=== PATIENT | male | born 1970 | race Caucasian/White ===

== ENCOUNTER 2018-11-04 08:41 | Outpatient (REF) | payer MEDICAID, SELFPAY ==
[2018-11-04 15:15] LABS: ALT 32 U/L (12-78); AST 24 U/L (15-37); Albumin 4.1 g/dL (3.4-5.0); Alkaline Phosphatase 94 U/L (46-116); Anion Gap 9.8 mmol/L (3-11); BUN 22 mg/dL (7-18); Bilirubin, Total 0.5 mg/dL (0.2-1.0); CO2 27.2 mmol/L (21.0-32.0); CREATININE 0.83 mg/dL (0.70-1.30); Calcium 9.1 mg/dL (8.5-10.1); Chloride 102 mmol/L (98-107); Cholesterol 249 mg/dL (50-200); Glucose 96 mg/dL (70-100); HDL Cholesterol 36 mg/dL (40-60); LDL CHOLESTEROL 175 mg/dL (<100); Potassium 4.3 mmol/L (3.5-5.1); Sodium 139 mmol/L (136-145); Total Protein 7.5 g/dL (6.4-8.2); Triglyceride 234 mg/dL (30-150)
== END 2018-11-04 09:01 ==
LOC: NCHCN 08:41
PROVIDERS: Visit Provider Nurse Practitioner Family
DX: Z00.00 Encounter for general adult medical examination without abnormal findings (principal); Z13.228 Encounter for screening for other metabolic disorders; Z13.220 Encounter for screening for lipoid disorders
CPT/HCPCS: 80053; 80061; 83721

== ENCOUNTER 2019-05-11 15:14 | Emergency (ER) | payer MEDICAID, SELFPAY ==
[2019-05-11] VITALS (34 sets, daily range): BP systolic 123–160; BP diastolic 79–105; PULSE 64–83; RESP 6–21; TEMP 36.7; O2SAT 95–98
--- NOTE | 2019-05-11 15:19 | W.ED.GENAD ---
Discharge Plan Disposition Patient Disposition: [facility] Condition: Stable Discharge Details Chief Complaint: Chest Pain Clinical Impression: Non-ST elevation [place] (NSTEMI), Chest pain Primary Care Provider: None,None ED Provider: Migel Ross Discharge Data Discharge Date/Time-TO BE ENTERED AT DEPARTURE: 05/11/19 19:12 Medical Decision Making <JAMIE Bird - Last Filed: 05/12/19 08:49> Patient is a 48-year-old male presents today with chief complaint of chest pain that has been intermittent over the past 5 days. Patient describes the pain as aching radiating to bilateral upper extremities, worse on the right than the left. Pain is not reproducible with exertion or palpation of the chest. Is unclear how long the pain lasts when it comes on, does not stop activities secondary to the discomfort. Denies any shortness of breath, no exertional dyspnea. No recent travel. No difficulty breathing. Patient has no personal history of cardiac disease but does report that his father had a triple bypass in his mid to late 60s. No known respiratory illness. No recent illness. No cough, cold, fevers or chills. Denies any GI upset. No ETOH use. Uses oral nicotine. On exam, the patient appears to be resting comfortably. Normal cardiac exam with pulses equal in bilateral upper and lower extremities. Heart sounds normal. Regular rate and rhythm. Concerned for cardiac etiology. Also concidered pulmonary source. Plan for EKG, labs, cxr. EKG reviewed by Dr. Veliz. Please see his note. At the end of my shift, care transitioned to Dr. Ross with imaging and labs pending. Patient has received aspirin. <Migel Ross DO - Last Filed: 05/12/19 10:24> Upon my evaluation, this patient had a high probability of imminent or life-threatening deterioration, which required my direct attention, intervention, and personal management. I have personally provided 45 minutes of critical care time exclusive of time spent on separately billable procedures. Time includes review of laboratory data, radiology results, discussion with consultants, and monitoring for potential decompensation. Interventions were performed as documented above. The case was signed out to me by my colleague Leela Ortiz, we are pending laboratory work-up at that time and imaging results. Laboratory work-up has returned, demonstrates normal white count, normal platelets, normal electrolytes, normal renal function, however the patient's troponin is notably elevated at 0.87. I did reassess the patient, and for a brief review of the history, he has had a father who had triple bypass roughly 10 years older than his current age, he is a regular oral tobacco user, no over the last 5 days he has been noting progressive dyspnea, shortness of breath, and chest pain there is both been exertional and nonexertional, in addition to this he is also noted over the last 1 to 2 months that he has been increasingly fatigued when doing activities. Currently the patient states that his chest pain is marginal, and he does not want anything additional for the pain. He did receive aspirin when he arrived. EKG was done and showed no significant component of STEMI, however there were nonspecific abnormalities. In conjunction with the patient's history, cardiac risk factors, and elevated troponin I do feel that he is clearly suffering from an STEMI most likely secondary to cardiac ischemia. Heparin has been started, Plavix is given, we did contact [place] and I discussed the case with Dr. Castelan, who reviewed the labs, personally reviewed the EKGs, and the entire clinical presentation was discussed who agrees with the assessment and plan the need for transfer. He has no additional recommendations at this time. Patient will be transferred via crime scene analyst and calyx to [place] for definitive cardiology evaluation and management. I have extensively reviewed the treatment plan with the patient. I have addressed all patient concerns at this time. I have also discussed the plan with the admitting physician and they agree with the current assessment and plan and have agreed to assume responsibility for the patient. All parties demonstrate verbal understanding and agreement with our assessment and plan at this time. At time of transfer the patient was reassessed and continued to demonstrate current medical stability. No signs of acute respiratory distress requiring intubation, hemodynamic instability requiring pressor support, or rapidly declining mental status. The patient is stable for transport. EKG 15: 24 Rate 77, AL 102, QTc 446, QRS 108, junctional rhythm, no significant ST elevations or depressions except for mild less than 1 mm elevation in V6. Mild peaking of T waves. Inverted T wave is present in lead III and aVF. No significant Q waves. No evidence of STEMI. Washable atypical morphology of proximal component of QRS complex however no definitive delta wave is seen however morphology slightly atypical in lead II and aVF. These findings were reviewed with Dr. Castelan EKG 15: 15: 29 Rate 70, AL 100, QTc 432, QRS 104, junctional rhythm, consistent findings of T wave peaking, inverted T wave in lead III and aVF, and atypical proximal QRS morphology. No evidence of STEMI or other acute changes. These findings were reviewed with Dr. Castelan FINDINGS: The lung yoon are clear bilaterally. No focal pulmonary consolidation is present. The cardiac silhouette is within normal limits. The costophrenic angles are sharp. The bony structures appear unremarkable. IMPRESSION: No evidence of acute cardiopulmonary disease. Dictated and Authenticated by: Kd Youssef MD. Ordering:EDENILSON Swenson MD HPI <JAMIE Bird - Last Filed: 05/12/19 08:49> General Mode of arrival: ambulatory. Date/Time Provider Initiated Documentation: 05/11/19 15:26. Limitations to Documentation: no limitations. Information obtained by: patient, family (accompanied by significant other) and RN notes reviewed. HPI Narrative: Patient is a 48-year-old male, coming by significant other, with chief complaint of chest pain. He reports that he has had intermittent, nonreproducible chest pain for the past 5 days. States the pain has come on during various activities but does not seem to be slowly exertional driven. Denies any shortness of breath or difficulty breathing. No cardiac or pulmonary history that he is aware of. 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 States the pain typically subsides without intervention. Denies any fevers or chills. States the pain can radiate into bilateral arms, worse on the right than the left. States that pain can radiate into his back, particularly the left scapula. Related Data Allergies Allergy/AdvReac Type Severity Reaction Status Date / Time No Known Allergies Allergy Unverified 05/11/19 16:22 Review of Systems <JAMIE Bird - Last Filed: 05/12/19 08:49> Constitutional Reports as per HPI, Denies chills, Denies fever(s), Denies headache(s), Denies lethargy and Denies poor appetite Eyes Denies change in vision ENT Denies dizziness and Denies headache(s) Cardiovascular Reports as per HPI, Reports chest pain, Reports chest pain at rest, Reports chest pain with activity (pain is not solely exertion), Denies diaphoresis, Denies syncope, Denies rapid heart rate, Denies pedal edema, Denies edema, Reports radiating jaw, neck or arm pain (bilateral arms), Denies palpitations, Denies dyspnea and Denies dyspnea on exertion Respiratory Reports as per HPI, Denies chest congestion, Denies cough, Denies pain on inspiration, Denies pain with cough, Denies dyspnea, Denies dyspnea on exertion and Denies wheezing Gastrointestinal Reports as per HPI, Denies abdominal pain, Denies diarrhea, Denies nausea and Denies vomiting Genitourinary Denies system reviewed and no additional complaints, except as docu (denies change in urinary habits) Musculoskeletal Reports as per HPI and Denies back pain Integumentary/Breasts Reports as per HPI and Denies rash Neurologic Reports as per HPI, Denies dizziness, Denies syncope and Denies headache(s) Endocrine Denies palpitations Allergic/Immunologic Denies wheezing PFSH <JAMIE Bird - Last Filed: 05/12/19 08:49> Social History Smoking/Tobacco Use Status: Current every day Tobacco Type: smokeless tobacco Alcohol Intake: current Alcohol Intake frequency: holidays/special occasions only Substance use type: does not use Do you feel safe at home: Yes Do you feel safe in your relationship?: Yes Exam <JAMIE Bird - Last Filed: 05/12/19 08:49> Const General: cooperative, healthy appearing, comfortable, no acute distress and well developed Nutritional Appearance: well nourished and overweight Orientation: alert, awake and oriented x3 HENMT Head: normal to inspection Ears: hearing grossly normal bilaterally Mouth: moist mucous membranes Chest Chest: normal inspection of the chest, normal palpation of entire chest wall and no crepitus Resp Effort & Inspection: normal respiratory effort, able to speak in complete sentences and no respiratory distress Auscultation: clear to auscultation bilaterally, no rales, no rhonchi and no wheezes Cardio Rate: regular rate Rhythm: regular rhythm Heart Sounds: S1 normal and S2 normal GI Inspection: normal to inspection, no edema, non-distended and obesity Palpation: soft, no hepatosplenomegaly, not firm, no guarding, not rigid and nontender Auscultation: normal bowel sounds Back/Spine/Pelvis Back: no CVA tenderness Thoracic/Lumbar Spine: thoracic and lumbar spine normal to inspection Skin General skin exam: no rashes or lesions noted Trauma: no lacerations or abrasions Neuro General: alert, awake and oriented x3 Cognition: normal cognition Speech: speech normal Gait: normal gait Extrem General: normal to inspection, normal capillary refill, no pedal edema, no calf tenderness and normal gait Psych Appearance: grossly normal and well kempt Mental Status: mental status grossly normal Speech and Movement: speech and movement normal Sign Out <JAMIE Bird - Last Filed: 05/12/19 08:49> Sign Out Data: Sign Out Comment: Care transitioned to Dr. Ross with labs and imaging pending. Patient presenting with intermittent CP x 5 days. Received ASA. Last updated by Leela Giordano PA at 05/11/19 15:46
[2019-05-11] MEDS: Aspirin 81 MG CHEW 324 MG CH (15:34)
--- NOTE | 2019-05-11 15:34 | ED.GENADUL_ITS ---
Discharge Plan Disposition Patient Disposition: [facility] Condition: Stable Discharge Details Chief Complaint: Chest Pain Clinical Impression: Non-ST elevation [place] (NSTEMI), Chest pain Primary Care Provider: None,None ED Provider: Migel Ross Discharge Data Discharge Date/Time-TO BE ENTERED AT DEPARTURE: 05/11/19 19:12 Medical Decision Making <AJMIE Bird - Last Filed: 05/12/19 08:49> Patient is a 48-year-old male presents today with chief complaint of chest pain that has been intermittent over the past 5 days. Patient describes the pain as aching radiating to bilateral upper extremities, worse on the right than the left. Pain is not reproducible with exertion or palpation of the chest. Is unclear how long the pain lasts when it comes on, does not stop activities secondary to the discomfort. Denies any shortness of breath, no exertional dyspnea. No recent travel. No difficulty breathing. Patient has no personal history of cardiac disease but does report that his father had a triple bypass in his mid to late 60s. No known respiratory illness. No recent illness. No cough, cold, fevers or chills. Denies any GI upset. No ETOH use. Uses oral nicotine. On exam, the patient appears to be resting comfortably. Normal cardiac exam with pulses equal in bilateral upper and lower extremities. Heart sounds normal. Regular rate and rhythm. Concerned for cardiac etiology. Also concidered pulmonary source. Plan for EKG, labs, cxr. EKG reviewed by Dr. Veliz. Please see his note. At the end of my shift, care transitioned to Dr. Ross with imaging and labs pending. Patient has received aspirin. <Migel Ross DO - Last Filed: 05/12/19 10:24> Upon my evaluation, this patient had a high probability of imminent or life- threatening deterioration, which required my direct attention, intervention, and personal management. I have personally provided 45 minutes of critical care time exclusive of time spent on separately billable procedures. Time includes review of laboratory data, radiology results, discussion with consultants, and monitoring for potential decompensation. Interventions were performed as documented above. The case was signed out to me by my colleague Leela Ortiz, we are pending laboratory work-up at that time and imaging results. Laboratory work-up has returned, demonstrates normal white count, normal platelets, normal electrolytes, normal renal function, however the patient's troponin is notably elevated at 0.87. I did reassess the patient, and for a brief review of the history, he has had a father who had triple bypass roughly 10 years older than his current age, he is a regular oral tobacco user, no over the last 5 days he has been noting progressive dyspnea, shortness of breath, and chest pain there is both been exertional and nonexertional, in addition to this he is also noted over the last 1 to 2 months that he has been increasingly fatigued when doing activities. Currently the patient states that his chest pain is marginal, and he does not want anything additional for the pain. He did receive aspirin when he arrived. EKG was done and showed no significant component of STEMI, however there were nonspecific abnormalities. In conjunction with the patient's history, cardiac risk factors, and elevated troponin I do feel that he is clearly suffering from an STEMI most likely secondary to cardiac ischemia. Heparin has been started, Plavix is given, we did contact [facility] and I discussed the case with Dr. Castelan, who reviewed the labs, personally reviewed the EKGs, and the entire clinical presentation was discussed who agrees with the assessment and plan the need for transfer. He has no additional recommendations at this time. Patient will be transferred via security field supervisor and calyx to [facility] for definitive cardiology evaluation and management. I have extensively reviewed the treatment plan with the patient. I have addressed all patient concerns at this time. I have also discussed the plan with the admitting physician and they agree with the current assessment and plan and have agreed to assume responsibility for the patient. All parties demonstrate verbal understanding and agreement with our assessment and plan at this time. At time of transfer the patient was reassessed and continued to demonstrate current medical stability. No signs of acute respiratory distress requiring intubation, hemodynamic instability requiring pressor support, or rapidly declining mental status. The patient is stable for transport. EKG 15: 24 Rate 77, VT 102, QTc 446, QRS 108, junctional rhythm, no significant ST elevations or depressions except for mild less than 1 mm elevation in V6. Mild peaking of T waves. Inverted T wave is present in lead III and aVF. No significant Q waves. No evidence of STEMI. Washable atypical morphology of proximal component of QRS complex however no definitive delta wave is seen however morphology slightly atypical in lead II and aVF. These findings were reviewed with Dr. Castelan EKG 15: 15: 29 Rate 70, VT 100, QTc 432, QRS 104, junctional rhythm, consistent findings of T wave peaking, inverted T wave in lead III and aVF, and atypical proximal QRS morphology. No evidence of STEMI or other acute changes. These findings were reviewed with Dr. Castelan FINDINGS: The lung yoon are clear bilaterally. No focal pulmonary consolidation is present. The cardiac silhouette is within normal limits. The costophrenic angles are sharp. The bony structures appear unremarkable. IMPRESSION: No evidence of acute cardiopulmonary disease. Dictated and Authenticated by: Kd Youssef MD. Ordering:EDENILSON Swenson MD HPI <JAMIE Bird - Last Filed: 05/12/19 08:49> General Mode of arrival: ambulatory . Date/Time Provider Initiated Documentation: 05/11/19 15:26 . Limitations to Documentation: no limitations . Information obtained by: patient, family (accompanied by significant other) and RN notes reviewed . HPI Narrative: Patient is a 48-year-old male, coming by significant other, with chief complaint of chest pain. He reports that he has had intermittent, nonreproducible chest pain for the past 5 days. States the pain has come on during various activities but does not seem to be slowly exertional driven. Denies any shortness of breath or difficulty breathing. No cardiac or pulmonary history that he is aware of. 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 States the pain typically subsides without intervention. Denies any fevers or chills. States the pain can radiate into bilateral arms, worse on the right than the left. States that pain can radiate into his back, particularly the left scapula. Related Data Allergies Allergy/AdvReac Type Severity Reaction Status Date / Time No Known Allergies Allergy Unverified 05/11/19 16:22 Review of Systems <JAMIE Bird - Last Filed: 05/12/19 08:49> Constitutional Reports as per HPI, Denies chills, Denies fever(s), Denies headache(s), Denies lethargy and Denies poor appetite Eyes Denies change in vision ENT Denies dizziness and Denies headache(s) Cardiovascular Reports as per HPI, Reports chest pain, Reports chest pain at rest, Reports chest pain with activity (pain is not solely exertion), Denies diaphoresis, Denies syncope, Denies rapid heart rate, Denies pedal edema, Denies edema, Reports radiating jaw, neck or arm pain (bilateral arms), Denies palpitations, Denies dyspnea and Denies dyspnea on exertion Respiratory Reports as per HPI, Denies chest congestion, Denies cough, Denies pain on inspiration, Denies pain with cough, Denies dyspnea, Denies dyspnea on exertion and Denies wheezing Gastrointestinal Reports as per HPI, Denies abdominal pain, Denies diarrhea, Denies nausea and Denies vomiting Genitourinary Denies system reviewed and no additional complaints, except as docu (denies change in urinary habits) Musculoskeletal Reports as per HPI and Denies back pain Integumentary/Breasts Reports as per HPI and Denies rash Neurologic Reports as per HPI, Denies dizziness, Denies syncope and Denies headache(s) Endocrine Denies palpitations Allergic/Immunologic Denies wheezing PFSH <JAMIE Bird - Last Filed: 05/12/19 08:49> Social History Smoking/Tobacco Use Status: Current every day Tobacco Type: smokeless tobacco Alcohol Intake: current Alcohol Intake frequency: holidays/special occasions only Substance use type: does not use Do you feel safe at home: Yes Do you feel safe in your relationship?: Yes Exam <JAMIE Bird - Last Filed: 05/12/19 08:49> Const General: cooperative, healthy appearing, comfortable, no acute distress and well developed Nutritional Appearance: well nourished and overweight Orientation: alert, awake and oriented x3 HENMT Head: normal to inspection Ears: hearing grossly normal bilaterally Mouth: moist mucous membranes Chest Chest: normal inspection of the chest, normal palpation of entire chest wall and no crepitus Resp Effort & Inspection: normal respiratory effort, able to speak in complete sentences and no respiratory distress Auscultation: clear to auscultation bilaterally, no rales, no rhonchi and no wheezes Cardio Rate: regular rate Rhythm: regular rhythm Heart Sounds: S1 normal and S2 normal GI Inspection: normal to inspection, no edema, non-distended and obesity Palpation: soft, no hepatosplenomegaly, not firm, no guarding, not rigid and nontender Auscultation: normal bowel sounds Back/Spine/Pelvis Back: no CVA tenderness Thoracic/Lumbar Spine: thoracic and lumbar spine normal to inspection Skin General skin exam: no rashes or lesions noted Trauma: no lacerations or abrasions Neuro General: alert, awake and oriented x3 Cognition: normal cognition Speech: speech normal Gait: normal gait Extrem General: normal to inspection, normal capillary refill, no pedal edema, no calf tenderness and normal gait Psych Appearance: grossly normal and well kempt Mental Status: mental status grossly normal Speech and Movement: speech and movement normal Sign Out <JAMIE Bird - Last Filed: 05/12/19 08:49> Sign Out Data: Sign Out Comment: Care transitioned to Dr. Ross with labs and imaging pending. Patient presenting with intermittent CP x 5 days. Received ASA. Last updated by Leela Giordano PA at 05/11/19 15:46
[2019-05-11 16:02] LABS: ALT 31 U/L (12-78); AST 24 U/L (15-37); Albumin 4.3 g/dL (3.4-5.0); Alkaline Phosphatase 86 U/L (46-116); Anion Gap 10.9 mmol/L (3-11); BUN 20 mg/dL (7-18); Bilirubin, Total 0.4 mg/dL (0.2-1.0); CO2 24.1 mmol/L (21.0-32.0); CREATININE 0.98 mg/dL (0.70-1.30); Calcium 9.3 mg/dL (8.5-10.1); Chloride 105 mmol/L (98-107); Glucose 114 mg/dL (70-100); Magnesium 1.8 mg/dL (1.8-2.4); Potassium 4.1 mmol/L (3.5-5.1); Sodium 140 mmol/L (136-145); Total Protein 7.9 g/dL (6.4-8.2)
[2019-05-11 16:03] LABS: Prothrombin Time 9.6 sec (9.3-11.0)
[2019-05-11 16:07] LABS: Abs Immature Grans 0.03 k/cumm (0.0-0.09); Absolute Basophil Count 0.04 k/cumm (0.0-0.2); Absolute Eosinophil Count 0.12 k/cumm (0.0-0.7); Absolute Monocyte Count 0.57 k/cumm (0.11-0.7); Absolute Neutrophil Count 5.96 k/cumm (1.2-6.7); Basophils % 0.5; Eosinophils % 1.4; HCT 41.4 % (40.0-50.0); HGB 15.1 g/dL (13.5-17.5); Immature Grans % 0.3; Mean Corp. HGB Concentration 36.5 g/dL (32.0-36.0); Mean Corpuscular Hemoglobin 32.5 pg (27.0-33.0); Mean Corpuscular Volume 89.2 fL (80-95); Mean Platelet Volume 10.9 fL (8.0-11.0); Monocytes % 6.6; Neutrophils % 69.2; Platelet Count 209 x1000/uL (130-400); RBC 4.64 m/cumm (4.50-6.00); RBC Distribution Width 14.2 % (11.8-14.1); White Blood Cell Count 8.62 k/cumm (4.4-10.8)
[2019-05-11 16:08] LABS: Troponin I 0.87 ng/mL (0.00-0.06)
--- NOTE | 2019-05-11 16:14 | DI.RAD_ITS ---
SYMPTOM/DIAGNOSIS: CHEST PAIN PA AND LATERAL CHEST: There are no prior comparison exams. The heart size is normal. There is no mediastinal widening. The lungs appear clear. No infiltrate, effusion or pneumothorax is seen. IMPRESSION: Negative chest x-ray.
--- NOTE | 2019-05-11 16:18 | DI.VRAD_ITS ---
EXAM: XR Chest, 2 Views EXAM DATE/TIME: 05/11/2019 3:29 PM CLINICAL HISTORY: 48 years old, male; Type not specified; Patient HX: Chest pain, tingling in fingers bilaterally. TECHNIQUE: Imaging protocol: XR of the chest, 2 views. COMPARISON: No relevant prior studies available. FINDINGS: The lung yoon are clear bilaterally. No focal pulmonary consolidation is present. The cardiac silhouette is within normal limits. The costophrenic angles are sharp. The bony structures appear unremarkable. IMPRESSION: No evidence of acute cardiopulmonary disease. Dictated and Authenticated by: Kd Youssef MD. Ordering:EDENILSON Swenson MD
[2019-05-11] MEDS: Normal Saline 1,000 ML 125 ML IV (16:24)
[2019-05-11] MEDS: Clopidogrel 300 MG TAB PO (17:08)
--- NOTE | 2019-05-11 17:26 | NUR.NOTE ---
Nursing Note: Report given to RN at [facility]
[2019-05-15 09:56] LABS: Anaplasma phagocytophilum Negative (Negative); B. miyamotoi PCR Negative (Negative); Babesia divergens/MO-1 Negative (Negative); Babesia duncani Negative (Negative); Babesia microti Negative (Negative); Ehrlichia chaffeensis Negative (Negative); Ehrlichia ewingii/canis Negative (Negative); Ehrlichia muris eauclairensis Negative (Negative)
[2019-05-15 12:06] LABS: Lyme Ab w Rflx to Lyme Confirm Negative
== END 2019-05-11 19:12 | disposition short-term general hospital (02) ==
PROVIDERS: Physician Assistant; Emergency Provider Student in an Organized Health Care Education/Training Program; PCP Nurse Practitioner Family
DX: I21.4 Non-ST elevation (NSTEMI) myocardial infarction (principal); Z82.49 Family history of ischemic heart disease and other diseases of the circulatory system
CPT/HCPCS: 36415; 80053; 87798; 93005; 96361; 96365; 96366; 99291; 71046; 83735; 84484; 85025; 85610; 85730; 86618; 93010

== ENCOUNTER 2019-05-19 02:13 | Outpatient (CLI) | payer MEDICAID, SELFPAY ==
[2019-05-19 09:55] LABS: Anion Gap 10.7 mmol/L (3-11); BUN 18 mg/dL (7-18); CO2 25.3 mmol/L (21.0-32.0); CREATININE 0.82 mg/dL (0.70-1.30); Calcium 8.9 mg/dL (8.5-10.1); Chloride 102 mmol/L (98-107); Glucose 90 mg/dL (70-100); Potassium 4.3 mmol/L (3.5-5.1); Sodium 138 mmol/L (136-145)
== END 2019-05-19 02:33 ==
PROVIDERS: PCP Nurse Practitioner Family; Referring Provider Nurse Practitioner; Visit Provider Physician Assistant
DX: E78.2 Mixed hyperlipidemia (principal); I21.4 Non-ST elevation (NSTEMI) myocardial infarction
CPT/HCPCS: 36415; 80048

== ENCOUNTER 2019-05-19 13:20 | Observation (INO) | payer MEDICAID, SELFPAY ==
[2019-05-19] VITALS (58 sets, daily range): BP systolic 89–138; BP diastolic 57–86; PULSE 50–77; RESP 16; TEMP 36.6; O2SAT 94–100
--- NOTE | 2019-05-19 13:33 | DI.RAD_ITS ---
SYMPTOMS/DIAGNOSIS: CHEST PAIN CHEST X-RAY, PA AND LATERAL: Comparison is 05/11/19. The heart is normal in size. The lungs are clear. The mediastinal structures and pleura appear intact. IMPRESSION: Normal chest.
[2019-05-19 13:55] LABS: Abs Immature Grans 0.03 k/cumm (0.0-0.09); Absolute Basophil Count 0.04 k/cumm (0.0-0.2); Absolute Eosinophil Count 0.16 k/cumm (0.0-0.7); Absolute Lymphocyte Count 2.15 k/cumm (1.2-3.4); Absolute Monocyte Count 0.68 k/cumm (0.11-0.7); Absolute Neutrophil Count 6.79 k/cumm (1.2-6.7); Basophils % 0.4; Eosinophils % 1.6; HCT 39.6 % (40.0-50.0); HGB 14.4 g/dL (13.5-17.5); Immature Grans % 0.3; Lymphocytes % 21.8; Mean Corp. HGB Concentration 36.4 g/dL (32.0-36.0); Mean Corpuscular Hemoglobin 32.7 pg (27.0-33.0); Mean Corpuscular Volume 89.8 fL (80-95); Mean Platelet Volume 10.4 fL (8.0-11.0); Monocytes % 6.9; Platelet Count 293 x1000/uL (130-400); RBC 4.41 m/cumm (4.50-6.00); RBC Distribution Width 13.3 % (11.8-14.1); White Blood Cell Count 9.85 k/cumm (4.4-10.8)
--- NOTE | 2019-05-19 14:01 | W.ED.GENAD ---
Discharge Plan Disposition Patient Disposition: [facility] INPATIENT Condition: Serious Discharge Details Chief Complaint: Chest Pain Clinical Impression: Chest pain Primary Care Provider: Leslie He ED Provider: Jose Veliz Home Meds and New Rx's Prescriptions: No Action clopidogrel 75 mg Tablet 75 mg DAILY RF: 0 pantoprazole 40 mg Tablet,Delayed Release (Dr/Ec) 40 mg PO DAILY RF: 0 lisinopril 5 mg Tablet 0.5 mg BID RF: 0 atorvastatin 80 mg Tablet 80 mg DAILY RF: 0 sertraline 100 mg Tablet 100 mg DAILY RF: 0 aspirin 81 mg Tablet,Chewable 81 mg DAILY RF: 0 nitroglycerin 0.6 mg Tablet, Sublingual 0.4 mg RF: 0 Medical Decision Making 14:00 --48-year-old male with history of coronary artery disease status post stent on 05/12/2019 to OM1 of left circumflex, taking Plavix as prescribed, here with chest pain 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 Patient currently pain-free. He is bradycardic in the 50s and hypotensive with systolic blood pressure in the 90s. ECG reviewed and interpreted by me: Sinus bradycardia 50 bpm, normal axis, T wave inversion noted in lead III, hyperacute T waves noted V2 to V5. There are some T wave changes compared to prior ECG 05/11/2019. Plan to check troponin. --Initial troponin negative. Chest x-ray interpreted by radiology as normal. --I called [facility] cardiology and spoke with Dr. Parker and requested transfer. Dr. Parker knows the patient well from his recent admission and notes that currently no beds available to accept patient in transfer and recommends that the patient be admitted here at [facility] for further observation and trending of troponin. Patient reassessed and has remained stable here in the emergency department. He continues to be bradycardic with low normal blood pressure. Patient is on new beta-kimi and new lisinopril. I called and spoke with Dr. Adorno who will speak to Dr. Patel about the admission. 17:19 --spoke with Dr. Patel who will admit the patient. He is coming to the emerge department to evaluate the patient. Delta troponin is pending. 18:10 -- Second troponin interpreted by radiology as negative. Second troponin reviewed and interpreted by me: Sinus bradycardia 57 bpm, voltage criteria noted for LVH, peaked T's persist. No STEMI. Dr. Patel is here seeing the patient for admission. Care transition to Dr. Patel [facility] General Mode of arrival: ambulatory. Date/Time Provider Initiated Documentation: 05/19/19 13:32. Limitations to Documentation: no limitations. Information obtained by: patient. HPI Narrative: 48-year-old male with history of hyperlipidemia, hypertension, chewing tobacco, recent and STEMI status post stent 1 week ago to first obtuse marginal branch of the left circumflex artery which was 100% occluded, presents today with chief complaint of chest pain. Patient notes he was feeling well yesterday and this morning. 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 Patient notes while finishing up milking around noon he developed pain in his left arm that then radiated to his left scapula and chest. Pain was moderate and he had associated dizziness and presyncope that were severe. He took nitroglycerin x3 that did help his pain and symptoms. He currently has no pain. He denies lower extremity swelling or pain. Related Data Home Medications Medication Instructions Recorded Confirmed aspirin 81 mg DAILY 05/19/19 05/19/19 atorvastatin 80 mg DAILY 05/19/19 05/19/19 clopidogrel 75 mg DAILY 05/19/19 05/19/19 lisinopril 0.5 mg BID 05/19/19 05/19/19 nitroglycerin 0.4 mg 05/19/19 pantoprazole 40 mg PO DAILY 05/19/19 05/19/19 sertraline 100 mg DAILY 05/19/19 05/19/19 Allergies Allergy/AdvReac Type Severity Reaction Status Date / Time No Known Allergies Allergy Unverified 05/11/19 16:22 General Stated Complaint: Chest Pain BECCA: 2 Review of Systems Review of Systems All systems reviewed & are unremarkable except as noted in HPI and below Constitutional Denies fever(s) Cardiovascular Reports as per HPI, Reports chest pain, Denies syncope and Denies dyspnea Respiratory Denies dyspnea Neurologic Denies syncope [facility] Medical History (Updated 05/19/19 @ 14:08 by Jose Veliz MD) NSTEMI (non-ST elevated myocardial infarction) (Acute) Social History Smoking/Tobacco Use Status: Current every day Tobacco Type: smokeless tobacco Alcohol Intake: current Alcohol Intake frequency: holidays/special occasions only Substance use type: does not use Do you feel safe at home: Yes Do you feel safe in your relationship?: Yes Exam Const General: cooperative and no acute distress [facility] Head: normocephalic and atraumatic Mouth: moist mucous membranes Eyes Conjunctivae: normal conjunctivae Sclera: normal sclerae Neck Neck: trachea midline and supple Resp Auscultation: clear to auscultation bilaterally, no rales, no rhonchi and no wheezes Cardio Jugular venous pressure: no JVD Rate: regular rate and not tachycardic Rhythm: regular rhythm GI Palpation: soft, not firm, no guarding, no masses, not rigid and nontender Skin General skin exam: no rashes or lesions noted Neuro General: alert, awake and tone normal Extrem General: no calf tenderness and no edema Psych Appearance: grossly normal Mental Status: mental status grossly normal Course Vital Signs Temperature 36.6 C 05/19/19 13:27 Pulse 50 L 05/19/19 13:27 Respiratory Rate 16 05/19/19 13:27 Blood Pressure 100/65 05/19/19 13:27 Pulse Oximetry 100 05/19/19 13:27 Temperature 36.6 C 05/19/19 13:27 Temperature Source Skin 05/19/19 13:27 Pulse 50 L 05/19/19 13:27 Respiratory Rate 16 05/19/19 13:27 Respiratory Effort Non-Labored 05/19/19 13:27 Blood Pressure 100/65 05/19/19 13:27 Blood Pressure Position Supine 05/19/19 13:27 Pulse Oximetry 100 05/19/19 13:27 Oxygen Delivery Method Room Air 05/19/19 13:27 Oxygen Flow Rate 0 05/19/19 13:27 Lab/Test Results Lab/Test Results: Laboratory Tests Range/Units 05/19/19 13:38 WBC (4.4-10.8) k/cumm 9.85 RBC (4.50-6.00) m/cumm 4.41 L Hgb (13.5-17.5) g/dL 14.4 Hct (40.0-50.0) % 39.6 L MCV (80-95) fL 89.8 MCH (27.0-33.0) pg 32.7 MCHC (32.0-36.0) g/dL 36.4 H RDW (11.8-14.1) % 13.3 Plt Count (130-400) x1000/uL 293 MPV (8.0-11.0) fL 10.4 Immature Gran % 0.3 Neutrophils % 69.0 Lymphocytes % 21.8 Monocytes % 6.9 Eosinophils % 1.6 Basophils % 0.4 Absolute Neutrophils (1.2-6.7) k/cumm 6.79 H Absolute Lymphocytes (1.2-3.4) k/cumm 2.15 Absolute Monocytes (0.11-0.7) k/cumm 0.68 Absolute Eosinophils (0.0-0.7) k/cumm 0.16 Absolute Basophils (0.0-0.2) k/cumm 0.04
[2019-05-19 14:15] LABS: ALT 33 U/L (12-78); AST 21 U/L (15-37); Albumin 4.2 g/dL (3.4-5.0); Alkaline Phosphatase 95 U/L (46-116); BUN 23 mg/dL (7-18); Bilirubin, Total 0.6 mg/dL (0.2-1.0); CREATININE 1.18 mg/dL (0.70-1.30); Calcium 9.1 mg/dL (8.5-10.1); Chloride 100 mmol/L (98-107); Glucose 108 mg/dL (70-100); Magnesium 2.3 mg/dL (1.8-2.4); NT-proBNP 286 pg/mL; Potassium 4.5 mmol/L (3.5-5.1); Sodium 138 mmol/L (136-145); Total Protein 8.1 g/dL (6.4-8.2); Troponin I 0.06 ng/mL (0.00-0.06)
[2019-05-19 17:42] LABS: Troponin I 0.05 ng/mL (0.00-0.06)
--- NOTE | 2019-05-19 18:14 | W.PM.HP.N ---
Date of service: 05/19/19 Time of Service: 18:14 Assessment and Plan (1) Arm pain: Current visit: Yes Status: Acute Symptoms may have represented coronary insufficiency, but no evidence of ongoing ischemia. Stent closure would be primary concern, or perhaps hypoperfusion secondary to hypotension (meds?). Regardless will complete r/o protocol and will follow with beta kimi and STONE on hold for the moment. History of Present Illness Chief Complaint: arm pain, pre-syncope Narrative: 48 male, i week sp/ NSTEMI with stent left CX, sent out on beta blockerr and STONE. 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 Resolved with NTG x3. Asymptomatic since. Here in ER troponin x 2 negative, EKG without acute changes and stable. Case reviewed with team [place] [facility] advised monitoring, did not feel transfer was indicated. Patient feels entirely well, wishes to go home, but agrees to stay. Note inntial BP here 103/sys with pulse 50. Review of Systems Review of Systems All systems reviewed & are unremarkable except as noted in HPI and below PFSH Medical History NSTEMI (non-ST elevated myocardial infarction) (Acute) Social History Smoking/Tobacco Use Status: Current every day Tobacco Type: smokeless tobacco Alcohol Intake: current Alcohol Intake frequency: holidays/special occasions only Substance use type: does not use Do you feel safe at home: Yes Do you feel safe in your relationship?: Yes Meds Home Medications Medication Instructions Recorded Confirmed Type aspirin 81 mg DAILY 05/19/19 05/19/19 History atorvastatin 80 mg DAILY 05/19/19 05/19/19 History clopidogrel 75 mg DAILY 05/19/19 05/19/19 History lisinopril 0.5 mg BID 05/19/19 05/19/19 History nitroglycerin 0.4 mg 05/19/19 History pantoprazole 40 mg PO DAILY 05/19/19 05/19/19 History sertraline 100 mg DAILY 05/19/19 05/19/19 History Allergies Allergy/AdvReac Type Severity Reaction Status Date / Time No Known Allergies Allergy Unverified 05/11/19 16:22 Exam Narrative Exam Narrative: 123/57, 67, 16, 36.6. HEENT unremarkable; neck supple w/o JVD; lungs clear; heart RRR w/o MRG; abdomen soft NT; /rectal deferred; extr w/o edema pulses 2+/= Results Labs : 05/19/19 13:38 05/19/19 13:38 Laboratory Results - last 24 hr 05/19/19 05/19/19 05/19/19 13:38 13:38 17:20 WBC 9.85 RBC 4.41 L Hgb 14.4 Hct 39.6 L MCV 89.8 MCH 32.7 MCHC 36.4 H RDW 13.3 Plt Count 293 MPV 10.4 Immature Gran % 0.3 Neutrophils % 69.0 Lymphocytes % 21.8 Monocytes % 6.9 Eosinophils % 1.6 Basophils % 0.4 Absolute Neutrophils 6.79 H Absolute Lymphocytes 2.15 Absolute Monocytes 0.68 Absolute Eosinophils 0.16 Absolute Basophils 0.04 Sodium 138 Potassium 4.5 Chloride 100 Carbon Dioxide 28.0 Anion Gap 10.0 BUN 23 H Creatinine 1.18 Estimated GFR/1.73 m2 >= 60.00 Glucose 108 H Calcium 9.1 Magnesium 2.3 Total Bilirubin 0.6 AST 21 ALT 33 Alkaline Phosphatase 95 Troponin I 0.06 0.05 NT-Pro-B Natriuret Pep 286 Total Protein 8.1 Albumin 4.2 Last Vital Signs Temp 36.6 C 05/19/19 13:27 Pulse 57 L 05/19/19 17:31 Resp 16 05/19/19 13:27 BP 123/57 L 05/19/19 17:31 Pulse Ox 98 05/19/19 17:40
[2019-05-19] MEDS: Pantoprazole 40 MG TABCR PO (21:42)
[2019-05-19] MEDS: Sertraline 50 MG TAB 100 MG PO (21:42)
[2019-05-19] MEDS: Atorvastatin 40 MG TAB 80 MG PO (21:43)
[2019-05-19 21:59] LABS: Troponin I < 0.05 ng/mL (0.00-0.06)
[2019-05-20] VITALS (22 sets, daily range): BP systolic 111–124; BP diastolic 68–81; PULSE 52–72; RESP 12–21; TEMP 36.3–36.8; O2SAT 96–97
--- NOTE | 2019-05-20 07:39 | INITIAL_ITS ---
- If Service Date Differs Date of service: 05/20/19 Time of Service: 07:39 Care Management Initial Assess REASON FOR HOSPITALIZATION:: arm pain PAST MEDICAL HISTORY/PAST SURGICAL HISTORY:: Medical History . NSTEMI (non-ST elevated myocardial infarction) (Acute) PREVIOUS FUNCTIONAL STATUS/SOCIAL/FAMILY SUPPORTS:: Nikos lives on a [address] [place] in [place] with his girlfriend. He is independent with all activities and self care. He was recently hospitalized with a NSTEMI with stent placement. CURRENT FUNCTIONAL STATUS:: Nikos was sitting up in bed talking with his girlfriend when CM came to see him. He was pleasant and cooperative with answering questions. Nikos states he feels fine and hopes to be discharged today. ADVANCE DIRECTIVES:: None on file at [facility] Has patient been provided with information about the portal?: No Did the patient sign up for the portal?: No CODE STATUS:: Full Code INSURANCE COVERAGE / FINANCIAL ISSUES:: Medicaid [place] CURRENT HOME/COMMUNITY SERVICES/EQUIPMENT:: none POTENTIAL DISCHARGE NEEDS:: Follow up with Cardiology at [facility] and PCP anddischarge plan of care PATIENT/FAMILY EDUCATION NEEDS:: Discharge plan, limitations, follow up plan and Ask Me Three. ANTICIPATED BARRIERS TO DISCHARGE:: none identified TRANSPORTATION:: via private vehicle with family when ready PLAN:: Nikos will be discharged home with no services. He will be transported by private vehicle with his girlfriend. He will follow up with his MD and the discharge plan of care.
--- NOTE | 2019-05-20 08:34 | W.PM.PROGNOT ---
Date of Service Date of service: 05/20/19 Time of Service: 08:34 Subjective Interval history since last seen: SR- SB 40-70's, no ectopy overnight. BP's stable. BB held last night for . Objective Objective Clinical Data: Abnormal lab results 05/19/19 05/19/19 Range/Units 13:38 13:38 RBC 4.41 L (4.50-6.00) m/cumm Hct 39.6 L (40.0-50.0) % MCHC 36.4 H (32.0-36.0) g/dL Absolute Neutrophils 6.79 H (1.2-6.7) k/cumm BUN 23 H (7-18) mg/dL Glucose 108 H (70-100) mg/dL Vital Signs Temperature 36.3 C L 05/20/19 02:00 Temperature Source Temporal Artery Scan 05/20/19 02:00 Pulse 57 L 05/20/19 02:00 Pulse 58 L 05/20/19 06:00 Respiratory Rate 18 05/20/19 02:00 Respiratory Effort 05/19/19 23:30 Respiratory Depth Normal 05/19/19 23:30 Respiratory Pattern Normal 05/19/19 23:30 Blood Pressure 111/68 05/20/19 02:00 Blood Pressure Mean 83 05/19/19 21:16 Blood Pressure Position Supine 05/19/19 19:30 Pulse Oximetry 96 05/20/19 02:00 Oxygen Delivery Method Room Air 05/20/19 02:00 Oxygen Flow Rate 0 05/20/19 02:00 Pain Level 0 05/20/19 02:00 Comment 05/20/19 02:00 Intake & Output 05/19/19 05/19/19 05/20/19 11:59 23:59 11:59 Intake Total 400 / 400 Output Total 550 / 550 Balance -150 / -150 Weight 102.7 kg 102.4 kg Intake: Oral 400 / 400 Output: Urine 550 / 550 Other: Urine Color Pale Yellow Urine Appearance Clear Urine Odor None Voiding Methods Urinal Laboratory Results WBC 9.85 k/cumm (4.4-10.8) 05/19/19 13:38 RBC 4.41 m/cumm (4.50-6.00) L 05/19/19 13:38 Hgb 14.4 g/dL (13.5-17.5) 05/19/19 13:38 Hct 39.6 % (40.0-50.0) L 05/19/19 13:38 MCV 89.8 fL (80-95) 05/19/19 13:38 MCH 32.7 pg (27.0-33.0) 05/19/19 13:38 MCHC 36.4 g/dL (32.0-36.0) H 05/19/19 13:38 RDW 13.3 % (11.8-14.1) 05/19/19 13:38 Plt Count 293 x1000/uL (130-400) 05/19/19 13:38 MPV 10.4 fL (8.0-11.0) 05/19/19 13:38 Immature Gran % 0.3 05/19/19 13:38 69.0 05/19/19 13:38 21.8 05/19/19 13:38 6.9 05/19/19 13:38 1.6 05/19/19 13:38 0.4 05/19/19 13:38 Absolute Neutrophils 6.79 k/cumm (1.2-6.7) H 05/19/19 13:38 Absolute Lymphocytes 2.15 k/cumm (1.2-3.4) 05/19/19 13:38 Absolute Monocytes 0.68 k/cumm (0.11-0.7) 05/19/19 13:38 Absolute Eosinophils 0.16 k/cumm (0.0-0.7) 05/19/19 13:38 Absolute Basophils 0.04 k/cumm (0.0-0.2) 05/19/19 13:38 Sodium 138 mmol/L (136-145) 05/19/19 13:38 Potassium 4.5 mmol/L (3.5-5.1) 05/19/19 13:38 Chloride 100 mmol/L (98-107) 05/19/19 13:38 Carbon Dioxide 28.0 mmol/L (21.0-32.0) 05/19/19 13:38 10.0 mmol/L (3-11) 05/19/19 13:38 BUN 23 mg/dL (7-18) H 05/19/19 13:38 1.18 mg/dL (0.70-1.30) 05/19/19 13:38 >= 60.00 (mL/min/1.73m2) 05/19/19 13:38 Glucose 108 mg/dL (70-100) H 05/19/19 13:38 Calcium 9.1 mg/dL (8.5-10.1) 05/19/19 13:38 Magnesium 2.3 mg/dL (1.8-2.4) 05/19/19 13:38 0.6 mg/dL (0.2-1.0) 05/19/19 13:38 AST 21 U/L (15-37) 05/19/19 13:38 ALT 33 U/L (12-78) 05/19/19 13:38 95 U/L (46-116) 05/19/19 13:38 < 0.05 ng/mL (0.00-0.06) 05/19/19 21:32 NT-Pro-B Natriuret Pep 286 pg/mL (-299) 05/19/19 13:38 8.1 g/dL (6.4-8.2) 05/19/19 13:38 4.2 g/dL (3.4-5.0) 05/19/19 13:38
[2019-05-20 08:48] LABS: Abs Immature Grans 0.02 k/cumm (0.0-0.09); Absolute Basophil Count 0.04 k/cumm (0.0-0.2); Absolute Eosinophil Count 0.14 k/cumm (0.0-0.7); Absolute Lymphocyte Count 2.88 k/cumm (1.2-3.4); Absolute Monocyte Count 0.58 k/cumm (0.11-0.7); Absolute Neutrophil Count 4.35 k/cumm (1.2-6.7); Basophils % 0.5; Eosinophils % 1.7; HCT 41.3 % (40.0-50.0); Immature Grans % 0.2; Mean Corp. HGB Concentration 36.3 g/dL (32.0-36.0); Mean Corpuscular Hemoglobin 32.8 pg (27.0-33.0); Mean Corpuscular Volume 90.4 fL (80-95); Mean Platelet Volume 10.4 fL (8.0-11.0); Monocytes % 7.2; Neutrophils % 54.4; Platelet Count 269 x1000/uL (130-400); RBC 4.57 m/cumm (4.50-6.00); RBC Distribution Width 13.7 % (11.8-14.1); White Blood Cell Count 8.01 k/cumm (4.4-10.8)
[2019-05-20 08:57] LABS: Anion Gap 9.1 mmol/L (3-11); BUN 20 mg/dL (7-18); CO2 27.9 mmol/L (21.0-32.0); CREATININE 0.94 mg/dL (0.70-1.30); Calcium 8.8 mg/dL (8.5-10.1); Chloride 101 mmol/L (98-107); Glucose 102 mg/dL (70-100); Magnesium 2.2 mg/dL (1.8-2.4); Potassium 4.4 mmol/L (3.5-5.1); Sodium 138 mmol/L (136-145)
[2019-05-20] MEDS: Aspirin 81 MG CHEW PO (08:57)
[2019-05-20] MEDS: Clopidogrel 75 MG TAB PO (08:57)
--- NOTE | 2019-05-20 13:47 | DSE_ITS ---
Date of service: 05/20/19 Time of Service: 13:47 DS: Diagnosis Discharge Diagnosis (1) Arm pain: Status: Resolved Asessment and Plan: No ACS Discharge Plan Disposition Patient Disposition: HOME Condition: Stable Discharge Details Chief Complaint: Chest Pain Clinical Impression: Chest pain Reason For Visit: ARM PAIN, PRE-SYNCOPE Admit Date/Time: 05/19/19 18:26 Admit Provider: Yassine Patel Attending Provider: Yassine Patel ED Provider: Jose Veliz [facility] Course Hospital Course: Mr Padron is a 48 year old male with PMHx of a recent NSTEMI s/p DELMER, as well as hypertension, hyperlipidemia, tobacco abuse, who was observed on [facility] ist service from 05/19/19 until 05/20/19 for an episode of left shoulder and arm pain accompanied by 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 He ruled out for acute coronary syndrome by troponins, and his EKGs showed no changes. While the patient did not have an acute coronary syndrome on this admission, he could have had an episode of symptomatic hypotension. I am decreasing his lisinopril on discharge. He would benefit from a sooner cardiology follow up than one that he has arranged (specifically, he has an appointment with Dr Rivera on 06/28/19). I discussed the case with [facility] [place] - as it is the weekend, we cannot get the patient a definitive cardiology appointment at this time, but we recommend that he call cardiology clinic at [facility] [place] morning ([phone]) to request a sooner follow up appointment. Home Meds and New Rx's Prescriptions: Continued clopidogrel 75 mg Tablet 75 mg DAILY RF: 0 pantoprazole 40 mg Tablet,Delayed Release (Dr/Ec) 40 mg PO DAILY RF: 0 atorvastatin 80 mg Tablet 80 mg DAILY RF: 0 sertraline 100 mg Tablet 100 mg DAILY RF: 0 aspirin 81 mg Tablet,Chewable 81 mg DAILY RF: 0 nitroglycerin 0.6 mg Tablet, Sublingual 0.4 mg RF: 0 metoprolol tartrate 25 mg Tablet 25 mg DAILY RF: 0 Changed lisinopril 5 mg Tablet 0.5 mg PO DAILY Qty: 0 RF: 0 Discharge Instructions Instructions: Chest Pain (DC) Additional Instructions: Return to the hospital with any fever, bleeding, chest pain, or shortness of breath. Use nitroglycerin if you do have chest pain again. [place] [facility] [place] clinic first thing on Wednesday at [phone] to arranged a sooner cardiology appointment. Referrals: C[place]IOLOGY,[facility] [place] - (Needs a sooner follow up appointment) Activity:: Activity as Tolerated Equipment/Supplies:: No Equipment Needed Diet:: heart healthy Discharge Orders Discharge Orders: Discharge Order (Routine); Ordered 05/20/19 Ordered By: Vidya Doss Exam Narrative Exam Narrative: General: very pleasant Obese male, A&Ox3, comfortable in bed, ?slightly anxious HEENT: EOMI, MMM Heart: RRR, no m/r/g Lungs: CTAB GI: abdomen is soft, nontender, nondistended Extremities: no e/c/c BLE's DS: Data Vitals/I&O Vitals and I&O: Vital Signs Temperature 36.6 C 05/20/19 08:50 Temperature Source Temporal Artery Scan 05/20/19 08:50 Pulse 62 05/20/19 12:19 Pulse Rhythm Regular 05/20/19 08:50 Pulse 67 05/20/19 12:19 Respiratory Rate 12 05/20/19 12:19 Respiratory Effort 05/20/19 08:50 Respiratory Depth Normal 05/20/19 08:50 Respiratory Pattern Normal 05/20/19 08:50 Blood Pressure 122/81 05/20/19 12:19 Blood Pressure Mean 91 05/20/19 12:19 Blood Pressure Position Supine 05/19/19 19:30 Pulse Oximetry 97 05/20/19 12:19 Oxygen Delivery Method Room Air 05/20/19 08:50 Oxygen Flow Rate 0 05/20/19 08:50 Pain Level 0 05/20/19 08:50 Comment 05/20/19 02:00 Intake & Output 05/19/19 05/20/19 05/20/19 23:59 11:59 23:59 Intake Total 400 / 400 200 / 600 400 / 600 Output Total 550 / 550 Balance -150 / -150 200 / 600 400 / 600 Weight 102.7 kg 102.4 kg Intake: Oral 400 / 400 200 / 600 400 / 600 Output: Urine 550 / 550 Other: Urine Color Pale Yellow Urine Appearance Clear Clear Urine Odor None Voiding Methods Urinal Completed studies during hospitalization [Text1]: EKG: NSR, HR 60, nonspecific ST changes, unchanged from prior. CXR 05/19/19: Normal chest Labs on day of discharge: Labs from last 24 hours 05/20/19 05/20/19 05/19/19 08:30 08:30 21:32 WBC 8.01 RBC 4.57 Hgb 15.0 Hct 41.3 MCV 90.4 MCH 32.8 MCHC 36.3 H RDW 13.7 Plt Count 269 MPV 10.4 Immature Gran % 0.2 Neutrophils % 54.4 Lymphocytes % 36.0 Monocytes % 7.2 Eosinophils % 1.7 Basophils % 0.5 Absolute Neutrophils 4.35 Absolute Lymphocytes 2.88 Absolute Monocytes 0.58 Absolute Eosinophils 0.14 Absolute Basophils 0.04 Sodium 138 Potassium 4.4 Chloride 101 Carbon Dioxide 27.9 Anion Gap 9.1 BUN 20 H Creatinine 0.94 Estimated GFR/1.73 m2 >= 60.00 Glucose 102 H Calcium 8.8 Magnesium 2.2 Total Bilirubin AST ALT Alkaline Phosphatase Troponin I < 0.05 NT-Pro-B Natriuret Pep Total Protein Albumin 05/19/19 05/19/19 05/19/19 17:20 13:38 13:38 WBC 9.85 RBC 4.41 L Hgb 14.4 Hct 39.6 L MCV 89.8 MCH 32.7 MCHC 36.4 H RDW 13.3 Plt Count 293 MPV 10.4 Immature Gran % 0.3 Neutrophils % 69.0 Lymphocytes % 21.8 Monocytes % 6.9 Eosinophils % 1.6 Basophils % 0.4 Absolute Neutrophils 6.79 H Absolute Lymphocytes 2.15 Absolute Monocytes 0.68 Absolute Eosinophils 0.16 Absolute Basophils 0.04 Sodium 138 Potassium 4.5 Chloride 100 Carbon Dioxide 28.0 Anion Gap 10.0 BUN 23 H Creatinine 1.18 Estimated GFR/1.73 m2 >= 60.00 Glucose 108 H Calcium 9.1 Magnesium 2.3 Total Bilirubin 0.6 AST 21 ALT 33 Alkaline Phosphatase 95 Troponin I 0.05 0.06 NT-Pro-B Natriuret Pep 286 Total Protein 8.1 Albumin 4.2 PFSH Medical History NSTEMI (non-ST elevated myocardial infarction) (Acute) Social History Smoking/Tobacco Use Status: Current every day Tobacco Type: smokeless tobacco Alcohol Intake: current Alcohol Intake frequency: holidays/special occasions only Substance use type: does not use Do you feel safe at home: Yes Do you feel safe in your relationship?: Yes
== END 2019-05-20 16:00 | disposition home or self-care (01) ==
LOC: ER 18:34 → ICU 20:08
PROVIDERS: Internal Medicine; Nurse Practitioner Family; Admitting Provider General Practice; Emergency Provider Student in an Organized Health Care Education/Training Program; Visit Provider General Practice
DX: M79.602 Pain in left arm (principal); M25.512 Pain in left shoulder; I25.2 Old myocardial infarction; I10 Essential (primary) hypertension; E78.5 Hyperlipidemia, unspecified; F17.290 Nicotine dependence, other tobacco product, uncomplicated; R55 Syncope and collapse
CPT/HCPCS: 36415; 80048; 80053; 93005; 99217; 99222; 99285; 71046; 83735; 83880; 84484; 85025; 93010; 99219; G0378

== ENCOUNTER 2019-06-07 13:42 | Outpatient (RCR) | payer MEDICAID, SELFPAY | END 2019-06-07 23:59 | disposition home or self-care (01) | LOC: CR 13:42 | PROVIDERS: PCP Nurse Practitioner Family; Visit Provider Family Medicine | DX: I25.2 Old myocardial infarction (principal); Z95.5 Presence of coronary angioplasty implant and graft; Z51.89 Encounter for other specified aftercare | CPT/HCPCS: S9472 ==

== ENCOUNTER 2019-06-08 04:15 | Outpatient (RCR) | payer MEDICAID, SELFPAY | END 2019-07-08 23:59 | disposition home or self-care (01) | LOC: CR 04:15 | PROVIDERS: PCP Nurse Practitioner Family; Visit Provider Family Medicine | DX: I25.2 Old myocardial infarction (principal); Z95.5 Presence of coronary angioplasty implant and graft; Z51.89 Encounter for other specified aftercare ==

== ENCOUNTER 2019-07-15 09:16 | Outpatient (CLI) | payer MEDICAID, SELFPAY ==
[2019-07-15 10:49] LABS: ALT 42 U/L (16-63); AST 25 U/L (15-37); Albumin 3.8 g/dL (3.4-5.0); Alkaline Phosphatase 94 U/L (46-116); Bilirubin, Total 0.7 mg/dL (0.2-1.0); Calculated LDL 81 mg/dL; Cholesterol 142 mg/dL (50-200); HDL Cholesterol 35 mg/dL (40-60); Total Protein 6.8 g/dL (6.4-8.2); Triglyceride 132 mg/dL (30-150)
[2019-07-15 11:14] LABS: Bilirubin, Direct 0.13 mg/dL (0.00-0.20)
== END 2019-07-15 09:36 ==
PROVIDERS: PCP Nurse Practitioner Family; Visit Provider Physician Assistant
DX: E78.2 Mixed hyperlipidemia (principal); I21.4 Non-ST elevation (NSTEMI) myocardial infarction
CPT/HCPCS: 36415; 80061; 80076

== ENCOUNTER 2019-09-05 01:47 | Outpatient (CLI) | payer MEDICAID, SELFPAY ==
--- NOTE | 2019-09-05 13:58 | DI.US_ITS ---
APPROVED REPORT Conclusion Normal LV size and thickness, EF is 55-60%. No segmental wall motion abnormaliities Both atria are top normal size No significant structural valvular abnormalities Mild mitral, tricuspid and pulmonic regurgitation EXAM: Comprehensive 2D, Doppler, and color-flow Echocardiogram Patient Location: Out-Patient Advertising Campaign Manager: KALIN Robbins (AE) Rhythm: Bradycardia NSR Indications: NSTEMI CAD i25.10 Left Ventricle The left ventricle is normal size. Left ventricular systolic function appears normal. There is normal left ventricular wall thickness. There is normal LV segmental wall motion. change in MV inflow with valsalva LVEF is estimated to be 55-60%. Right Ventricle RV normal size Prominent moderator band The right ventricular systolic function is normal. Atria The left atrium size is top normal. The right atrium size is top normal. Aortic Valve Aortic valve is trileaflet. There is no aortic valvular stenosis. No aortic regurgitation is present. Mitral Valve Mitral valve leaflets are mildly thickened. Mild mitral regurgitation. Tricuspid Valve The tricuspid valve leaflets are mildly thickened , but open well. Mild tricuspid regurgitation. Pulmonic Valve Mild pulmonic regurgitation. Great Vessels The aortic root is normal in size. The IVC is very mildly dilated The IVC collapses bluntly Pericardium There is no pericardial effusion. 2D Dimensions IVSd 1.07 cm M: 0.6-1.2 LV EDV A2C 120.00 mL PWd 1.03 cm M: 0.6 - 1.2 LV EDV A4C 111.20 mL LVDd 5.22 cm M: 4.2 - 5.9 LA Area A4C 20.05 cm2 LVDs 3.89 cm M: 2.5 - 4.0 LA Area A2C 19.96 cm2 Aortic Root 3.19 cm M: 3.1 - 3.7 EF AP4 51.62 % RA Area A4C 18.47 cm2 EF AP2 61.08 % LVOT 2.21 cm (M/F) 1.5-2.5 EF BP 57.03 % Ascending Aorta 3.45 cm M: 2.6 - 3.4 LVEF (Teich) 49.92 % LVEF (Melendez's) 57.03 % M: 52 - 72 LV Volume 116.19 mL M: 62 - 150 LV Volume Index 51.87 mL/m2 M: 34 - 74 FS 25.52 % LV Diastology E Decel Time 204.00 (160-240 msec) E/A Ratio 1.60 MED E' 0.09 (>0.07 m/s) LV E/e MED 7.50 (<14) LAT E' 0.13 (>0.1 m/s) LV E/e LAT 5.65 (<14) Pulm Vein s 0.47 m/s PV S/D Ratio 0.95 Pulm Vein d 0.50 m/s Pulm Vein a 0.31 m/s A-A Duration 107.74 msec Aortic Valve LVOT Area 3.85 cm2 LVOT Peak Nilson. 0.91 m/s LVOT Mean Nilson. 0.73 m/s LVOT Peak Gr. 3.32 mmHg LVOT Mean Gr. 2.26 mmHg LVOT VTI 0.21 m AoV Peak Nilson. 1.46 (0.5-1.3 m/s) AoV Mean Nilson. 1.08 m/s AO Peak GR. 8.59 mmHg AO Mean GR. 5.03 (<5 mmHg) AO VTI 0.32 (0.18-0.25 m) RYLEE (VTI) 2.50 (2.5-4.5 cm2) Mitral Valve MV E Max Nilson. 0.71 (0.4-1.3 m/s) MV A Velocity 0.45 (0.4-1.3 m/s) E/A Ratio 1.59 MV Decel. Time 204.26 (160-240 msec) MV Regurg Volume 15.90 mL MV PHT 59.24 msec MV RF 16.45 % MVA PHT 3.71 cm2 Pulmonary Valve PV Peak Velocity 0.90 (0.5-1.5 m/s) Tricuspid Valve TR P. Velocity 2.15 m/s TV Regurg Vmax 2.15 m/s TR P. Gradient 18.51 mmHg
== END 2019-09-05 02:07 ==
PROVIDERS: PCP Nurse Practitioner Family; Visit Provider Internal Medicine Cardiovascular Disease
DX: I25.10 Atherosclerotic heart disease of native coronary artery without angina pectoris (principal); I25.2 Old myocardial infarction; I34.0 Nonrheumatic mitral (valve) insufficiency; I37.1 Nonrheumatic pulmonary valve insufficiency
CPT/HCPCS: 93306

== ENCOUNTER 2020-11-14 09:27 | Outpatient (REF) | payer MEDICAID, SELFPAY ==
[2020-11-14 14:36] LABS: Anion Gap 10.1 mmol/L (3-11); BUN 23 mg/dL (7-18); CO2 26.9 mmol/L (21.0-32.0); CREATININE 0.95 mg/dL (0.70-1.30); Calcium 9.2 mg/dL (8.5-10.1); Calculated LDL 65 mg/dL (<100); Chloride 105 mmol/L (98-107); Cholesterol 130 mg/dL (<200); Glucose 94 mg/dL (74-106); HDL Cholesterol 40 mg/dL (40-60); Sodium 142 mmol/L (136-145); Triglyceride 127 mg/dL (<150)
== END 2020-11-14 09:47 ==
LOC: NCHCN 09:27
PROVIDERS: PCP Nurse Practitioner Family; Visit Provider Internal Medicine Infectious Disease
DX: I25.10 Atherosclerotic heart disease of native coronary artery without angina pectoris (principal); E78.5 Hyperlipidemia, unspecified
CPT/HCPCS: 80048; 80061

== ENCOUNTER 2021-05-12 21:16 | Emergency (ER) | payer MEDICAID, SELFPAY ==
--- NOTE | 2021-05-12 21:15 | RT.EKG_ITS ---
APPROVED REPORT Exam: Resting ECG Reason for Exam: SHORT OF BREATH Patient Location: E HR:71 bpm ECG Measurements Heart Rate 71 AXIS ME 154 P 41 QRSd 103 QRS -12 QT 398 T 8 QTc 431 Conclusion Sinus rhythm...normal P axis, V-rate 60- 99 Left ventricular hypertrophy...multiple voltage criteria subtle dep laterally - no change from prior
[2021-05-12 21:24] VITALS: BP 141/94; PULSE 75; RESP 18; TEMP 36.5; O2SAT 98
[2021-05-12 21:28] VITALS: RESP 18
--- NOTE | 2021-05-12 21:30 | DI.RAD_ITS ---
Exam(s) XR CHEST 2V PA LATERAL EXAM: XR CHEST 2V PA LATERAL CLINICAL HISTORY: CP, SOB TECHNIQUE: 2D digital imaging was performed. COMPARISON: CR XR CHEST 2V PA LATERAL from 05/19/2019 FINDINGS: MEDIASTINUM: Normal. HEART: Normal. PULMONARY VASCULATURE: Normal. LUNGS: Clear. PLEURAL SPACE: No pleural effusion or pneumothorax. BONE:Within normal limits for the patient's age. OTHER FINDINGS:Normal. IMPRESSION: No acute pulmonary findings. DATA REPOSITORY: RADIATION DOSE DELIVERED:
--- NOTE | 2021-05-12 21:31 | ED.GENADUL_ITS ---
Discharge Plan Disposition Patient Disposition: HOME Condition: Stable Discharge Details Clinical Impression: Chest discomfort, Pleuritic pain Primary Care Provider: Leslie He ED Provider: Leela Giordano Home Meds and New Rx's Prescriptions: Continued lisinopril 2.5 mg tablet 2.5 mg PO DAILY Qty: 90 RF: 6 metoprolol tartrate 25 mg tablet 12.5 mg PO BID Qty: 90 RF: 5 clopidogrel 75 mg Tablet 75 mg DAILY RF: 0 pantoprazole 40 mg Tablet,Delayed Release (Dr/Ec) 40 mg PO DAILY RF: 0 atorvastatin 80 mg Tablet 80 mg DAILY RF: 0 sertraline 100 mg Tablet 100 mg DAILY RF: 0 aspirin 81 mg Tablet,Chewable 81 mg DAILY RF: 0 nitroglycerin 0.6 mg Tablet, Sublingual 0.4 mg RF: 0 Discharge Instructions Instructions: Chest Pain (ED) Additional Instructions: Your labs are reassuring here today as is your EKG and chest x-ray. Your tick and Lyme panel are pending, we will call you with any positive results. Please encourage water intake. Please use your nitroglycerin if you have recurrence of the chest discomfort. I would like for you to have an outpatient stress test, this order has been sent. Care management will reach out to you regarding follow-up. Please follow-up with primary care this week for reevaluation. If you develop increased chest pain, shortness of breath, difficulty breathing or the new/worsening symptoms please seek care urgently once again. As we discussed, please try to avoid physical exertion as much as possible until stress testing results have been completed. Referrals: Leslie He [Primary Care Provider] - Discharge Data Discharge Date/Time-TO BE ENTERED AT DEPARTURE: 05/12/21 23:21 Medical Decision Making Patient is a pleasant 50-year-old male presented with chief complaint of left- sided chest pain that began 2 days ago. The pain is been intermittent. Patient has history of NSTEMI 2 years ago. States that while pain is similar, does not radiate as mentioned with. When he had his NSTEMI historically. No pain radiating to his back. He denies any nausea or vomiting. 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 Is not directly linking this to exertion. States is improved with drinking. 50 low-grade fever T-max 99.8 on Wednesday. Is concerned he also suffered a tick bite in the right lower extremity approximately 1 week ago and is wondering if this may be linked. He denies any GI upset. Brice has been vaccinated. No change in taste/smell. On exam, patient appears nontoxic. He is hypertensive with a blood pressure 141/94. Lungs are clear. No chest tenderness with palpation. Normal cardiac exam. 2+ distal pulses in all extremities. BLE without edema or calf tenderness. Tick bite on RLE, no evidence of cellulitis, no erythema migrans. Differential includes ACS, PE, pneumonia, GERD, viral illness, tick born illness. Exam and history not consistent with dissection. Will obtain labs, ECG, CXR. Will give ASA. As pain improves with drinking, will give Mylanta. EKG was obtained and reviewed by Dr. Veliz. Patient is in sinus rhythm with a rate of 71. Concern for left ventricular hypertrophy, no acute ischemic changes noted. [place] [facility] [place] for his [place]STEMI in May 2018, patient underwent coronary angiography and was noted complete occlusion of OM1 which was successfully stented. Labs reviewed. CBC significant for mild anemia with hgb of 13.1. D-dimer WNL. No signficant abnormality on CMP. Troponin <0.05. As pain has been intermittent x 3 days and he is feeling well currently, repeat troponin is not warranted at this time. CXR reviewed byr radiologist: FINDINGS: Lungs: Lungs are clear without consolidation. Pulmonary charlee: Unremarkable contours. Pleural spaces: No pleural effusion. No pneumothorax. Heart/Mediastinum: Unremarkable contours. No cardiomegaly. Bones/joints: Unremarkable. Intraperitoneal space: Visualized upper abdomen is unremarkable. IMPRESSION: Stable. No acute findings. Discussed findings with the patient. He and I reviewed his history and differential. His primary concern at this time, based on his history, is ACS. His ECG and troponin are WNL. His history has some exertional components but pain is also brought on at rest. Discomfort is also relieved with PO intake. Patient is also endorsing generalized unwell with body aches, low grade fever. Advised that his symptoms may be associated with viral illness or tick born illness. Will hold off on treating tick born illness until results have returned. He and i discussed inpatient vs. outpatient management. HEART score 3. He does not want ot be admitted, prefers outpatient management. Will arrange for outpatient stress testing. Strict return precautions were discussed. He lives locally and is able ot return with any worsening symptoms. 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 Already on ASA, has nitro if needed which he has not used. Encouraged hydration. All quesitons and concerns were addressed, he is in agreement with this plan. [facility] General Mode of arrival: ambulatory . Date/Time Provider Initiated Documentation: 05/12/21 21:31 . Limitations to Documentation: no limitations . Information obtained by: patient, RN notes reviewed and old records reviewed . History of Present Illness 50 year old M presents to the emergency department with the chief complaint of chest discomfort, fever, general unwell, tick bite, described as mild, with intensity rated at 3. Quality is described as aching, and is localized to the chest. Patient reports no radiation. Patient started experiencing this day(s) (3) and it has been intermittent. other things that improve symptom(s), (drinking fluids (water, green tea)) No exacerbating factors reported . Patient notes fever/chills (t max 99.8. ), headaches and shortness of breath; denies cough, diaphoresis, loss of appetite, malaise, nausea/vomiting, rash, syncope and weakness. Patient did receive the following treatments prior to arrival, none Related Data Home Medications Medication Instructions Recorded Confirmed aspirin 81 mg DAILY 05/19/19 05/12/21 atorvastatin 80 mg DAILY 05/19/19 05/12/21 clopidogrel 75 mg DAILY 05/19/19 08/15/20 nitroglycerin 0.4 mg 05/19/19 08/15/20 pantoprazole 40 mg PO DAILY 05/19/19 05/12/21 sertraline 100 mg DAILY 05/19/19 05/12/21 lisinopril 2.5 mg tablet 2.5 mg PO DAILY #90 tab 11/06/19 05/12/21 metoprolol tartrate 25 mg tablet 12.5 mg PO BID #90 tab 01/11/20 05/12/21 Previous Rx's Medication Instructions Recorded lisinopril 2.5 mg tablet 2.5 mg PO DAILY #90 tab 11/06/19 metoprolol tartrate 25 mg tablet 12.5 mg PO BID #90 tab 01/11/20 Allergies Allergy/AdvReac Type Severity Reaction Status Date / Time No Known Allergies Allergy Verified 05/12/21 21:30 General Stated Complaint: Chest Pain BECCA: 2 Review of Systems Constitutional Constitutional: Reports as per HPI, Denies chills, Reports fever(s), Reports headache(s), Denies lethargy and Denies poor appetite Eyes Eyes: Denies change in vision ENT Ears, Nose, Mouth, and Throat: Denies dizziness and Reports headache(s) Cardiovascular Cardiovascular: Reports as per HPI, Denies leg edema, Denies lightheadedness, Denies radiating jaw, neck or arm pain, Reports dyspnea and Denies dyspnea on exertion Respiratory Respiratory: Reports as per HPI, Denies chest congestion, Denies cough, Reports pain on inspiration, Reports dyspnea, Denies dyspnea on exertion and Denies wheezing Gastrointestinal Gastrointestinal: Reports as per HPI, Denies abdominal pain, Denies diarrhea, Denies nausea and Denies vomiting Genitourinary Genitourinary: Denies system reviewed and no additional complaints, except as documented (denies change in urinary habits) Musculoskeletal Musculoskeletal: Reports as per HPI and Denies back pain Integumentary/Breasts Skin/Breast: Reports as per HPI and Denies rash Neurologic Neurologic: Reports as per HPI, Denies dizziness and Reports headache(s) Allergic/Immunologic Allergic/Immunologic: Denies wheezing [facility] Medical History (Updated 05/12/21 @ 23:10 by JAMIE Bird) CAD (coronary artery disease) Chewing tobacco use Depression GERD (gastroesophageal reflux disease) HTN (hypertension) Hyperlipidemia NSTEMI (non-ST elevated myocardial infarction) Status post left heart catheterization (LHC) (~05/2019) Surgical History Stented coronary artery (~05/2019) LCX, total occlusion Social History Smoking/Tobacco Use Status: Current every day Tobacco Type: smokeless tobacco Smoking risk assessment performed?: Yes Substance use type: does not use Current gender identity: male Do you feel safe at home: Yes Do you feel safe in your relationship?: Yes Exam Const General: cooperative, healthy appearing, comfortable, no acute distress and well developed Nutritional Appearance: well nourished and overweight Orientation: alert, awake and oriented x3 [facility] Head: normal to inspection Ears: hearing grossly normal bilaterally Mouth: moist mucous membranes Chest Chest: normal inspection of the chest, normal palpation of entire chest wall, no crepitus and no tenderness Resp Effort & Inspection: normal respiratory effort, able to speak in complete sentences and no respiratory distress Auscultation: clear to auscultation bilaterally, no rales, no rhonchi and no wheezes Cardio Rate: regular rate Rhythm: regular rhythm Heart Sounds: S1 normal and S2 normal GI Inspection: normal to inspection, no edema and non-distended Palpation: soft, no hepatosplenomegaly, not firm, no guarding, not rigid and nontender Auscultation: normal bowel sounds Skin General skin exam: no rashes or lesions noted Trauma: no lacerations or abrasions Neuro General: patient alert, patient awake and patient oriented x3 Cognition: normal cognition Speech: speech normal Gait: normal gait Extrem General: normal to inspection, capillary refill normal, no pedal edema, no calf tenderness, normal gait and other (2+ distal pulses) Psych Appearance: grossly normal and well kempt Mental Status: mental status grossly normal Speech and Movement: speech and movement normal Course Vital Signs Vital signs: Vital Signs Temperature 36.5 C 05/12/21 21:24 Pulse 75 05/12/21 21:24 Respiratory Rate 18 05/12/21 21:24 Blood Pressure 141/94 H 05/12/21 21:24 Pulse Oximetry 98 05/12/21 21:24 Temperature 36.5 C 05/12/21 21:24 Temperature Source Temporal Artery Scan 05/12/21 21:24 Pulse 75 05/12/21 21:24 Respiratory Rate 18 05/12/21 21:28 Respiratory Effort Non-Labored 05/12/21 21:28 Respiratory Depth Normal 05/12/21 21:28 Respiratory Pattern Normal 05/12/21 21:28 Blood Pressure 141/94 H 05/12/21 21:24 Pulse Oximetry 98 05/12/21 21:24 Oxygen Delivery Method Room Air 05/12/21 21:24 Oxygen Flow Rate 0 05/12/21 21:24 Pain Level 3 05/12/21 21:24
[2021-05-12 21:56] LABS: Abs Immature Grans 0.03 10^3/uL (0.0-0.06); Absolute Basophil Count 0.08 10^3/uL (0.0-0.2); Absolute Eosinophil Count 0.21 10^3/uL (0.0-0.7); Absolute Lymphocyte Count 2.74 10^3/uL (1.2-3.4); Absolute Monocyte Count 0.72 10^3/uL (0.1-0.8); Absolute Neutrophil Count 4.85 10^3/uL (1.2-6.7); Basophils % 0.9; Eosinophils % 2.4; HCT 37.3 % (40.0-50.0); HGB 13.1 g/dL (13.5-17.5); Immature Grans % 0.3; Lymphocytes % 31.7; MCH 32.4 pg (27.0-33.0); MCHC 35.1 % (32.0-36.0); MCV 92.3 fL (80-95); MPV 10.5 fL (8.0-11.0); Monocytes % 8.3; Neutrophils % 56.4; Nucleated RBC 0 %; Platelet Count 189 10^3/uL (130-400); RBC 4.04 10^6/uL (4.36-5.78); RDW 13.4 % (11.8-14.1); RDW-SD 45.7 fL; WBC 8.63 10^3/uL (4.4-10.8)
[2021-05-12] MEDS: Mylanta Suspension 30 ML CUP PO (21:56)
[2021-05-12] MEDS: Aspirin 81 MG CHEW 243 MG CH (21:56)
[2021-05-12 22:12] LABS: ALT 26 U/L (16-63); AST 18 U/L (15-37); Albumin 3.8 g/dL (3.4-5.0); Alkaline Phosphatase 75 U/L (46-116); Anion Gap 9.7 mmol/L (3-11); BUN 14 mg/dL (7-18); Bilirubin, Total 0.7 mg/dL (0.2-1.0); CO2 26.3 mmol/L (21.0-32.0); CREATININE 1.1 mg/dL (0.70-1.30); Calcium 8.7 mg/dL (8.5-10.1); Chloride 106 mmol/L (98-107); Glucose 123 mg/dL (74-106); Magnesium 2.1 mg/dL (1.8-2.4); Potassium 3.4 mmol/L (3.5-5.1); Sodium 142 mmol/L (136-145); Total Protein 7.6 g/dL (6.4-8.2); Troponin I < 0.05 ng/mL (<0.06)
[2021-05-12 22:15] LABS: PTT Activated 24.2 sec (21.0-27.5); Prothrombin Time 10.1 sec (9.3-11.0)
[2021-05-12 22:35] LABS: D-Dimer 313 ng/mlFEU (<500)
--- NOTE | 2021-05-12 22:49 | DI.VRAD_ITS ---
PROCEDURE INFORMATION: Exam: XR Chest Exam date and time: 05/12/2021 9:45 PM Age: 50 years old Clinical indication: Shortness of breath; Prior surgery; Surgery date: 6+ months; Surgery type: [facility] 05/2019; Patient HX: Chest pain and SOB TECHNIQUE: Imaging protocol: XR of the chest. Views: 2 views. Total images: 2 COMPARISON: CR XR CHEST 2V PA LATERAL 05/19/2019 2:09 PM FINDINGS: Lungs: Lungs are clear without consolidation. Pulmonary charlee: Unremarkable contours. Pleural spaces: No pleural effusion. No pneumothorax. Heart/Mediastinum: Unremarkable contours. No cardiomegaly. Bones/joints: Unremarkable. Intraperitoneal space: Visualized upper abdomen is unremarkable. IMPRESSION: Stable. No acute findings. Dictated and Authenticated by: Johnny Holland MD. Ordering:EDENILSON Swenson MD
[2021-05-12 23:21] VITALS: BP 141/94; PULSE 75; RESP 18; TEMP 36.5; O2SAT 98
--- NOTE | 2021-05-12 23:32 | NUR.NOTE ---
Referral to Care Management to help patient get Exercise Stress Test if [facility] can't get him in soon. Dx of Chest Pain. Stress test requision faxed 05/12/21.Nursing Note:
[2021-05-14 10:35] LABS: Lyme Ab w Rflx to Lyme Confirm Negative (Negative)
[2021-05-14 22:56] LABS: Anaplasma phagocytophilum Negative (Negative); B. miyamotoi PCR Negative (Negative); Babesia divergens/MO-1 Negative (Negative); Babesia duncani Negative (Negative); Babesia microti Negative (Negative); Ehrlichia chaffeensis Negative (Negative); Ehrlichia ewingii/canis Negative (Negative); Ehrlichia muris eauclairensis Negative (Negative)
== END 2021-05-12 23:21 | disposition home or self-care (01) ==
PROVIDERS: Emergency Provider Physician Assistant; PCP Nurse Practitioner Family
DX: R07.89 Other chest pain (principal); R07.1 Chest pain on breathing
CPT/HCPCS: 80053; 87798; 93005; 99284; 71046; 83735; 84484; 85025; 85379; 85610; 85730; 86618; 93010; 99283

== ENCOUNTER 2021-05-22 01:23 | Outpatient (CLI) | payer MEDICAID, SELFPAY ==
--- NOTE | 2021-05-19 08:43 | NUR.NOTE ---
Nursing Note: Pt arrived to diagnositic imaging for regular stress. Noted to have flipped T waves in leads III and V6, making test difficult to interpret. Recommendation for pt to have MPI stress test instead. ED contacted for new order. Pt rescheduled for 05/22 MPI and given instructions for test. Pt voices understanding.
--- NOTE | 2021-05-22 08:45 | DI.NM_ITS ---
APPROVED REPORT Exam: Exercise Treadmill Patient Location: Out-Patient Room/Bed: Stress Nurse: Tahira Schmid RN Ordering Provider:SUMIT MO, Contact Number: [phone] BMI: 31.19 Baseline Rhythm: Sinus Bradycardia Comment: ST elevation 1mm leads I, aVL, V2. Flipped T waves lead III, V6. Indications: Chest pain Medical History Medical History: CAD, NSTEMI (2019), hypertension, hyperlipidemia, depression, gerd Cardiac Medications: Aspirin, atorvastatin, clopidogrel, nitroglycerin, pantoprazole, lisinopril, met oprolol tartrate Allergies: No known drug allergies Cardiac Risk Factors: Hypertension, hyperlipidemia, CVD, family hx, tobacco use (current) Previous Cardiac Procedures: NSTEMI, PCI w/ stent x1 (2019) Pretest Chest Pain Characteristics: None Exercise History: Sedentary Physical Disabilities: None Lung Sounds: Clear to auscultation Heart Sounds: Regular Stress Test Details Test: Exercise stress testing was performed using a modified Vinnie protocol. Nuclear Acquisition: Rest Tc-99m/Stress Tc-99m 1 day Rest Isotope: Tc-99m Sestamibi. Dose: 12.2 Date: 05/22/2021 Injection Time: 0900 Stress Isotope: Tc-99m Sestamibi. Dose: 38.1 Date: 05/22/2021 Injection Time: 1036 HR Resting HR Supine: 57 bpm Max Heart Rate (APMHR): 171 bpm Resting HR Standin bpm Target HR (85% APMHR): 145 bpm Max HR Achieved: 156 bpm % of APMHR: 91 Recovery HR: 78 bpm HR response to stress: Normal HR response to stress Comment: Metoprolol tartrate held for 24 hrs BP Resting BP Supine: 122/80 mmHg Resting BP Standin/76 mmHg Max BP: 176/80 mmHg Recovery BP: 130/82 mmHg BP response to stress: Normal blood pressure response to stress. ECG Resting ECG: Sinus Bradycardia Ectopy: None Comment: ST elevation 1mm leads I, aVL, V2. Flipped T waves lead III, V6. Stress ECG: Sinus Tachycardia Arrhythmia: Rare PAC, rare PVC Recovery ECG: Sinus Rhythm Recovery ST Change: No significant ST segment changes noted Recovery Arrhythmia: Rare PVC Clinical Reason for Termination: Fatigue Stress Symptoms: General Fatigue Exercise duration: 10 min59 sec Highest Stage Reached: Stage 4: 4.2 mph at 16% grade. Exercise capacity: 11.86 METs Rate Pressure Product: [id number] Stress ECG Conclusion 1. The patient exercised for 11 minutes (11.8 METS). Exercise was stopped due to fatigue. 2. The patient no symptoms suggestive of ischemia. 3. There is no evidence of ischemia on the ECG portion of the exam. MPI Conclusion The ejection fraction was 44% with stress. There were no wall motion abnormalities. There is no evidence of ischemia on the imaging portion of the exam. This represents a normal SPECT stress test.
== END 2021-05-22 01:43 ==
PROVIDERS: PCP Nurse Practitioner Family; Visit Provider Physician Assistant
DX: R07.9 Chest pain, unspecified (principal); I10 Essential (primary) hypertension; E78.5 Hyperlipidemia, unspecified; I25.10 Atherosclerotic heart disease of native coronary artery without angina pectoris; Z82.49 Family history of ischemic heart disease and other diseases of the circulatory system; F17.210 Nicotine dependence, cigarettes, uncomplicated; I25.2 Old myocardial infarction
CPT/HCPCS: 78452; 93017

== ENCOUNTER 2021-06-28 17:04 | Emergency (ER) | payer MEDICAID, SELFPAY ==
[2021-06-28 17:07] VITALS: BP 142/99; PULSE 70; RESP 15; TEMP 36.6; O2SAT 98
--- NOTE | 2021-06-28 17:15 | DI.RAD_ITS ---
Exam(s) XR FINGER LT RING EXAM: XR FINGER LT RING CLINICAL HISTORY: Non healing wound. TECHNIQUE: 2D digital imaging was performed. COMPARISON: No exams were available for comparison FINDINGS: There is no evidence fracture or dislocation. No radiopaque foreign body. No radiographic evidence of osteomyelitis. IMPRESSION: DATA REPOSITORY: RADIATION DOSE DELIVERED:
--- NOTE | 2021-06-28 17:18 | W.ED.GENAD ---
Discharge Plan Disposition Patient Disposition: HOME Condition: Stable Discharge Details Clinical Impression: Non-healing wound Primary Care Provider: Leslie He ED Provider: Taylor Fulton Home Meds and New Rx's Prescriptions: New cephalexin 500 mg tablet 500 mg PO BID 7 Days Qty: 14 RF: 0 No Action lisinopril 2.5 mg tablet 2.5 mg PO DAILY Qty: 90 RF: 6 metoprolol tartrate 25 mg tablet 12.5 mg PO BID Qty: 90 RF: 5 pantoprazole 40 mg Tablet,Delayed Release (Dr/Ec) 40 mg PO DAILY RF: 0 atorvastatin 80 mg Tablet 80 mg PO DAILY RF: 0 sertraline 100 mg Tablet 100 mg DAILY RF: 0 aspirin 81 mg Tablet,Chewable 81 mg PO DAILY RF: 0 nitroglycerin 0.6 mg Tablet, Sublingual 0.4 mg sublingual PRN PRNRF: 0 Discharge Instructions Instructions: Acute Wounds (ED) Additional Instructions: Change dressing once a day. Keep clean and dry. Allow to air dry at least 2 hours a day. Do not use hydrogen peroxide anymore. Clean with Soap and water daily and if it gets dirty. Take antibiotic as directed twice daily. Follow up with primary care provider in 3-5 days. Return to ED sooner if any worsening or concerns. Increase oral fluids. Please take Tylenol or Ibuprofen with food every 4-6 hours as needed for pain and swelling. Referrals: Leslie He [Primary Care Provider] - Medical Decision Making 51-year-old male presents to the ER with chief complaint of non-healing wound noted to the dorsum of his left ring finger. He reports that he began as a white pustule approximately 1 week ago which she popped and stuck a needle in it. He reports since then is getting bigger. He has been cleaning it 3-4 times a day with hydrogen peroxide. 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 He denies any hand pain, no red streaks, denies any fever. Patient has a past medical history of hypertension, coronary artery disease, hyperlipidemia. Imaging protocol: XR Left fingers. Views: Minimum 2 views. COMPARISON: No relevant prior studies available. FINDINGS: Bones/joints: No fracture. No malalignment. Soft tissues: No significant soft tissue abnormality related to marked site of the wound. Diffuse swelling is noted. IMPRESSION: No radiographic abnormality to explain the patient's wound. Ultrasound might be useful to look for any wonder line fluid collection or radio-occult foreign body. Thank you for allowing us to participate in the care of your patient. Dictated and Authenticated by: Ron Perez MD Patient was placed on cephalexin twice daily x7 days was given first dose here in the department and 4 tablets to go. Discussed home care and wound care, verbalized understanding. Instructed to stop the hydrogen peroxide. Keep clean and dry and follow-up with PCP return if any worsening. This text was generated using Cabaraation system, please disregard any oddities of phrase or misspellings. HPI General Mode of arrival: ambulatory. Date/Time Provider Initiated Documentation: 06/28/21 17:05. Limitations to Documentation: no limitations. Information obtained by: patient and RN notes reviewed. HPI Narrative: 51-year-old male presents to the ER with chief complaint of non-healing wound noted to the dorsum of his left ring finger. He reports that he began as a white pustule approximately 1 week ago which she popped and stuck a needle in it. He reports since then is getting bigger. He has been cleaning it 3-4 times a day with hydrogen peroxide. 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 He denies any hand pain no red streaks denies any fever. Patient has a past medical history of hypertension, coronary artery disease, hyperlipidemia. Related Data Home Medications Medication Instructions Recorded Confirmed aspirin 81 mg PO DAILY 05/19/19 06/28/21 atorvastatin 80 mg PO DAILY 05/19/19 06/28/21 nitroglycerin 0.4 mg SUBLINGUAL PRN PRN 05/19/19 06/28/21 pantoprazole 40 mg PO DAILY 05/19/19 06/28/21 sertraline 100 mg DAILY 05/19/19 06/28/21 lisinopril 2.5 mg tablet 2.5 mg PO DAILY #90 tab 11/06/19 06/28/21 metoprolol tartrate 25 mg tablet 12.5 mg PO BID #90 tab 01/11/20 06/28/21 cephalexin 500 mg PO BID 7 Days #14 tab 06/28/21 Previous Rx's Medication Instructions Recorded lisinopril 2.5 mg tablet 2.5 mg PO DAILY #90 tab 11/06/19 metoprolol tartrate 25 mg tablet 12.5 mg PO BID #90 tab 01/11/20 cephalexin 500 mg PO BID 7 Days #14 tab 06/28/21 Allergies Allergy/AdvReac Type Severity Reaction Status Date / Time No Known Allergies Allergy Verified 06/28/21 17:14 General Stated Complaint: Cellulitis BECCA: 4 Review of Systems All systems reviewed & are unremarkable except as noted in HPI and below Integumentary/Breasts Skin/Breast: Reports wounds (Left ring finger) [facility], [facility] Medical History (Updated 06/28/21 @ 17:40 by Taylor Fulton) CAD (coronary artery disease) Chewing tobacco use Depression GERD (gastroesophageal reflux disease) HTN (hypertension) Hyperlipidemia NSTEMI (non-ST elevated myocardial infarction) Status post left heart catheterization (LHC) (~05/2019) Surgical History Stented coronary artery (~05/2019) LCX, total occlusion Social History Smoking/Tobacco Use Status: Current every day Tobacco Type: smokeless tobacco Smoking risk assessment performed?: Yes Substance use type: does not use Current gender identity: male Do you feel safe at home: Yes Do you feel safe in your relationship?: Yes Exam Extrem Left upper extremity: hand Details: normal capillary refill, neuromotor exam normal, neurosensory exam normal, normal ROM of fingers and abrasion Location: of the 4th digit Location: at the proximal phalanx and on the dorsal aspect Hand/finger images: 1. Approximately 1 cm x 1 cm round open nonhealing wound. Beefy red wound base with mild yellow surrounding yellow drainage, no surrounding erythema or induration. Full range of motion noted to the digit. Course Vital Signs Vital signs: Vital Signs Temperature 36.6 C 06/28/21 17:07 Pulse 70 06/28/21 17:07 Respiratory Rate 15 06/28/21 17:07 Blood Pressure 142/99 H 06/28/21 17:07 Pulse Oximetry 98 06/28/21 17:07 Temperature 36.6 C 06/28/21 17:07 Temperature Source Temporal Artery Scan 06/28/21 17:07 Pulse 70 06/28/21 17:07 Respiratory Rate 15 06/28/21 17:07 Respiratory Effort Non-Labored 06/28/21 17:13 Blood Pressure 142/99 H 06/28/21 17:07 Blood Pressure Position Supine 06/28/21 17:07 Pulse Oximetry 98 06/28/21 17:07 Oxygen Delivery Method Room Air 06/28/21 17:07 Oxygen Flow Rate 0 06/28/21 17:07 Pain Level 0 06/28/21 17:07
[2021-06-28] MEDS: Cephalexin 500 MG CAP PO (17:22)
[2021-06-28] MEDS: Cephalexin 500 MG CAP, 4 CAPS/BTL PO (17:44)
--- NOTE | 2021-06-28 17:50 | DI.VRAD_ITS ---
PROCEDURE INFORMATION: Exam: XR Left Finger(s) Exam date and time: 06/28/2021 5:18 PM Age: 51 years old Clinical indication: Injury or trauma; Other: Non traumatic wound; Work related; Left; Ring finger; Injury date: 06/25/21; Injury details: Began as a small sliver sized wound, gradually growing in size and weeping TECHNIQUE: Imaging protocol: XR Left fingers. Views: Minimum 2 views. COMPARISON: No relevant prior studies available. FINDINGS: Bones/joints: No fracture. No malalignment. Soft tissues: No significant soft tissue abnormality related to marked site of the wound. Diffuse swelling is noted. IMPRESSION: No radiographic abnormality to explain the patient's wound. Ultrasound might be useful to look for any wonder line fluid collection or radio-occult foreign body. Dictated and Authenticated by: Ron Perez MD. Ordering:ANAHY Vazquez MD
== END 2021-06-28 17:47 | disposition home or self-care (01) ==
PROVIDERS: Emergency Provider Registered Nurse Emergency; PCP Nurse Practitioner Family
DX: S61.205A Unspecified open wound of left ring finger without damage to nail, initial encounter (principal); X58.XXXA Exposure to other specified factors, initial encounter
CPT/HCPCS: 99283; 73140

== ENCOUNTER 2021-12-08 15:11 | Outpatient (REF) | payer MEDICAID, SELFPAY ==
[2021-12-08 15:21] LABS: Anion Gap 8.7 mmol/L (3-11); BUN 20 mg/dL (7-18); CO2 27.3 mmol/L (21.0-32.0); CREATININE 0.9 mg/dL (0.70-1.30); Calcium 9.2 mg/dL (8.5-10.1); Calculated LDL 70 mg/dL (<100); Chloride 105 mmol/L (98-107); Cholesterol 130 mg/dL (<200); Glucose 89 mg/dL (74-106); HDL Cholesterol 41 mg/dL (40-60); Potassium 4.2 mmol/L (3.5-5.1); Sodium 141 mmol/L (136-145); Triglyceride 97 mg/dL (<150)
== END 2021-12-08 15:12 | disposition home or self-care (01) ==
LOC: NCHCN 15:11
PROVIDERS: PCP Nurse Practitioner Family; Visit Provider Nurse Practitioner Family
DX: E78.5 Hyperlipidemia, unspecified (principal)
CPT/HCPCS: 80048; 80061

== ENCOUNTER 2022-11-10 08:44 | Outpatient (CLI) | payer MEDICAID, SELFPAY ==
--- NOTE | 2022-11-10 08:30 | RT.EKG_ITS ---
APPROVED REPORT Exam: Resting ECG Reason for Exam: evaluation of cardiac status Patient Location: O HR:60 bpm ECG Measurements Heart Rate 60 AXIS OH 155 P 22 QRSd 94 QRS -14 QT 428 T -4 QTc 428 Conclusion Sinus rhythm...normal P axis, V-rate 50- 99 Left ventricular hypertrophy...multiple voltage criteria
== END 2022-11-10 08:45 | disposition home or self-care (01) ==
LOC: DI.CARD 08:45
PROVIDERS: PCP Nurse Practitioner Family; Visit Provider Internal Medicine Cardiovascular Disease
DX: I25.10 Atherosclerotic heart disease of native coronary artery without angina pectoris (principal); R07.89 Other chest pain; R94.31 Abnormal electrocardiogram [ECG] [EKG]
CPT/HCPCS: 93010

== ENCOUNTER 2022-12-01 13:52 | Outpatient (REF) | payer MEDICAID, SELFPAY ==
[2022-12-01 19:59] LABS: Anion Gap 7.4 mmol/L (3-11); BUN 13 mg/dL (7-18); CO2 29.6 mmol/L (21.0-32.0); CREATININE 0.9 mg/dL (0.70-1.30); Calcium 8.6 mg/dL (8.5-10.1); Calculated LDL 59 mg/dL (<100); Chloride 104 mmol/L (98-107); Cholesterol 119 mg/dL (<200); Glucose 96 mg/dL (74-106); HDL Cholesterol 45 mg/dL (40-60); Potassium 3.8 mmol/L (3.5-5.1); Sodium 141 mmol/L (136-145); Triglyceride 76 mg/dL (<150)
== END 2022-12-01 13:53 | disposition home or self-care (01) ==
LOC: NCHCN 13:52
PROVIDERS: PCP Nurse Practitioner Family; Visit Provider Nurse Practitioner Family
DX: E78.5 Hyperlipidemia, unspecified (principal)
CPT/HCPCS: 80048; 80061

== ENCOUNTER 2022-12-31 06:56 | Day surgery (SDC) | payer MEDICAID, SELFPAY ==
--- NOTE | 2022-12-30 21:07 | W.PM.DSUDISC ---
Date of service: 12/31/22 Time of Service: 08:32 Discharge Plan Disposition Patient Disposition: Home Condition: Good Discharge Details Reason For Visit: Sceening colonoscopy Attending Provider: Yo Tomas Primary Care Provider: Leslie He Home Meds and New Rx's Prescriptions: Continued lisinopril 2.5 mg tablet 2.5 mg PO DAILY Qty: 90 6RF metoprolol tartrate 25 mg tablet 12.5 mg PO BID Qty: 90 5RF pantoprazole 40 mg Tablet,Delayed Release (Dr/Ec) 40 mg PO DAILY atorvastatin 80 mg Tablet 80 mg PO DAILY sertraline 100 mg Tablet 100 mg DAILY aspirin 81 mg Tablet,Chewable 81 mg PO DAILY nitroglycerin 0.6 mg Tablet, Sublingual 0.4 mg sublingual PRN PRN Discontinued bisacodyl [Dulcolax (bisacodyl)] 5 mg tablet,delayed release (DR/EC) 5 mg PO ONCE Qty: 4 0RF Rx Instructions: Take according to provider's instructions for colonoscopy prep. polyethylene glycol 3350 17 gram/dose powder 17 g PO ONCE Qty: 238 0RF Rx Instructions: To be taken as directed by prescriber's office for colonoscopy prep. Discharge Instructions Instructions: Colorectal Polyps (GEN) Additional Instructions: Jarvis, we were able to complete your colonoscopy without any difficulty today. I did find 2 polyps within your rectum. These were small, and completely removed. I will notify you when I have the pathology report on these. 1. If tolerated, consume a soft, low fiber diet for 1-2 days. 2[address] Do not drive, drink alcohol, operate machinery, make critical decisions, or do activities that require coordination or balance for 24 hours. 3. Because air was put into your colon during the procedure, expelling air from your rectum (passing gas or farting) is normal. 4. You may not have a bowel movement for 1-3 days because of the colonoscopy prep. This is normal. 5. Go directly to the emergency room if you notice any of the following: Develop chills (warm to touch), or if you have a thermometer and your temperature is above 101 Difficulty breathing or difficultly swallowing Persistent vomiting Severe abdominal pain, other than gas cramps Severe chest pain Black, tarry stools Any bleeding ? exceeding one tablespoon 6. Call your physician if the site where your intravenous was started becomes red, swollen, painful, and warm to touch. 7. Your physician has reviewed your pre-procedure medications. Please continue to take those medications as previously ordered. You will be given specific information/education regarding any changes to your medications before leaving. Activity:: Activity as Tolerated Diet:: As Tolerated Discharge Orders Discharge Orders: Discharge Order (Routine); Ordered 12/30/22 Ordered By: Yo Tomas DS: Diagnosis Discharge Diagnosis (1) Screening for colon cancer: Status: Acute Asessment and Plan: Follow-up on pathology from polypectomy
--- NOTE | 2022-12-30 21:08 | COLE_ITS ---
Date of service: 12/31/22 Time of Service: 08:30 Colonoscopy Report Date of procedure: 12/31/22 Pre-op diagnosis general: Screening colonoscopy Procedure: Colonoscopy with polypectomy Surgeon: Yo Tomas Anesthesia Type: General:No Airway Estimated blood loss (mL): 5 Pathology: other (Rectal polyps x2) Complications: None Disposition: same day Indications: Jarvis is 52 years old and he is here for a screening colonoscopy as part of routine health maintenance. Prep: Miralax/Dulcolax Procedure Start Time: 08:11 Procedure End Time: 08:24 Retraction Time: 8 Findings: 2 rectal polyps Procedure Description: After the induction of monitored anesthetic care, and with the patient in left lateral decubitus position, I began by performing an external anorectal exam.? Perineum and skin were normal, as was the anal verge.? There was no evidence of external hemorrhoids.? Next, I performed a digital rectal exam.? I did not appreciate any abnormal findings.? Next, I advanced a colonoscope into the rectal vault.? I performed retroflexion.? This was normal.? There were 2 polyps within the rectum. Both were less than 0.25 cm. Both were sessile in appearance, and easily removed with cold forcep polypectomy. There was minimal bleeding. Using insufflation, I then advanced the colonoscope beyond the rectal folds and into the sigmoid colon before advancing towards the cecum.? The quality of the prep was excellent.? The scope was noted to be in the cecum by identification of the ileocecal valve and appendiceal orifice.? I then began withdrawing the colonoscope using repeated irrigation as necessary for full evaluation of the colonic mucosa. ?Once the scope was withdrawn to the level of the rectum, great care was taken to examine portions of the rectal folds.? Finally, the scope was withdrawn and the patient was brought to the same-day [facility] recovery unit as the anesthetic wore off. ?The findings and instructions were shared with the patient prior to discharge.
--- NOTE | 2022-12-31 06:25 | W.ANESPRE ---
General Info Date of Service Date Performed: 12/31/22 Height: 6 ft Weight: 113.398 kg Body Mass Index (BMI): 33.9 Surgical Procedure: Operation Date: 12/31/22 08:20 Proposed Procedure Side Surgeon enrique Tomas MD Meds Allergies and Home Medications Allergies Allergy/AdvReac Type Severity Reaction Status Date / Time No Known Allergies Allergy Verified 12/31/22 07:07 Home Medication Medication Instructions Recorded aspirin 81 mg chewable tablet 81 mg PO DAILY 05/19/19 atorvastatin 80 mg tablet 80 mg PO DAILY 05/19/19 nitroglycerin 0.6 mg sublingual 0.4 mg sublingual PRN PRN 05/19/19 tablet pantoprazole 40 mg tablet,delayed 40 mg PO DAILY 05/19/19 release sertraline 100 mg tablet 100 mg DAILY 05/19/19 lisinopril 2.5 mg tablet 2.5 mg PO DAILY #90 tabs 11/06/19 metoprolol tartrate 25 mg tablet 12.5 mg PO BID #90 tabs 01/11/20 Current Visit Medications: Current Medications Generic Name Dose Route Start Last Admin Trade Name Freq PRN Reason Stop Dose Admin Hyoscyamine Sulfate 0.125 mg 12/30/22 21:10 Hyoscyamine 0.125 Mg Sl/Oral/Chew SL DIRECTED PRN Ringer's Solution 1,000 mls @ 80 mls/hr 12/31/22 06:00 IV 01/29/23 23:59 INFUSION [facility] IV Miscellaneous Supplies 1 each 12/31/22 06:00 Iv Access IV 01/29/23 23:59 DIRECTED [facility] Ondansetron HCl 4 mg 12/30/22 21:10 Ondansetron 4 Mg/2 Ml Vial IVP Q4H PRN PRN Nausea / Vomiting Sodium Chloride 0 ml 12/31/22 06:00 Normal Saline Flush 10 Ml Syr IV 01/29/23 23:59 PRN PRN Sodium Chloride 0 ml 12/31/22 06:00 Normal Saline 10 Ml Vial IJ 01/29/23 23:59 DIRECTED PRN Sterile Water 0 ml 12/31/22 06:00 Water,Injection,Sterile 10 Ml Vial IJ 01/29/23 23:59 DIRECTED PRN PFSH Active Problems Active Problems: Problem Status Onset Code HTN (hypertension) I10 CAD (coronary artery disease) I25.10 Chewing tobacco use Z72.0 Hyperlipidemia E78.5 Arm pain M79.603 Chest discomfort R07.89 Pleuritic pain R07.81 Non-healing wound Screening for colon cancer Z12.11 Medical History Medical History Depression GERD (gastroesophageal reflux disease) NSTEMI (non-ST elevated myocardial infarction) 2018 Plantar fasciitis, left Status post left heart catheterization (LHC) (~05/2019) Surgical History Surgical History (Updated 12/31/22 @ 07:19 by Valencia Bravo, RN) Hx of esophagogastroduodenoscopy Stented coronary artery (~05/2019) LCX, total occlusion Tobacco Smoking/Tobacco Use Status: Current every day Tobacco Type: smokeless tobacco Alcohol Alcohol Intake: current Alcohol intake frequency: holidays/special occasions only Substance Use Substance use type: does not use Vital Signs and Lab Results Lab Results Blood Type / Crossmatch: No Data to Display Complete Blood Count: No Data to Display Complete Metabolic Panel: Sodium 141 mmol/L (136-145) 12/01/22 13:40 Potassium 3.8 mmol/L (3.5-5.1) 12/01/22 13:40 Chloride 104 mmol/L (98-107) 12/01/22 13:40 Carbon Dioxide 29.6 mmol/L (21.0-32.0) 12/01/22 13:40 BUN 13 mg/dL (7-18) 12/01/22 13:40 Creatinine 0.9 mg/dL (0.70-1.30) 12/01/22 13:40 Est GFR (CKD-EPI 2020) 103.40 (mL/min/1.73m2) 12/01/22 13:40 Calcium 8.6 mg/dL (8.5-10.1) 12/01/22 13:40 Glucose 96 mg/dL (74-106) 12/01/22 13:40 Liver Function Panel: No Data to Display Coagulation Panel: No Data to Display Cardiac Panel: No Data to Display Arterial Blood Gas: No Data to Display Venous Blood Gas: No Data to Display Pancreas Panel: No Data to Display Thyroid Panel: No Data to Display Infectious Disease: No Data to Display Blood Cultures: No Data to Display Toxicology Panel: No Data to Display Imaging and Studies Imaging and Studies Study information below may be from another EMR and interpreted by another provider. Please see original notes in EMR for more complete details. EKG Summary: EKG PATIENT NAME: Jarvis Guevara #: [id number] ORDERING PROVIDER: Aniya Santana M.D. PRIMARY CARE PROVIDER:JESSICA HE NP DATE/TIME OF SERVICE: 11/10/22 0908 : 1970PERFORMING LOCATION: .CARD APPROVED REPORT Exam: Resting ECG Reason for Exam: evaluation of cardiac status Patient Location: O HR:60 bpm ECG Measurements Heart Rate 60 AXIS PA 155 P 22 QRSd 94 QRS -14 QT 428 T-4 QTc 428 Conclusion Sinus rhythm...normal P axis, V-rate 50- 99 Left ventricular hypertrophy...multiple voltage criteria <Electronically signed by ANIYA SANTANA MD in OV> E-Sign Date: 11/10/22 E-Sign Time: 1021 Stress Test Summary: Patient Name: Jarvis Guevara #: [id number]: Ordering Provider: Sumit Giordano #: [id number]: REG CLI Primary Care Provider: Marcellus He of Exam: 05/22/21Sex: M Admission Date: 05/22/21 : 1970 Age: 50 APPROVED REPORT Exam: Exercise Treadmill Patient Location: Out-Patient Room/Bed: Stress Nurse: Tahira Schmid RN Ordering Provider:SUMIT GIORDANO, Contact Number: [phone] BMI: 31.19 Baseline Rhythm: Sinus Bradycardia Comment: ST elevation 1mm leads I, aVL, V2. Flipped T waves lead III, V6. Indications: Chest pain Medical History Medical History: CAD, NSTEMI (2019), hypertension, hyperlipidemia, depression, gerd Cardiac Medications: Aspirin, atorvastatin, clopidogrel, nitroglycerin, pantoprazole, lisinopril, metoprolol tartrate Allergies: No known drug allergies Cardiac Risk Factors: Hypertension, hyperlipidemia, CVD, family hx, tobacco use (current) Previous Cardiac Procedures: NSTEMI, PCI w/ stent x1 (2019) Pretest Chest Pain Characteristics: None Exercise History: Sedentary Physical Disabilities: None Lung Sounds: Clear to auscultation Heart Sounds: Regular Stress Test Details Test: Exercise stress testing was performed using a modified Vinnie protocol. Nuclear Acquisition: Rest Tc-99m/Stress Tc-99m 1 day Rest Isotope: Tc-99m Sestamibi. Dose: 12.2 Date: 05/22/2021 Injection Time: 0900 Stress Isotope: Tc-99m Sestamibi. Dose: 38.1 Date: 05/22/2021 Injection Time: 1036 HR Resting HR Supine: 57 bpmMax Heart Rate (APMHR): 171 bpm Resting HR Standin bpmTarget HR (85% APMHR): 145 bpm Max HR Achieved: 156 bpm % of APMHR: 91 Recovery HR: 78 bpm HR response to stress: Normal HR response to stress Comment: Metoprolol tartrate held for 24 hrs BP Resting BP Supine: 122/80 mmHg Resting BP Standin/76 mmHg Max BP: 176/80 mmHg Recovery BP: 130/82 mmHg BP response to stress: Normal blood pressure response to stress. ECG Resting ECG: Sinus Bradycardia Ectopy: None Comment: ST elevation 1mm leads I, aVL, V2. Flipped T waves lead III, V6. Stress ECG: Sinus Tachycardia Arrhythmia: Rare PAC, rare PVC Recovery ECG: Sinus Rhythm Recovery ST Change: No significant ST segment changes noted Recovery Arrhythmia: Rare PVC Clinical Reason for Termination: Fatigue Stress Symptoms: General Fatigue Exercise duration: 10 min59 sec Highest Stage Reached: Stage 4: 4.2 mph at 16% grade. Exercise capacity: 11.86 METs Rate Pressure Product: 18549 Stress ECG Conclusion 1. The patient exercised for 11 minutes (11.8 METS). Exercise was stopped due to fatigue. 2. The patient no symptoms suggestive of ischemia. 3. There is no evidence of ischemia on the ECG portion of the exam. MPI Conclusion The ejection fraction was 44% with stress. There were no wall motion abnormalities. There is no evidence of ischemia on the imaging portion of the exam. This represents a normal SPECT stress test. Echocardiogram Summary: Patient Name: JARVIS GUEVARA #: [id number]: DESTINEY Ordering Provider: Yassine Caro M.D. : REG I Primary Care Provider: Marcellus He of Exam: 09/05/19Sex: M Admission Date: 09/05/19 : 1970 Age: 49 Exam(s) a US:US echocardiogram APPROVED REPORT Conclusion Normal LV size and thickness, EF is 55-60%. No segmental wall motion abnormaliities Both atria are top normal size No significant structural valvular abnormalities Mild mitral, tricuspid and pulmonic regurgitation EXAM: Comprehensive 2D, Doppler, and color-flow Echocardiogram Patient Location: Out-Patient Telesales Representative: KALIN Robbins (AE) Rhythm: Bradycardia NSR Indications: NSTEMI CAD i25.10 Left Ventricle The left ventricle is normal size. Left ventricular systolic function appears normal. There is normal left ventricular wall thickness. There is normal LV segmental wall motion. change in MV inflow with valsalva LVEF is estimated to be 55-60%. Right Ventricle RV normal size Prominent moderator band The right ventricular systolic function is normal. Atria The left atrium size is top normal. The right atrium size is top normal. Aortic Valve Aortic valve is trileaflet. There is no aortic valvular stenosis. No aortic regurgitation is present. Mitral Valve Mitral valve leaflets are mildly thickened. Mild mitral regurgitation. Tricuspid Valve The tricuspid valve leaflets are mildly thickened , but open well. Mild tricuspid regurgitation. Pulmonic Valve Mild pulmonic regurgitation. Great Vessels The aortic root is normal in size. The IVC is very mildly dilated The IVC collapses bluntly Pericardium There is no pericardial effusion. 2D Dimensions IVSd 1.07 cm M: 0.6-1.2LV EDV X9G925.00 mL PWd 1.03 cm M: 0.6 - 1.2LV EDV P7R097.20 mL LVDd 5.22 cm M: 4.2 - 5.9LA Area A4C20.05 cm2 LVDs 3.89 cm M: 2.5 - 4.0LA Area A2C19.96 cm2 Aortic Root 3.19 cm M: 3.1 - 3.7EF AP451.62 % RA Area A4C18.47 cm2EF AP261.08 % LVOT2.21 cm (M/F) 1.5-2.5EF BP57.03 % Ascending Aorta 3.45 cm M: 2.6 - 3.4 LVEF (Teich) 49.92 % LVEF (Melendez's)57.03 % M: 52 - 72 LV Sqcjhz555.19 mL M: 62 - 150 LV Volume Index51.87 mL/m2 M: 34 - 74 FS25.52 % LV Diastology E Decel Yion978.00 (160-240 msec)E/A Ratio 1.60 MED E'0.09 (>0.07 m/s)LV E/e MED7.50 (<14) LAT E'0.13 (>0.1 m/s)LV E/e LAT5.65 (<14) Pulm Vein s0.47 m/sPV S/D Ratio0.95 Pulm Vein d0.50 m/sPulm Vein a0.31 m/s A-A Gdpohsju222.74 msec Aortic Valve LVOT Area3.85 wv3UVPY Peak Nilson.0.91 m/s LVOT Mean Nilson.0.73 m/sLVOT Peak Gr.3.32 mmHg LVOT Mean Gr.2.26 mmHgLVOT VTI0.21 m AoV Peak Nilson.1.46 (0.5-1.3 m/s)AoV Mean Nilson.1.08 m/s AO Peak GR.8.59 mmHgAO Mean GR.5.03 (<5 mmHg) AO VTI0.32 (0.18-0.25 m)RYLEE (VTI)2.50 (2.5-4.5 cm2) Mitral Valve MV E Max Nilson.0.71 (0.4-1.3 m/s)MV A Velocity0.45 (0.4-1.3 m/s) E/A Ratio1.59MV Decel. Ezjd069.26 (160-240 msec) MV Regurg Losmrj30.90 mLMV PHT59.24 msec MV RF16.45 %MVA PHT3.71 cm2 Pulmonary Valve PV Peak Velocity0.90 (0.5-1.5 m/s) Tricuspid Valve TR P. Velocity2.15 m/sTV Regurg Vmax2.15 m/s TR P. Fijvuudg52.51 mmHg Ordered By: Yassine Caro M.D. CC: Dictated By: Aniya Santana M.D. 09/05/19 3408 Anesthesia Assessment and Plan Anesthesia History Personal History: No History of Anesthesia Complications Family History: No Family History of Anesthesia Complications Exercise Tolerance Exercise Tolerance: Metabolic Equivalents>4 Pertinent Negatives Pertinent Negatives: No Symptoms of GERD, No Major Pulmonary Symptoms or Complaints and No History of CVA/TIA Cardiac & Pulmonary Exam Cardiac Exam: Normal S1/S2 Heart Sounds Pulmonary Exam: Clear Bilateral Breath Sounds Implantable Cardiac Device Does patient have a Pacemaker or an ICD?: No Airway Exam Known Difficult Airway: No Mallampati Class: 2 Mouth Opening: Normal (> 3cm) Thyromental Distance: Greater than 3 cm Neck Range of Motion: Full ROM Neck Circumference: Normal Teeth Condition: Normal Dentition ASA Classification ASA Score: ASA 2 Emergency Case?: No NPO Status NPO Status: NPO Clears >2 hours, Solids >8 hours Anesthesia Plan Resuscitation Status: Full Code Anesthesia Technique: General Anesthesia Airway Planned: Natural Airway Monitors Used: Standard Monitors
[2022-12-31 07:00] VITALS: BP 118/83; PULSE 69; RESP 18; TEMP 36.3; O2SAT 99
[2022-12-31] MEDS: Lactated Ringers 1,000 ML 80 ML IV (07:23)
[2022-12-31 08:05] VITALS: BMI 33.9
--- NOTE | 2022-12-31 08:15 | BOWEL_PTH ---
PATIENT: Jarvis Padron LOC: [facility] U#:[id number] AGE/SX: 52/M ROOM: RE12/31/[address]: Yo Tomas MD : 1970 BED: DIS: 12/31/2022 SPEC #: [id number] RECD: 12/31/22 12:46 STATUS: RACHEL REQ #: [id number] PAIGE: 12/31/22 08:[address]: Yo Tomas DEPT: Surgical Specimen RECD BY: Olimpia Goodman ENTERED: 12/31/22 12:47 SP TYPE: Bowel OTHR DR: Leslie He Tissues: 1 - BIOPSY BOWEL Procedures: GROSS AND MICRO LEVEL 4 Comments: [id number]
[2022-12-31 08:31] VITALS: BP 98/72; PULSE 69; RESP 18; TEMP 36.4; O2SAT 94
[2022-12-31 08:42] VITALS: BP 111/77; PULSE 62; RESP 18; TEMP 36.4; O2SAT 95
[2022-12-31 09:02] VITALS: BP 123/74; PULSE 76; RESP 18; TEMP 36.6; O2SAT 98
--- NOTE | 2022-12-31 10:16 | W.ANESPOSTOP ---
Postoperative Evaluation Date, Time and Location Date Performed: 12/31/22 Time Performed: 10:16 Patient Location: Day Surgery Unit Vital Signs Most Recent Imported Vital Signs: Most Recent Vital Signs Temp Pulse Resp BP Pulse Ox 36.6 C 76 18 123/74 98 12/31/22 09:02 12/31/22 09:02 12/31/22 09:02 12/31/22 09:02 12/31/22 09:02 Pain Score Most Recent Pain Score: Most Recent Pain Score Pain Level 0 12/31/22 08:42 Assessment Mental Status: Awake (Alert & Oriented to Patient Baseline) Airway and Respiratory Function: Patent airway with normal (patient baseline) respiratory exam Cardiovascular Function: Hemodynamically Stable Hydration Status: Adequately Hydrated Nausea & Vomiting: No Nausea or Vomiting Pain: Pt. Denies Any Pain Peripheral Nerve Block: Patient did not receive a nerve block
== END 2022-12-31 09:15 | disposition home or self-care (01) ==
PROVIDERS: PCP Nurse Practitioner Family; Visit Provider Surgery
PROC: 0DJD8ZZ Inspection of Lower Intestinal Tract, Via Natural or Artificial Opening Endoscopic (ICD-10-PCS; CPT 45378; principal; 2022-12-31 08:15)
DX: Z12.11 Encounter for screening for malignant neoplasm of colon (principal); K62.1 Rectal polyp
CPT/HCPCS: 45380; 88305

== ENCOUNTER 2023-12-02 16:23 | Outpatient (REF) | payer MEDICAID, SELFPAY ==
[2023-12-02 19:42] LABS: HCT 38.3 % (40.0-50.0); HGB 13.8 g/dL (13.5-17.5); MCH 32.3 pg (27.0-33.0); MCV 90 fL (80-95); MPV 11.2 fL (8.0-11.0); Platelet Count 217 10^3/uL (130-400); RBC 4.27 10^6/uL (4.36-5.78); RDW 13.9 % (11.8-14.1); RDW-SD 45.3 fL; WBC 6.81 10^3/uL (4.4-10.8)
[2023-12-02 20:17] LABS: Hemoglobin A1C 5.3 % (<5.7)
[2023-12-02 20:21] LABS: ALT 32 U/L (16-63); AST 27 U/L (15-37); Albumin 3.9 g/dL (3.4-5.0); Alkaline Phosphatase 84 U/L (46-116); Anion Gap 9.1 mmol/L (3-11); BUN 15 mg/dL (7-18); Bilirubin, Total 0.6 mg/dL (0.2-1.0); CO2 26.9 mmol/L (21.0-32.0); CREATININE 0.8 mg/dL (0.70-1.30); Calcium 8.5 mg/dL (8.5-10.1); Calculated LDL 78 mg/dL (<100); Chloride 105 mmol/L (98-107); Cholesterol 146 mg/dL (<200); Estimated GFR 106.48 (mL/min/1.73m2); Glucose 94 mg/dL (74-106); HDL Cholesterol 47 mg/dL (40-60); Potassium 3.8 mmol/L (3.5-5.1); Sodium 141 mmol/L (136-145); TSH (W/Ref FT4) 1.79 uIU/mL (0.36-3.74); Total Protein 6.9 g/dL (6.4-8.2); Triglyceride 105 mg/dL (<150)
== END 2023-12-02 16:24 | disposition home or self-care (01) ==
LOC: NCHCN 16:23
PROVIDERS: PCP Nurse Practitioner Family; Visit Provider Nurse Practitioner Family
DX: E78.5 Hyperlipidemia, unspecified (principal); E66.8 Other obesity; Z68.36 Body mass index [BMI] 36.0-36.9, adult; Z13.1 Encounter for screening for diabetes mellitus; Z00.00 Encounter for general adult medical examination without abnormal findings
CPT/HCPCS: 80053; 80061; 85027; 83036; 84443

== ENCOUNTER → 2024-01-20 01:02 | Outpatient (CLI) | payer MEDICAID, SELFPAY ==
--- NOTE | 2024-01-20 15:03 | DI.NM_ITS ---
APPROVED REPORT Exam: Exercise Treadmill Patient Location: Out-Patient Room/Bed: Stress Nurse: Barbara Glass RN Ordering Provider:SEBASTIAN DU, Contact Number: BMI: 33.90 Baseline Rhythm: Sinus Bradycardia Comment: Occasional PVC's Indications: CAD, chest pain, Medical History Medical History: Depression, GERD, NSTEMI, HTN, HLD, chewing tobacco use Cardiac Medications: Aspirin, atorvastatin, lisinopril, metoprolol tartrate, nitro, pantoprazole, ser traline Allergies: NKA Cardiac Risk Factors: Family hx, CVD, HTN, HLD, tobacco use Previous Cardiac Procedures: Cardiac catheterization 2018 Pretest Chest Pain Characteristics: None Exercise History: Physically active Physical Disabilities: None Lung Sounds: Clear to auscultation Heart Sounds: Bradycardia Stress Test Details Test: Exercise stress testing was performed using a Vinnie protocol. Nuclear Acquisition: Rest Tc-99m/Stress Tc-99m 1 day Rest Isotope: Tc-99m Sestamibi. Dose: 12.0 Date: 01/20/2024 Injection Time: 1030 Stress Isotope: Tc-99m Sestamibi. Dose: 36.0 Date: 01/20/2024 Injection Time: 1300 HR Resting HR Supine: 53 bpm Max Heart Rate (APMHR): 168.304446 bpm Resting HR Standin bpm Target HR (85% APMHR): 142.831670 bpm Max HR Achieved: 145 bpm % of APMHR: 86.31 Recovery HR: 72 bpm HR response to stress: Blunted HR response to stress BP Resting BP Supine: 132/90 mmHg Resting BP Standin/98 mmHg Max BP: 198/72 mmHg Recovery BP: 148/88 mmHg BP response to stress: Normal blood pressure response to stress. ECG Resting ECG: Sinus Bradycardia Ectopy: Occasional PVC's Stress ECG: Sinus Tachycardia ST Change: No significant ST segment changes noted Arrhythmia: None Recovery ECG: Sinus Rhythm Recovery ST Change: No significant ST segment changes noted Recovery Arrhythmia: Occasional PVC's Clinical Reason for Termination: Target HR Achieved, SOB, , Fatigue Stress Symptoms: Moderate SOB, , General Fatigue Exercise duration: 09 min07 sec Highest Stage Reached: Stage 4: 4.2 mph at 16% grade. Exercise capacity: 10.33 METs Angina Score: None Rate Pressure Product: 89295 Stress ECG Conclusion 1. Resting electrocardiogram is within normal limits 2. Patient exercised on the Vinnie protocol and completed a workload of 10.3 METS 3. Normal heart rate and blood pressure response to exercise. Patient achieved 86% of predicted for age 4. There was no electrocardiographic evidence of myocardial ischemia 5. No dysrhythmias 6. See MPI report Stress Test Summary STAGE Time (mins) Speed (mph) Grade (%) HR BP SpO2 SYMPTOMS METS Supine 53 132/90 Standing 62 140/98 1 3 1.7 10 103 4.5 2 6 2.5 12 119 142/80 7 3 9 3.4 14 119 10 4 12 4.2 16 145 Moderate SOB 13 1 min recovery 89 198/72 3 min recovery 79 170/90 6 min recovery 72 148/88 SOB resolved MPI Conclusion Myocardial perfusion is normal. There is no ischemia or evidence of prior infarction EF is 47% with normal wall motion Radiologist Interpretation Radiologist agrees with Instructor Pilot's Interpretation. Radiologist Interpretation by: Wilfred Gutierrez MD Interpretation Date/Time: 01/20/2024 17:53:10
== END ==
PROVIDERS: PCP Nurse Practitioner Family; Visit Provider Internal Medicine Interventional Cardiology
DX: R07.89 Other chest pain (principal); I25.10 Atherosclerotic heart disease of native coronary artery without angina pectoris
CPT/HCPCS: 78452; 93017

== ENCOUNTER 2024-07-29 18:16 | Emergency (ER) | payer MEDICAID, SELFPAY ==
[2024-07-29 18:38] VITALS: BP 167/80; PULSE 69; RESP 16; TEMP 36.8
[2024-07-29] MEDS: Fluorescein STRIPS 100/BOX 1 MG OP (19:03)
--- NOTE | 2024-07-29 19:16 | ED.GENADUL_ITS ---
Discharge Plan Disposition Patient Disposition: Home Discharge Details Clinical Impression: Corneal abrasion Primary Care Provider: EZEKIEL TURNER ED Provider: Nory Cole Home Meds and New Rx's Prescriptions: New erythromycin 5 mg/gram (0.5 %) ointment 0.5 inch ophthalmic (eye) QID 5 Days Qty: 3.5 0RF Continued metoprolol tartrate 25 mg tablet 12.5 mg PO BID Qty: 90 5RF pantoprazole 40 mg Tablet,Delayed Release (Dr/Ec) 40 mg PO DAILY sertraline 100 mg Tablet 100 mg PO DAILY aspirin 81 mg Tablet,Chewable 81 mg PO DAILY nitroglycerin 0.6 mg Tablet, Sublingual 0.4 mg sublingual PRN PRN atorvastatin 80 mg tablet 80 mg PO DAILY Discharge Instructions Instructions: Corneal Abrasion ED Additional Instructions: Please follow-up with Kristopher miranda on Wednesday if your eye continues to feel uncomfortable. I encourage you to use the erythromycin ointment 4 times a day as prescribed. Also you may use [id number] loratadine twice a day for itching/swelling. Use cool compresses to help with irritation around the eye. Please do not rub at your eye. Wash hands before handling anything around your eyes. Return to emergency care if you develop new headaches, fevers, vision changes, worsening eye pain despite treatment, or if you are very worried and need to be rechecked again immediately Referrals: [facility] CARE,KRISTOPHER [OTHER] - [facility] General Date/Time Provider Initiated Documentation: 07/29/24 18:21 . HPI Narrative: Jarvis is a 54-year-old male presents to the emergency department today for evaluation of left eye discomfort. He reports that he was stung on his L ear and next to his left eye by ground hornets when he was putting in fencing 2 days ago. Last night he itched it his eye, felt like something got in it. He has been irritated and uncomfortable since then, with feeling of irritation with moving of the eye. No vision change, headache, dizziness, nausea/vomiting, ear pain, rashes. No history of eye surgery. He does wear glasses, no contact lenses. He does have an eye doctor he can follow-up with, says he was seen by Kristopher miranda. Physical exam remarkable for fluorescein uptake to the lateral aspect of the left eye. No foreign bodies visualized with eversion of the upper and lower eyelids. Mild diffuse conjunctival injection. There is mild swelling noted around the left periorbital area. PERRL, EOMs intact. Full painless range of motion to eye after tetracaine applied. History and presentation consistent with corneal abrasion, likely due to foreign body that has since been removed. No red flags concerning for herpes zoster, periorbital or orbital cellulitis, or other serious etiologies of right eye at this time. Will treat with erythromycin ointment. Recommend cool compresses to help with swelling around the eye due to insect sting, as well as antihistamines as needed for itching. Recommend follow-up with eye doctor if eye irritation persist after 48 hours of treatment for reassessment. Educated on red flags indicate need for return to emergency care. Jarvis sheetss agreement with plan of care. Related Data Home Medications ?Medication ?Instructions ?Recorded ?Confirmed aspirin 81 mg chewable tablet 81 mg PO DAILY 05/19/19 07/29/24 nitroglycerin 0.6 mg sublingual 0.4 mg sublingual PRN PRN 05/19/19 07/29/24 tablet pantoprazole 40 mg tablet,delayed 40 mg PO DAILY 05/19/19 07/29/24 release sertraline 100 mg tablet 100 mg PO DAILY 05/19/19 07/29/24 metoprolol tartrate 25 mg tablet 12.5 mg (1/2 x 25 mg) PO BID #90 01/11/20 07/29/24 tabs atorvastatin 80 mg tablet 80 mg PO DAILY 11/12/23 07/29/24 erythromycin 5 mg/gram (0.5 %) eye 0.5 inch ophthalmic (eye) QID 5 07/29/24 ointment days #3.5 grams Previous Rx's ?Medication ?Instructions ?Recorded metoprolol tartrate 25 mg tablet 12.5 mg (1/2 x 25 mg) PO BID #90 01/11/20 tabs erythromycin 5 mg/gram (0.5 %) eye 0.5 inch ophthalmic (eye) QID 5 07/29/24 ointment days #3.5 grams Allergies Allergy/AdvReac Type Severity Reaction Status Date / Time No Known Allergies Allergy Verified 07/29/24 18:41 General Stated Complaint: EyeProblem BECCA: 4 Review of Systems Narrative: see HPI Exam Const General: cooperative, healthy appearing, comfortable, no acute distress, well developed and well groomed Nutritional Appearance: average body habitus HENMT Head: normal to inspection General nose exam: external nose normal Eyes Periorbital: periorbital findings abnormal left (to lateral aspect of periorbi kathi area c/w insect sting) periorbital swelling and periorbital erythema Conjunctivae: conjunctivae normal Cornea: corneas abnormal on the left fluorescein used and abrasion; no contact lens present, without dendrites present and with no foreign body noted and fluorescein used Pupils: PERRL EOM: EOM intact bilaterally Neck Neck: normal visual inspection and full ROM Resp Effort & Inspection: normal respiratory effort and able to speak in complete sentences Course Vital Signs Vital signs: Vital Signs Temperature 36.8 C 07/29/24 18:38 Pulse 69 07/29/24 18:38 Respiratory Rate 16 07/29/24 18:38 Blood Pressure 167/80 H 07/29/24 18:38 Temperature 36.8 C 07/29/24 18:38 Pulse 69 07/29/24 18:38 Respiratory Rate 16 07/29/24 18:38 Blood Pressure 167/80 H 07/29/24 18:38 Pain Level 3 07/29/24 18:38 Medical Decision Making Quality:SDOH Health Related Social Needs: No Data to Display PFSH All Active Problems (Updated 07/29/24 @ 19:21 by Nory Jacobson) Corneal abrasion (Acute) Hyperplastic colon polyp (Acute ~12/31/22) HTN (hypertension) (Chronic) CAD (coronary artery disease) (Chronic) Chewing tobacco use (Acute) Hyperlipidemia (Acute) Chest discomfort (Acute) Pleuritic pain (Acute) Non-healing wound (Acute) Screening for colon cancer (Acute) Medical History Plantar fasciitis, left Depression GERD (gastroesophageal reflux disease) Status post left heart catheterization (LHC) (~05/2019) NSTEMI (non-ST elevated myocardial infarction) 2019 Surgical History History of colonoscopy with polypectomy (~12/31/22) Hx of esophagogastroduodenoscopy Stented coronary artery (~05/2019) LCX, total occlusion Family History Paternal Uncle Colon cancer Social History Smoking/Tobacco Use Status: Current every day Tobacco Type: smokeless tobacco Smoking risk assessment performed?: Yes Alcohol Intake: current Alcohol Intake frequency: holidays/special occasions only Substance use type: does not use Current gender identity: male Do you feel safe at home: Yes Do you feel safe in your relationship?: Yes
--- OUTSIDE RECORDS SUMMARY | 2024-07-29 19:17 | XMS_ITS | Encounter Summary ---
Author Organization [facility] Address [facility] [place] [address] Care Team Providers Care Analytic Manager Name Role Phone None Primary Care Provider Unavailabl e Encounter Details Date Type Department Care Team (Late st Contact Info) Description 07/11/2019 Telephone Cardiology at [address] [phone] Silas Knutson RN Social History Tobacco Use Types Packs/Day Years Used Date Smoking Tobacco: Never Smokeless Tobacco: Current Chew Alcohol Use Standard Drinks/Week Comments Yes 0 (1 standard drink = 0.6 oz pur e alcohol) very rarely Sex and Gender Information Value Date Recorded Sex Assigned at Not on file Gender Identity Not on file Sexual Orientation Not on file documented as of this encounter Miscellaneous Notes * Telephone Encounter - Silas Knutson RN - 07/11/2019 4:49 PM EDT Requested Prescriptions Pending Prescriptions Disp Refills ??? atorvastatin (LIPITOR) 80 mg Tablet 90 tablet 3 Sig: Take 1 tablet by mouth every evening. Received a telephonic prescription renewal/ change request for above Lipitor from Mr. Padron's significant other, calling on his behalf. Requests prescription be changed to 90 day supply for purposesof prescription plan coverage, and routed to the [facility], [place], [place] Refill request for 90 days with 3 refills advanced; request consistent with [facility] record. Reviewed Epic record and last office note from Dr. Sarmiento dated 06/02/2019: We will plan on continuing dual antiplatelet therapy for 12 months in addition to optimizing blood pressure, heart rate and lipids with a beta-kimi, STONE inhibitor and a statin Refill prepped and forwarded to Provider for authorization Benny Knutson RNcontact center analyst Team Nurse [facility] documented in this encounter Plan of Treatment Not on file documented as of this encounter Visit Diagnoses Not on filedocumented in this encounter Care Teams Analytic Manager Relationship Specialty Start Date End Date None None PCP - General 05/11/19 documented as of this encounter
--- OUTSIDE RECORDS SUMMARY | 2024-07-29 19:17 | XMS_ITS | Encounter Summary ---
Author Organization [facility] Address [facility] [place] [address] Care Team Providers Care Flower Grader Name Role Phone None Primary Care Provider Unavailabl e Reason for Visit * Reason Comments Medication Refill Encounter Details Date Type Department Care Team (Late st Contact Info) Description 01/10/2020 Refill Cardiology at [address] [place] [phone] Joana Lyon PA [facility] [place] [address] Medication Refill Social History Tobacco Use Types Packs/Day Years Used Date Smoking Tobacco: Never Smokeless Tobacco: Current Chew Alcohol Use Standard Drinks/Week Comments Yes 0 (1 standard drink = 0.6 oz pur e alcohol) very rarely Sex and Gender Information Value Date Recorded Sex Assigned at Not on file Gender Identity Not on file Sexual Orientation Not on file documented as of this encounter Plan of Treatment Not on file documented as of this encounter Visit Diagnoses Not on filedocumented in this encounter Care Teams Flower Grader Relationship Specialty Start Date End Date None None PCP - General 05/11/19 documented as of this encounter
--- OUTSIDE RECORDS SUMMARY | 2024-07-29 19:17 | XMS_ITS | Clinical Summary ---
Author Organization [facility] Address [facility] [place] [address] Care Team Providers Care Help Desk Representative Name Role Phone None Primary Care Provider Unavailabl e Allergies No known active allergies Medications Medication Sig Dispensed Refills Start Date End Date Status pantoprazole (PROTONIX) 40 mg Tablet, Delayed Release (E.C.) Take 40 mg by mouth daily. 0 02/12/2019 Active sertraline (ZOLOFT) 100 mg Tablet Take 100 mg by mouth daily. 0 02/12/2019 Active aspirin 81 mg Tablet, Chewable Take 81 mg by mouth daily. 30 tablet 3 05/14/2019 Active clopidogrel (PLAVIX) 75 mg Tablet Take 1 tablet by mouth every morning. 90 tablet 3 05/13/2019 Active lisinopril (PRINIVIL;ZESTRIL) 5 mg Tablet Take 1 tablet by mouth daily. 30 tablet 3 05/14/2019 Active Additional Information Patient taking differently: 2.5 mgOral DAILY, Reported on 06/02/2019 nitroGLYcerin (NITROSTAT) 0.4 mg Tablet, Sublingual Place 1 tablet under the tongue every 5 minutes as needed for Chest pain. 25 tablet 3 05/13/2019 Active metoprolol tartrate (LOPRESSOR) 25 mg Tablet Take 0.5 tablets by mouth 2 times daily. 60 tablet 3 05/13/2019 Active atorvastatin (LIPITOR) 80 mg Tablet Take 1 tablet by mouth every evening. 90 tablet 3 07/11/2019 Active Active Problems Problem Noted Date Diagnosed Date Mixed hyperlipidemia 05/13/2019 Coronary artery disease involving diomede coronar y artery 05/13/2019 Overview (06/01/2019): S/p DELMER to OM1 for NSTEMI 05/12/2019: Conclusions: First Obtuse Marginal Branch of the LCX Proximal 100% * One vessel coronary artery disease (LCX) * Successful stent insertion of the proximal OM1 lesion Depression 05/13/2019 Chewing tobacco nicotine dependence without comp lication 05/13/2019 HTN (hypertension) 05/13/2019 NSTEMI (non-ST elevated myocardial infarction) 0 05/11/2019 Family History Medical History Relation Comments Cancer Father Coronary Artery Disease Father Diabetes Mother Relation Status Comments Father Mother Alive Social History Tobacco Use Types Packs/Day Years Used Date Smoking Tobacco: Never Smokeless Tobacco: Current Chew Alcohol Use Standard Drinks/Week Comments Yes 0 (1 standard drink = 0.6 oz pur e alcohol) very rarely Sex and Gender Information Value Date Recorded Sex Assigned at Not on file Gender Identity Not on file Sexual Orientation Not on file Last Filed Vital Signs Vital Sign Reading Time Taken Comments Blood Pressure 117/72 06/02/2019 10:37 AM EDT Pulse 59 06/02/2019 10:37 AM EDT Temperature 37.3 ??C (99.1 ??F) 05/13/2019 7:50 AM ED T Respiratory Rate 12 05/13/2019 7:50 AM EDT Oxygen Saturation 99% 06/02/2019 10: 37 AM EDT Inhaled Oxygen Concentration - - Weight 106.5 kg (234 lb 14.4 oz) 2018 10:37 AM EDT Height 182.9 cm (6') 06/02/2019 10:37 AM EDT Body Mass Index 31.86 06/02/2019 10:37 AM EDT Plan of Treatment Health Maintenance Due Date Last Done Comments CT Colonography 1971 Colonoscopy 1971 Colorectal Cancer Screening 1971 FIT DNA 1971 FIT 1971 Sigmoidoscopy (10 year) with FIT yearly 1971 Sigmoidoscopy 1971 HIV screen 1989 Hepatitis C Screening 1989 Hepatitis B vaccine (0-59 yrs) (1) 1990 Tdap adult 1990 Tetanus vaccine 1990 Zoster vaccine (1 of 2) 2021 Covid-19 Vaccine (1 - 2022-2 4 season) 2024 Influenza (Flu) vaccine (1 o f 1 - Influenza standard series) 07/09/2024 Diabetes Screening (HgbA1C o r Glucose) Discontinued 05/13/2019, 05/12/2019, 05/11/2019 Procedures Procedure Name Priority Date/Time Associated Diagnosis Comments BMP W/FASTING GLUCOSE Routine 05/13/2019 5:53 AM EDT from Last 3 Months or Most Recently Relevant to Health Maintenance Results * (ABNORMAL) BMP w/fasting Glucose (05/13/2019 5:53 AM EDT) Glucose Fasting 114(H) 65 - 99 mg/dL [facility] Comment: ?Fasting* Glucose Interpretive Criteria Normal ?65-99 mg/dL Impaired Fasting glucose ?100-125 mg/dL Consistent with Diabetes Mellitus ? >or= 126 mg/dL *Fasting is defined as no caloric intake for at least 8 hours In the absence of unequivocal hyperglycemia a plasma glucose value of >or= 126 mg/dL should be repeated on a subsequent day. Diagnosis and Classification of Diabetes Mellitus, Position Statement from the [place] [employer]. ??Diabetes Care, Volume 33, Supplement 1, Nov 2009 Blood Urea Nitrogen 15 10 - 20 mg/dL [facility] Creatinine 0.89 0.80 - 1.50 mg/dL [facility] Sodium 142 135 - 145 mmol/L [facility] Potassium 4.1 3.5 - 5.0 mmol/L [facility] Comment: Please note: ??Patients with WBC >100,000 may have falsely elevated Potassium levels. ??For accurate Potassium quantification in these patients send serum separator tube (gold top) for subsequent determinations. ??Contact the Clinical Chemistry Laboratory if there are any questions. Chloride 105 98 - 107 mmol/L [facility] Carbon Dioxide 25 22 - 31 mmol/L [facility] Anion Gap 12 5 - 15 mmol/L [facility] Calcium 8.7 8.5 - 10.5 mg/dL [facility] Est Glomerular Filtration Rate 102 >=60 mL/min/1. 73 m?? [facility] Comment: The eGFR was calculated using the CKD-EPI equation. As with all creatinine based estimates of kidney function, eGFR values calculated with the CKD-EPI equation are not accurate in patients with acute kidney failure, extremes of body mass or the acutely ill. [email or web address] CITYnkf eGFR 118 >=60 mL/min/1. 73 m?? [facility] Comment: The eGFR was calculated using the CKD-EPI equation. As with all creatinine based estimates of kidney function, eGFR values calculated with the CKD-EPI equation are not accurate in patients with acute kidney failure, extremes of body mass or the acutely ill. [email or web address] Blood specimen (specimen) 05/13/2019 5:53 AM EDT 05/13/2019 6:23 AM EDT Narrative Resulting Agency Comment Spec In Lab Yaritza Victoria APRN CHEMISTRY ORDERABLES [facility] [place] [address] from Last 3 Months or Most Recently Relevant to Health Maintenance Advance Directives * Full Code (Latest Code Status on File) Date Activated Date Inactivated Comments 05/11/2019 9:22 PM 05/13/2019 2:20 PM Question Answer Comments Does patient have capacity to make decision: Yes Care Teams Help Desk Representative Relationship Specialty Start Date End Date None None PCP - General 05/11/19
--- OUTSIDE RECORDS SUMMARY | 2024-07-29 19:17 | XMS_ITS | Encounter Summary ---
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 Social History Tobacco Use Types Packs/Day Years Used Date Smoking Tobacco: Never Smokeless Tobacco: Current Chew Alcohol Use Standard Drinks/Week Comments Yes 0 (1 standard drink = 0.6 oz pur e alcohol) very rarely Sex and Gender Information Value Date Recorded Sex Assigned at Not on file Gender Identity Not on file Sexual Orientation Not on file documented as of this encounter Last Filed Vital Signs Vital Sign Reading Time Taken Comments Blood Pressure 117/72 06/02/2019 10:37 AM EDT Pulse 59 06/02/2019 10:37 AM EDT Temperature - - Respiratory Rate - - Oxygen Saturation 99% 06/02/2019 10: 37 AM EDT Inhaled Oxygen Concentration - - Weight 106.5 kg (234 lb 14.4 oz) 2018 10:37 AM EDT Height 182.9 cm (6') 06/02/2019 10:37 AM EDT Body Mass Index 31.86 06/02/2019 10:37 AM EDT documented in this encounter Progress Notes * Kellen Sarmiento MD - 06/02/2019 10:40 AM EDT Images from the original note were not included. Reason for Visit: Follow-up after recent episode of NSTEMI ?? Problem List: 1: Ischemic heart disease status post PCI to OM1 in the setting of Non-STEMI (May 2019) - 2.75 X 26 Resolute to OM 1 HPI: Jarvis Padron is a 49 y.o. male who presents for follow-up after recent PCI in the setting of a non-STEMI. 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 He underwent urgent coronary angiography and was noted to have complete occlusion of OM1. This was treated successfully and he was discharged. Nikos has done well post PCI. He did have an episode of postural dizziness and near syncope which led to a visit to the ED. His medications were adjusted and he was discharged. Overall since then he has done well. Denies any predictable anginal symptoms. He does feel pressure across his chest which is difficult to predict. He has not had symptoms similar to his presentation. LV function was noted to be normal prior to discharge. He has been compliant with the remainder of his medical therapy. ALLERGIES: No Known Allergies ?? MEDICATIONS: ?? Current Outpatient Medications: ??? aspirin 81 mg Tablet, Chewable, Take 81 mg by mouth daily., Disp: 30 tablet, Rfl: 3 ??? atorvastatin (LIPITOR) 80 mg Tablet, Take 1 tablet by mouth every evening., Disp: 30 tablet, Rfl: 3 ??? clopidogrel (PLAVIX) 75 mg Tablet, Take 1 tablet by mouth every morning., Disp: 90 tablet, Rfl:3 ??? lisinopril (PRINIVIL;ZESTRIL) 5 mg Tablet, Take 1 tablet by mouth daily. (Patient taking differently: Take 2.5 mg by mouth daily.), Disp: 30 tablet, Rfl: 3 ??? nitroGLYcerin (NITROSTAT) 0.4 mg Tablet, Sublingual, Place 1 tablet under the tongue every 5 minutes as needed for Chest pain., Disp: 25 tablet, Rfl: 3 ??? metoprolol tartrate (LOPRESSOR) 25 mg Tablet, Take 0.5 tablets by mouth 2 times daily., Disp: 60 tablet, Rfl: 3 ??? pantoprazole (PROTONIX) 40 mg Tablet, Delayed Release (E.C.), Take 40 mg by mouth daily., Disp:, Rfl: 0 ??? sertraline (ZOLOFT) 100 mg Tablet, Take 100 mg by mouth daily., Disp: , Rfl: 0?? ROS: CONSTITUTIONAL: No weight loss, fever, chills, weakness or fatigue. ?? HEENT: Eyes: No visual loss, blurred vision, double vision or scleral iscterus. No sinus tendernessor palpable thyromegaly. SKIN: No rashes. ?? CARDIOVASCULAR: No chest pain, chest pressure or chest discomfort. No palpitations No edema. No orthopnea or PND. No syncope RESPIRATORY: No shortness of breath, cough or sputum. No hemoptysis GASTROINTESTINAL: No anorexia, nausea, vomiting or diarrhea. No abdominal pain. No BRBPR or melena ?? GENITOURINARY: No hematuria or dysuria NEUROLOGICAL: No headache, dizziness, syncope, paralysis, ataxia, numbness or tingling in the extremities. No change in bowel or bladder control. ?? MUSCULOSKELETAL: No muscle, back pain, joint pain or stiffness. ?? HEMATOLOGIC: No anemia, bleeding or bruising. ?? LYMPHATICS: No enlarged nodes. No history of splenectomy. ?? PSYCHIATRIC: No history of depression or anxiety. ?? ENDOCRINOLOGIC: No reports of sweating, cold or heat intolerance. No polyuria or polydipsia. ?? ALLERGIES: No history of asthma, hives, eczema or rhinitis. . PHYSICAL EXAM: Most Recent Vitals: 06/02/19 1037 BP: 117/72 Pulse: 59 SpO2: 99% Constitutional: In general, alert and oriented X 3 Eyes: No scleral icterus or pale conjunctiva; no corneal arcus Ears, Nose, mouth, throat: No sinus tenderness; moist oral mucosa; no epistaxis; no visible thyromegaly Respiratory: Clear to auscultation bilaterally with good air entry bilaterally Cardiovascular: The heart rate is regular. S1 and S2 are normal and unobscured. There are no audible murmurs. Carotid upstroke is normal with no audible carotid bruits MSK: No joint deformity; No evidence of tendon xanthomas Skin: No visible rashes or bruises Neuro: Non-focal. Moves all extremities without limitation. CN nerves not examined. Psych: Mood appropriate Extremity: RLE: No LE edema, LLE: No LE edema, RUE: 2+ radial pulse, LUE: 2+ radial pulse ?? DIAGNOSTIC TESTS: ?? 1: Cath (05/26): Conclusions: * One vessel coronary artery disease (LCX) * Successful stent insertion of the proximal OM1 lesion * Recommend continuing clopidogrel 75 mg PO daily for 12 months (see DAPT Recommendations above for more information.) 2: Echo (May 2019) BP: 127/92 ?? SUMMARY: ?? 1. The left ventricular chamber size is normal. Borderline concentric left ventricular hypertrophy is observed. There is normal global left ventricular systolic function. The quantitative left ventricular ejection fraction by biplane Melendez's method is 64%. The mid anterolateral, and mid inferolateral wall segments are akinetic (score 3). The apical lateral wall segment is hypokinetic (score 2). 2. The left atrium is normal in size. 3. Right ventricular chamber size, wall thickness, and systolic function are within normal limits. The estimated pulmonary artery systolic pressure is 26 mmHg. 4. There is no hemodynamically significant valve disease. 3; ECG (today): Sinus rhythm with NL axis and intervals. No ST changes A/P: Jarvis Padron is a 49 y.o. male who presents for follow-up after recent PCI in the setting of a non-STEMI. 1: Ischemic heart disease status post PCI. Nikos is doing well clinically. I think he has tolerated and responded to medication adjustment. He no longer has symptoms of dizziness related to low blood pressure. We will plan on continuing dual antiplatelet therapy for 12 months in addition to optimizing blood pressure, heart rate and lipids with a beta-kimi, STONE inhibitor and a statin. I encouraged him to attempt some weight loss by adhering to Mediterranean diet and engaging in moderately strenuous exercise daily. He is due to start cardiac rehab next week.?? 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 documented in this encounter Results * EKG 12 Lead (06/02/2019 10:42 AM EDT) Ventricular rate 60 BPM MUSE SYSTEM Atrial Rate 60 BPM MUSE SYSTEM P-R Interval 152 ms MUSE SYSTEM QRS Duration 84 ms MUSE SYSTEM Q-T Interval 412 ms MUSE SYSTEM QTC Calculated (Bezet) 412 ms MUSE SYSTEM Calculated P [place] 44 degrees MUSE SYSTEM Calculated R [place] 6 degrees MUSE SYSTEM Calculated T [place] 9 degrees MUSE SYSTEM INTERPRETATION Normal sinus rhythm Moderate voltage criteria for LVH, may be normal variant Abnormal ECG When compared with ECG of 13-MAY-2019 06:43, T wave inversion less evident in Inferior leads Nonspecific T wave abnormality no longer evident in Lateral leads Confirmed by MD Gio, Shad ([id number]) on 06/02/2019 12:46:29 PM MUSE SYSTEM 06/02/2019 10:4 2 AM EDT 06/02/2019 12:46 PM EDT Kellen Sarmiento MD ECG ORDERABLES MUSE SYSTEM documented in this encounter Visit Diagnoses Diagnosis NSTEMI (non-ST elevated myocardial infarction) Acute myocardial infarction, subendocardial infarction, episode of care unspecified Mixed hyperlipidemia Hypertension, unspecified type 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
--- OUTSIDE RECORDS SUMMARY | 2024-07-29 19:17 | XMS_ITS | Encounter Summary ---
Author Organization [facility] Address [facility] [place] [address] Care Team Providers Care Agricultural Research Engineer Name Role Phone None Primary Care Provider Unavailabl e Reason for Visit * Reason Comments Medication Refill Encounter Details Date Type Department Care Team (Late st Contact Info) Description 04/22/2020 Refill Cardiology at [address] [place] [address] Joana Lyon PA [facility] [place] [address] Medication Refill Social History Tobacco Use Types [...] on filedocumented in this encounter Care Teams Agricultural Research Engineer Relationship Specialty Start Date End Date None None PCP - General 05/11/19 documented as of this encounter
--- OUTSIDE RECORDS SUMMARY | 2024-07-29 19:17 | XMS_ITS | Encounter Summary ---
Author Organization [facility] [place] [address] Care Team Providers Care Percussion Instrument Tuner Name Role Phone None Primary Care Provider Unavailabl e Encounter Details Date Type Department Care Team (Late st Contact Info) Description 05/19/2019 External Results DH Patient Placement [facility] [place] [address] Social History Tobacco Use Types Packs/Day Years [...] Procedure Name Priority Date/Time Associated Diagnosis Comments ECG SCAN Routine 05/19/2019 ECG SCAN Routine 05/19/2019 documented in this encounter Results * Scan Doc: ECG (05/19/2019) Historical Provider MD MEDIA MGR SCAN EX T ORDR/RSLT * Scan Doc: ECG (05/19/2019) Historical Provider MD MEDIA MGR SCAN EX T ORDR/RSLT documented in this encounter Visit Diagnoses Not on filedocumented in this encounter Care Teams Percussion Instrument Tuner Relationship Specialty Start Date End Date None None PCP - General 05/11/19 documented as of this encounter
--- OUTSIDE RECORDS SUMMARY | 2024-07-29 19:17 | XMS_ITS | Data Portability ---
Author Organization [facility] [place] [address] Care Team Providers Care Director Translational Name Role Phone EZEKIEL TURNER Primary Care Provider [phone] Assessment No assessment recorded. Plan of Treatment Reminders Order Date Submit Date Provider Last Modified By Organization Details Last Modified Time Details Appointments Follow Up 2024 02:40P M Not available Not available Not available Lab lipid panel, serum - 1 tiger and 1 lav tube collected from right ac. pt tolerated well 2023 024 [facility] (Registration ), [address] [place] [address] [place], [address], 12/09/2023 09:16:38 CMP, serum or plasma - 1 tiger and 1 lav tube collected from right ac. pt tolerated well 2023 024 [facility] (Registration ), [address] [place] [address] [place], [address], 12/02/2023 20:26:43 CBC - 1 tiger and 1 lav tube collected from right ac. pt tolerated well 2023 024 [facility] (Registration ), [address] [place] [address] [place], [address], 12/02/2023 19:45:33 TSH, serum, reflex free T4 - 1 tiger and 1 lav tube collected from right ac. pt tolerated well 2023 024 [facility] (Registration ), [address] [place] [address] [place], [address], 12/09/2023 09:16:38 HbA1c (hemoglob in A1c), blood - 1 tiger and 1 lav tube collected from right ac. pt tolerated well 2023 024 [facility] (Registration ), [address] [facility] [place], [address], 12/09/2023 09:16:38 Referral None recorded. Procedures None recorded. Surgeries None recorded. Imaging None recorded. Medication Orders nitroglyc libby 0.4 mg sublingua l tablet 2023 024 [facility] #[id number], [address] [place] [address], [id number], 12/02/2023 15:51:14 Patient TargetsNo targets recorded. Patient Instructions Encounter Date Encounter Id Patient Instructions Last Modified By Organization Details Last Modified Time 12/02/2023 [id number] Follow up in a year for your next annual exam. Basic blood work today. We will call and/or mail lab results within the next 1 to 2 weeks. May continue on SERTRALINE. You may also trial a lower dose when ready. I recommend decreasing to 75 mg, the 50, then 25... over the course of 2 weeks. I recommend stopping nicotine VS sertraline. I recommend calling the hospital about your nuclear stress test - (main desk) Protect your hands from excessive temperature changes, vibration, and tight gripping. Recommend wearing gloves when possible. Do not hesitate to reach out with any questions or concerns. [email or web address] Not available 12/02/2023 15:58:21 Reason for Referral None Reported. Results Created Date Observation Date Name Description Value Unit Range Abnormal Flag Note LastModifiedBy Organization Detail LastModifiedTime 12/02/1912/02/2023 COMPL ETE BLOOD COUNT NO DIFF WBC 6.81 10_3/ uL 4.4-10 .8 normal Not Available [facility] [address] [facility] [place], [address] 12/02/2023 19:45:33 12/02/19 24 12/02/2023 COMPL ETE BLOOD COUNT NO DIFF RBC 4.27 10_6/ uL 4.36-5 .78 low Not Available [address] [place], [address] 12/02/2023 19:45:33 12/02/19 24 12/02/2023 COMPL ETE BLOOD COUNT NO DIFF HGB 13.8 g/dL 13.5-1 7.5 normal Not Available [address] [place], [address] 12/02/2023 19:45:33 12/02/19 24 12/02/2023 COMPL ETE BLOOD COUNT NO DIFF HCT 38.3 % 40.0-5 0.0 low Not Available [address] [place], [address] 12/02/2023 19:45:33 12/02/19 24 12/02/2023 COMPL ETE BLOOD COUNT NO DIFF MCV 90 fL 80-95 normal Not Available [address] [place], [address] 12/02/2023 19:45:33 12/02/19 24 12/02/2023 COMPL ETE BLOOD COUNT NO DIFF MCH 32.3 pg 27.0-3 3.0 normal Not Available [address] [place], [address] 12/02/2023 19:45:33 12/02/19 24 12/02/2023 COMPL ETE BLOOD COUNT NO DIFF MCHC 36.0 % 32.0-3 6.0 normal Not Available [address] [place], [address] 12/02/2023 19:45:33 12/02/19 24 12/02/2023 COMPL ETE BLOOD COUNT NO DIFF RDW 13.9 % 11.8-1 4.1 normal Not Available [address] [place], [address] 12/02/2023 19:45:33 12/02/19 24 12/02/2023 COMPL ETE BLOOD COUNT NO DIFF platelet count 217 10_3/ uL 130-40 0 normal Not Available [address] [place], [address] 12/02/2023 19:45:33 12/02/19 24 12/02/2023 COMPL ETE BLOOD COUNT NO DIFF MPV 11.2 fL 8.0-11 .0 high Not Available [address] [place], [address] 12/02/2023 19:45:33 12/02/19 24 12/02/2023 HEMOG LOBIN A1C hemoglobin A1C 5.3 % <5.7 Refer ence Range s <5.7 Roberta l 5.7-6 .4% Predi abete s 6.5% or great er Diagn ostic for diabe louis (if confi rmed) Refer ences : 1. Ameri can Diabe louis Assoc iatio n. Clas sific ation and Diagn osis of Diabe louis. Diabe louis Care 2019 Nov; 2(Sup pleme nt 1):S1 3-s28 . Not Available [address] [place], [address] 12/02/2023 20:21:39 12/02/19 24 12/02/2023 COMPR EHENS EMMANUEL METAB OLIC PANEL calcium 8.5 mg/dL 8.5-10 .1 normal Not Available [address] [place], [address] 12/02/2023 20:26:43 12/02/19 24 12/02/2023 COMPR EHENS EMMANUEL METAB OLIC PANEL glucose 94 mg/dL 74-106 normal Not Available [facility] [address] [place], [address] 12/02/2023 20:26:43 12/02/19 24 12/02/2023 COMPR EHENS EMMANUEL METAB OLIC PANEL BUN 15 mg/dL 7-18 normal Not Available [facility] [address] [place] [place], [address] 12/02/2023 20:26:43 12/02/19 24 12/02/2023 COMPR EHENS EMMANUEL METAB OLIC PANEL creatinine 0.8 mg/dL 0.70-1 .30 normal Not Available [address] [place], [address] 12/02/2023 20:26:43 12/02/19 24 12/02/2023 COMPR EHENS EMMANUEL METAB OLIC PANEL estimated GFR 106.48 mL/min /1.73m 2 The eGFR is calcu lated from a serum creat inine using the CKD-E PI 2020 equat ion. Other varia bles requi red for the equat ion are gende r and age; this equat ion does not inclu de a race coeff icien t. This equat ion has simil ar overa ll perfo rmanc e to previ ous equat ions excep t value s may diffe r, in parti cular , in patie nts with highe r value s of eGFR and young er-ag ed adult s. Not Available [address] [place], [address] 12/02/2023 20:26:43 12/02/19 24 12/02/2023 COMPR EHENS EMMANUEL METAB OLIC PANEL total protein 6.9 g/dL 6.4-8. 2 normal Not Available [address] [place], [address] 12/02/2023 20:26:43 12/02/19 24 12/02/2023 COMPR EHENS EMMANUEL METAB OLIC PANEL albumin 3.9 g/dL 3.4-5. 0 normal Not Available [address] [place], [address] 12/02/2023 20:26:43 12/02/19 24 12/02/2023 COMPR EHENS EMMANUEL METAB OLIC PANEL bilirubin, total 0.6 mg/dL 0.2-1. 0 normal Not Available [address] [place], [address] 12/02/2023 20:26:43 12/02/19 24 12/02/2023 COMPR EHENS EMMANUEL METAB OLIC PANEL alk phos 84 U/L 46-116 normal Not Available [address] [place], [address] 12/02/2023 20:26:43 12/02/19 24 12/02/2023 COMPR EHENS EMMANUEL METAB OLIC PANEL sodium 141 mmol/ L 136-14 5 normal Not Available [address] [place], [address] 12/02/2023 20:26:43 12/02/19 24 12/02/2023 COMPR EHENS EMMANUEL METAB OLIC PANEL potassium 3.8 mmol/ L 3.5-5. 1 normal Not Available [address] [place], [address] 12/02/2023 20:26:43 12/02/19 24 12/02/2023 COMPR EHENS EMMANUEL METAB OLIC PANEL chloride 105 mmol/ L 98-107 normal Not Available [address] [place], [address] 12/02/2023 20:26:43 12/02/19 24 12/02/2023 COMPR EHENS EMMANUEL METAB OLIC PANEL CO2 26.9 mmol/ L 21.0-3 2.0 normal Not Available [address] [place], [address] 12/02/2023 20:26:43 12/02/19 24 12/02/2023 COMPR EHENS EMMANUEL METAB OLIC PANEL anion gap 9.1 mmol/ L 3-11 normal Not Available [address] [place], [address] 12/02/2023 20:26:43 12/02/19 24 12/02/2023 COMPR EHENS EMMANUEL METAB OLIC PANEL AST 27 U/L 15-37 normal Not Available [address] [place], [address] 12/02/2023 20:26:43 12/02/19 24 12/02/2023 COMPR EHENS EMMANUEL METAB OLIC PANEL ALT 32 U/L 16-63 normal Not Available [address] [place], [address] 12/02/2023 20:26:43 12/02/19 24 12/02/2023 LIPID 2 cholesterol 146 mg/dL <200 Not Available [address] [place], [address] 12/02/2023 20:26:44 12/02/19 24 12/02/2023 LIPID 2 triglyceride 105 mg/dL <150 Not Available [address] [place], [address] 12/02/2023 20:26:44 12/02/19 24 12/02/2023 LIPID 2 HDL cholesterol 47 mg/dL 40-60 Not Available Florencia corderodimitrios [address] [place], [address] 12/02/2023 20:26:44 12/02/19 24 12/02/2023 LIPID 2 calculated LDL 78 mg/dL <100 Natio nal Kenzie stero l Educa tion Progr am (NCEP -ATPI II) class ifica tions : Kenzie stero l <200 mg/dL Jeannette able Kenzie stero l 200-2 39 mg/dL Borde rline High Kenzie stero l >or=2 40 mg/dL High HDL <40 mg/dL Low HDL >or=6 0 mg/dL High LDL <100 mg/dL Optim al LDL 100-1 29 mg/dL Near Optim al/Ab ove Optim al LDL 130-1 59 mg/dL Borde rline High LDL 160-1 89 mg/dL High LDL >or=1 90 mg/dL Very High *The above refer ence range is for adult s 18 years or older . Not Available [address] [place], [address] 12/02/2023 20:26:44 12/02/19 24 12/02/2023 TSH (W/RE F FT4) TSH (w/ref FT4) 1.79 uIU/m L 0.36-3 .74 normal NOTE: Supra -phys iolog ic doses of Bioti n(B7) may cause false negat emmanuel resul ts. Not Available [address] [place], [address] 12/02/2023 20:26:44 01/21/20 24 01/20/2024 nucle ar medic ine imagi ng rpt Patien t Name: Duglas Padron rhina Cross Unit #: [id number] Loc: DI Orderi ng Provid er: Nikos Jernigan M.D. Accoun t #: [phone] Status : REG CLI Primar y Care Provid er: EZEKIEL TURNER ACTIVITY MANAGER Date of Exam: 01/06 03/01 Sex: M Admiss ion Date: : 1969 Age: 53 ------ ------ --- APPROV ED REPORT ------ ------ -- Exam: Exerci se Treadm ill Patien t Locati on: Out-Pa tie Room/B ed: Stress Nurse: Barbara plunkett RN Orderi ng [facility] er:[facility], Contac t Number : BMI: 33.90 Baseli ne Rhythm : Sinus Bradyc ardia Commen t: Occasi onal PVC's Indica tions: CAD, chest pain, Medica l Histor y Medica l Histor y: Depres marvin, GERD, NSTEMI , HTN, HLD, chewin g tobacc o use Cardia c Medica tions: Aspiri n, atorva statin , lisino pril, metopr olol tartra te, nitro, pantop razole , sertra line Allerg ies: NKA Cardia c Risk Factor s: Family hx, CVD, HTN, HLD, tobacc o use Previo us Cardia c Proced ures: Cardia c cathet erizat ion 2018 Pretes t Chest Pain Charac terist ics: None Exerci se Histor y: Physic ally active Physic al Disabi lities : None Lung Sounds : Clear to auscul tation Heart Sounds : Bradyc ardia Stress Test Detail s Test: Exerci se stress testin g was perfor med using a Vinnie protoc ol. Nuclea r Acquis ition: Rest Tc-99m /Stres s Tc-99m 1 day Rest Isotop e: Tc-99m Sestam ibi. Dose: 12.0 Date: 2023 Inject ion Time: 1030 Stress Isotop e: Tc-99m Sestam ibi. Dose: 36.0 Date: 2023 Inject ion Time: 1300 HR Restin g HR Supine : 53 bpm Max Heart Rate (APMHR ): 168.00 0000 bpm Restin g HR Standi n bpm Target HR (85% APMHR) : 142.80 0000 bpm Max HR Achiev ed: 145 bpm % of APMHR: 86.31 Recove ry HR: 72 bpm HR respon se to stress : Blunte d HR respon se to stress BP Restin g BP Supine : 132/90 mmHg Restin g BP Standi n/98 mmHg Max BP: 198/72 mmHg Recove ry BP: 148/88 mmHg BP respon se to stress : Normal blood pressu re respon se to stress . ECG Restin g ECG: Sinus Bradyc ardia Ectopy : Occasi onal PVC's Stress ECG: Sinus Tachyc ardia ST Change : No signif icant ST segmen t change s noted Arrhyt hmia: None Recove ry ECG: Sinus Rhythm Recove ry ST Change : No signif icant ST segmen t change s noted Recove ry Arrhyt hmia: Occasi onal PVC's Clinic al Reason for Termin ation: Target HR Achiev ed, SOB, , Fatigu e Stress Sympto ms: Modera te SOB, , Genera l Fatigu e Exerci se durati on: 09 min07 sec Highes t Stage Reache d: Stage 4: 4.2 mph at 16% grade. Exerci se capaci ty: 10.33 METs Angina Score: None Rate Pressu re Produc t: 98558 Stress ECG Conclu marvin 1. Restin g electr ocardi ogram is within normal limits 2. Patien t exerci sed on the Vinnie protoc ol and comple alvin a worklo ad of 10.3 METS 3. Normal heart rate and blood pressu re respon se to exerci se. Patien t achiev ed 86% of predic alvin for age 4. There was no electr ocardi ograph ic eviden ce of myocar dial ischem ia 5. No dysrhy thmias 6. See MPI report Stress Test Summar y STAGE Time (mins) Speed (mph) Grade (%) HR BP SpO2 SYMPTO MS METS Supine 53 132/90 Standi ng 62 140/98 1 3 1.7 10 103 4.5 2 6 2.5 12 119 142/80 7 3 9 3.4 14 119 10 4 12 4.2 16 145 Modera te SOB 13 1 min recove ry 89 198/72 3 min recove ry 79 170/90 6 min recove ry 72 148/88 SOB resolv ed MPI Conclu marvin Myocar dial perfus ion is normal . There is no ischem ia or eviden ce of prior infarc tion EF is 47% with normal wall motion Radiol ogist Interp retati on Radiol ogist agrees with Cardio logist 's Interp retati on. Radiol ogist Interp retati on by: Wilfred Gutierrez MD Interp retati on Date/T ivette: 2023 17:53: 10 Ordere d By: Nikos Jernigan M.D. CC: LENARD PRINGLE,KERRY Louise KAIDEN INE ------ ------ ------ ------ ------ ------ ------ ------ ------ ------ ------ ------ - Dictat ed By: Darby Santana M.D. 132 0817 Transc ribed By: Darby Santana MD 132 This is privil eged, confid ential inform ation intend ed only for the provid er named. Any use or distri bution by any person other than this [facility] er is strict ly prohib ited. If you receiv e this re port in error, please notify us immedi ately at and return the origin al report to us at the addres s above. Thank- you. [email or web address] [facility] [address] [place], [address] 01/21/2024 11:03:28 07/23/20 24 11/21/2019 imagi ng/di agnos tic resul t No observ ation record ed. [email or web address] Not Available 07/23 22:14:30 07/23/20 24 05/12/2021 imagi ng/di agnos tic resul t No observ ation record ed. [email or web address] Not Available 07/23 22:14:54 07/23/20 24 11/10/2022 imagi ng/di agnos tic resul t No observ ation record ed. [email or web address] Not Available 07/23 22:15:09 07/23/20 24 05/12/2021 imagi ng/di agnos tic resul t No observ ation record ed. [email or web address] Not Available 07/23 22:15:28 07/23/20 24 06/28/2021 imagi ng/di agnos tic resul t No observ ation record ed. [email or web address] Not Available 07/23 22:15:29 07/23/20 24 09/05/2019 imagi ng/di agnos tic resul t No observ ation record ed. [email or web address] Not Available 07/23 22:15:48 07/23/20 24 05/22/2021 imagi ng/di agnos tic resul t No observ ation record ed. [email or web address] Not Available 07/23 22:15:51 07/23/20 24 05/19/2019 imagi ng/di agnos tic resul t No observ ation record ed. [email or web address] Not Available 07/23 22:15:55 07/23/20 24 05/13/2021 imagi ng/di agnos tic resul t No observ ation record ed. [email or web address] Not Available 07/23 22:15:56 07/23/20 24 06/28/2021 imagi ng/di agnos tic resul t No observ ation record ed. [email or web address] Not Available 07/23 22:15:57 Result Notes None recorded. Problems Name Problem SNOMED Code Status Onset Date Resolution Date Notes Provider Name and Address Organization Details Recorded Time Gastroes ophageal reflux disease without esophagi tis 909117250 Active [address], [place], [address] , [facility] 4 11:08:06 Anxiety 29184778 Active [address], [place], [address] , [facility]. 4 11:08:13 Counseli ng Completed 201607/02/2017 06/18/20 17 - Comments only - Leslie He APRN - Up to date with immuniza tions, no preventi ve screenin g due. He will follow up as needed for acute issues. 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 Complete d DAPT therapy 2019. [address], [place], [address] , [facility] 4 11:07:21 Implanta tion to cardiova scular system Completed 201812/03/2023 05/25/20 19 - Comments only - Leslie He APRN - No on plavix, atorvast atin and baby aspirin. See above. Problem Code: Z95.828; Problem Code Type: ICD-10; [address], [place], [address] , [facility] 4 11:07:45 Atherosc lerosis of coronary artery without angina pectoris 49324429934 4103 Active [address], [place], [address] , [facility] 4 11:07:29 Chest pain 14736785 Completed 201912/03/2023 06/10/20 21 - Comments only - Leslie He APRN - Reassuri ng work up at recent ED visit. No further evaluati on recommen ded. Problem Code: R07.89; Problem Code Type: ICD-10; [address], [place], [address] , [facility] 4 11:06:59 Screenin g for malignan t neoplasm of colon Completed 202112/03/2023 Problem Code: Z12.11; Problem Code Type: ICD-10; [address], [facility] [address] , [facility] 4 11:07:47 Body mass index 30+ - obesity 072516929 Active [address], [place], [address] , [facility] 4 11:08:10 Joint pain 19962660 Completed 201507/08/2016 Problem Code: M25.50; Problem Code Type: ICD-10; Not Available [facility] 3 05:46:07 Hyperlip idemia screenin g Completed 201708/04/2023 Problem Code: Z13.220; Problem Code Type: ICD-10; Not Available [facility] 3 05:46:07 Pain in left foot 31854019613 9107 Completed 201611/11/2018 Problem Code: M79.672; Problem Code Type: ICD-10; Not Available [facility] 3 05:46:07 Plantar fascial fibromat osis 01689892 Completed 202112/01/2022 Problem Code: M72.2; Problem Code Type: ICD-10; Not Available [facility] 3 05:46:07 Fatigue 66100607 Completed 201507/08/2016 Problem Code: R53.83; Problem Code Type: ICD-10; Not Available [facility] 3 05:46:07 Tobacco dependen ce caused by chewing tobacco 24832650360 827663 Active 2023 [address], [place], [address] , [facility] 11:08:29 Liv guerrero s of hands Active 2023 [address], [place], [address] , [facility] 11:10:50 Problem Notes None recorded. Procedures Surgical History None recorded. Imaging Results Imaging Date Name Status LastModified by [facility] Details LastModified Time 01/20/2024 nuclear medicine imaging rpt completed [email or web address] [facility] [address], [place], [address] 01/21/2024 11:03:28 11/21/2019 imaging/diagn ostic result completed Information not available 07/23/2024 22:14:30 05/12/2021 imaging/diagn ostic result completed Information not available 07/23/2024 22:14:54 11/10/2022 imaging/diagn ostic result completed Information not available 07/23/2024 22:15:09 05/12/2021 imaging/diagn ostic result completed Information not available 07/23/2024 22:15:28 06/28/2021 imaging/diagn ostic result completed Information not available 07/23/2024 22:15:29 09/05/2019 imaging/diagn ostic result completed Information not available 07/23/2024 22:15:48 05/22/2021 imaging/diagn ostic result completed Information not available 07/23/2024 22:15:51 05/19/2019 imaging/diagn ostic result completed Information not available 07/23/2024 22:15:55 05/13/2021 imaging/diagn ostic result completed Information not available 07/23/2024 22:15:56 06/28/2021 imaging/diagn ostic result completed Information not available 07/23/2024 22:15:57 Procedure Notes None recorded. Medical Equipment None Reported. Allergies No known drug allergies Medications Name Sig Start Date Stop Date Status Note LastModified by Organization Details LastModified Time Prescript ion - Renewal active sertrali ne 100 mg tablet Not Available Not Available Not Available atorvasta tin 80 mg tablet TAKE 1 TABLET BY MOUTH DAILY AT BEDTIME 2023 active Not Available Not Available Not Avai lable Prilosec 20 mg capsule,d elayed release 1 TAB QD 12/09 completed Not Available Not Available Not Available sertralin e 100 mg tablet Take 1 tab daily 2023 active Not Available Not Available Not Avai lable clopidogr el 75 mg tablet Take 1 tab by mouth daily 05/24 completed Not Available Not Available Not Available Celexa 20 mg tablet 1 Daily 07/08 completed Not Available Not Available Not Available pantopraz ole 40 mg tablet,de layed release TAKE 1 TABLET BY MOUTH EVERY DAY active Not Available Not Available No t Available nitroglyc libby 0.4 mg sublingua l tablet DISSOLVE 1 TABLET UNDER THE TONGUE EVERY 5 MINUTES FOR CHEST PAIN, FOR A MAX OF 3 DOSES. CALL 911 AFTER FIRST DOSE active Not Available Not Available No t Available cephalexi n 500 mg tablet Take 1 tablet by mouth twice a day 11/27 completed Not Available Not Available Not Available bisacodyl 5 mg tablet,de layed release TAKE BY MOUTH ARIANA Medina TO PROVIDER S INSTRUCT IONS FOR COLONOSC OPY PREP 12/02 completed Not Available Not Available Not Available aspirin 81 mg tablet Take 1 tablet by mouth once a day 2018 active Not Available Not Available Not Avai lable Aspir-81 mg tablet,de layed release Take 1 tab by mouth daily 2018 active Not Available Not Available Not Avai lable polyethyl daya glycol 3350 17 gram/dose oral powder MIX AND DRINK BY MOUTH DIRECTED FOR COLONSCO PY PREP 12/02 completed Not Available Not Available Not Available lisinopri l 2.5 mg tablet Take 1 tab by mouth daily 11/29 completed Not Available Not Available Not Available Ambien 10 mg tablet 1 PRN QHS 12/16 completed Not Available Not Available Not Available metoprolo l tartrate 25 mg tablet TAKE 1/2 TABLET BY MOUTH TWICE DAILY 2023 active Not Available Not Available Not Avai lable omeprazol e 20 mg tablet,de layed release Take 1 tab by mouth daily. 07/08 completed Not Available Not Available Not Available Vitals Date Recorded Body weight Heart rate Oxygen saturation Oxygen saturation in Arterial blood by Pulse oximetry Body temperature Body mass index (BMI) Body height Systolic blood pressure Diastolic blood pressure Provider Name and Address Organization Details Last Updated DateTime 4 115355. 02 g 86 /min 98 % 98 % 98.6 [degF] 36.3 kg/m2 180.34 cm 131 mm[Hg] 71 mm[Hg] Miri Garza MA [facility] 15:21:14 Social History Question Answer Notes LastModified by Organizat ion Details LastModified Time Tobacco Smoking Status Never Smoker Miri Garza MA [facility], [facility] 12/02/2023 15:19:12 What Was The Date Of Your Most Recent Tobacco Screening? 12/02/2023 [email or web address] Information not available 12/02/2023 Do You Or Have You Ever Used Smokeless Tobacco? Current Snuff User Information not available 12/02/2023 Has Tobacco Cessation Counseling Been Provided? Yes [email or web address] Information not available 12/02/2023 On What Date Was Tobacco Cessation Counseling Provided? 12/02/2023 [email or web address] Information not available 12/02/2023 Do You Or Have You Ever Used Any Other Forms Of Tobacco Or Nicotine? Yes [email or web address] Information not available 12/02/2023 How Many Years Have You Used Smokeless Tobacco? 35 [email or web address] Information not available 12/02/2023 Sex: Male Functional Status None recorded. Mental Status None recorded. Family History Relationship Description Onset Age of this Age Resolved Age Notes LastModified by Organization Details LastModified Time Father Family history of malignant neoplasm [email or web address] Not available 2022 03:54:51 Father Family history of heart failure [email or web address] Not available 2022 03:54:52 Medical History No medical history recorded. Immunizations Vaccine Type Date Status Provider Name and Address Organization Details Recorded Time Tdap 11/29/2020 completed Not Available [facility] 04:52:36 Tdap 12/09/2010 completed Not Available [facility] 04:52:36 SARS-COV-2 (COVID-19) vaccine, UNSPECIFIED 03/18/2021 completed Not Available [facility] 09/17/2023 04:52:36 SARS-COV-2 (COVID-19) vaccine, UNSPECIFIED 04/13/2021 completed Not Available [facility] 09/17/2023 04:52:37 Past Encounters Encounter ID Performer Location Encounter Start Date Encounter Closed Date Diagnosis/Indication Diagnosis SNOMED-CT Code Diagnosis ICD10 Code [id number] DESIRAE HERNANDEZ [address] [place] [address] 12/02/2023 15:03:43 12/02/2023 16:07:41 Adult health examination 772540928 Z00.00 Body mass index 30+ - obesity 313942551 Z68.36 Atheroscle rosis of coronary artery without angina pectoris 6793125372 89738 I25.10 Hyperlipidemia 44327674 E78.5 Gastroesop hageal reflux disease without esophagitis 700255864 K21.9 Tobacco de pendence caused by chewing tobacco 6150462426 3460622 F17.220 Anxiety 55567325 F41.9 Bilateral arthritis of hands 7627741599 21863 M13.841 M13.842 Health Concerns Section Related Observation LastModified by Organization Detai ls LastModified Time None Recorded Concern Status LastModified by Organization Details LastModified Time None Recorded Advance Directives Directive None Recorded Payers Encounter Date Sequence Insurance Name Policy Number Policy Conde Covered Member ID Conde Member ID Guarantor Name 12/02/2023 1 [facility] (MEDICAID) Jarvis Padron [id number] Jarvis Padron Notes Date Note Type Note Provider Name and Address Organization Details Recorded Time 12/02/2023 text/html HPI Notes: Jarvis presents to [facility] today for routine annual exam. Medical history includes non-STEMI 2019, hyperlipidemia, anxiety, current chewing tobacco use. Denies any specific questions or concerns for today. Overall feels well. Social history? 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 EZEKIEL TURNER, [employer] [address], [place], [address], [facility]. 12/03/2023 11:14:09
--- OUTSIDE RECORDS SUMMARY | 2024-07-29 19:17 | XMS_ITS | Encounter Summary ---
Author Organization [place] [address] Care Team Providers Care Director Community Organization Name Role Phone None Primary Care Provider Unavailabl e Encounter Details Date Type Department Care Team (Late st Contact Info) Description 05/20/2019 [place] [phone] Tahira Coleman MD [facility] [place] [address] Social History Tobacco Use Types Packs/Day Years [...] encounter Miscellaneous Notes * Telephone Encounter - Tahira Coleman - 05/20/2019 1:45 PM EDT Error. documented in this encounter Plan of Treatment Not on file documented as of this encounter Visit Diagnoses Not on filedocumented in this encounter Care Teams Director Community Organization Relationship Specialty Start Date End Date None None PCP - General 05/11/19 documented as of this encounter
--- OUTSIDE RECORDS SUMMARY | 2024-07-29 19:17 | XMS_ITS | Encounter Summary ---
Author Organization [facility] Address [facility] [place] [address] Care Team Providers Care Manager Social Responsibility Name Role Phone None Primary Care Provider Unavailabl e Encounter Details Date Type Department Care Team (Late st Contact Info) Description 05/19/2019 Telephone Cardiology at [address] [place] [phone] Nathalie Mathis MD [facility] [place] [address] Social History Tobacco Use Types Packs/Day Years [...] encounter Miscellaneous Notes * Telephone Encounter - Nathalie Mathis MD - 05/19/2019 3:48 PM EDT Telephone Triage Note Initial Contact Date: 05/19/2019 Initial contact time: ~1545 Referring Provider: Dr. Jose Veliz Patient Location: [facility] ED Presenting Symptoms per OSH: 48yoM recently admitted to [facility] for an NSTEMI found to have a 100% OM1 lesion which was stenting, discharged on 05/13/19. 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 He took NTG SL x3 which eventually resolved his symptoms over an unclear timeframe and sought medicalattention. Initial troponin negative. HR and BP on the low side but not severely so. He has been compliant with his aspirin and plavix. Pertinent Diagnostic Findings: Vitals: BP 100/65 HR 50s SaO2 100% on RA EKG : SR/SB with probable LVH, nonspecific STTW changes looks improved from last EKG prior to discharge here Troponin : Negative x1 Assessment/Plan: 48yoM w/ recent NSTEMI and OM stenting presenting with an atypical syndrome. Dr. Veliz was requesting transfer for further evaluation but we are not accepting or taking a list at this time. I advised that they observe him overnight, trend troponins and EKGs, and that they touch base with us in themorning if there is anything of concern. During his last NSTEMI he had a clearly positive troponin w ith EKG changes and a more typical story, so I am not sure if his current syndrome is reflecting a cardiac issue or not but advised if they were concerned his story represented ACS, they could initiate treatment pending further information. documented in this encounter Plan of Treatment Not on file documented as of this encounter Visit Diagnoses Not on filedocumented in this encounter Care Teams Manager Social Responsibility Relationship Specialty Start Date End Date None None PCP - General 05/11/19 documented as of this encounter
--- OUTSIDE RECORDS SUMMARY | 2024-07-29 19:17 | XMS_ITS | Encounter Summary ---
Author Organization [facility] Address [facility] [place] [address] Care Team Providers Care Inspector Of Weights And Measures Name Role Phone None Primary Care Provider Unavailabl e Reason for Visit * Reason Comments Medication Refill Encounter Details Date Type Department Care Team (Late st Contact Info) Description 01/11/2020 Refill Cardiology at [address] [place] [address] Joana Lyon PA [facility] [place] [place] [address] Medication Refill Social History Tobacco Use Types [...] on filedocumented in this encounter Care Teams Inspector Of Weights And Measures Relationship Specialty Start Date End Date None None PCP - General 05/11/19 documented as of this encounter
--- OUTSIDE RECORDS SUMMARY | 2024-07-29 19:18 | XMS_ITS | Encounter Summary ---
Author Organization [facility] Address [address] [place] [address] Care Team Providers Care Software Engineering Project Manager Name Role Phone Unknown, Provider Primary Care Provider [phone] Encounter Details Date Type Department Care Team (Late st Contact Info) Description 09/22/2016 Results Only [facility] [phone] Stepan Doss MD [address] [facility] [address] [place] [id number] Social History Tobacco Use Types Packs/Day Years Used Date Smoking Tobacco: Never Assessed Sex and Gender Information Value Date Recorded Sex Assigned at Not on file Gender Identity Not on file Sexual Orientation Not on file documented as of this encounter Plan of Treatment Not on file documented as of this encounter Procedures Procedure Name Priority Date/Time Associated Diagnosis Comments SURGICAL PATHOLOGY Routine 09/22/2016 14 :59 EST documented in this encounter Results * SURGICAL PATHOLOGY (09/22/2016 14:59 EST) Pathology Report: SURGICAL PATHOLOGY REPORT Reports generated via electronic interface contain original data; however they are lacking the format of the original report. Caution should be taken when reading/interpret ing unformatted reports. Name: ? JARVIS GUEVARA ? Accession #: ? [id number] ? : ? 1970 (Age: 46) ??M ? Collect Date: ? 09/22/2016 ? Location: ? [facility] ? Receive Date: ? 09/23/2016 ? Provider: JEREMY DOSS MD Copy to: ? Final Pathologic Diagnosis: A. Small bowel, second portion of duodenum, biopsy: - ??Duodenal mucosa with no diagnostic abnormality. B. STOMACH, antrum and body, biopsy: - ??Antral and transitional mucosa with erosive reactive gastropathy. - ??No evidence by the Helicobacter pylori on H&E. C. stomach, body, polyps, biopsy: - ??Fundic gland polyps with focal erosion and reactive reparative change. See comment. D. esophagus, distal, biopsy: - ??Cardia type mucosa with foveolar hyperplasia; Negative for intestinal metaplasia or dysplasia. ?? - ??Squamous mucosa with features of reflux esophagitis. Comment: Deeper sections examined (C). Document reviewed and electronically signed by: LALA LAMAS MD Report ??Date: 09/26/2016 15:19 By the signature above, the attending physician certifies that he/she has personally conducted a gross and/or microscopic examination of the described specimens and rendered or confirmed the above diagnosis. Specimen(s) Received: A. ??2nd portion duodenum bx B. ??Antrum and body bx C. ??Body polyps D. ??Distal esophagus bx Clinical History: Dyspepsia; R/O James's; R/O fundic gland polyp; clinical diagnosis code: K21.9 Gross Description: A. ?Received in formalin labelled with proper patient identification (initials G, G) and 2nd portion duodenum bx are three fragments of cullen-pink tissue ranging from 0.2 and 0.4 cm in greatest dimension. The specimens are submitted entirely in A1. B. ?Received in formalin labelled with proper patient identification (initials G, G) and antrum and body bx are two fragments of cullen-pink tissue (each 0.3 x 0.3 x 0.2 cm). The specimens are submitted entirely in B1. C. ?Received in formalin labelled with proper patient identification (initials G, G) and body polyps are three fragments of cullen-pink tissue ranging from 0.2-0.3 cm in greatest dimension. The specimens are submitted entirely in C1. D. ?Received in formalin labelled with proper patient identification (initials G, G) and distal esophagus bx is a single fragment of cullen-pink tissue (0.2 x 0.2 x 0.1 cm). The specimen is submitted entirely in D1. JAMIE Lake (ASCP) 09/23/2016 5:35 PM End of Report [facility] 09/22/2016 14:5 9 EST 09/23/2016 14:59 EST Stepan Doss MD PATHOLOGY ORDERABLES Performing Organization Address City/State/[facility] Co de Phone Number [facility] [address] [place] [address] documented in this encounter Visit Diagnoses Not on filedocumented in this encounter Care Teams Software Engineering Project Manager Relationship Specialty Start Date End Date Unknown, Provider, PCP - General 09/23/16 documented as of this encounter
--- OUTSIDE RECORDS SUMMARY | 2024-07-29 19:18 | XMS_ITS | Encounter Summary ---
Author Organization [facility] Address [address] [place] [address] Care Team Providers Care Ice Skating Coach Name Role Phone Unknown, Provider Primary Care Provider Encounter Details Date Type Department Care Team (Late st Contact Info) Description 12/31/2022 Lab Requisition [facility] Pathology & Laboratory Medicine - [address] [address] Yo Tomas MD [address] [place] [address], [address] [place], [place] [address] Encounter for screening for malignant neoplasm of colon Social History Tobacco Use Types Packs/Day Years Used Date Smoking Tobacco: Never Assessed Interpersonal Safety Answer Date Record ed Physically Hurt Never 06/10/2020 Verbally Threaten Not on file 06/10/2020 Sex and Gender Information Value Date Recorded Sex Assigned at Not on file Gender Identity Not on file Sexual Orientation Not on file documented as of this encounter Plan of Treatment Not on file documented as of this encounter Procedures Procedure Name Priority Date/Time Associated Diagnosis Comments SURGICAL PATHOLOGY Today 12/31/2022 8:15 EST Encounter for screening for malignant neoplasm of colon documented in this encounter Results * SURGICAL PATHOLOGY (12/31/2022 8:15 EST) Note to Patient The following pathology results have been interpreted by your pathologist and may be available to you before your health provider has had the opportunity to review them. Please allow time for your provider to receive these results and explore management options, if applicable. 01/04/2023 9:19 EST [facility] Final Diagnosis A. RECTUM, POLYPS X2, BIOPSY: - Hyperplastic polyps. 01/04/2023 9:19 [facility] Attestation There was significant resident/fellow involvement in the diagnostic evaluation of this case. By the signature below, the attending physician certifies that they have personally conducted a gross and/or microscopic examination of the described specimens and rendered or confirmed the above diagnosis. 01/04/2023 9:19 [facility] at 0919 Clinical History Screening colonoscopy; positive family history 01/04/2023 9:19 [facility] Gross Description A. Received in formalin labelled with proper patient identification (initials G, G) and rectal polyp x2 are 2 cullen-pink polypoid tissues measuring 0.2 x 0.2 x 0.2 cm and 0.4 x 0.2 x 0.1 cm. Submitted intact in A1. JAMIE DIAL(ASCP) 12/31/2022 19:19 01/04/2023 9:19 [facility] Resident/Luis w: Sandra Patterson MD 01/04/2023 9:19 [facility] Performing Lab [facility] 01/04/2023 9:19 [facility] Scanned Images 01/04/2023 9:19 [facility] Tissue SPECIMEN FROM RECTUM / Unknown 12/31/2022 8:15 EST 12/31/2022 17:00 EST Yo Tomas MD PATHOLOGY ORDERABLES [facility] [address] [place] [address] documented in this encounter Visit Diagnoses Diagnosis Encounter for screening for malignant neoplasm of colon Special screening for malignant neoplasms, colon documented in this encounter Care Teams Ice Skating Coach Relationship Specialty Start Date End Date Unknown, Provider, PCP - General 09/23/16 documented as of this encounter
--- OUTSIDE RECORDS SUMMARY | 2024-07-29 19:18 | XMS_ITS | Encounter Summary ---
Author Organization [facility] Address [address] [place] [address] Care Team Providers Care Mask Layout Designer Name Role Phone Unknown, Provider Primary Care Provider [phone] Encounter Details Date Type Department Care Team (Late st Contact Info) Description 10/06/2022 Anti-coag visit [facility] H[facility] & Oncology - [facility] [address] [place] [address] Serena Bhatti, RN [address] [place] [address] Social History Tobacco Use Types Packs/Day Years [...] on filedocumented in this encounter Care Teams Mask Layout Designer Relationship Specialty Start Date End Date Unknown, Provider, PCP - General 09/23/16 documented as of this encounter
--- OUTSIDE RECORDS SUMMARY | 2024-07-29 19:18 | XMS_ITS | Encounter Summary ---
Author Organization [facility] Address [address] [place] [address] Care Team Providers Care Repairer Helper Name Role Phone Unknown, Provider Primary Care Provider [phone] Encounter Details Date Type Department Care Team (Late st Contact Info) Description 05/13/2021 Lab Requisition [facility] Pathology & Laboratory Medicine - [address] [address] Outr Resulting Lab, Provider Social History Tobacco Use Types Packs/Day Years [...] Procedure Name Priority Date/Time Associated Diagnosis Comments LYME AB Routine 05/12/2021 21:50 EDT documented in this encounter Results * LYME AB (05/12/2021 21:50 EDT) Lyme Ab Negative Negative 05/14/2021 10:30 EDT [facility] Comment:New 3rd generation a ssay in use 04/17/2020 Blood VENOUS BLOOD / Unknown 05/12/2021 21:50 EDT 05/13/2021 16:24 EDT Provider Outr Resulting Lab IMMUNOLOGY A ND SEROLOGY ORDERABLES [facility] [address] [place] [address] documented in this encounter Visit Diagnoses Not on filedocumented in this encounter Care Teams Repairer Helper Relationship Specialty Start Date End Date Unknown, Provider, PCP - General 09/23/16 documented as of this encounter
--- OUTSIDE RECORDS SUMMARY | 2024-07-29 19:18 | XMS_ITS | Encounter Summary ---
Author Organization [facility] Address [facility] [place] [address] Care Team Providers Care Net Technical Architect Name Role Phone None Primary Care Provider Unavailabl e Reason for Referral * Consultation (Routine) - Closed Specialty Diagnoses / Procedures Referred By Contact Referred To Contact Cardiac Rehabilitation Diagnoses Non-ST elevation myocardial infarction (NSTEMI) Yassine Lacey MD [facility] [place] [address] Cardiac Rehab, [address] [place] [address] Referral ID Status Reason Start Date Expiration Date V isits Requested Visits Authorized [id number] Closed Consult, Test & Treat 05/13/2019 11/09/2019 36 36 Reason for Visit * Auth/Cert Specialty Diagnoses / Procedures Referred By Contac t Referred To Contact Diagnoses NSTEMI (non-ST elevated myocardial infarction) NSTEMI Procedures EMERGENCY IPI Referral ID Status Reason Start Date Expiration Date Visits Re quested Visits Authorized [id number] 1 1 Encounter Details Date Type Department Care Team (Latest Contact Info) Description 05/11/2019 8:26 PM EDT - 05/13/2019 12:15 PM EDT Hospital Encounter [place] [address] Gregg Eugene MD [facility] [place] [address] Yassine Lacey MD [facility] [place] [address] Non-ST elevation myocardial infarction (NSTEMI); ECG abnormal; Mixed hyperlipidemia; NSTEMI (non-ST elevated myocardial infarction) Discharge Disposition: Home Social History Tobacco Use Types Packs/Day Years [...] Sign Reading Time Taken Comments Blood Pressure 109/67 05/13/2019 7:50 AM EDT Pulse 74 05/13/2019 7:50 AM EDT Temperature 37.3 ??C (99.1 ??F) 05/13/2019 7:50 AM ED T Respiratory Rate 12 05/13/2019 7:50 AM EDT Oxygen Saturation 97% 05/13/2019 7:50 AM EDT Inhaled Oxygen Concentration - - Weight 105.2 kg (231 lb 14.8 oz) 05/13/2019 5:51 AM EDT Height 182.9 cm (6') 05/11/2019 11:43 PM EDT Body Mass Index 31.45 05/11/2019 11:43 PM EDT documented in this encounter Discharge Summaries * Joana Lyon PA - 05/12/2019 1:10 PM EDT Discharge Summary Patient Name: Jarvis Padron Patient Age: 48 y.o. Language: Maltese Race: White Ethnicity: Not nor Admit date: 05/11/2019 Discharge date and time: 05/13/2019 Attending Physician: Yassine Lacey MD Discharge Physician: Yassine Lacey MD Follow-up Recommendations for Providers: 1. Continue dual antiplatelet therapy for one year (aspirin 81 mg, Plavix 75 mg). After one year consider discontinuation of Plavix as clinically indicated. Continue aspirin 81 mg indefinitely as tolerated. 2. Newly initiated on lisinopril 5 mg and metoprolol 12.5mg BID. Please monitor HR and BP. BMP in 1week to PCP. 3. New high dose statin , follow up lipids in about 2 mo. Inpatient Provider Contact Information: MD Yaritza Valladares, [employer] Cardiovascular Medicine Discharge Diagnoses (Hospital Problems) and Secondary Diagnoses (Chronic Problems): Active Hospital Problems Diagnosis ??? Coronary artery disease involving kiana coronary artery ??? NSTEMI (non-ST elevated myocardial infarction) ??? Mixed hyperlipidemia ??? Depression ??? 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 ??? HTN (hypertension) Resolved Hospital Problems No resolved problems to display. There are no active non-hospital problems to display for this patient. Operations/Major Procedures: Procedure(s): CARDIAC CATHETERIZATION Cardiac Catheterization 05/12/2019 Hemodynamics: Left Heart Pressures Resting: Syst Diast EDP a v m Ao 109 73 90 LV 115 17 Coronary Angiography: Dominance: Right Left Main Left Anterior Descending There was mild diffuse (<=25% stenosis) disease of the entire vessel segment of the left anterior descending artery (LAD). The LAD was large. Left Circumflex There was a single discrete total occlusion of the proximal segment of the first obtuse marginal branch (OM1) of the left circumflex (LCX). The OM1 was large. Right Coronary Artery There was mild diffuse (<=25% stenosis) disease of the entire vessel segment of the right coronary artery (RCA). Indication for Intervention: Coronary intervention was indicated for primary therapy for an acute myocardial infarction. The priority for the procedure was Urgent. The BANNER indication for the procedure was NSTE-ACS. Intervention Summary: First Obtuse Marginal Branch of the LCX Proximal 100% Stent insertion was performed on the total occlusion in the proximal segment of the OM1. This was a de valeri lesion. According to the ACC/AHA classification system, this lesion was a type B2 high risk lesion. Primary prevention of restenosis was the indication for stent insertion. This was the culprit lesion. A guidewire was placed across this lesion. Vessel flow pre intervention was DENISE 0. Lesion length was 15mm. Stent insertion was accomplished through a 6 Fr. EBU 3.0 guide. The lesion was predilated with a 2.00mm EUPHORA 12 MM balloon with a maximum inflation pressure of 12 atmospheres. A premounted 2.75 x 26 mm Resolute SHIREEN (DELMER) was deployed with a maximum inflation pressure of 16 atmospheres. Following stent deployment, the lesion was dilated using a 3.00mm NC EUPHORA 15 MM balloon with a maximum inflation pressure of 18 atmospheres. The final outcome was defined as successful. A coronary arteriolar vasodilator was administered as part of the intervention on this lesion. There was no residual stenosis following this intervention. The final DENISE flow was 3. Vascular Access: Vascular Access Management: Mechanical Compression of the right radial artery access site was performed. Dual Antiplatelet (DAPT) Recommendations: Drug eluting stent (DELMER) inserted. 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 Recommend continuing clopidogrel 75 mg PO daily for 12 months. Recommend continuing aspirin 81 mg unless intolerant. The DAPT score is 2. The DAPT score calculates net clinical benefit of prolonged dual antiplatelet therapy following percutaneous coronary intervention. A DAPT Score of equal or greater than 2 suggests an increased risk of late stent thrombosis and MACCE. If the DAPT score is equal or greater than 2 and the patient tolerates the recommended duration of DAPT without bleeding or side effects, consider extending the DAPT to 30 months post procedure. Conclusions: * One vessel coronary artery disease (LCX) * Successful stent insertion of the proximal OM1 lesion * Recommend continuing clopidogrel 75 mg PO daily for 12 months (see DAPT Recommendations above for more information.) Other Studies Echocardiogram 05/12/2019 1. The left ventricular chamber size is [...] There is no hemodynamically significant valve disease. ?? History of Presentation: Mr. Underwood is a 48-year-old male with prior history of GERD, depression presented to [place], [place] with complaints of chest pain of 5 days duration. Patient states that he developed chest pain about 5 days ago. He does not remember when exactly his chest pain started. Initially it was intermittent and progressively had worsened. Chest pain is located on the left side of the chest. It is a pressure- like sensation. He rates it 7/10 in intensity.Chest pain radiates down both arms. No associated shortness of breath. No diaphoresis. No palpitations. No change in intensity with exertion. Due to persistent nature of his chest pain, he presented to [facility]. At [facility], EKG showed junctional rhythm with a nonspecific ST-T changes, troponin I was elevated at 0.87 (normal less than 0.06). She was given a loading dose of aspirin 324 mg, Plavix 300 mg. He was started on heparin GTT for non-ST elevation myocardial infection. He is transferred to [facility] for further care. ?? Patient states he still has chest pain. He rates it 6/10 in intensity. No associated palpitations or diaphoresis at this time. No shortness of breath. Denies any other complaints at this time. No recent history of fevers. No cough. No URI symptoms. No abdominal pain. No diarrhea. No dysuria. No swelling of the joints. No skin rash. ?? Hospital Course: NSTEMI Jarvis Padron is a 48 y.o. male with past medical history significant for non-smoker, non-diabetic, GERD, depression who presented to [facility] in the setting of crescendo angina. ECG with ectopic atrial with TWI in leads III AVF. Troponin positive at 0.87 (OSH) and 0.32, 0.92 here. Prior to arrival he was loaded with aspirin, Plavix and started on a heparin drip. On arrival to [facility] he continued toexperience chest pain, started on a nitro drip which was up titrated to 60 mcg/min. dock or pier laborer was made aware of patient and he was urgently sent to the wharf laborer and found to have a total occlusion of the OM1 which was successfully opened with placement of a DELMER. Echo revealed preserved EF with ant/ lat and inf/ lat wall motion abnormalities as above. Medications for discharge include aspirin 81 mg, Plavix 75 mg, lisinopril and metoprolol, SL nitro prn, which are all new. He will need a BMP in 1 week for new STONE. Prior to discharge he was seen by the cardiac rehab team and ambulated around the unit successfullywithout further episodes of chest pain or dyspnea. ?Hypertension BP: (160)/(112) on arrival, although he notably has no documented history of hypertension. On arrival his blood pressure improved with IV nitro and initial hydralazine 10 mg to a systolic of 110-130/60. He was transitioned to lisinopril 5 mg low dose beta-kimi with BP control thereafter. Hyperlipidemia He has elevated TC and LDL with low HDL. Now started on high dose Lipitor. He will need follow up labs as an outpatient as above. Functional and Cognitive Status: AAO , ambulatory at baseline Important Studies and Lab Data: Labs: Lab Results Component Value Date WBC 10.6 (H) 05/13/2019 HGB 13.8 05/13/2019 HCT 38.3 (L) 05/13/2019 PLATELET 194 05/13/2019 Lab Results Component Value Date NA 142 05/13/2019 K 4.1 05/13/2019 CL 105 05/13/2019 CO2 25 05/13/2019 BUN 15 05/13/2019 CREATININE 0.89 05/13/2019 Recent Labs 05/12/19 0404 HA1C 5.1 Recent Labs 05/13/19 0007 05/12/19 1701 05/12/19 0404 TROPONINT 0.84* 1.30* 0.92* Lab Results Component Value Date CHLPL 239 05/12/2019 HDL 37 05/12/2019 CHOLHDL 6.5 05/12/2019 TRIG 235 05/12/2019 LDLCHOL 155 05/12/2019 Pending Studies and Lab Data: none Discharge Conditions/Prognosis: stable Discharge to: home Updated Allergies/ADRs: No Known Allergies Immunizations Given this Hospitalization: There is no immunization history on file for this patient. Discharge Medications: Your Medications New Medications Dose Details aspirin 81 mg Chew Take 81 mg by mouth daily. Start taking on: 05/14/2019 81 mg Quantity: 30 tablet Refills: 3 atorvastatin 80 mg Tab Commonly known as: LIPITOR Take 1 tablet by mouth every evening. 80 mg Quantity: 30 tablet Refills: 3 clopidogrel 75 mg Tab Commonly known as: PLAVIX Take 1 tablet by mouth every morning. 75 mg Quantity: 90 tablet Refills: 3 lisinopril 5 mg Tab Commonly known as: PRINIVIL;ZESTRIL Take 1 tablet by mouth daily. Start taking on: 05/14/2019 5 mg Quantity: 30 tablet Refills: 3 metoprolol tartrate 25 mg Tab Commonly known as: LOPRESSOR Take 0.5 tablets by mouth 2 times daily. 12.5 mg Quantity: 60 tablet Refills: 3 nitroGLYcerin 0.4 mg Subl Commonly known as: NITROSTAT Place 1 tablet under the tongue every 5 minutes as needed for Chest pain. 0.4 mg Quantity: 25 tablet Refills: 3 Continued medications, unchanged Dose Details pantoprazole 40 mg Tbec Commonly known as: PROTONIX Take 40 mg by mouth daily. 40 mg Refills: 0 sertraline 100 mg Tab Commonly known as: ZOLOFT Take 100 mg by mouth daily. 100 mg Refills: 0 Smoking Status at Discharge: Social History Tobacco Use Smoking Status Never Smoker Smokeless Tobacco Current User ??? Types: Chew Instructions Given to Patient at Discharge: There are no outpatient Patient Instructions on file for this admission. General Instructions Call your doctor if: Chest pain, shortness of breath, pain or swelling in legs occurs. If you have non-emergent questions between now and the time of your follow up appointments: During 8am-5pm Wednesday through Wednesday call [phone] to speak with a nurse in the cardiology clinic All other times call [phone] and ask to speak to the drug regulatory affairs specialist second cutter. 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 Follow up Appointments: PCP - Dr. Leslie Rolon Your follow up appointment is scheduled for May 25, 2019 at 9:15 am Cardiology - [facility] [place] [facility] Cardiology -Dr Madison Your follow up appointment is scheduled for 2018 at 9 am Future Appointments and Orders Future Orders Complete By Expires Basic Metabolic Panel (non-fasting) [LAB15 Custom] 05/20/2019 07/14/2019 Process Instructions: Scheduling Instructions: Comments: New to stone Results to [facility] Questions: Hepatic Function Panel [LAB20 Custom] 07/14/2019 05/12/2020 Process Instructions: Scheduling Instructions: Comments: Results to [facility] Post new statin Questions: Lipid Panel [LAB18 Custom] 07/14/2019 05/12/2020 Process Instructions: Scheduling Instructions: Comments: Post new statin Results to [facility] Questions: Referral to Cardiac Rehab [XHC610 Custom] As directed Process Instructions: If no progress note charted, please enter Clinical details in comments. Scheduling Instructions: Questions: My question or request is: NSTEMI, PCI- CR at [facility] Discharge References/Attachments None Yaritza Victoria NP 05/12/19 And Joana Lyon, PAC Pager [phone] 05/13/2019 documented in this encounter Discharge Instructions * Discharge Instructions* Joana Lyon PA - 05/13/2019 11:42 AM EDT Call your doctor if: Chest pain, shortness of breath, pain or swelling in legs occurs. If you have non-emergent questions between now and the time of your follow up appointments: During 8am-5pm Wednesday through Wednesday call [phone] to speak with a nurse in the cardiology clinic All other times call [phone] and ask to speak to the drug regulatory affairs specialist second cutter. 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 Follow up Appointments: PCP - Dr. Leslie Rolon Your follow up appointment is scheduled for May 25, 2019 at 9:15 am Cardiology - [facility] [place] [facility] Cardiology -Dr Madison Your follow up appointment is scheduled for 2018 at 9 am documented in this encounter Medications at Time of Discharge Medication Sig Dispensed Refills Start Date End Date aspirin 81 mg Tablet, Chewable Take 81 mg by mouth daily. 30 tablet 3 05/14/2019 clopidogrel (PLAVIX) 75 mg Tablet Take 1 tablet by mouth every morning. 90 tablet 3 05/13/2019 lisinopril (PRINIVIL;ZESTRIL) 5 mg Tablet Take 1 tablet by mouth daily. 30 tablet 3 05/14/2019 nitroGLYcerin (NITROSTAT) 0.4 mg Tablet, Sublingual Place 1 tablet under the tongue every 5 minutes as needed for Chest pain. 25 tablet 3 05/13/2019 metoprolol tartrate (LOPRESSOR) 25 mg Tablet Take 0.5 tablets by mouth 2 times daily. 60 tablet 3 05/13/2019 pantoprazole (PROTONIX) 40 mg Tablet, Delayed Release (E.C.) Take 40 mg by mouth daily. 0 02/12/2019 sertraline (ZOLOFT) 100 mg Tablet Take 100 mg by mouth daily. 0 02/12/2019 atorvastatin (LIPITOR) 80 mg Tablet Take 1 tablet by mouth every evening. 30 tablet 3 05/13/2019 07/11/2019 documented as of this encounter Progress Notes * Chelsea Antonio RN - 05/13/2019 12:12 PM EDT Pt discharged home with significant other, ambulated off floor. IV and telemetry d/c'd, instructions reviewed. They deny questions at this time. * Yassine Lacey MD - 05/13/2019 8:30 AM EDT Images from the original note were not included. [facility] [place] [address] [place] [id number] DAY OF DISCHARGE NOTE Patient Name: Jarvis Padron [id number] Service: IMPREGNATOR [employer] / PA Responsible Attending: Yassine Lacey MD Patient Active Problem List Diagnosis ??? NSTEMI (non-ST elevated myocardial infarction) ROS: ROS General: Denies fever, chills, Cardiovascular: Denies CP, palpitations, LE edema, Respiratory: Denies SOB, PND/ orthopnea, GI: Denies abdominal pain, bowel changes/ melena : Denies dysuria/ hematuria Neuro: Denies new weakness or numbness Ambulated the halls today without angina, eager to go home, asking for dc today Medications: Reviewed - beta-kimi started today Objective: Vitals: Vitals: 05/13/19 0011 05/13/19 0512 05/13/19 0551 05/13/19 0750 BP: 127/79 120/83 109/67 BP Location (NBP): Left arm Left arm Left arm Patient Position: Lying Lying Sitting Pulse: 71 64 74 Resp: 14 13 12 Temp: 37.2 ??C (99 ??F) 37.2 ??C (99 ??F) 37.3 ??C (99.1 ??F) TempSrc: Oral Oral Oral SpO2: 98% 96% 97% Weight: 105.2 kg (231 lb 14.8 oz) Height: Physical Exam: General: NAD, AAOx3, appropriate, well-appearing HEENT: NC/AT, anicteric sclerae, PER, Neck: No JVD Lungs: clear without W/R/R CV: RRR, S1, S2, no M/R/G Abd: Nl BS, soft, NT, ND, Ext: no C/C; no Edema Vascular: 2+ radial, , and intact distal pulses b/l R rad access site stable post procedure Neuro: Ambulatory, normal/ steady gait Diagnostics: Recent Results (from the past 72 hour(s)) EKG 12 Lead Result Value Ventricular rate 67 Atrial Rate 67 P-R Interval 156 QRS Duration 90 Q-T Interval 422 QTC Calculated (Bezet) 445 Calculated P [place] -111 Calculated R [place] -16 Calculated T [place] -23 INTERPRETATION Unusual P axis, possible ectopic atrial rhythm Voltage criteria for left ventricular hypertrophy prominent U wave seen in V2 and V3, likely of no clinical significance Abnormal ECG No previous ECGs available Confirmed by MD JOSIE, GRAHAM ([id number]) on 05/12/2019 12:29:24 PM Basic Metabolic Panel (non-fasting) Result Value Glucose Lvl 107 BUN 16 Creatinine 0.76 (L) Sodium 140 Potassium 3.7 Chloride 105 CO2 21 (L) Anion Gap 14 Calcium 8.7 eGFR 109 eGFR 126 Magnesium Result Value Magnesium 0.79 pro-Brain Natriuretic Peptide Result Value ProBNP 313 (H) Hemogram Result Value WBC 10.4 (H) RBC 4.27 (L) Hemoglobin 13.9 Hematocrit 38.3 (L) MCV 89.7 MCH 32.6 (H) MCHC 36.3 (H) Platelets 209 RDWSD 44.0 RDWCV 13.4 MPV 11.0 nRBC % Auto 0.0 nRBC Abs Auto 0.000 Differential, Automated Result Value Neutrophils % 61.3 Neutr Abs (ANC) 6.41 (H) Lymphocytes % 28.9 Lymphocytes Abs 3.0 Monocytes % 7.4 Monocyte Abs 0.8 Eosinophils % 1.3 Eosinophils Abs 0.1 Basophils % 0.7 Basophils Abs 0.1 Immature Gran % 0.40 Justina Gran Abs 0.04 APTT Result Value PTT 42 (H) Heparin (unfractionated) Level Result Value Heparin UFH Level 0.18 Lavender Tube HOLD Result Value Lavender Hold Sample in lab. Troponin Result Value Troponin-T 0.32 (H) Lipid Panel Result Value Chol, Total 239 Triglycerides 235 HDL 37 LDL Cholesterol 155 Chol/HDL Ratio 6.5 Lipid Interpretation See Note Electrolytes panel Result Value Sodium 139 Potassium 4.1 Chloride 106 CO2 24 Anion Gap 9 BUN Result Value BUN 13 Creatinine Result Value Creatinine 0.82 eGFR 105 eGFR 122 Hemoglobin A1c Result Value Hemoglobin A1C 5.1 Est Avg Gluc 100 Hemogram Result Value WBC 11.4 (H) RBC 4.10 (L) Hemoglobin 13.3 (L) Hematocrit 37.5 (L) MCV 91.5 MCH 32.4 (H) MCHC 35.5 Platelets 182 RDWSD 45.4 (H) RDWCV 13.5 MPV 10.6 nRBC % Auto 0.0 nRBC Abs Auto 0.000 Differential, Automated Result Value Neutrophils % 62.1 Neutr Abs (ANC) 7.10 (H) Lymphocytes % 26.7 Lymphocytes Abs 3.0 Monocytes % 8.1 Monocyte Abs 0.9 Eosinophils % 1.6 Eosinophils Abs 0.2 Basophils % 0.8 Basophils Abs 0.1 Immature Gran % 0.70 Justina Gran Abs 0.08 (H) Troponin Result Value Troponin-T 0.92 (H) Heparin (unfractionated) Level Result Value Heparin UFH Level 0.12 EKG 12 Lead Result Value Ventricular rate 67 Atrial Rate 67 P-R Interval 150 QRS Duration 78 Q-T Interval 422 QTC Calculated (Bezet) 445 Calculated R [place] -19 Calculated T [place] -29 INTERPRETATION Normal sinus rhythm Voltage criteria for left ventricular hypertrophy Nonspecific ST and T wave abnormality Abnormal ECG When compared with ECG of 11-MAY-2019 21:18, Sinus rhythm has replaced Ectopic atrial rhythm Confirmed by MD STEPHANIE, LIZZY ([id number]) on 05/12/2019 5:47:05 PM Echocardiogram Transthoracic(Leb) Result Value EF 64 EKG 12 Lead Result Value Ventricular rate 69 Atrial Rate 69 P-R Interval 140 QRS Duration 88 Q-T Interval 412 QTC Calculated (Bezet) 441 Calculated R [place] -19 Calculated T [place] -34 INTERPRETATION Normal sinus rhythm Voltage criteria for left ventricular hypertrophy Nonspecific ST abnormality Abnormal ECG When compared with ECG of 12-MAY-2019 10:14, (unconfirmed) No significant change was found Electrolytes panel Result Value Sodium 138 Potassium 4.1 Chloride 101 CO2 27 Anion Gap 10 Magnesium Result Value Magnesium 0.86 Troponin Result Value Troponin-T 1.30 (H) Troponin Result Value Troponin-T 0.84 (H) BMP w/fasting Glucose Result Value Glucose Fasting 114 (H) BUN 15 Creatinine 0.89 Sodium 142 Potassium 4.1 Chloride 105 CO2 25 Anion Gap 12 Calcium 8.7 eGFR 102 eGFR 118 Magnesium Result Value Magnesium 0.87 Hemogram Result Value WBC 10.6 (H) RBC 4.19 (L) Hemoglobin 13.8 Hematocrit 38.3 (L) MCV 91.4 MCH 32.9 (H) MCHC 36.0 (H) Platelets 194 RDWSD 47.3 (H) RDWCV 14.2 (H) MPV 10.6 nRBC % Auto 0.0 nRBC Abs Auto 0.000 Differential, Automated Result Value Neutrophils % 59.9 Neutr Abs (ANC) 6.37 (H) Lymphocytes % 28.5 Lymphocytes Abs 3.0 Monocytes % 9.3 Monocyte Abs 1.0 (H) Eosinophils % 1.3 Eosinophils Abs 0.1 Basophils % 0.7 Basophils Abs 0.1 Immature Gran % 0.30 Justina Gran Abs 0.03 EKG 12 Lead Result Value Ventricular rate 64 Atrial Rate 64 P-R Interval 140 QRS Duration 84 Q-T Interval 414 QTC Calculated (Bezet) 427 Calculated P [place] 39 Calculated R [place] -9 Calculated T [place] -29 INTERPRETATION Normal sinus rhythm Voltage criteria for left ventricular hypertrophy Nonspecific ST and T wave abnormality Abnormal ECG When compared with ECG of 12-MAY-2019 16:28, (unconfirmed) Nonspecific T wave abnormality now evident in Lateral leads Assessment and Plan: Assessment/Plan: The patient was seen and examined on rounds. Vital signs were stable, a thorough physical exam was conducted, and the patients most recent lab values were reviewed. Prior to discharge, medications were reviewed, and a discharge plan was finalized and reviewed withthe patient. Patient seen this hospitalization for the following problems: CAD, post CX stent, total occulsion NSTEMI, HLD Post CT care and monitoring Greater than 30 minutes was spent coordinating their discharge today. The patient was discharged instable condition. Please see the discharge summary 05/13/2019 for a comprehensive assessment and plan. Joana Lyon, PAC Pager [phone] 05/13/2019 STAFF ADDENDUM Patient interviewed and examined. Medical record reviewed. I agree with the Intercurrent History Past Medical History Physical Exam Objective Data Assessment and Plan as detailed by Yaniv AYALA, with whom the patient was interviewed, examined, and discussed, with the following additions and/or exceptions. Stable clinical course. No recurrent chest pain. Toleratingmedications. Up and ambulating without difficulty. VSS. Lungs clear. No new murmurs, rubs, gallops.Arterial access site without hematoma. Distal pulses and sensation intact. Neuro GI. Telemetry benign. Can safely add metoprolol to his medical regimen. Now on guideline medications. Has been seen byCardiac Rehab. Patient wishes to be discharged. F/u with Cardiology in 3-4 weeks. * Yassine Lacey MD - 05/12/2019 8:00 AM EDT Inpatient Cardiology Progress Note Patient Name: Jarvis Padron Service: [employer]REG[employer] / PA Responsible Attending: Yassine Lacey MD Reason for continued hospitalization: Evaluation and management of NSTEMI Active Problems: Active Hospital Problems Diagnosis ??? NSTEMI (non-ST elevated myocardial infarction) Resolved Hospital Problems No resolved problems to display. Interval History: Admitted overnight in the setting of NSTEMI after being transferred from [facility]. Hewas noted to have chest pain on admission and started on heparin, and nitro drip which was up-titrated to 60 mcg/min with relief of chest pain. He remains at this rate at this time. No complaints upon rounds this morning, he is awaiting cardiac catheterization at this time. Review of Systems: Review of Systems Respiratory: Negative for cough and shortness of breath. Cardiovascular: Positive for chest pain (relieved with nitro). Negative for palpitations and leg swelling. Neurological: Negative for dizziness. All other systems reviewed and are negative. Telemetry: Heart Rate: [61-72] SR Meds: Scheduled Meds: ??? sodium chloride 0.9 % (flush) 5 mL Intravenous BID ??? aspirin 81 mg Oral Daily ??? clopidogrel 75 mg Oral Daily ??? atorvastatin 80 mg Oral QPM ??? pantoprazole 40 mg Oral Daily ??? sertraline 100 mg Oral Daily Continuous Infusions: ??? heparin (porcine) 1,200 Units/hr (05/12/19 0527) ??? nitroGLYcerin 60 mcg/min (05/12/19 0150) PRN Meds:sodium chloride 0.9 % (flush), lidocaine, nitroGLYcerin, acetaminophen, heparin (porcine) AND heparin (porcine) Physical Exam: Vital Signs: Last value Range last 24 hrs Temperature Temp: 36.8 ??C (98.2 ??F) Temp: [36.7 ??C (98.1 ??F)-36.8 ??C (98.2 ??F)] Heart Rate Heart Rate: 67 Heart Rate: [61-72] Blood Pressure BP: 114/70 BP: (114-161)/(70-114) Respiratory Rate Resp: 13 Resp: [11-17] SpO2 SpO2: 97 % SpO2: [96 %-97 %] Intake/Output Summary (Last 24 hours) at 05/12/2019 0826 Last data filed at 05/12/2019 0537 Gross per 24 hour Intake 550 ml Output 1450 ml Net -900 ml Patient Vitals for the past 168 hrs: Weight 05/12/19 0520 106.8 kg (235 lb 6.4 oz) 05/11/19 2132 106.7 kg (235 lb 3.7 oz) Physical Exam Constitutional: No distress. Neck: No JVD present. Cardiovascular: No murmur heard. Pulmonary/Chest: Effort normal and breath sounds normal. He has no rales. Abdominal: Soft. Bowel sounds are normal. Skin: He is not diaphoretic. Lab Comments: Recent Labs 05/12/19 0404 05/11/19 2200 WBC 11.4* 10.4* HGB 13.3* 13.9 HCT 37.5* 38.3* PLATELET 182 209 No results for input(s): INR in the last 168 hours. Recent Labs 05/12/19 0404 05/11/19 2200 NA 139 140 K 4.1 3.7 CL 106 105 CO2 24 21* BUN 13 16 CREATININE 0.82 0.76* No results for input(s): AST, ALT, ALKPHOS, BILITOT, BILIDIR in the last 168 hours. Recent Labs 05/11/19 2200 CALCIUM 8.7 MAGNESIUM 0.79 Recent Labs 05/12/19 0404 05/11/19 2200 TROPONINT 0.92* 0.32* Pertinent Radiographic/Diagnostic Results: I have independently visualized the following studies: ECG:Ectopic atrial rhythm (inverted PW), with TWI III, AVF Cardiac Cath: Awaiting cardiac catheterization at this time ECHO: pending Assessment: Jarvis Padron is a 48 y.o. male with past medical history significant for non-smoker, non-diabetic, GERD, depression who presented to [facility] in the setting of crescendo angina. ECG with ectopic atrial with TWI in leads III AVF. Troponin positive at 0.87 (OSH) and 0.32, 0.92 here. Priorto arrival he was loaded with aspirin, plavix and started on a heparin drip. On arrival to [facility] he continued to experience chest pain, started on a nitro drip which was up titrated to 60 mcg/min. 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 Patient likely has an RCA lesion. Awaiting an echocardiogram and cath at this time. Plan: NSTEMI - Continue ASA + heparin gtt + atorvastatin + SL nitro - Plavix 75 mg - Trend cardiac enzymes - troponin 0.32, 0.92 - Marie 107 - NPO for cardiac catheterization - Echocardiogram pending - Not yet started on BB due to concern for junctional rhythm on admission, although appears to be ectopic atrial ??Hypertension - BP: (114-160)/(70-112) - No hx of hypertension, however newly noted on admission - Currently on nitro drip, and given hydralazine 10 mg with improvement in BP - Last BP 114/70, if BP trends high would consider initiating STONE/ARB therapy Depression - Continue Zoloft GERD - Protonix Full Code Discussed with MD Yaritza Valladares APRN Cardiovascular Medicine Pager [phone] 05/12/2019 STAFF ADDENDUM Patient interviewed and examined. Medical record reviewed. I agree with the Intercurrent History Past Medical History Physical Exam Objective Data Assessment and Plan as detailed by Jose SILVERMAN, with whom the patient was interviewed, examined, and discussed, with the following additions and/or exceptions. Recurrent chest pain requiring IV NTG to control despite DAPT, systemic anticoagulation and good double product control. Brought urgently to cardiac catheterization and found to have a CHARI of OM1 which was successfully opened with placement of a DELMER. Echo to assess EF pending. Holding on a beta-kimi. Can start on a low dose ACEI. Cardiac Rehab to see. Likely discharge Wednesday AM. documented in this encounter H&P Notes * Luis Enrique Brandon MD - 05/11/2019 9:34 PM EDT Images from the original note were not included. Cardiology Admission H&P Patient Name: Jarvis Padron Date of : 1970 Age: 48 y.o. Hospital Admit Date: 05/11/2019 Inpatient Attending: Gregg Eugene MD PCP: None Presenting Diagnosis/Chief Complaint: Chest pain Active Problem List: Active Hospital Problems Diagnosis ??? NSTEMI (non-ST elevated myocardial infarction) Resolved Hospital Problems No resolved problems to display. History of Present Illness: HPI Mr. Underwood is a 48-year-old male with prior history of GERD, depression presented to [facility], [place], [place] with complaints of chest pain of 5 days duration. Patient states that he developed chest pain about 5 days ago. He does not remember when exactly his chest pain started. Initially it was intermittent and progressively had worsened. Chest pain is located on the left side of the chest. It is a pressure- like sensation. He rates it 7/10 in intensity.Chest pain radiates down both arms. No associated shortness of breath. No diaphoresis. No palpitations. No change in intensity with exertion. Due to persistent nature of his chest pain, he presented to [facility]. At [facility], EKG showed junctional rhythm with a nonspecific ST-T changes, troponin I was elevated at 0.87 (normal less than 0.06). She was given a loading dose of aspirin 324 mg, Plavix 300 mg. He was started on heparin GTT for non-ST elevation myocardial infection. He is transferred to [facility] for further care. Patient states he still has chest pain. He rates it 6/10 in intensity. No associated palpitations or diaphoresis at this time. No shortness of breath. Denies any other complaints at this time. No recent history of fevers. No cough. No URI symptoms. No abdominal pain. No diarrhea. No dysuria. No swelling of the joints. No skin rash. Past Medical History: Past Medical History: Diagnosis Date ??? Depression ??? GERD (gastroesophageal reflux disease) Previous Diagnostics: None Surgical History/Problems: History reviewed. No pertinent surgical history. Significant Family History: Family History Problem Relation Age of Onset ??? Diabetes Mother ??? Coronary Artery Disease Father ??? Cancer Father Social History: Social History Socioeconomic History ??? Marital status: Spouse name: Not on file ??? Number of children: Not on file ??? Years of education: Not on file ??? Highest education level: Not on file Occupational History ??? Not on file Social Needs ??? Financial resource strain: Not on file ??? Food insecurity: Worry: Not on file Inability: Not on file ??? Transportation needs: Medical: Not on file Non-medical: Not on file Tobacco Use ??? Smoking status: Never Smoker ??? Smokeless tobacco: Current User Types: Chew Substance and Sexual Activity ??? Alcohol use: Yes Comment: very rarely ??? Drug use: Never ??? Sexual activity: Not on file Lifestyle ??? Physical activity: Days per week: Not on file Minutes per session: Not on file ??? Stress: Not on file Relationships ??? Social connections: Talks on phone: Not on file Gets together: Not on file Attends evangelical service: Not on file Active member of club or organization: Not on file Attends meetings of clubs or organizations: Not on file Relationship status: Not on file ??? Intimate partner violence: Fear of current or ex partner: Not on file Emotionally abused: Not on file Physically abused: Not on file Forced sexual activity: Not on file Other Topics Concern ??? Not on file Social History Narrative ??? Not on file REVIEW OF SYSTEMS: General ROS: No fatigue or weakness. Psychological: Patient has chronic depression. Takes Zoloft. Ophthalmic: No blurred vision or watery or red eyes. ENT: Negative for ear discharge or running nose or cold or throat swelling. Allergy: negative for itchy/watery eyes Heme: Negative for bleeding, bruising, fatigue, jaundice, night sweats Endocrine: negative for polydipsia/polyuria/ heat intolerance Respiratory: As in HPI CVS: Chest pain as described in history of present illness. GI: No abd pain, change in bowel habits, or black or bloody stools Genitourinary: No dysuria, trouble voiding, or hematuria MSK: negative for joint pain, joint stiffness or joint swelling Neurological: No TIA or stroke symptoms Medications: Medications Prior to Admission Medication Sig Dispense Refill Last Dose ??? pantoprazole (PROTONIX) 40 mg Tablet, Delayed Release (E.C.) Take 40 mg by mouth daily. 0 05/10/2019 at Unknown time ??? sertraline (ZOLOFT) 100 mg Tablet Take 100 mg by mouth daily. 0 05/10/2019 at Unknown time Allergies: No Known Allergies PHYSICAL EXAM: Last set of vital signs: BP 137/85 (BP Location (NBP): Left arm) Pulse 69 Resp 17 Wt 106.7 kg(235 lb 3.7 oz) SpO2 96% Gen/Constitutional: Obese male alert and oriented x3, not in any distress Neck: Supple. No jugular venous distention. No thyromegaly. HEENT: EDGAR, EOMI, No conjunctival pallor or scleral icterus Cardiac/CVS: RRR S1 S2 No murmurs Pulm/Chest: No crackles or wheezing Abd/GI: No tenderness, not distended, soft, BS present, no organomegaly Musculoskeletal: no edema . Pulses palpable, no calf tenderness Neuro/WRAPPER SELECTOR: AAO x 3, No evident deficits Skin/Integumentary: No rash Diagnostics: EKG Junctional rhythm with LVH, Hyper acute T waves in v3,v4 LABS: No results found for this or any previous visit (from the past 24 hour(s)). Laboratory data from [facility]: CBC: WBC 8.6, hemoglobin 15.1, hematocrit 41.4, platelets 209 INR 1 CMP: Sodium 140, potassium 4.1, chloride 105, bicarb 24, BUN 20, creatinine 0.98, calcium 9.3, AST 24, ALT 31, magnesium 1.8 Troponin I: 0.87 (normal less than 0.06) X-ray chest: No evidence of acute cardiopulmonary disease. A&P: Mr. Underwood is a 48-year-old male with prior history of GERD, depression is being admitted with chest pain, elevated troponin concerning for NSTEMI. 1. NSTEMI: -Patient still has chest pain. He was not given nitroglycerin previously. Start patient on nitroglycerin sublingual prn. -Cycle troponin -Patient already is given loading ASA 324 mg and Plavix 300 mg po -Start patient on asa 81 mg and plavix 75 mg po from tomorrow -Start patient on lipitor 80 mg po qhs - Continue with heparin gtt -hold beta-blockers due to junctional rhythm on ECG. -Keep patient n.p.o. for possible cardiac catheterization in a.m. -Check lipid panel and hemoglobin A1c in a.m. 2. Hypertension: -patients blood pressure is elevated. -Patient does not have known hypertension. Monitor and start antihypertensives as needed. 3. Depression: -Continue with Zoloft. 4. GERD: -Continue with Protonix. 5. DVT prophylaxis: -Provided by heparin GTT. CODE STATUS: Discussed with patient. Full code. Luis Enrique Brandon MD Provider #: [id number] 05/11/2019 documented in this encounter Miscellaneous Notes * Plan of Care - Chelsea Antonio RN - 05/12/2019 4:57 PM EDT Problem: Patient Care Overview Goal: Plan of Care Review 05/12/19 0321 05/12/19 0800 Plan of Care Review Progress no change -- Coping/Psychosocial Plan Of Care Reviewed With -- patient;significant other OUTCOME EVALUATION NOTE: OUTCOME SUMMARY: Pt A&Ox4, denies pain, SOB or new issues today. Cardiac cath done this AM, stent x1. VS as documented, ambulating in hallway. Telemetry reviewed, see tele report. Met with cardiac rehab today, plan for stairs tomorrow. PLAN MOVING FORWARD: ? D/c home tomorrow INDIVIDUALIZED FALL PREVENTION INTERVENTIONS: Patient-specific fall risk factors per assessment: [current deficits]: Telemetry cords Assistance [level of assistance required for transfers and ambulation]: Indep Supervision [direct monitoring required during toileting and ADLs]: Eyes on Surveillance [continuous indirect monitoring]: Telemetry Patient-specific fall prevention interventions for sensory deficits provided, if applicable: Non skids socks when OOB, room near nurses station, purposeful rounding, personal belongings within reach. CPG GOAL OUTCOME EVALUATION: Goal: Fall Prevention-Safe Patient Handling 05/12/19 0800 05/12/19 1000 Adamson Fall Risk History of Falling 0 -- Secondary Diagnosis 15 -- Ambulatory Aids 0 -- Intravenous Therapy/Heparin/Saline Lock 20 -- Gait/Transferring 0 -- Mental Status 0 -- Score 35 -- OTHER Adamson Fall Risk Med -- Restraint Interventions Safety Promotion/Fall Prevention activity supervised;safety round/check completed -- Positioning Body Position independent -- Activity Activity Type -- bedrest Activity Assistance Provided independent -- Assistive Device Utilized none -- Goal: Infection Control 05/12/19 08 Safety Interventions Isolation Precautions standard precautions maintained Infection Prevention rest/sleep promoted;equipment surfaces disinfected Coping Strategies Supportive Measures active listening utilized;self-care encouraged Goal: Discharge Needs Assessment 05/12/19320 Discharge Needs Assessment Concerns To Be Addressed no discharge needs identified Readmission Within The Last 30 Days no previous admission in last 30 days Equipment Needed After Discharge none Discharge Disposition still a patient Current Health Anticipated Changes Related to Illness none Activity/Self Care Review of Systems Equipment Currently Used at Home none Living Environment Transportation Available car Goal: Interdisciplinary Rounds/Family Conf 05/12/19 032 Interdisciplinary Rounds/Family Conf Participants nursing;patient;physician * Initial Assessments - Shannan Ward RN - 05/12/2019 4:51 PM EDT Office of Care Management Assessment Medical record reviewed. Plan of care and patient status discussed with direct care RN and/or Care Team in multidisciplinary rounds. Screen[age] y.o. male here for management of NSTEMI. Present on Admission: ??? NSTEMI (non-ST elevated myocardial infarction) Patient has not been admitted to a hospital within the last 30 days. Patient receiving hospital care under Inpatient status. Admission order reviewed. Primary Insurance on file: MEDICAID [place] Secondary Insurance on file: N/A Advance Directive on file and Code Status: <no information>, Full Code Patient???s Functional Status: independent Living Situation: [address] [place], [place] [address] Supports: Julius Padron (Father) [address] [facility] [id number] (H) Assessment: Patient with no apparent RNCM/SW needs at this time. No housing, transportation, insurance, resources concerns identified at this time. Supports in place to achieve a safe post-hospital transition. No identified barriers to accessing necessary care and/or follow-up after discharge. Plan: Patient to d/c home via private car when medically ready. campground manager/Marker Hand will continue to follow patient???s progress and remain available if situation changes for coordination of care, psychosocial support and/or discharge planning. Shannan Ward RN Pager [phone] * Consult Note - Lolita Chan RN - 05/12/2019 1:57 PM EDT Cardiac Rehabilitation Inpatient Evaluation Primary Cardiac Diagnosis: NSTEMI, PCI Cardiac Risk Factors: Smoking: chews tobacco Overweight: yes Hyperlipidemia: yes Sedentary: no HTN: yes Family history: unknown DM: no Stress: some Patient Education: Reviewed cardiac cath findings, implications of coronary artery disease, managing angina and risk factor modification. 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 He does noformal exercise but walks around the farm, ruiz, etc. Given parameters for home exercise. Reviewed managing angina /use of sl nitroglycerin. He admits to eating a lot of butter, ice cream, meat and potatoes. He also drinks 2 large Mountain Dews per day. Mediterranean diet guidelines briefly reviewed. He will need a lot of help w/his diet. Phase II Referral: Participation in the outpatient cardiac rehabilitation program at [facility] was discussed. Patient agrees to a referral to this program. The referral will be sent at discharge and the patient should be contacted by the Program within 1- 2 weeks from discharge. Activity Summary: By discharge, patient will be able to perform self care, walk 5-7 minutes and go up and down stairs without signs or symptoms of ischemia. Activity Baseline Response Walk 2 loops HR 72 89 BP 150/102 O2 Sat 98% 98% ECG SR SR Symptoms/Comments: Trace well. Will need stairs before discharge * Brief Op Note - Camila Lawson MD - 05/12/2019 9:43 AM EDT Preliminary Cardiac Catheterization Procedure Note: Patient Name: Jarvis Padron : [id number] MR#: [id number] Case Date: 05/12/2019 Cabinet Finisher: Interventional Cardiologists * Camila Lawson MD - Primary * Jayda Frederick MD - Fellow Preoperative diagnosis: NSTEMI Postoperative diagnosis: NSTEMI, Single Vessel Dz-S/P PCI-Stent Preliminary Cardiac Catheterization Procedure Note: Procedure(s) performed: Coronary Angiography, Left Heart Cath, PCI-Stent Baseline Frailty Assessment: Definitions from [place] Study of Health and Aging Clinical Frailty Scale: 3: MANAGING WEL A time-out was conducted prior to the start of the procedure to verify the correct patient and procedure, procedure location, and all relevant critical information. Access: Right Radial 6 Fr Preliminary findings: Coronary Angiography: Anatomically normal right dominant circulation LMCA: Without angiographic apparent disease LAD: Minimal luminal irregularities noted LCx: Large OM1 Stump occluded RCA: Minimal luminal irregularities noted LVEDP 18 mmHg PCI-Stent OM 1 wired with minimal difficulty. Balloon dilation restored DENISE 2.5 flow which improved to DENISE 3 flow following IC nicardipine. Lesion treated with a single DELMER ([place]) with excellent angiographicresult. Contrast ~ 134 ml Hemostasis: Right radial sheath was removed at case completion with hemostasis obtained with mechanical (TR Band) compression The patient tolerated the procedure well and was transferred from the cardiac catheterization lab to the CRU in stable condition without apparent complications. Full report to follow. CAMILA LAWSON MD bead trimmer Pager [phone] * Plan of Care - Luis Enrique Brandon MD - 05/12/2019 6:38 AM EDT Images from the original note were not included. Cardiac cath Pre Procedure Note The indications, expected benefits and potential risks of heart catheterization were reviewed in detail with the patient. The potential for , heart attack, stroke, kidney failure, hemorrhage, allergic reaction, vascular complications and infection were reviewed in detail. The possibility of stenting and other percutaneous intervention with associated risk was reviewed. The possible need for emergent coronary artery bypass surgery was reviewed. After a discussion about the above, and havinganswered all questions posed, the patient was provided with a consent which was reviewed and signed. ASA: 4: Patient with severe systemic disease that is a constant threat to life Mallampati: III: only the base of the uvula can be seen Sedation Plan: moderate (conscious sedation) Assessment and Plan: Proceed with cardiac cath today, see progress note from today for further details. Luis Enrique Brandon MD 05/12/2019 Pager # [phone] * Plan of Care - Vandana Gustafson RN - 05/12/2019 3:32 AM EDT Problem: Patient Care Overview Goal: Plan of Care Review Outcome: Ongoing (Interventions Implemented as Appropriate) 05/11/19 2310 05/12/19 0321 Plan of Care Review Progress -- no change Coping/Psychosocial Plan Of Care Reviewed With patient;significant other -- OUTCOME EVALUATION NOTE: OUTCOME SUMMARY: Jarvis arrived from outside hospital. Connected to telemetry and oriented to the room. Reported chest pain of 5/10 radiating to left arm and back. Blood pressures 160s/110s. Sublingual nitro given 3x with resolution of chest pain and reduction in BP. Chest pain returned at 2/10 and nitro drip started, titrated to 60 to reach chest pain of 0/10. One time hydralazine given for blood pressure with satisfactory effect. Heparin drip continued. Not much rest overnight due to repeated interruptions to sleep. Normal sinus on tele. PLAN MOVING FORWARD: NPO for cardiac cath INDIVIDUALIZED FALL PREVENTION INTERVENTIONS: Patient-specific fall risk factors per assessment: [current deficits]: Assistance [level of assistance required for transfers and ambulation]: stand by assist for help with cords and lines Supervision [direct monitoring required during toileting and ADLs]: Supervision declined while toileting Surveillance [continuous indirect monitoring]: Telemetry Patient-specific fall prevention interventions for sensory deficits provided, if applicable: no CPG GOAL OUTCOME EVALUATION: ongoing Goal: Fall Prevention-Safe Patient Handling Outcome: Ongoing (Interventions Implemented as Appropriate) 05/11/192044 Adamson Fall Risk History of Falling 0 Secondary Diagnosis 15 Ambulatory Aids 0 Intravenous Therapy/Heparin/Saline Lock 20 Gait/Transferring 0 Mental Status 0 Score 35 OTHER Adamson Fall Risk Low Restraint Interventions Safety Promotion/Fall Prevention activity supervised;nonskid shoes/slippers when out of bed;safety round/check completed Positioning Body Position independent Activity Activity Type ambulated to bathroom Activity Assistance Provided independent Assistive Device Utilized none Goal: Infection Control Outcome: Ongoing (Interventions Implemented as Appropriate) 05/11/19204405/11/19230905/12/19320 Safety Interventions Isolation Precautions standard precautions maintained -- -- Infection Prevention -- -- cohorting utilized;rest/sleep promoted;equipment surfaces disinfected Coping Strategies Supportive Measures -- active listening utilized;self-care encouraged -- Goal: Discharge Needs Assessment 05/12/19320 Discharge Needs Assessment Concerns To Be Addressed no discharge needs identified Readmission Within The Last 30 Days no previous admission in last 30 days Equipment Needed After Discharge none Discharge Disposition still a patient Current Health Anticipated Changes Related to Illness none Activity/Self Care Review of Systems Equipment Currently Used at Home none Living Environment Transportation Available car Goal: Interdisciplinary Rounds/Family Conf Outcome: Ongoing (Interventions Implemented as Appropriate) 05/12/19320 Interdisciplinary Rounds/Family Conf Participants nursing;patient;physician Problem: Cardiac: ACS (Acute Coronary Syndrome) (Adult) Intervention: Support Psychosocial Response to Life-changing Event/Hospitalization 05/11/192309 Coping Strategies Supportive Measures active listening utilized;self-care encouraged Intervention: Monitor/Manage Fluid Balance 05/11/192044 Safety Interventions Medication Review/Management medications reviewed Goal: Signs and Symptoms of Listed Potential Problems Will be Absent, Minimized or Managed (Cardiac: ACS) Signs and symptoms of listed potential problems will be absent, minimized or managed by discharge/transition of care (reference Cardiac: ACS (Acute Coronary Syndrome) (Adult) CPG). Outcome: Ongoing (Interventions Implemented as Appropriate) 05/12/19320 Cardiac: ACS (Acute Coronary Syndrome) Problems Assessed (Acute Coronary Syndrome (ACS)) all Problems Present (Acute Coronary Syndrome (ACS)) chest pain ([email or web address]) documented in this encounter Plan of Treatment Scheduled Orders Name Type Priority Associated Diagnoses Orde r Schedule Film Library- Storage Only DX Chest Imaging Storage Only Routine Once PRN (for Radian t use) for 1 Occurrences starting 05/12/2019 until 05/12/2019, 1 completed Scheduled Referrals Name Type Priority Associated Diagnoses Orde r Schedule Referral to Cardiac Rehab Outpatient Referral Routine Non-ST elevation myocardial infarction (NSTEMI) Ordered: 05/13/2019 documented as of this encounter Procedures Procedure Name Priority Date/Time Associated Diagnosis Comments EKG 12-LEAD Routine 05/13/2019 6:43 AM EDT Non-ST elevation myocardial infarction (NSTEMI) BMP W/FASTING GLUCOSE Routine 05/13/2019 5:53 AM EDT HEMOGRAM Routine 05/13/2019 5:53 AM EDT DIFFERENTIAL, AUTOMATED Routine 05/13/20 5:53 AM EDT CBC (WITH DIFF) Routine 05/13/2019 5:53 AM EDT MAGNESIUM Routine 05/13/2019 5:53 AM EDT TROPONIN STAT 05/13/2019 12:07 AM EDT TROPONIN Routine 05/12/2019 5:01 PM EDT MAGNESIUM Timed 05/12/2019 5:01 PM EDT ELECTROLYTES PANEL Routine 05/12/2019 5: 01 PM EDT EKG 12-LEAD Routine 05/12/2019 4:28 PM EDT ECG abnormal ECHO COMPLETE Routine 05/12/2019 1:37 PM EDT Non-ST elevation myocardial infarction (NSTEMI) EKG 12-LEAD Routine 05/12/2019 10:14 AM EDT Non-ST elevation myocardial infarction (NSTEMI) CARDIAC CATHETERIZATION Routine 05/12/20 19 9:43 AM EDT HEPARIN (UNFRACTIONATED) LEVEL STAT 05/12/2019 4:04 AM EDT HEMOGRAM Routine 05/12/2019 4:04 AM EDT DIFFERENTIAL, AUTOMATED Routine 05/12/20 19 4:04 AM EDT CREATININE Routine 05/12/2019 4:04 AM EDT CBC (WITH DIFF) Routine 05/12/2019 4:04 AM EDT BUN Routine 05/12/2019 4:04 AM EDT TROPONIN STAT 05/12/2019 4:04 AM EDT HEMOGLOBIN A1C Routine 05/12/2019 4:04 AM EDT LIPID PANEL (REFLEX DIRECT LDL) Routine 05/12/2019 4:04 AM EDT ELECTROLYTES PANEL Routine 05/12/2019 4: 04 AM EDT HEPARIN (UNFRACTIONATED) LEVEL STAT 05/11/2019 10:00 PM EDT HEMOGRAM STAT 05/11/2019 10:00 PM EDT DIFFERENTIAL, AUTOMATED STAT 05/11/20 19 10:00 PM EDT LAVENDER TUBE HOLD STAT 05/11/2019 10 :00 PM EDT APTT STAT 05/11/2019 10:00 PM EDT CBC (WITH DIFF) STAT 05/11/2019 10:00 PM EDT TROPONIN STAT 05/11/2019 10:00 PM EDT PRO-BRAIN NATRIURETIC PEPTIDE STAT 05/11/2019 10:00 PM EDT MAGNESIUM STAT 05/11/2019 10:00 PM EDT BASIC METABOLIC PANEL STAT 05/11/2019 10:00 PM EDT EKG 12-LEAD Routine 05/11/2019 9:18 PM EDT Non-ST elevation myocardial infarction (NSTEMI) FILM LIBRARY STORAGE ONLY DX CHEST Routine 05/11/2019 12:00 AM EDT documented in this encounter Results * EKG 12 Lead (05/13/2019 6:43 AM EDT) Ventricular rate 64 BPM MUSE SYSTEM Atrial Rate 64 BPM MUSE SYSTEM P-R Interval 140 ms MUSE SYSTEM QRS Duration 84 ms MUSE SYSTEM Q-T Interval 414 ms MUSE SYSTEM QTC Calculated (Bezet) 427 ms MUSE SYSTEM Calculated P [place] 39 degrees MUSE SYSTEM Calculated R [place] -9 degrees MUSE SYSTEM Calculated T [place] -29 degrees MUSE SYSTEM INTERPRETATION Normal sinus rhythm Voltage criteria for left ventricular hypertrophy Nonspecific ST and T wave abnormality Lateral leads Abnormal ECG When compared with ECG of 12-MAY-2019 16:28, Nonspecific T wave abnormality now evident in Lateral leads Confirmed by MD JOSIE, GRAHAM ([id number]) on 05/13/2019 1:35:21 PM MUSE SYSTEM 05/13/2019 6:43 AM EDT 05/13/2019 1:35 PM EDT Luis Enrique Brandon MD ECG ORDERABLES MUSE SYSTEM * (ABNORMAL) Differential, Automated (05/13/2019 5:53 AM EDT) Pathologist [facility] Neutrophil % 59.9 % [facility] Neutrophil Absolute 6.37(H) 1.70 - 6.10 x10(3)/mc L [facility] Lymph % 28.5 % [facility] Lymphocytes Abs 3.0 0.9 - 3.2 x10(3)/mc L [facility] Monocyte % 9.3 % [facility] Monocyte Abs 1.0(H) 0.3 - 0.9 x10(3)/mc L [facility] Eos % 1.3 % [facility] Eosinophils Abs 0.1 0.0 - 0.4 x10(3)/[facility] Basophil % 0.7 % [facility] Baso Absolute 0.1 0.0 - 0.1 x10(3)/[facility] Immature Gran % 0.30 % [facility] Comment: Immature granulocytes(IG's)percentage and absolute count will include metamyelocytes, myelocytes, and promyelocytes. Blood smears from CBCs yielding IG's will be scanned manually for concordance. If this scan disagrees with the automated IG or if promyelocytes are noted, a manual differential will be performed. Immature Gran Absolute 0.03 0.00 - 0.04 x10(3)/[facility] Blood specimen (specimen) 05/13/2019 5:53 AM EDT 05/13/2019 6:23 AM EDT Narrative Resulting Agency Comment Spec In Lab Yaritza Victoria APRN HEMATOLOGY ORDERABLE S [facility] [place] [address] * (ABNORMAL) Hemogram (05/13/2019 5:53 AM EDT) White Blood Cell 10.6(H) 4.0 - 9.5 x10(3)/[facility] Red Blood Cell 4.19(L) 4.58 - 5.54 x10(6)/[facility] Hemoglobin 13.8 13.7 - 16.5 gm/dL [facility] Hematocrit 38.3(L) 40.5 - 48.5 % [facility] Mean Cell Volume 91.4 82.9 - 93.[address] [facility] Mean Cell Hemoglobin 32.9(H) 27.5 - 32.[address] [facility] Mean Cell Hemoglobin Concentration 36.0(H) 32.0 - 35.7 gm/dL [facility] Platelet 194 145 - 357 x10(3)/mc L [facility] RDW Standard Deviation 47.3(H) 36.0 - 45.0 [facility] RDW coefficient of variation 14.2(H) 11.4 - 13.8 % [facility] Mean Platelet Volume 10.6 7.6 - 12.9 [facility] NRBC% auto 0.0 % [facility] NRBC Absolute 0.000 0.000 - 0.000 x10(3)/mc L [facility] Blood specimen (specimen) 05/13/2019 5:53 AM EDT 05/13/2019 6:23 AM EDT Narrative Resulting Agency Comment Spec In Lab Yaritza Victoria APRN HEMATOLOGY ORDERABLE S Performing Organization Address [facility] Co de Phone Number [facility] [place] [address] * Magnesium (05/13/2019 5:53 AM EDT) Magnesium 0.87 0.69 - 1.07 mmol/L [facility] Blood specimen (specimen) 05/13/2019 5:53 AM EDT 05/13/2019 6:23 AM EDT Narrative Resulting Agency Comment Spec In Lab Yaritza Victoria APRN CHEMISTRY ORDERABLES Performing Organization Address [facility] de Phone Number [facility] [place] [address] * (ABNORMAL) BMP w/fasting Glucose (05/13/2019 5:53 AM EDT) Glucose Fasting 114(H) 65 - 99 mg/dL [facility] Comment: ?Fasting* Glucose Interpretive Criteria [...] of Diabetes Mellitus, Position Statement from the [place] Diabetes Association. ??Diabetes Care, Volume 33, Supplement 1, Nov 2009 Blood Urea Nitrogen 15 10 - 20 mg/dL [facility] Creatinine 0.89 0.80 - 1.50 mg/dL [facility] Sodium 142 135 - 145 mmol/L [facility] Potassium 4.1 3.5 - 5.0 mmol/L [facility] Comment: Please note: ??Patients with WBC >100,000 may have falsely elevated Potassium levels. ??For accurate Potassium quantification in these patients send serum separator tube (gold top) for subsequent determinations. ??Contact the Clinical Chemistry Laboratory if there are any questions. Chloride 105 98 - 107 mmol/L [facility] Carbon Dioxide 25 22 - 31 mmol/L [facility] Anion Gap 12 5 - 15 mmol/L [facility] Calcium 8.7 8.5 - 10.5 mg/dL [facility] Est Glomerular Filtration Rate 102 >=60 mL/min/1. 73 m?? [facility] Comment: The eGFR was calculated using the CKD-EPI equation. As with all creatinine based estimates of kidney function, eGFR values calculated with the CKD-EPI equation are not accurate in patients with acute kidney failure, extremes of body mass or the acutely ill. [email or web address]/[facility] eGFR 118 >=60 mL/min/1. 73 m?? [facility] Comment: The eGFR was calculated using the CKD-EPI equation. As with all creatinine based estimates of kidney function, eGFR values calculated with the CKD-EPI equation are not accurate in patients with acute kidney failure, extremes of body mass or the acutely ill. [email or web address]/[facility] Blood specimen (specimen) 05/13/2019 5:53 AM EDT 05/13/2019 6:23 AM EDT Narrative Resulting Agency Comment Spec In Lab Yaritza Marla Victoria APRN CHEMISTRY ORDERABLES Performing Organization Address [facility]/ZIP Co de Phone Number [facility] [place] [address] * (ABNORMAL) Troponin (05/13/2019 12:07 AM EDT) Troponin-T 0.84(H) 0.00 - 0.00 ng/mL [facility] Comment: The 99th percentile for Troponin T is less than 0.01 ng/mL, any detectable cTnT concentration using this assay should be considered elevated. According to the third universal definition of myocardial infarction the following criteria with a clinical presentation consistent with acute myocardial ischemia meets the diagnosis for a myocardial infarction (CT). Detection of a rise and/or fall of cTnT, with at least one value greater than the 99th percentile (> or = 0.01) and with at least one of the following ?? Symptoms of ischemia ?? New or presumed new significant SG-qktwejs-Y wave (ST-T) changes or new left bundle branch block (LBBB) ?? Development of pathologic Q waves in the ECG ?? Imaging evidence of new loss of viable myocardium or new regional wall motion abnormality ?? Identification of an intracoronary thrombus by angiography or autopsy Samples for cTnT testing should be obtained serially upon first assessment and again 3 to 6 hours later. If the clinical suspicion is high and previous samples have been negative an additional sample may be indicated. Reference: Third Collins Definition of Myocardial Infarction. Journal of the [place] College of Cardiology 2012;60:1581-98 Blood specimen (specimen) 05/13/2019 12:07 AM EDT 05/13/2019 12:28 AM EDT Narrative Resulting Agency Comment Spec In Lab Luis Enrique Brandon MD CHEMISTRY ORDER EL Performing Organization Address [facility] Co de Phone Number [facility] [place] [address] * (ABNORMAL) Troponin (05/12/2019 5:01 PM EDT) Troponin-T 1.30(H) 0.00 - 0.00 ng/mL [facility] Comment: The 99th percentile for Troponin T is less than 0.01 ng/mL, any detectable cTnT concentration using this assay should be considered elevated. According to the third universal definition of myocardial infarction the following criteria with a clinical presentation consistent with acute myocardial ischemia meets the diagnosis for a myocardial infarction (CT). Detection of a rise and/or fall of cTnT, with at least one value greater than the 99th percentile (> or = 0.01) and with at least one of the following ?? Symptoms of ischemia ?? New or presumed new significant ME-krjafft-Z wave (ST-T) changes or new left bundle branch block (LBBB) ?? Development of pathologic Q waves in the ECG ?? Imaging evidence of new loss of viable myocardium or new regional wall motion abnormality ?? Identification of an intracoronary thrombus by angiography or autopsy Samples for cTnT testing should be obtained serially upon first assessment and again 3 to 6 hours later. If the clinical suspicion is high and previous samples have been negative an additional sample may be indicated. Reference: Third Collins Definition of Myocardial Infarction. Journal of the [place] College of [employer]iology 2012;60:1581-98 Blood specimen (specimen) Venous Draw / Unknown 05/12/2019 5:01 PM EDT 05/12/2019 5:20 PM EDT Narrative Resulting Agency Comment Spec In Lab Luis Enrique Brandon MD CHEMISTRY ORDER EL Performing Organization Address City/[facility] Co de Phone Number [facility] [place] [address] * Magnesium (05/12/2019 5:01 PM EDT) Magnesium 0.86 0.69 - 1.07 mmol/L [facility] Blood specimen (specimen) 05/12/2019 5:01 PM EDT 05/12/2019 5:20 PM EDT Narrative Resulting Agency Comment Spec In Lab Yaritza Victoria APRN CHEMISTRY ORDERABLES Performing Organization Address City/[facility] Co de Phone Number [facility] [place] [address] * Electrolytes panel (05/12/2019 5:01 PM EDT) Pathologist [facility] Sodium 138 135 - 145 mmol/L [facility] Potassium 4.1 3.5 - 5.0 mmol/L [facility] Comment: Please note: ??Patients with WBC >100,000 may have falsely elevated Potassium levels. ??For accurate Potassium quantification in these patients send serum separator tube (gold top) for subsequent determinations. ??Contact the Clinical Chemistry Laboratory if there are any questions. Chloride 101 98 - 107 mmol/L [facility] Carbon Dioxide 27 22 - 31 mmol/L [facility] Anion Gap 10 5 - 15 mmol/L [facility] Blood specimen (specimen) 05/12/2019 5:01 PM EDT 05/12/2019 5:20 PM EDT Narrative Resulting Agency Comment Spec In Lab Yaritza Victoria APRN CHEMISTRY ORDERABLES Performing Organization Address [facility] Co de Phone Number [facility] [place] [address] * EKG 12 Lead (05/12/2019 4:28 PM EDT) Ventricular rate 69 BPM MUSE SYSTEM Atrial Rate 69 BPM MUSE SYSTEM P-R Interval 140 ms MUSE SYSTEM QRS Duration 88 ms MUSE SYSTEM Q-T Interval 412 ms MUSE SYSTEM QTC Calculated (Bezet) 441 ms MUSE SYSTEM Calculated R [place] -19 degrees MUSE SYSTEM Calculated T [place] -34 degrees MUSE SYSTEM INTERPRETATION Normal sinus rhythm Voltage criteria for left ventricular hypertrophy Nonspecific ST abnormality Abnormal ECG When compared with ECG of 12-MAY-2019 10:14, No significant change was found Confirmed by MD JOSIE, GRAHAM ([id number]) on 05/13/2019 1:34:16 PM MUSE SYSTEM 05/12/2019 4:28 PM EDT 05/13/2019 1:34 PM EDT Yaritza L Esme [employer] ECG ORDERABLES MUSE SYSTEM * ECHO COMPLETE (05/12/2019 1:37 PM EDT) EF 64 HEARTLAB SYSTEM Anatomical Region Laterality Modality Other 05/12/2019 Narrative 05/12/2019 2:28 PM EDT Procedure: ?Transthoracic Echocardiogram Patient: ?ISMAEL Cross ?(Age): 1970(48y) Med Rec#: ? [id number] ?Sex: ?M ? Site Loc: ? [facility] ?Ht / Wt: ??183(cm)/106.8(k Pt. Loc: ?Adult Floor ? BSA: ?2.28 Study Date: ?? 05/12/2019 ?Pt. Type: Inpatient Tape: ? Referring: RILEY Reading: Lizzy Askew ([id number]) [employer]: Breanne Serna Diagnosis: *Non-ST elevation (NSTEMI) myocardial infarction (I21.4) BP: ? 127/92 SUMMARY: 1. The left ventricular chamber size is normal. Borderline concentric left ventricular hypertrophy is observed. There is normal global left ventricular systolic function. The quantitative left ventricular ejection fraction by biplane Melendez's method is 64%. The ??mid anterolateral, and ??mid inferolateral wall segments are akinetic (score 3). The ??apical lateral wall segment is hypokinetic (score 2). 2. The left atrium is normal in size. 3. Right ventricular chamber size, wall thickness, and systolic function are within normal limits. The estimated pulmonary artery systolic pressure is 26 mmHg. 4. There is no hemodynamically significant valve disease. Findings ? : Left Ventricle: ? The left ventricular chamber size is normal. ?Borderline concentric left ventricular hypertrophy is observed. ?There is no evidence of LVOT obstruction. ?No ventricular septal defect is visualized. ?There is normal global left ventricular systolic function. ?The quantitative left ventricular ejection fraction by biplane Melendez's method is 64%. ?There are left ventricular segmental wall motion abnormalities present, as shown in the diagram below. ?Doppler assessment is consistent with normal left sided filling pressure. ?The ??apical lateral wall segment is hypokinetic (score 2). ?The ??mid anterolateral, and ??mid inferolateral wall segments are akinetic (score 3). ?Overall wallmotion score index is ??1.31 Left Atrium: ? The left atrium is normal in size. ?There is no patent foramen ovale visualized. Right Ventricle: ? Right ventricular chamber size, wall thickness, and systolic function are within normal limits. ?The estimated pulmonary artery systolic pressure is 26 mmHg. ?The estimated right atrial pressure is 3 mmHg. Right Atrium: ? The right atrium is normal in size. Aortic Valve: ? The aortic valve is trileaflet. The leaflets are thin with normal excursion. There is no aortic stenosis or regurgitation present. Mitral Valve: ? The mitral valve leaflets are mildly thickened. ?There is mild (1+/4+) mitral regurgitation present. Tricuspid Valve: ? The tricuspid valve leaflets are morphologically normal. ?There is trace tricuspid regurgitation present. Pulmonic Valve: ? The pulmonic valve appears normal in structure and function. Pericardium: ? The pericardium appears normal and there is no evidence of a pericardial effusion. Aorta: ? The aortic root is normal in size. ?The ascending aorta is normal in size. Pulmonary Artery: ? The main pulmonary artery appears normal. Venous: ? The inferior vena cava appears normal in size. ?There is a greater than 50% respiratory change in the inferior vena cava dimension. Misc: ? There is no hemodynamically significant valve disease. ?Two-dimensional echo, spectral Doppler and color Doppler performed. Chambers 2D ?Value ?Units (Range) ? IVSd (2D) ? 1.1 ?cm ? LVPWd (2D) ?1.2 ?cm ? IVS:LVPW ratio (2D) 0.9 ?ratio ? RWT (2D) ?0.5 ?ratio ? RWT PW (2D) ? 0.5 ?ratio ? LVIDd (2D) ?5 ?cm ? LVIDs (2D) ?4.1 ?cm ? LVIDd (2D) index ?2.2 ?cm/m2 ? LVIDs (2D) index ?1.8 ?cm/m2 ? LV FS (2D) ?18 ? % ? EF Teichholz (2D) ?? 37 ? % ? Ao root diameter (2D3.5 ?cm (2.1 - 3.6) ? Ascending Ao ?3.3 ?cm (2 - 3.5) ? Volumes/Mass ?Value ?Units (Range) ? LA Area 4 CH ?22.9 ? cm2 (<21) ? LA ESV BP (A/L) inde31.9 ? ml/m2 ? RA AREA 4CH ? 15.6 ? cm2 ? LV ESV SP 4CH (MOD) 35.2 ? ml ? LV ESV SP 2CH (MOD) 41.1 ? ml ? LV EDV BP ? 113 ?ml ? LV ESV BP ? 40.3 ? ml ? LV EDV BP index ? 49.6 ? ml/m2 ? LV ESV BP index ? 17.7 ? ml/m2 ? BP EF (MOD) ? 64 ? % ? LV mass (2D) ?223.6 ?g ? LV mass (2D) index ??98.1 ? g/m2 ? Diastolic/Systolic Function ?Value ?Units (Range) ? MV E-wave Vmax ?0.9 ?m/sec ? MV deceleration rcma610.8 ?msec ? MV A-wave Vmax ?0.8 ?m/sec ? MV E:A ratio ?1.2 ?ratio ? LV septal e' Vmax ?? 0.1 ?m/sec ? LV lateral e' Vmax ??0.1 ?m/sec ? LV average e' Vmax ??0.1 ?m/sec ? LV E:e' septal ratio13.5 ? ratio ? LV E:e' lateral rati6.8 ?ratio ? LV average E:e' rati8.6 ?ratio ? Mitral Valve ?Value ?Units (Range) ? MR Vmax ? 5.2 ?m/sec ? MR VTI ?161.5 ?cm ? MR volume (PISA) ?9.7 ?ml ? MR flow (PISA) ?30.5 ? ml/sec ? MR ERO ?0.1 ?cm2 ? MR PISA radius ?0.4 ?cm ? MR alias Vmax ? 32.3 ? cm/sec ? Tricuspid Valve ?Value ?Units (Range) ? TR Vmax ? 2.4 ?m/sec ? TR peak gradient ?23.5 ? mmHg ? RAP ? 3 ?mmHg ? RVSP ?26 ? mmHg ? Wall Motion: Segment Name ?Rest ? Base-Anteroseptal ?? Normal ? Base-Anterior ? Normal ? Base-Anterolateral ??Normal ? Base-Posterolateral Normal ? Base-Inferior ? Normal ? Base-Inferoseptal ?? Normal ? Mid-Anteroseptal ?Normal ? Mid-Anterior ?Normal ? Mid-Anterolateral ?? Akinetic ? Mid-Posterolateral ??Akinetic ? Mid-Inferior ?Normal ? Mid-Inferoseptal ?Normal ? Hudgins-Septal ? Normal ? Hudgins-Anterior ? Normal ? Hudgins-Lateral ?Hypokinetic ? Hudgins-Inferior ? Normal ? Hudgins-Tip ?Normal ? This report has been electronically signed by: Lizzy Askew MD ? 05/12/2019 14:27:34 Images reviewed and interpretation verified [facility] Procedure Note Lizzy Askew MD - 05/12/2019 Procedure: Transthoracic Echocardiogram Patient: ISMAEL ARELLANO(Age): 1970(48y) Med Rec#: [id number] Sex: M [place] Loc: [facility] Ht / Wt: 183(cm)/106.8(k Pt. Loc: Adult Floor BSA: 2.28 Study Date: 05/12/2019 Pt. Type: Inpatient Tape: [facility] Reading: Lizzy Askew ([id number]) [employer]: Breanne Serna Diagnosis: *Non-ST elevation (NSTEMI) myocardial infarction (I21.4) BP: 127/92 SUMMARY: 1. The left ventricular chamber size is [...] There is no hemodynamically significant valve disease. Findings : Left Ventricle: The left ventricular chamber size is normal. Borderline concentric left ventricular hypertrophy is observed. There is no evidence of LVOT obstruction. No ventricular septal defect is visualized. There is normal global left ventricular systolic function. The quantitative left ventricular ejection fraction by biplane Melendez's method is 64%. There are left ventricular segmental wall motion abnormalities present, as shown in the diagram below. Doppler assessment is consistent with normal left sided filling pressure. The apical lateral wall segment is hypokinetic (score 2). The mid anterolateral, and mid inferolateral wall segments are akinetic (score 3). Overall wallmotion score index is 1.31 Left Atrium: The left atrium is normal in size. There is no patent foramen ovale visualized. Right Ventricle: Right ventricular chamber size, wall thickness, and systolic function are within normal limits. The estimated pulmonary artery systolic pressure is 26 mmHg. The estimated right atrial pressure is 3 mmHg. Right Atrium: The right atrium is normal in size. Aortic Valve: The aortic valve is trileaflet. The leaflets are thin with normal excursion. There is no aortic stenosis or regurgitation present. Mitral Valve: The mitral valve leaflets are mildly thickened. There is mild (1+/4+) mitral regurgitation present. Tricuspid Valve: The tricuspid valve leaflets are morphologically normal. There is trace tricuspid regurgitation present. Pulmonic Valve: The pulmonic valve appears normal in structure and function. Pericardium: The pericardium appears normal and there is no evidence of a pericardial effusion. Aorta: The aortic root is normal in size. The ascending aorta is normal in size. Pulmonary Artery: The main pulmonary artery appears normal. Venous: The inferior vena cava appears normal in size. There is a greater than 50% respiratory change in the inferior vena cava dimension. Misc: There is no hemodynamically significant valve disease. Two-dimensional echo, spectral Doppler and color Doppler performed. Chambers 2D Value Units (Range) IVSd (2D) 1.1 cm LVPWd (2D) 1.2 cm IVS:LVPW ratio (2D) 0.9 ratio RWT (2D) 0.5 ratio RWT PW (2D) 0.5 ratio LVIDd (2D) 5 cm LVIDs (2D) 4.1 cm LVIDd (2D) index 2.2 cm/m2 LVIDs (2D) index 1.8 cm/m2 LV FS (2D) 18 % EF Teichholz (2D) 37 % Ao root diameter (2D3.5 cm (2.1 - 3.6) Ascending Ao 3.3 cm (2 - 3.5) Volumes/Mass Value Units (Range) LA Area 4 CH 22.9 cm2 (<21) LA ESV BP (A/L) inde31.9 ml/m2 RA AREA 4CH 15.6 cm2 LV ESV SP 4CH (MOD) 35.2 ml LV ESV SP 2CH (MOD) 41.1 ml LV EDV BP 113 ml LV ESV BP 40.3 ml LV EDV BP index 49.6 ml/m2 LV ESV BP index 17.7 ml/m2 BP EF (MOD) 64 % LV mass (2D) 223.6 g LV mass (2D) index 98.1 g/m2 Diastolic/Systolic Function Value Units (Range) MV E-wave Vmax 0.9 m/sec MV deceleration uetc680.8 msec MV A-wave Vmax 0.8 m/sec MV E:A ratio 1.2 ratio LV septal e' Vmax 0.1 m/sec LV lateral e' Vmax 0.1 m/sec LV average e' Vmax 0.1 m/sec LV E:e' septal ratio13.5 ratio LV E:e' lateral rati6.8 ratio LV average E:e' rati8.6 ratio Mitral Valve Value Units (Range) MR Vmax 5.2 m/sec MR VTI 161.5 cm MR volume (PISA) 9.7 ml MR flow (PISA) 30.5 ml/sec MR ERO 0.1 cm2 MR PISA radius 0.4 cm MR alias Vmax 32.3 cm/sec Tricuspid Valve Value Units (Range) TR Vmax 2.4 m/sec TR peak gradient 23.5 mmHg RAP 3 mmHg RVSP 26 mmHg Wall Motion: Segment Name Rest Base-Anteroseptal Normal Base-Anterior Normal Base-Anterolateral Normal Base-Posterolateral Normal Base-Inferior Normal Base-Inferoseptal Normal Mid-Anteroseptal Normal Mid-Anterior Normal Mid-Anterolateral Akinetic Mid-Posterolateral Akinetic Mid-Inferior Normal Mid-Inferoseptal Normal Hudgins-Septal Normal Hudgins-Anterior Normal Hudgins-Lateral Hypokinetic Hudgins-Inferior Normal Hudgins-Tip Normal This report has been electronically signed by: Lizzy Askew MD 05/12/2019 14:27:34 Images reviewed and interpretation verified [facility] Luis Enrique Brandon MD ECHO ORDERABLES * EKG 12 Lead (05/12/2019 10:14 AM EDT) Ventricular rate 67 BPM MUSE SYSTEM Atrial Rate 67 BPM MUSE SYSTEM P-R Interval 150 ms MUSE SYSTEM QRS Duration 78 ms MUSE SYSTEM Q-T Interval 422 ms MUSE SYSTEM QTC Calculated (Bezet) 445 ms MUSE SYSTEM Calculated R [place] -19 degrees MUSE SYSTEM Calculated T [place] -29 degrees MUSE SYSTEM INTERPRETATION Normal sinus rhythm Voltage criteria for left ventricular hypertrophy Nonspecific ST and T wave abnormality Abnormal ECG When compared with ECG of 11-MAY-2019 21:18, Sinus rhythm has replaced Ectopic atrial rhythm Confirmed by MD STEPHANIE, LIZZY ([id number]) on 05/12/2019 5:47:05 PM MUSE SYSTEM 05/12/2019 10:1 4 AM EDT 05/12/2019 5:47 PM EDT Yassine Lacey MD ECG ORDERABLES MUSE SYSTEM * CARDIAC CATHETERIZATION (05/12/2019 9:43 AM EDT) Anatomical Region Laterality Modality Other Narrative 05/12/2019 10:09 AM EDT ?[facility] ? Cardiac Catheterization/Intervention Report ? Patient Name: Ismael, Jarvis ? Procedure Date: 05/12/2019 ? A #: [id number] ? Primary Physician: Lawson, Camila V ? Case #: [id number] ? File Name: [id number] ? Catheterization Order Number: [id number] ? [facility] ? Final Report [place], [place] ? Patient Name: ? Jarvis Padron ? ID#: ?[id number] ? : ?1970 ? Procedure Date: ? May 12, 2019 ? Case #: ? [id number] ? Room: ? 1 ? Case Physician: ? Camila Lawson M.D. ? Start: ?08:44 ?Fellow: ? Jayda Frederick M.D. ?Admission: ??05/11/2019 ? Referring Physician: ??Migel Ross M.D. ? Procedures: ?* Coronary Angiography ?* Left Heart Catheterization ?* Coronary Stent Insertion ? History ?Jarvis Padron is a 48 year old man. He has a family history of coronary ?artery disease. The patient's smoking status is Never. He is also status ?post a recent non-ST elevation myocardial infarction. Prior to the ?initiation of this procedure, the patient was designated as ASA Class IV. ?The [facility] clinical frailty scale is 2: Well. ? Diagnostic Tests: ?Electrocardiography: ? EKG was assessed by EKG. EKG was Abnormal. EKG showed T-wave ? inversions. ?Medications Prior to Procedure: ? ASA and Statin. ? Indications for Diagnostic Cath: ?The priority of the diagnostic procedure was Urgent. 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 Chest pain symptom ?assessment was: Typical Angina. ? Technique: ?A 6 SLFr sheath was inserted in the right radial artery utilizing the ?Seldinger technique. The left coronary artery was injected utilizing a ?5Fr JL 3.5 catheter. A 5Fr JR 4 catheter was used to inject the right ?coronary artery. Left ventricular pressure was performed with a 5Fr JR 4 ?catheter. Coronary stent insertion was performed and the equipment ?utilized will be described in the intervention summary section. 6,000 ?units of heparin were administered. A total of 150cc of Omnipaque were ?opened, 112cc of Omnipaque were administered and 38cc of Omnipaque were ?wasted. Radiation: Fluoro time was 13.2 minutes, dose area product was ?144,545 mGYcm2 and air kerma was 2,001 mGY. See the case log for ?additional details. ?The patient received the following medications prior to and during the ?procedure: ? Unfractionated Heparin and Clopidogrel. ? Hemodynamics: ?Left Heart Pressures ? Resting: ? Syst Diast ? EDP ?a ?v ? m ?Ao 109 ?? 73 ?90 ?LV 115 ? 17 ? Coronary Angiography: ?Dominance: Right ?Left Main ?Left Anterior Descending ? There was mild diffuse (<=25% stenosis) disease of the entire vessel ? segment of the left anterior descending artery (LAD). ??The LAD was ? large. ?Left Circumflex ? There was a single discrete total occlusion of the proximal segment ? of the first obtuse marginal branch (OM1) of the left circumflex ? (LCX). ??The OM1 was large. ?Right Coronary Artery ? There was mild diffuse (<=25% stenosis) disease of the entire vessel ? segment of the right coronary artery (RCA). ? Indication for Intervention: ?Coronary intervention was indicated for primary therapy for an acute ?myocardial infarction. The priority for the procedure was Urgent. The ?NCDR indication for the procedure was NSTE-ACS. ? Intervention Summary: ?First Obtuse Marginal Branch of the LCX ? Proximal 100% ? Stent insertion was performed on the total occlusion in the ? proximal segment of the OM1. This was a de valeri lesion. ? According to the ACC/AHA classification system, this lesion ? was a type B2 high risk lesion. Primary prevention of ? restenosis was the indication for stent insertion. This was ? the culprit lesion. A guidewire was placed across this lesion. ? Vessel flow pre intervention was DEINSE 0. Lesion length was ? 15mm. ? Stent insertion was accomplished through a 6 Fr. EBU 3.0 ? guide. ??The lesion was predilated with a 2.00mm EUPHORA 12 MM ? balloon with a maximum inflation pressure of 12 atmospheres. ? A premounted 2.75 x 26 mm Resolute SHIREEN (DELMER) was deployed ? with a maximum inflation pressure of 16 atmospheres. ? Following stent deployment, the lesion was dilated using a ? 3.00mm NC EUPHORA 15 MM balloon with a maximum inflation ? pressure of 18 atmospheres. ? The final outcome was defined as successful. A coronary ? arteriolar vasodilator was administered as part of the ? intervention on this lesion. There was no residual stenosis ? following this intervention. The final DENISE flow was 3. ? Vascular Access: ?Vascular Access Management: ? Mechanical Compression of the right radial artery access site was ? performed. ? Dual Antiplatelet (DAPT) Recommendations: ?Drug eluting stent (DELMER) inserted. 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 ?Recommend continuing clopidogrel 75 mg PO daily for 12 months. ??Recommend ?continuing aspirin 81 mg unless intolerant. ?The DAPT score is 2. ??The DAPT score calculates net clinical benefit of ?prolonged dual antiplatelet therapy following percutaneous coronary ?intervention. A DAPT Score of equal or greater than 2 suggests an ?increased risk of late stent thrombosis and MACCE. If the DAPT score is ?equal or greater than 2 and the patient tolerates the recommended ?duration of DAPT without bleeding or side effects, consider extending the ?DAPT to 30 months post procedure. ? Conclusions: ?* One vessel coronary artery disease (LCX) ?* Successful stent insertion of the proximal OM1 lesion ?* Recommend continuing clopidogrel 75 mg PO daily for 12 months (see DAPT ?Recommendations above for more information.) ? Complications/Events: ?The patient had no complications during these procedures. ?The attending physician was present for the entire procedure. ?Dr. Camila Lawson M.D. was present during the moderate sedation ?intraservice time as documented by the sedation nurse. ??Case time = 00:54. ?Dr. Camila Lawson M.D. performed the coronary angiography, left heart ?catheterization and stent insertion-coronary. ? Camila Lawson M.D. ? Electronically Signed by: Camila Lawson M.D. ? Report Finalized: 05/12/2019 ??10:04 ? Procedure Note Camila Lawson MD - 05/12/2019 [facility] Cardiac Catheterization/Intervention Report Patient Name: Jarvis Padron Procedure Date: 05/12/2019 A #: [id number] Primary Physician: Camila Lawson V Case #: [id number] File Name: [id number] Catheterization Order Number: [id number] [facility] FinalReport [place], [place] Patient Name: Jarvis Padron ID#:[id number] :1970 Procedure Date: May 12, 2019 Case #: [id number] Room: 1 Case Physician: Camila Lawson M.D. Start: 08:44 Fellow: Jayda Frederick M.D. Admission:05/11/2019 Referring Physician: Migel Ross M.D. Procedures: * Coronary Angiography * Left Heart Catheterization * Coronary Stent Insertion History Jarvis Padron is a 48 year old man. He has a family history ofcoronary artery disease. The patient's smoking status is Never. He is alsostatus post a recent non-ST elevation myocardial infarction. Prior to the initiation of this procedure, the patient was designated as ASAClass IV. The [facility] clinical frailty scale is 2: Well. Diagnostic Tests: Electrocardiography: EKG was assessed by EKG. EKG was Abnormal. EKG showed T-wave inversions. Medications Prior to Procedure: ASA and Statin. Indications for Diagnostic Cath: The priority of the diagnostic procedure was Urgent. 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 Chest pain symptom assessment was: Typical Angina. Technique: A 6 SLFr sheath was inserted in the right radial artery utilizingthe Seldinger technique. The left coronary artery was injected utilizinga 5Fr JL 3.5 catheter. A 5Fr JR 4 catheter was used to inject theright coronary artery. Left ventricular pressure was performed with a 5FrJR 4 catheter. Coronary stent insertion was performed and the equipment utilized will be described in the intervention summary section.6,000 units of heparin were administered. A total of 150cc of Omnipaquewere opened, 112cc of Omnipaque were administered and 38cc of Omnipaquewere wasted. Radiation: Fluoro time was 13.2 minutes, dose area productwas 144,545 mGYcm2 and air kerma was 2,001 mGY. See the case log for additional details. The patient received the following medications prior to and duringthe procedure: Unfractionated Heparin and Clopidogrel. Hemodynamics: Left Heart Pressures Resting: Syst Diast EDP a v m Ao 109 73 90 LV 115 17 Coronary Angiography: Dominance: Right Left Main Left Anterior Descending There was mild diffuse (<=25% stenosis) disease of the entirevessel segment of the left anterior descending artery (LAD). The LADwas large. Left Circumflex There was a single discrete total occlusion of the proximalsegment of the first obtuse marginal branch (OM1) of the leftcircumflex (LCX). The OM1 was large. Right Coronary Artery There was mild diffuse (<=25% stenosis) disease of the entirevessel segment of the right coronary artery (RCA). Indication for Intervention: Coronary intervention was indicated for primary therapy for an acute myocardial infarction. The priority for the procedure was Urgent.The [facility] indication for the procedure was NSTE-ACS. Intervention Summary: First Obtuse Marginal Branch of the LCX Proximal 100% Stent insertion was performed on the total occlusion inthe proximal segment of the OM1. This was a de valeri lesion. According to the ACC/AHA classification system, thislesion was a type B2 high risk lesion. Primary prevention of restenosis was the indication for stent insertion. Thiswas the culprit lesion. A guidewire was placed across thislesion. Vessel flow pre intervention was DENISE 0. Lesion lengthwas 15mm. Stent insertion was accomplished through a 6 Fr. EBU 3.0 guide. The lesion was predilated with a 2.00mm JWWFBCI12 MM balloon with a maximum inflation pressure of 12atmospheres. A premounted 2.75 x 26 mm Resolute SHIREEN (DELMER) wasdeployed with a maximum inflation pressure of 16 atmospheres. Following stent deployment, the lesion was dilated usinga 3.00mm NC EUPHORA 15 MM balloon with a maximum inflation pressure of 18 atmospheres. The final outcome was defined as successful. A coronary arteriolar vasodilator was administered as part of the intervention on this lesion. There was no residualstenosis following this intervention. The final DENISE flow was 3. Vascular Access: Vascular Access Management: Mechanical Compression of the right radial artery access sitewas performed. Dual Antiplatelet (DAPT) Recommendations: Drug eluting stent (DELMER) inserted. 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 Recommend continuing clopidogrel 75 mg PO daily for 12 months.Recommend continuing aspirin 81 mg unless intolerant. The DAPT score is 2. The DAPT score calculates net clinical benefitof prolonged dual antiplatelet therapy following percutaneous coronary intervention. A DAPT Score of equal or greater than 2 suggests an increased risk of late stent thrombosis and MACCE. If the DAPT scoreis equal or greater than 2 and the patient tolerates the recommended duration of DAPT without bleeding or side effects, considerextending the DAPT to 30 months post procedure. Conclusions: * One vessel coronary artery disease (LCX) * Successful stent insertion of the proximal OM1 lesion * Recommend continuing clopidogrel 75 mg PO daily for 12 months (seeDAPT Recommendations above for more information.) Complications/Events: The patient had no complications during these procedures. The attending physician was present for the entire procedure. Dr. Camila Lawson M.D. was present during the moderate sedation intraservice time as documented by the sedation nurse. Case time =00:54. Dr. Camila Lawson M.D. performed the coronary angiography, leftheart catheterization and stent insertion-coronary. Camila Lawson M.D. Electronically Signed by: Camila Lawson M.D. Report Finalized: 05/12/2019 10:04 Camila Dillon MD CARDIAC CATH ORDERAB LES * Heparin (unfractionated) Level (05/12/2019 4:04 AM EDT) UF Heparin 0.12 IU/mL [facility] Comment: Guidelines for therapeutic unfractionated heparin levels are summarized below. Heparin (Anti-Xa) levels should be determined in a plasma sample that has been drawn 6 hours after a dose change i.e., steady-state has been reached. DRUG ?Dosing Schedule ? Target Peak Steady-State ?Heparin (Anti-Xa) Levels (Units/mL) Unfractionated ?Continuous infusion ?0.3-0.7 Heparin ?0.3-0.6 for some neurology indications Blood specimen (specimen) 05/12/2019 4:04 AM EDT 05/12/2019 4:17 AM EDT Narrative Resulting Agency Comment Spec In Lab Luis Enrique Brandon MD HEMATOLOGY [facility] [place] [id number] * (ABNORMAL) Troponin (05/12/2019 4:04 AM EDT) Troponin-T 0.92(H) 0.00 - 0.00 ng/mL [facility] Comment: result rechecked-ssd The 99th percentile for Troponin T is less than 0.01 ng/mL, any detectable cTnT concentration using this assay should be considered elevated. According to the third universal definition of myocardial infarction the following criteria with a clinical presentation consistent with acute myocardial ischemia meets the diagnosis for a myocardial infarction (CT). Detection of a rise and/or fall of cTnT, with at least one value greater than the 99th percentile (> or = 0.01) and with at least one of the following ?? Symptoms of ischemia ?? New or presumed new significant GT-kpcvkqj-K wave (ST-T) changes or new left bundle branch block (LBBB) ?? Development of pathologic Q waves in the ECG ?? Imaging evidence of new loss of viable myocardium or new regional wall motion abnormality ?? Identification of an intracoronary thrombus by angiography or autopsy Samples for cTnT testing should be obtained serially upon first assessment and again 3 to 6 hours later. If the clinical suspicion is high and previous samples have been negative an additional sample may be indicated. Reference: Third Collins Definition of Myocardial Infarction. Journal of the [place] [employer] 2012;60:1581-98 Blood specimen (specimen) 05/12/2019 4:04 AM EDT 05/12/2019 4:17 AM EDT Narrative Resulting Agency Comment Spec In Lab Luis Enrique Brandon MD CHEMISTRY ORDER EL [facility] [place] [address] * (ABNORMAL) Differential, Automated (05/12/2019 4:04 AM EDT) Neutrophil % 62.1 % [facility] Neutrophil Absolute 7.10(H) 1.70 - 6.10 x10(3)/mc L [facility] Lymph % 26.7 % [facility] Lymphocytes Abs 3.0 0.9 - 3.2 x10(3)/mc L [facility] Monocyte % 8.1 % [facility] Monocyte Abs 0.9 0.3 - 0.9 x10(3)/mc L [facility] Eos % 1.6 % [facility] Eosinophils Abs 0.2 0.0 - 0.4 x10(3)/mc L [facility] Basophil % 0.8 % [facility] Baso Absolute 0.1 0.0 - 0.1 x10(3)/mc L [facility] Immature Gran % 0.70 % [facility] Comment: Immature granulocytes(IG's)percentage and absolute count will include metamyelocytes, myelocytes, and promyelocytes. Blood smears from CBCs yielding IG's will be scanned manually for concordance. If this scan disagrees with the automated IG or if promyelocytes are noted, a manual differential will be performed. Immature Gran Absolute 0.08(H) 0.00 - 0.04 x10(3)/ L [facility] Blood specimen (specimen) 05/12/2019 4:04 AM EDT 05/12/2019 4:17 AM EDT Narrative Resulting Agency Comment Spec In Lab Luis Enrique Brandon MD HEMATOLOGY [facility] [place] [address] * (ABNORMAL) Hemogram (05/12/2019 4:04 AM EDT) White Blood Cell 11.4(H) 4.0 - 9.5 x10(3)/[facility] Red Blood Cell 4.10(L) 4.58 - 5.54 x10(6)/[facility] Hemoglobin 13.3(L) 13.7 - 16.5 gm/dL [facility] Hematocrit 37.5(L) 40.5 - 48.5 % [facility] Mean Cell Volume 91.5 82.9 - 93.1 [facility] Mean Cell Hemoglobin 32.4(H) 27.5 - 32.[address] [facility] Mean Cell Hemoglobin Concentration 35.5 32.0 - 35.7 gm/dL [facility] Platelet 182 145 - 357 x10(3)/[facility] RDW Standard Deviation 45.4(H) 36.0 - 45.0 [facility] RDW coefficient of variation 13.5 11.4 - 13.8 % [facility] Mean Platelet Volume 10.6 7.6 - 12.9 [facility] NRBC% auto 0.0 % [facility] NRBC Absolute 0.000 0.000 - 0.000 x10(3)/[facility] Blood specimen (specimen) 05/12/2019 4:04 AM EDT 05/12/2019 4:17 AM EDT Narrative Resulting Agency Comment Spec In Lab Luis Enrique Brandon MD HEMATOLOGY [facility] [place] [address] * Hemoglobin A1c (05/12/2019 4:04 AM EDT) Hemoglobin A1c 5.1 4.3 - 5.6 % [facility] Comment: Reference Range: 4.3 - 5.6% 5.7 - 6.4% - Increased Risk of Developing Diabetes Mellitus >= 6.5% - Consistent with diagnosis of Diabetes Mellitus In the absence of hyperglycemia (i.e. plasma glucose > 200 mg/dL) or classic symptoms of hyperglycemia a repeat measurement of HbA1c should be performed on a separate sample to confirm the diagnosis. Diagnosis and Classification of Diabetes Mellitus, Diabetes Care 2013; 36: Suppl. 1, S67-74 Estimated Average Glucose 100 mg/dL [facility] Comment: eAG equivalents for HbA1c percentages: HbA1c(%) ?eAG(mg/dL) 6.0 ?126 6.5 ?140 7.0 ?154 7.5 ?169 8.0 ?183 8.5 ?197 9.0 ?212 9.5 ?226 10.0 ? 240 Limitations: The eAG calculation has not been validated on women, individuals below 18 years old and above 70 years old, and individuals with hemoglobinopathies. Additional resources are available on the ADA website. Jeffrey Blackmonenen J, Joey R, et al. ??Translating the A1C assay into estimated average glucose values. ??Diabetes Care 2008:31(8):1384-8562. Blood specimen (specimen) 05/12/2019 4:04 AM EDT 05/12/2019 4:17 AM EDT Narrative Resulting Agency Comment Spec In Lab Luis Enrique Brandon MD CHEMISTRY ORDER EL Performing Organization Address [facility] Co de Phone Number [facility] [place] [address] * Creatinine (05/12/2019 4:04 AM EDT) [facility] Signature Creatinine 0.82 0.80 - 1.50 mg/dL [facility] Est Glomerular Filtration Rate 105 >=60 mL/min/1.7 3 m?? [facility] Comment: The eGFR was calculated using the CKD-EPI equation. As with all creatinine based estimates of kidney function, eGFR values calculated with the CKD-EPI equation are not accurate in patients with acute kidney failure, extremes of body mass or the acutely ill. [email or web address] [email or web address] eGFR 122 >=60 mL/min/1.7 3 m?? [facility] Comment: The eGFR was calculated using the CKD-EPI equation. As with all creatinine based estimates of kidney function, eGFR values calculated with the CKD-EPI equation are not accurate in patients with acute kidney failure, extremes of body mass or the acutely ill. [email or web address] [email or web address] Blood specimen (specimen) 05/12/2019 4:04 AM EDT 05/12/2019 4:17 AM EDT Narrative Resulting Agency Comment Spec In Lab Luis Enrique Brandon MD CHEMISTRY ORDER EL Performing Organization Address [facility] Co de Phone Number [facility] [place] [address] * BUN (05/12/2019 4:04 AM EDT) Blood Urea Nitrogen 13 10 - 20 mg/dL [facility] Blood specimen (specimen) 05/12/2019 4:04 AM EDT 05/12/2019 4:17 AM EDT Narrative Resulting Agency Comment Spec In Lab Luis Enrique Brandon MD CHEMISTRY ORDER EL Performing Organization Address City/[facility] Co de Phone Number [facility] [place] [address] * Electrolytes panel (05/12/2019 4:04 AM EDT) Pathologist [facility] Sodium 139 135 - 145 mmol/L [facility] Potassium 4.1 3.5 - 5.0 mmol/L [facility] Comment: Please note: ??Patients with WBC >100,000 may have falsely elevated Potassium levels. ??For accurate Potassium quantification in these patients send serum separator tube (gold top) for subsequent determinations. ??Contact the Clinical Chemistry Laboratory if there are any questions. Chloride 106 98 - 107 mmol/L [facility] Carbon Dioxide 24 22 - 31 mmol/L [facility] Anion Gap 9 5 - 15 mmol/L [facility] Blood specimen (specimen) 05/12/2019 4:04 AM EDT 05/12/2019 4:17 AM EDT Narrative Resulting Agency Comment Spec In Lab Luis Enrique Brandon MD CHEMISTRY ORDER EL Performing Organization Address [facility] Co de Phone Number [facility] [place] [address] * Lipid Panel (05/12/2019 4:04 AM EDT) Pathologist [facility] Cholesterol, Total 239 mg/dL [facility] Comment: Lower Risk: <200 mg/dL Average Risk: 200-239 mg/dL Higher Risk: >to=099 mg/dL Triglyceride 235 mg/dL [facility] Comment: Average Risk/Lower Risk: <150 mg/dL Borderline High Risk: 150-199 mg/dL High Risk: 200-499 mg/dL Very High Risk: >tc=414 mg/dL HDL Cholesterol 37 mg/dL [facility] Comment: Males: ?? Higher Risk: <40 mg/dL Females: ?? HIgher Risk: <50 mg/dL LDL Cholesterol 155 mg/dL [facility] Comment: Lowest Risk: <100 mg/dL Lower Risk: 100-129 mg/dL Borderline High Risk: 130-159 mg/dL High Risk: 160-189 mg/dL Very High Risk: >gs=249 mg/dL Cholesterol/HDL Ratio 6.[address] [facility] Lipid Interpretation See Note [facility] Comment: Lipid management should be guided by a patient? s ASCVD risk, goals and preferences. ACC/AHA Guidelines recommend high intensity statin if clinical ASCVD or LDL greater than or equal to 190 mg/dL. [email or web address]/[email or web address] Adults aged 40-75 with LDL 70-189 mg/dL should have their 10 year ASCVD risk estimated with the ACC/AHA ASCVD risk snaker http://tools.acc.org/OFGDV-Jkji-Rwdkiggyb/ Statin should be discussed if risk greater than or equal to 7.5% in non-diabetics. With diabetes, moderate intensity statin is recommended if risk less than 7.5%, high intensity if risk greater than or equal to 7.5%. Annual lipid monitoring on statins is not necessary. Evaluate secondary causes of Triglycerides greater than 500 mg/dL or LDL greater than 190 mg/dL: See table 6 of ACC/AHA Guideline. Lifestyle modification is a critical component of ASCVD risk reduction. Blood specimen (specimen) 05/12/2019 4:04 AM EDT 05/12/2019 4:17 AM EDT Narrative Resulting Agency Comment Spec In Lab Luis Enrique Brandon MD CHEMISTRY ORDER EL [facility] [place] [address] * (ABNORMAL) Troponin (05/11/2019 10:00 PM EDT) Troponin-T 0.32(H) 0.00 - 0.00 ng/mL [facility] Comment: The 99th percentile for Troponin T is less than 0.01 ng/mL, any detectable cTnT concentration using this assay should be considered elevated. According to the third universal definition of myocardial infarction the following criteria with a clinical presentation consistent with acute myocardial ischemia meets the diagnosis for a myocardial infarction (CT). Detection of a rise and/or fall of cTnT, with at least one value greater than the 99th percentile (> or = 0.01) and with at least one of the following ?? Symptoms of ischemia ?? New or presumed new significant SI-njrfdyf-A wave (ST-T) changes or new left bundle branch block (LBBB) ?? Development of pathologic Q waves in the ECG ?? Imaging evidence of new loss of viable myocardium or new regional wall motion abnormality ?? Identification of an intracoronary thrombus by angiography or autopsy Samples for cTnT testing should be obtained serially upon first assessment and again 3 to 6 hours later. If the clinical suspicion is high and previous samples have been negative an additional sample may be indicated. Reference: Third Collins Definition of Myocardial Infarction. Journal of the [place] [employer] 2012;60:1581-98 Blood specimen (specimen) Venous Draw / Unknown 05/11/2019 10:00 PM EDT 05/11/2019 10:09 PM EDT Narrative Resulting Agency Comment Spec In Lab Luis Enrique Brandon MD CHEMISTRY ORDER EL Performing Organization Address [facility]/ZIP Co de Phone Number [facility] [place] [phone] * Lavender Tube HOLD (05/11/2019 10:00 PM EDT) Lavender Hold Sample in lab. [facility] Blood specimen (specimen) Venous Draw / Unknown 05/11/2019 10:00 PM EDT 05/11/2019 10:09 PM EDT Luis Enrique Brandon MD HEMATOLOGY ORDE RABLES Performing Organization Address City/[facility]/ZIP Co de Phone Number [facility] [place] [address] * Heparin (unfractionated) Level (05/11/2019 10:00 PM EDT) UF Heparin 0.18 IU/mL [facility] Comment: Guidelines for therapeutic unfractionated heparin levels are summarized below. Heparin (Anti-Xa) levels should be determined in a plasma sample that has been drawn 6 hours after a dose change i.e., steady-state has been reached. DRUG ?Dosing Schedule ? Target Peak Steady-State ?Heparin (Anti-Xa) Levels (Units/mL) Unfractionated ?Continuous infusion ?0.3-0.7 Heparin ?0.3-0.6 for some neurology indications Blood specimen (specimen) 05/11/2019 10:00 PM EDT 05/11/2019 10:09 PM EDT Narrative Resulting Agency Comment Spec In Lab Luis Enrique Brandon MD HEMATOLOGY FRANCISCO ACOSTA [facility] [place] [address] * (ABNORMAL) APTT (05/11/2019 10:00 PM EDT) Partial Thromboplastin Time 42(H) 25 - [address] [facility] Comment: The PTT is NOT appropriate for heparin monitoring. Use the Anti-Xa level for heparin monitoring (HEP UFH) or LMWH monitoring (HEP LMW). A PTT less than 37 seconds generally indicates adequate hemostasis. Blood specimen (specimen) 05/11/2019 10:00 PM EDT 05/11/2019 10:09 PM EDT Narrative Resulting Agency Comment Spec In Lab Luis Enrique Brandon MD HEMATOLOGY ORDVivian ACOSTA Performing Organization Address City/[facility]/[place] [address] * (ABNORMAL) Differential, Automated (05/11/2019 10:00 PM EDT) Neutrophil % 61.3 % [facility] Neutrophil Absolute 6.41(H) 1.70 - 6.10 x10(3)/mc L [facility] Lymph % 28.9 % [facility] Lymphocytes Abs 3.0 0.9 - 3.2 x10(3)/ L [facility] Monocyte % 7.4 % [facility] Monocyte Abs 0.8 0.3 - 0.9 x10(3)/mc L [facility] Eos % 1.3 % [facility] Eosinophils Abs 0.1 0.0 - 0.4 x10(3)/mc L [facility] Basophil % 0.7 % [facility] Baso Absolute 0.1 0.0 - 0.1 x10(3)/mc L [facility] Immature Gran % 0.40 % [facility] Comment: Immature granulocytes(IG's)percentage and absolute count will include metamyelocytes, myelocytes, and promyelocytes. Blood smears from CBCs yielding IG's will be scanned manually for concordance. If this scan disagrees with the automated IG or if promyelocytes are noted, a manual differential will be performed. Immature Gran Absolute 0.04 0.00 - 0.04 x10(3)/mc L [facility] Blood specimen (specimen) 05/11/2019 10:00 PM EDT 05/11/2019 10:09 PM EDT Narrative Resulting Agency Comment Spec In Lab Luis Enrique Brandon MD HEMATOLOGY FRANCISCO ACOSTA Performing Organization Address City/[facility]/ZIP Co de Phone Number [place] [address] * (ABNORMAL) Hemogram (05/11/2019 10:00 PM EDT) [facility] White Blood Cell 10.4(H) 4.0 - 9.5 x10(3)/[facility] Red Blood Cell 4.27(L) 4.58 - 5.54 x10(6)/[facility] Hemoglobin 13.9 13.7 - 16.5 gm/dL [facility] Hematocrit 38.3(L) 40.5 - 48.5 % [facility] Mean Cell Volume 89.7 82.9 - 93.1 [facility] Mean Cell Hemoglobin 32.6(H) 27.5 - 32.[address] [facility] Mean Cell Hemoglobin Concentration 36.3(H) 32.0 - 35.7 gm/dL [facility] Platelet 209 145 - 357 x10(3)/[facility] RDW Standard Deviation 44.0 36.0 - 45.0 [facility] RDW coefficient of variation 13.4 11.4 - 13.8 % [facility] Mean Platelet Volume 11.0 7.6 - 12.9 [facility] NRBC% auto 0.0 % [facility] NRBC Absolute 0.000 0.000 - 0.000 x10(3)/[facility] Blood specimen (specimen) 05/11/2019 10:00 PM EDT 05/11/2019 10:09 PM EDT Narrative Resulting Agency Comment Spec In Lab Luis Enrique Brandon MD HEMATOLOGY FRANCISCO ACOSTA [facility] [place] [address] * (ABNORMAL) pro-Brain Natriuretic Peptide (05/11/2019 10:00 PM EDT) [facility] NT-proBNP 313(H) <=125 pg/mL [facility] Blood specimen (specimen) 05/11/2019 10:00 PM EDT 05/11/2019 10:09 PM EDT Narrative Resulting Agency Comment Spec In Lab Luis Enrique Brandon MD CHEMISTRY ORDER EL Performing Organization Address City/[facility] Co de Phone Number [facility] [place] [address] * Magnesium (05/11/2019 10:00 PM EDT) Magnesium 0.79 0.69 - 1.07 mmol/L [facility] Blood specimen (specimen) 05/11/2019 10:00 PM EDT 05/11/2019 10:09 PM EDT Narrative Resulting Agency Comment Spec In Lab Luis Enrique Brandon MD CHEMISTRY ORDER EL Performing Organization Address City/[facility] Co de Phone Number [facility] [place] [address] * (ABNORMAL) Basic Metabolic Panel (non-fasting) (05/11/2019 10:00 PM EDT) Glucose 107 65 - 199 mg/dL [facility] Comment:Diabetes: >=200 mg/d L plus symptoms Blood Urea Nitrogen 16 10 - 20 mg/dL [facility] Creatinine 0.76(L) 0.80 - 1.50 mg/dL [facility] Sodium 140 135 - 145 mmol/L [facility] Potassium 3.7 3.5 - 5.0 mmol/L [facility] Comment: Please note: ??Patients with WBC >100,000 may have falsely elevated Potassium levels. ??For accurate Potassium quantification in these patients send serum separator tube (gold top) for subsequent determinations. ??Contact the Clinical Chemistry Laboratory if there are any questions. Chloride 105 98 - 107 mmol/L [facility] Carbon Dioxide 21(L) 22 - 31 mmol/L [facility] Anion Gap 14 5 - 15 mmol/L [facility] Calcium 8.7 8.5 - 10.5 mg/dL [facility] Est Glomerular Filtration Rate 109 >=60 mL/min/1. 73 m?? [facility] Comment: The eGFR was calculated using the CKD-EPI equation. As with all creatinine based estimates of kidney function, eGFR values calculated with the CKD-EPI equation are not accurate in patients with acute kidney failure, extremes of body mass or the acutely ill. [email or web address]/[facility]nkf eGFR 126 >=60 mL/min/1. 73 m?? [facility] Comment: The eGFR was calculated using the CKD-EPI equation. As with all creatinine based estimates of kidney function, eGFR values calculated with the CKD-EPI equation are not accurate in patients with acute kidney failure, extremes of body mass or the acutely ill. [email or web address]/DHnkf Blood specimen (specimen) 05/11/2019 10:00 PM EDT 05/11/2019 10:09 PM EDT Narrative Resulting Agency Comment Spec In Lab Luis Enrique Brandon MD CHEMISTRY ORDER EL [facility] [place] [address] * EKG 12 Lead (05/11/2019 9:18 PM EDT) Ventricular rate 67 BPM MUSE SYSTEM Atrial Rate 67 BPM MUSE SYSTEM P-R Interval 156 ms MUSE SYSTEM QRS Duration 90 ms MUSE SYSTEM Q-T Interval 422 ms MUSE SYSTEM QTC Calculated (Bezet) 445 ms MUSE SYSTEM Calculated P [place] -111 degrees MUSE SYSTEM Calculated R [place] -16 degrees MUSE SYSTEM Calculated T [place] -23 degrees MUSE SYSTEM INTERPRETATION Unusual P axis, possible ectopic atrial rhythm Voltage criteria for left ventricular hypertrophy prominent U wave seen in V2 and V3, likely of no clinical significance Abnormal ECG No previous ECGs available Confirmed by MD JOSIE, GRAHAM ([id number]) on 05/12/2019 12:29:24 PM MUSE SYSTEM 05/11/2019 9:18 PM EDT 05/12/2019 12:29 PM EDT Gregg Eugene MD ECG ORDERABLES MUSE SYSTEM * Film Library- Storage Only DX Chest (05/11/2019 12:00 AM EDT) Narrative RAD - 05/12/2019 9:10 AM EDT This exam is auto-finalizing. It's purpose is for storage only. Gregg Eugene MD IMG FILM LIBRARY ORD ERABLES [place], [place] documented in this encounter Visit Diagnoses Diagnosis Non-ST elevation myocardial infarction (NSTEMI) Acute myocardial infarction, subendocardial infarction, episode of care unspecified ECG abnormal Nonspecific abnormal electrocardiogram (ECG) (EKG) Mixed hyperlipidemia NSTEMI (non-ST elevated myocardial infarction) Acute myocardial infarction, subendocardial infarction, episode of care unspecified NSTEMI (non-ST elevated myocardial infarction) Acute myocardial infarction, subendocardial infarction, episode of care unspecified Mixed hyperlipidemia Coronary artery disease involving kiana coronary artery Depression Depressive disorder, not elsewhere classified 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 Tobacco use disorder HTN (hypertension) Unspecified essential hypertension documented in this encounter Admitting Diagnoses Diagnosis NSTEMI (non-ST elevated myocardial infarction) Acute myocardial infarction, subendocardial infarction, episode of care unspecified documented in this encounter Administered Medications Inactive Administered Medications - up to 3 most recent administrations Medication Order MAR Action Action Date Dose Rate Site acetaminophen (TYLENOL) tablet 650 mg 650 mg, Oral, EVERY 4 HOURS PRN, Starting on Wed05/11/19 at 2118, Until 05/13/19 at 1415, Pain, Headaches, Maximum dose of acetaminophen is 4000 mg from all sources in 24 hours., Routine Given 05/12/2019 5:30 AM EDT 650 mg aspirin chewable tablet 81 mg 81 mg, Oral, DAILY, First dose on Wed05/12/19 at 0900, Until Discontinued, Routine Given 05/13/2019 8:23 AM EDT 81 mg Given 05/12/2019 8:01 AM EDT 81 mg atorvastatin (LIPITOR) tablet 80 mg 80 mg, Oral, EVERY EVENING, First dose on Wed05/11/19 at 2145, Until Discontinued, Routine Given 05/12/2019 5:08 PM EDT 80 mg Given 05/11/2019 9:32 PM EDT 80 mg calcium carbonate (Tums) chewable tablet 500 mg 500 mg, Oral, 3 TIMES DAILY PRN, Starting on 05/13/19 at 0518, Until 05/13/19 at 1415, Heartburn, Routine Given 05/13/2019 5:23 AM EDT 500 mg clopidogrel (PLAVIX) tablet 75 mg 75 mg, Oral, DAILY, First dose on Wed05/12/19 at 0900, Until Discontinued, Routine Given 05/13/2019 8:23 AM EDT 75 mg Given 05/12/2019 8:01 AM EDT 75 mg heparin (porcine) 25,000 unit/500 mL (50 unit/mL) infusion 1 dose, Starting on Wed05/11/19 at 2027, Until Wed05/11/19 at 2035, Vandana Gustafson: cabinet override heparin (porcine) injection 0-4,000 Units 0-4,000 Units, Intravenous, BOLUS PER HEPARIN PROTOCOL, Starting on Wed05/11/19 at 2152, Until Wed05/12/19 at 1736, Per Protocol, START ADJUSTMENT SCHEDULE 6 HOURS AFTER STARTING INFUSION Heparin UFH Level between 0.1 - 0.29 IU/mL: Bolus 2,000 units Heparin UFH Level less than 0.1 IU/mL: Bolus 4,000 units, Routine Given 05/12/2019 5:08 AM EDT 2,000 Units heparin 25,000 units in dextrose 5% 500 mL infusion 0-5,000 Units/hr (0-100 mL/hr), Intravenous, CONTINUOUS, Starting on Wed05/11/19 at 2215, Until Wed05/12/19 at 1736, BEGIN infusion at 1,000 units per hr (12 units/kg/hr). MAX INITIAL infusion rate is 1,000 units/hr. Target Heparin UFH Level (anti-Xa activity) = 0.3 - 0.7 IU/mL Start adjustment schedule 6 hours after starting infusion. If Heparin UFH Level is: - less than 0.1 IU/mL, administer PRN bolus and increase rate by 450 units per hr (4 units/kg/hr) - 0.1 - 0.29 IU/mL, administer PRN bolus and increase rate by 200 units per hr (2 units/kg/hr) - 0.3 - 0.7 IU/mL, No Change - 0.71 - 0.85 IU/mL, decrease rate by 100 units per hr (1 units/kg/hr) - 0.86 - 1.05 IU/mL, stop infusion for 30 minutes, then decrease rate by 200 units per hr (2 units/kg/hr) - Greater than 1.05 IU/mL, stop infusion for 60 minutes, then decrease rate by 300 units per hour (3 units/kg/hr) Repeat Heparin UFH Level 6 hours after initiating heparin. Then 6 hours after each dose adjustment. When 2 consecutive Heparin UFH Level within target range of 0.3 - 0.7 IU/mL, change Heparin UFH Level to once every 24 hours with A.M. labs while on heparin. RN to order required Heparin UFH Level - Per Protocol, Routine, Indication: ACS (STEMI vs NSTEMI vs UA) Rate/Dose Change 05/12/2019 5:27 AM EDT 1,200 Units/hr 24 mL/hr New Bag 05/11/2019 8:35 PM EDT 1,000 Units hydrALAZINE (APRESOLINE) tablet 10 mg 10 mg, Oral, ONCE, 1 dose, On Wed05/12/19 at 0215, Take with Food, Routine Given 05/12/2019 2:00 AM EDT 10 mg lidocaine (XYLOCAINE) 10 mg/mL (1 %) injection 3 mg 3 mg (0.3 mL), Subcutaneous, ONCE PRN, 1 dose, Starting on Kylah 05/11/19 at 2050, Until 05/13/19 at 1415, for discomfort with PIV insertion, Routine lisinopril (PRINIVIL;ZESTRIL) tablet 5 mg 5 mg, Oral, DAILY, First dose on Wed05/12/19 at 1330, Until Discontinued, Routine Given 05/13/2019 8:23 AM EDT 5 mg Given 05/12/2019 2:15 PM EDT 5 mg metoprolol (LOPRESSOR) tablet 12.5 mg 12.5 mg, Oral, EVERY 12 HOURS SCHEDULED (2 times per day), First dose on 05/13/19 at 0845, Until Discontinued, Hold for SBP< 90 and HR <50, Routine Given 05/13/2019 8:32 AM EDT 12.5 mg nitroGLYcerin (NITROSTAT) SL tablet 0.4 mg 0.4 mg, Sublingual, EVERY 5 MIN PRN, Starting on Wed05/11/19 at 2050, Until 05/13/19 at 1415, Chest pain, May repeat every 5 minutes for a total of three doses. Notify provider if chest pain not relieved with nitroglycerin. Do not administer nitroglycerin if the patient has received or taken phosphodiesterase (PDE-5) inhibitors such as sildenafil, tadalafil or vardenafil within the last 24 to 72 hours., Routine Given 05/11/2019 9:45 PM EDT 0.4 mg Given 05/11/2019 9:38 PM EDT 0.4 mg Given 05/11/2019 9:32 PM EDT 0.4 mg nitroGLYcerin 50 mg in dextrose 5% 250 mL infusion 10 mcg/min (3 mL/hr), Intravenous, CONTINUOUS, Starting on Wed05/11/19 at 2300, Until 05/13/19 at 0827, Titrate to chest pain relief.Maximum dose: 200 mcg/min, Routine Rate/Dose Change 05/12/2019 8:37 AM EDT 30 mcg/min 9 mL/hr Rate/Dose Change 05/12/2019 1:50 AM EDT 60 mcg/min 18 mL/h r Rate/Dose Change 05/12/2019 12:37 AM EDT 40 mcg/min 12 mL/ hr pantoprazole (PROTONIX) tablet 40 mg 40 mg, Oral, DAILY, First dose on Wed05/12/19 at 0900, Until Discontinued, DO NOT CRUSH OR OPEN, Routine Given 05/13/2019 8:23 AM EDT 40 mg Given 05/12/2019 8:01 AM EDT 40 mg potassium chloride (K-DUR/KLOR-CON) extended release tablet 40 mEq 40 mEq, Oral, ONCE, 1 dose, On Wed05/11/19 at 2315, 20 mEq tablet may be dissolved in water for administration, Routine Given 05/11/2019 11:07 PM EDT 40 mEq sertraline (ZOLOFT) tablet 100 mg 100 mg, Oral, DAILY, First dose on Wed05/12/19 at 0900, Until Discontinued, Routine Given 05/13/2019 8:23 AM E DT 100 mg Given 05/12/2019 8:01 AM EDT 100 mg sodium chloride 0.9 % (flush) flush 5 mL 5 mL, Intravenous, 2 TIMES DAILY, First dose on Kylah 05/11/19 at 2145, Until Discontinued, Routine Given 05/13/2019 8:23 AM EDT 5 mLs Given 05/12/2019 9:00 PM EDT 5 mLs Given 05/12/2019 8:01 AM EDT 5 mLs sodium chloride 0.9 % (flush) flush 5-20 mL 5-20 mL, Intravenous, EVERY 1 MIN PRN, Starting on Kylah 05/11/19 at 2050, Until 05/13/19 at 1415, flush, Flush pertains to all indwelling lines. Flush per protocol found in the job aid using the link provided on this medication record., Routine sodium chloride 0.9% infusion 75 mL/hr, Intravenous, CONTINUOUS, Starting on Wed05/12/19 at 1015, Until Wed05/12/19 at 1214, Recovery (Recovery-Hospital Unit) New Bag 05/12/2019 10:15 AM EDT 75 mL/hr 75 mL /hr documented in this encounter Active and Recently Administered Medications Times are shown in EDT. Scheduled Medication Order 05/11/2019 05/12/2019 05/13/2019 aspirin chewable tablet 81 mg 81 mg, Oral, DAILY, First dose on Wed05/12/19 at 0900, Until Discontinued, Routine 0801 (Given - Provider: Chelsea Antonio RN)0817 (JAN Hold - Provider: Admin Adt - Reason: Transfer to a Procedural area)1026 (JAN Unhold - Provider: Admin Adt) 0823 (Given - Provider: Chelsea Antonio RN) atorvastatin (LIPITOR) tablet 80 mg 80 mg, Oral, EVERY EVENING, First dose on Kylah 05/11/19 at 2145, Until Discontinued, Routine 2131 (Given - Provider: Vandana Gustafson RN) 0817 (JAN Hold - Provider: Admin Adt - Reason: Transfer to a Procedural area)1026 (JAN Unhold - Provider: Admin Adt)1708 (Given - Provider: Chelsea Antonio RN) clopidogrel (PLAVIX) tablet 75 mg 75 mg, Oral, DAILY, First dose on Wed05/12/19 at 0900, Until Discontinued, Routine 0801 (Given - Provider: Chelsea Antonio RN)0817 (JAN Hold - Provider: Admin Adt - Reason: Transfer to a Procedural area)1026 ([facility] Unhold - Provider: Admin Adt) 0823 (Given - Provider: Chelsae Antonio RN) hydrALAZINE (APRESOLINE) tablet 10 mg (COMPLETED) 10 mg, Oral, ONCE, 1 dose, On Wed05/12/19 at 0215, Take with Food, Routine 0200 (Given - Provider: Vandana Gustafson RN) lisinopril (PRINIVIL;ZESTRIL) tablet 5 mg 5 mg, Oral, DAILY, First dose on Wed05/12/19 at 1330, Until Discontinued, Routine 1415 (Given - Provider: Chelsea Antonio RN) 0823 (Given - Provider: Chelsea nAtonio RN) metoprolol (LOPRESSOR) tablet 12.5 mg 12.5 mg, Oral, EVERY 12 HOURS SCHEDULED (2 times per day), First dose on Wed05/13/19 at 0845, Until Discontinued, Hold for SBP< 90 and HR <50, Routine 0832 (Given - Provider: Chelsea Antonio RN) pantoprazole (PROTONIX) tablet 40 mg 40 mg, Oral, DAILY, First dose on Wed05/12/19 at 0900, Until Discontinued, DO NOT CRUSH OR OPEN, Routine 0801 (Given - Provider: Chelsea Antonio RN)0817 ([facility] Hold - Provider: Admin Adt - Reason: Transfer to a Procedural area)1026 ([facility] Unhold - Provider: Admin Adt) 0823 (Given - Provider: Chelsea Antonio RN) potassium chloride (K-DUR/KLOR-CON) extended release tablet 40 mEq (COMPLETED) 40 mEq, Oral, ONCE, 1 dose, On Kylah 05/11/19 at 2315, 20 mEq tablet may be dissolved in water for administration, Routine 2307 (Given - Provider: Vandana Gustafson RN) sertraline (ZOLOFT) tablet 100 mg 100 mg, Oral, DAILY, First dose on Wed05/12/19 at 0900, Until Discontinued, Routine 0801 (Given - Provider: Chelsea Antonio RN)0817 (JAN Hold - Provider: Admin Adt - Reason: Transfer to a Procedural area)1026 (JAN Unhold - Provider: Admin Adt) 0823 (Given - Provider: Chelsea Antonio, UNIQUE) sodium chloride 0.9 % (flush) flush 5 mL 5 mL, Intravenous, 2 TIMES DAILY, First dose on Kylah 05/11/19 at 2145, Until Discontinued, Routine 2145 (Not Given - Provider: Vandana Gustafson RN - Reason: See comment - Comment: IV infusing) 0801 (Given - Provider: Chelsea Antonio RN)0817 (JAN Hold - Provider: Admin Adt - Reason: Transfer to a Procedural area)1026 (JAN Unhold - Provider: Admin Adt)2100 (Given - Provider: Vandana Gustafson RN) 0823 (Given - Provider: Chelsea Antonio RN) Continuous Medication Order 05/11/2019 05/12/2019 05/13/2019 heparin 25,000 units in dextrose 5% 500 mL infusion (CANCELED)(Linked Group 1) 0-5,000 Units/hr (0-100 mL/hr), Intravenous, CONTINUOUS, Starting on Kylah 05/11/19 at 2215, Until Wed05/12/19 at 1736, BEGIN infusion at 1,000 units per hr (12 units/kg/hr). MAX INITIAL infusion rate is 1,000 units/hr. Target Heparin UFH Level (anti-Xa activity) = 0.3 - 0.7 IU/mL Start adjustment schedule 6 hours after starting infusion. If Heparin UFH Level is: - less than 0.1 IU/mL, administer PRN bolus and increase rate by 450 units per hr (4 units/kg/hr) - 0.1 - 0.29 IU/mL, administer PRN bolus and increase rate by 200 units per hr (2 units/kg/hr) - 0.3 - 0.7 IU/mL, No Change - 0.71 - 0.85 IU/mL, decrease rate by 100 units per hr (1 units/kg/hr) - 0.86 - 1.05 IU/mL, stop infusion for 30 minutes, then decrease rate by 200 units per hr (2 units/kg/hr) - Greater than 1.05 IU/mL, stop infusion for 60 minutes, then decrease rate by 300 units per hour (3 units/kg/hr) Repeat Heparin UFH Level 6 hours after initiating heparin. Then 6 hours after each dose adjustment. When 2 consecutive Heparin UFH Level within target range of 0.3 - 0.7 IU/mL, change Heparin UFH Level to once every 24 hours with A.M. labs while on heparin. RN to order required Heparin UFH Level - Per Protocol, Routine, Indication: ACS (STEMI vs NSTEMI vs UA) 2034 (New Bag - Provider: Vandana Gustafson RN)2214 (Not Given - Provider: Vandana Gustafson RN - Reason: See comment - Comment: Heprin already hanging) 0527 (Rate/Dose Change - Provider: Vandana Gustafson RN)0817 (JAN Hold - Provider: Admin Adt - Reason: Transfer to a Procedural area)0900 (Stopped - Provider: Chelsea Antonio RN)1026 (JAN Unhold - Provider: Admin Adt) nitroGLYcerin 50 mg in dextrose 5% 250 mL infusion (CANCELED) 10 mcg/min (3 mL/hr), Intravenous, CONTINUOUS, Starting on Kylah 05/11/19 at 2300, Until 05/13/19 at 0827, Titrate to chest pain relief.Maximum dose: 200 mcg/min, Routine 2300 (Rate/Dose Change - Provider: Vandana Gustafson RN)2314 (New Bag - Provider: Vandana Gustafson RN)2342 (Rate/Dose Change - Provider: Vandana Gustafson RN) 0000 (Rate/Dose Change - Provider: Vandana Gustafson RN)0015 (Rate/Dose Change - Provider: Vandana Gustafson RN)0037 (Rate/Dose Change - Provider: Vandana Gustafson RN)0150 (Rate/Dose Change - Provider: Vandana Gustafson RN)0817 (JAN Hold - Provider: Admin Adt - Reason: Transfer to a Procedural area)0837 (Rate/Dose Change - Provider: Melani Goodwin RN)0903 (Stopped - Provider: Melani Goodwin RN)1026 (JAN Unhold - Provider: Admin Adt) sodium chloride 0.9% infusion () 75 mL/hr, Intravenous, CONTINUOUS, Starting on Wed05/12/19 at 1015, Until Wed05/12/19 at 1214, Recovery (Recovery-Hospital Unit) 1015 (New Bag - Provider: Gurpreet Holloway, RN)1215 (Stopped - Provider: Chelsea Antonio, RN) PRN Medication Order 05/11/2019 05/12/2019 05/13/2019 acetaminophen (TYLENOL) tablet 650 mg 650 mg, Oral, EVERY 4 HOURS PRN, Starting on Kylah 05/11/19 at 2118, Until 05/13/19 at 1415, Pain, Headaches, Maximum dose of acetaminophen is 4000 mg from all sources in 24 hours., Routine 0530 (Given - Provider: Vandana Gustafson RN)0817 (JAN Hold - Provider: Admin Adt - Reason: Transfer to a Procedural area)1026 (MAR Unhold - Provider: Admin Adt) calcium carbonate (Tums) chewable tablet 500 mg 500 mg, Oral, 3 TIMES DAILY PRN, Starting on 05/13/19 at 0518, Until 05/13/19 at 1415, Heartburn, Routine 0523 (Given - Provider: Vandana Gustafson RN) fentaNYL 50 mcg/mL multi-dose injection (CANCELED) ONCE PRN, Starting on 05/12/19 at 0838, Until Wed05/12/19 at 1026, Intra-Operative (Intra-Procedure), Routine 0838 (Given - Provider: Shad Burgos, UNIQUE)0903 (Given - Provider: Shad Burgos RN) heparin (porcine) injection 0-4,000 Units (CANCELED)(Linked Group 1) 0-4,000 Units, Intravenous, BOLUS PER HEPARIN PROTOCOL, Starting on Kylah 05/11/19 at 2152, Until 05/12/19 at 1736, Per Protocol, START ADJUSTMENT SCHEDULE 6 HOURS AFTER STARTING INFUSION Heparin UFH Level between 0.1 - 0.29 IU/mL: Bolus 2,000 units Heparin UFH Level less than 0.1 IU/mL: Bolus 4,000 units, Routine 0508 (Given - Provider: Vandana Gustafson RN)0817 ([facility] Hold - Provider: Admin Adt - Reason: Transfer to a Procedural area)1026 (MAR Unhold - Provider: Admin Adt) heparin (porcine) injection (CANCELED) ONCE PRN, Starting on 05/12/19 at 0851, Until Wed05/12/19 at 1026, Cath (Intra-Procedure), Routine 0851 (Given - Provider: Shad Burgos RN)09 (Given - Provider: Shad Burgos RN) iohexol (OMNIPAQUE) 350 mg/mL solution (CANCELED) ONCE PRN, Starting on Wed05/12/19 at 0939, Until Wed05/12/19 at 1026, Cath (Intra-Procedure), Routine 0939 (Given - Provider: Jayda Frederick MD) lidocaine (XYLOCAINE) 10 mg/mL (1 %) injection 3 mg 3 mg (0.3 mL), Subcutaneous, ONCE PRN, 1 dose, Starting on Kylah 05/11/19 at 2050, Until 05/13/19 at 1415, for discomfort with PIV insertion, Routine 0817 (JAN Hold - Provider: Admin Adt - Reason: Transfer to a Procedural area)1026 (JAN Unhold - Provider: Admin Adt) midazolam (PF) (VERSED) multi-dose injection (CANCELED) ONCE PRN, Starting on Wed05/12/19 at 0838, Until Wed05/12/19 at 1026, Cath (Intra-Procedure), Routine 0838 (Given - Provider: Shad Burgos RN)0903 (Given - Provider: Shad Burgos RN) niCARdipine (CARDENE) in sodium chloride 0.9% injection (CANCELED) ONCE PRN, Starting on Wed05/12/19 at 0931, Until Wed05/12/19 at 1026, Intra-Operative (Intra-Procedure), Routine 0931 (Given - Provider: Jayda Frederick MD) nitroGLYcerin (NITROSTAT) SL tablet 0.4 mg 0.4 mg, Sublingual, EVERY 5 MIN PRN, Starting on Kylah 05/11/19 at 2050, Until 05/13/19 at 1415, Chest pain, May repeat every 5 minutes for a total of three doses. Notify provider if chest pain not relieved with nitroglycerin. Do not administer nitroglycerin if the patient has received or taken phosphodiesterase (PDE-5) inhibitors such as sildenafil, tadalafil or vardenafil within the last 24 to 72 hours., Routine 2131 (Given - Provider: Vandana Gustafson RN)2138 (Given - Provider: Vandana Gustafson, RN)2145 (Given - Provider: Vandana Gustafson, RN) 0817 ([facility] Hold - Provider: Admin Adt - Reason: Transfer to a Procedural area)1026 ([facility] Unhold - Provider: Admin Adt) nitroGLYcerin 100 mcg/mL intracoronary dilution (CANCELED) ONCE PRN, Starting on Wed05/12/19 at 0845, Until Wed05/12/19 at 1026, Cath (Intra-Procedure), Routine 0845 (Given - Provider: Jayda Frederick MD)0913 (Given - Provider: Jayda Frederick MD) sodium chloride 0.9 % (flush) flush 5-20 mL 5-20 mL, Intravenous, EVERY 1 MIN PRN, Starting on Kylah 05/11/19 at 2050, Until Wed05/13/19 at 1415, flush, Flush pertains to all indwelling lines. Flush per protocol found in the job aid using the link provided on this medication record., Routine 0817 (JAN Hold - Provider: Admin Adt - Reason: Transfer to a Procedural area)1026 ([facility] Unhold - Provider: Admin Adt) verapamil (ISOPTIN) injection (CANCELED) ONCE PRN, Starting on Wed05/12/19 at 0845, Until Wed05/12/19 at 1026, Administer over 2 Minutes, Cath (Intra-Procedure) 0845 (Given - Provider: Jayda Frederick MD) Linked Groups Order Group 1: heparin (porcine) injection 0-4,000 Units (CANCELED)Jump to med 0-4,000 Units, Intravenous, BOLUS PER HEPARIN PROTOCOL, Starting on Kylah 05/11/19 at 2152, Until Wed05/12/19 at 1736, Per Protocol, START ADJUSTMENT SCHEDULE 6 HOURS AFTER STARTING INFUSION Heparin UFH Level between 0.1 - 0.29 IU/mL: Bolus 2,000 units Heparin UFH Level less than 0.1 IU/mL: Bolus 4,000 units, Routine And heparin 25,000 units in dextrose 5% 500 mL infusion (CANCELED)Jump to med 0-5,000 Units/hr (0-100 mL/hr), Intravenous, CONTINUOUS, Starting on Wed05/11/19 at 2215, Until Wed05/12/19 at 1736, BEGIN infusion at 1,000 units per hr (12 units/kg/hr). MAX INITIAL infusion rate is 1,000 units/hr. Target Heparin UFH Level (anti-Xa activity) = 0.3 - 0.7 IU/mL Start adjustment schedule 6 hours after starting infusion. If Heparin UFH Level is: - less than 0.1 IU/mL, administer PRN bolus and increase rate by 450 units per hr (4 units/kg/hr) - 0.1 - 0.29 IU/mL, administer PRN bolus and increase rate by 200 units per hr (2 units/kg/hr) - 0.3 - 0.7 IU/mL, No Change - 0.71 - 0.85 IU/mL, decrease rate by 100 units per hr (1 units/kg/hr) - 0.86 - 1.05 IU/mL, stop infusion for 30 minutes, then decrease rate by 200 units per hr (2 units/kg/hr) - Greater than 1.05 IU/mL, stop infusion for 60 minutes, then decrease rate by 300 units per hour (3 units/kg/hr) Repeat Heparin UFH Level 6 hours after initiating heparin. Then 6 hours after each dose adjustment. When 2 consecutive Heparin UFH Level within target range of 0.3 - 0.7 IU/mL, change Heparin UFH Level to once every 24 hours with A.M. labs while on heparin. RN to order required Heparin UFH Level - Per Protocol, Routine, Indication: ACS (STEMI vs NSTEMI vs UA) documented in this encounter Care Teams Net Technical Architect Relationship Specialty Start Date End Date None None PCP - General 05/11/19 documented as of this encounter
--- OUTSIDE RECORDS SUMMARY | 2024-07-29 19:18 | XMS_ITS | Encounter Summary ---
Author Organization [facility] Address [facility] [place] [address] Care Team Providers Care R D Engineer Name Role Phone None Primary Care Provider Unavailabl e Reason for Visit * Auth/Cert Specialty Diagnoses / Procedures Referred By Ingrid proctor Referred To Contact Diagnoses NSTEMI (non-ST elevated myocardial infarction) NSTEMI Procedures EMERGENCY IPI Referral ID Status Reason Start Date Expiration Date Visits Re quested Visits Authorized [id number] 1 1 Encounter Details Date Type Department Care Team (Late st Contact Info) Description 05/12/2019 10:30 AM EDT - 05/12/2019 11:30 AM EDT Surgery [place] [address] [facility] [place] [address] CARDIAC CATHETERIZATION Social History Tobacco Use Types Packs/Day Years [...] Sign Reading Time Taken Comments Blood Pressure 121/76 05/12/2019 10:15 AM EDT Pulse 63 05/12/2019 10:15 AM EDT Temperature 36.8 ??C (98.2 ??F) 05/12/2019 7:25 AM ED T Respiratory Rate 16 05/12/2019 10:1 5 AM EDT Oxygen Saturation 99% 05/12/2019 10: 15 AM EDT Inhaled Oxygen Concentration - - Weight 106.8 kg (235 lb 6.4 oz) 05/12/2019 5:20 AM EDT Height 182.9 cm (6') 05/11/2019 11:43 PM EDT Body Mass Index 31.45 05/11/2019 11:43 PM EDT documented in this encounter Discharge Summaries * Joana Lyon PA - 05/12/2019 1:10 PM EDT Discharge Summary Patient Name: Jarvis Padron Patient Age: 48 y.o. Language: Setswana Race: White Ethnicity: Not nor Admit date: [...] Inpatient Provider Contact Information: MD Yaritza Valladares, SOCIAL MEDIA EDITOR Cardiovascular Medicine Discharge Diagnoses (Hospital Problems) and Secondary Diagnoses (Chronic Problems): Active Hospital Problems Diagnosis ??? Coronary artery disease involving [place] coronary artery ??? NSTEMI (non-ST elevated myocardial [...] for the procedure was Urgent. The [facility] indication for the procedure was NSTE-ACS. Intervention [...] A premounted 2.75 x 26 mm Resolute REMY (DELMER) was deployed with a maximum inflation [...] dose administered prior to arrival in the ship laborer. Recommend continuing clopidogrel 75 mg PO [...] prior history of GERD, depression presented to [facility] [place] [facility], [place], [place] with complaints of chest pain of [...] of his chest pain, he presented to [facility] [place] [facility]. At [facility], EKG showed junctional rhythm with a nonspecific ST-T changes, troponin I was elevated at 0.87 (normal less than 0.06). She was given a loading dose of aspirin 324 mg, Plavix 300 mg. He was started on heparin GTT for non-ST elevation myocardial infection. He is transferred to [facility] for further care. ?? Patient states he [...] non-smoker, non-diabetic, GERD, depression who presented to [facility] in the setting of crescendo angina. ECG with ectopic atrial with TWI in leads III AVF. Troponin positive at 0.87 (OSH) and 0.32, 0.92 here. Prior to arrival he was loaded with aspirin, Plavix and started on a heparin drip. On arrival to [facility] he continued toexperience chest pain, started on a nitro drip which was up titrated to 60 mcg/min. director of labor relations was made aware of patient and he was urgently sent to the ship laborer and found to have a total [...] appointments: During 8am-5pm Wednesday through Wednesday call [phone] to speak with a nurse in the cardiology clinic All other times call [phone] and ask to speak to the school operations manager crack off person. 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 Follow up Appointments: PCP - Dr. Leslie Rolon Your follow up appointment is scheduled for May 25, 2019 at 9:15 am Cardiology - [facility] Cardiology -Dr Madison Your follow up appointment is scheduled for 2018 at 9 am Future Appointments and Orders Future Orders Complete By Expires Basic Metabolic Panel (non-fasting) [LAB15 Custom] 05/20/2019 07/14/2019 Process Instructions: Scheduling Instructions: Comments: New to stone Results to [facility] care Questions: Hepatic Function Panel [LAB20 Custom] 07/14/2019 05/12/2020 Process Instructions: Scheduling Instructions: Comments: Results to [facility] Post new statin Questions: Lipid Panel [LAB18 Custom] 07/14/2019 05/12/2020 Process Instructions: Scheduling Instructions: Comments: Post new statin Results to [facility] Questions: Referral to Cardiac Rehab [JDC823 Custom] As directed Process Instructions: If no progress note charted, please enter Clinical details in comments. Scheduling Instructions: Questions: My question or request is: NSTEMI, PCI- CR at [facility] Discharge References/Attachments None Yaritza Victoria NP 05/12/19 And TANNA Colon Pager [phone] 05/13/2019 documented in this encounter Discharge Instructions * Discharge Instructions* Joana Lyon PA - 05/13/2019 11:42 AM EDT Call your doctor if: Chest pain, shortness of breath, pain or swelling in legs occurs. If you have non-emergent questions between now and the time of your follow up appointments: During 8am-5pm Wednesday through Wednesday call [phone] to speak with a nurse in the cardiology clinic All other times call [phone] and ask to speak to the school operations manager crack off person. 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 Follow up Appointments: PCP - Dr. Leslie Rolon Your follow up appointment is scheduled for May 25, 2019 at 9:15 am Cardiology - [facility] Cardiology -Dr Madison Your follow up appointment [...] from the original note were not included. [facility] [place] [address] [place] [address] DAY OF DISCHARGE NOTE Patient Name: Jarvis Padron [id number] Service: LEGAL INSTRUMENTS EXAMINER / PA Responsible Attending: Yassine Lacey MD [...] 422 QTC Calculated (Bezet) 445 Calculated P Golf -111 Calculated R Golf -16 Calculated T Golf -23 INTERPRETATION Unusual P axis, possible ectopic atrial rhythm Voltage criteria for left ventricular hypertrophy prominent U wave seen in V2 and V3, likely of no clinical significance Abnormal ECG No previous ECGs available Confirmed by MD GALINDO BRUCE ([id number]) on 05/12/2019 12:29:24 PM Basic Metabolic [...] 422 QTC Calculated (Bezet) 445 Calculated R Golf -19 Calculated T Golf -29 INTERPRETATION Normal sinus rhythm Voltage criteria [...] 412 QTC Calculated (Bezet) 441 Calculated R Golf -19 Calculated T Golf -34 INTERPRETATION Normal sinus rhythm Voltage criteria [...] 414 QTC Calculated (Bezet) 427 Calculated P Golf 39 Calculated R Golf -9 Calculated T Golf -29 INTERPRETATION Normal sinus rhythm Voltage criteria [...] CX stent, total occulsion NSTEMI, HLD Post ID care and monitoring Greater than 30 minutes was spent coordinating their discharge today. The patient was discharged instable condition. Please see the discharge summary 05/13/2019 for a comprehensive assessment and plan. Joana Lyon, PAC Pager [phone] 05/13/2019 STAFF ADDENDUM Patient interviewed and examined. [...] Progress Note Patient Name: Jarvis Padron Service: LEGAL INSTRUMENTS EXAMINER / PA Responsible Attending: Yassine Lacey MD Reason for continued hospitalization: Evaluation and management of NSTEMI Active Problems: Active Hospital Problems Diagnosis ??? NSTEMI (non-ST elevated myocardial infarction) Resolved Hospital Problems No resolved problems to display. Interval History: Admitted overnight in the setting of NSTEMI after being transferred from [facility]. Hewas noted to have chest pain on [...] 0520 106.8 kg (235 lb 6.4 oz) 05/11/192131 106.7 kg (235 lb 3.7 oz) Physical Exam Constitutional: No distress. Neck: No JVD present. Cardiovascular: No murmur heard. Pulmonary/Chest: Effort normal and breath sounds normal. He has no rales. Abdominal: Soft. Bowel sounds are normal. Skin: He is not diaphoretic. Lab Comments: Recent Labs 05/12/19 04005/11/190 WBC 11.4* 10.4* HGB 13.3* 13.9 HCT 37.5* 38.3* PLATELET 182 209 No results for input(s): INR in the last 168 hours. Recent Labs 05/12/19 04005/11/19 2200 NA 139 140 K 4.1 3.7 CL 106 105 CO2 24 21* BUN 13 16 CREATININE 0.82 0.76* No results for input(s): AST, ALT, ALKPHOS, BILITOT, BILIDIR in the last 168 hours. Recent Labs 05/11/190 CALCIUM 8.7 MAGNESIUM 0.79 Recent Labs 05/12/1940305/11/19 2200 TROPONINT 0.92* 0.32* Pertinent Radiographic/Diagnostic Results: I have independently visualized the following studies: ECG:Ectopic atrial rhythm (inverted PW), with TWI III, AVF Cardiac Cath: Awaiting cardiac catheterization at this time ECHO: pending Assessment: Jarvis Padron is a 48 y.o. male with past medical history significant for non-smoker, non-diabetic, GERD, depression who presented to [facility] in the setting of crescendo angina. ECG with ectopic atrial with TWI in leads III AVF. Troponin positive at 0.87 (OSH) and 0.32, 0.92 here. Priorto arrival he was loaded with aspirin, plavix and started on a heparin drip. On arrival to [facility] he continued to experience chest pain, started on a nitro drip which was up titrated to 60 mcg/min. director of labor relations was made aware of patient who will [...] MD Yaritza Valladares APRN Cardiovascular Medicine Pager [phone] 05/12/2019 STAFF ADDENDUM Patient interviewed and examined. [...] prior history of GERD, depression presented to [facility] [place] [facility], [place], [place] with complaints of chest pain of [...] of his chest pain, he presented to [facility] [place] [facility]. At [facility], EKG showed junctional rhythm with a nonspecific ST-T changes, troponin I was elevated at 0.87 (normal less than 0.06). She was given a loading dose of aspirin 324 mg, Plavix 300 mg. He was started on heparin GTT for non-ST elevation myocardial infection. He is transferred to [facility] for further care. Patient states [...] file Gets together: Not on file Attends sabianist service: Not on file Active member of [...] edema . Pulses palpable, no calf tenderness Neuro/BONSAI CULTURIST: AAO x 3, No evident deficits Skin/Integumentary: No rash Diagnostics: EKG Junctional rhythm with LVH, Hyper acute T waves in v3,v4 LABS: No results found for this or any previous visit (from the past 24 hour(s)). Laboratory data from [facility]: CBC: WBC 8.6, hemoglobin 15.1, hematocrit [...] Plan of Care Review 05/12/19 0321 05/12/19 08 Plan of Care Review Progress no change [...] Utilized none -- Goal: Infection Control 05/12/19 0800 Safety Interventions Isolation Precautions standard precautions maintained Infection Prevention rest/sleep promoted;equipment surfaces disinfected Coping Strategies Supportive Measures active listening utilized;self-care encouraged Goal: Discharge Needs Assessment 05/12/19 0321 Discharge Needs Assessment Concerns To Be Addressed no discharge needs identified Readmission Within The Last 30 Days no previous admission in last 30 days Equipment Needed After Discharge none Discharge Disposition still a patient Current Health Anticipated Changes Related to Illness none Activity/Self Care Review of Systems Equipment Currently Used at Home none Living Environment Transportation Available car Goal: Interdisciplinary Rounds/Family Conf 05/12/19 0321 Interdisciplinary Rounds/Family Conf Participants nursing;patient;physician * Initial [...] Patient???s Functional Status: independent Living Situation: [address] [facility] [id number] Supports: Julius Padron (Father) [facility] [address] (H) Assessment: Patient with no apparent RNCM/SW needs at this time. No housing, transportation, insurance, resources concerns identified at this time. Supports in place to achieve a safe post-hospital transition. No identified barriers to accessing necessary care and/or follow-up after discharge. Plan: Patient to d/c home via private car when medically ready. software integrator/Academic Associate will continue to follow patient???s progress and remain available if situation changes for coordination of care, psychosocial support and/or discharge planning. Shannan Ward, RN Pager [phone] * Consult Note - Lolita Chan RN - 05/12/2019 1:57 PM EDT Cardiac Rehabilitation Inpatient Evaluation Primary Cardiac Diagnosis: NSTEMI, PCI Cardiac Risk Factors: Smoking: chews tobacco Overweight: yes Hyperlipidemia: yes Sedentary: no HTN: yes Family history: unknown DM: no Stress: some Patient Education: Reviewed cardiac cath findings, implications of coronary artery disease, managing angina and risk factor modification. 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 He does [...] in the outpatient cardiac rehabilitation program at [facility] was discussed. Patient agrees to a referral [...] Procedure Note: Patient Name: Jarvis Padron : [id number] MR#: [id number] Case Date: 05/12/2019 Veneer Jointer Returner: Interventional Cardiologists * Camila Lawson MD - Primary * Jayda Frederick MD - Fellow Preoperative diagnosis: NSTEMI Postoperative diagnosis: NSTEMI, Single Vessel Dz-S/P PCI-Stent Preliminary Cardiac Catheterization Procedure Note: Procedure(s) performed: Coronary Angiography, Left Heart Cath, PCI-Stent Baseline Frailty Assessment: Definitions from [place] Study of Health and Aging Clinical Frailty [...] nicardipine. Lesion treated with a single DELMER (Remy) with excellent angiographicresult. Contrast ~ 134 ml Hemostasis: Right radial sheath was removed at case completion with hemostasis obtained with mechanical (TR Band) compression The patient tolerated the procedure well and was transferred from the cardiac catheterization lab to the CRU in stable condition without apparent complications. Full report to follow. CAMILA LAWSON MD women's basketball coach Pager [phone] * Plan of Care - [...] Luis Enrique Brandon MD 05/12/2019 Pager # [phone] * Plan of Care - Vandana Gustafson RN - 05/12/2019 3:32 AM EDT Problem: Patient Care Overview Goal: Plan of Care Review Outcome: Ongoing (Interventions Implemented as Appropriate) 07/04230905/12/19 032 Plan of Care Review Progress -- no [...] Control Outcome: Ongoing (Interventions Implemented as Appropriate) 05/11/19204405/11/19230905/12/19 032 Safety Interventions Isolation Precautions standard precautions maintained [...] Conf Outcome: Ongoing (Interventions Implemented as Appropriate) 05/12/19 0321 Interdisciplinary Rounds/Family Conf Participants nursing;patient;physician Problem: Cardiac: ACS (Acute Coronary Syndrome) (Adult) Intervention: Support Psychosocial Response to Life-changing Event/Hospitalization 05/11/19 2310 Coping Strategies Supportive Measures active listening utilized;self-care [...] CPG). Outcome: Ongoing (Interventions Implemented as Appropriate) 05/12/19 032 Cardiac: ACS (Acute Coronary Syndrome) Problems Assessed [...] myocardial infarction (NSTEMI) CARDIAC CATHETERIZATION Routine 05/12/20 9:43 AM EDT HEPARIN (UNFRACTIONATED) LEVEL STAT 05/12/2019 4:04 AM EDT HEMOGRAM Routine 05/12/2019 4:04 AM EDT DIFFERENTIAL, AUTOMATED Routine 05/12/20 4:04 AM EDT CREATININE Routine 05/12/2019 4:04 [...] (Bezet) 427 ms MUSE SYSTEM Calculated P Golf 39 degrees MUSE SYSTEM Calculated R Golf -9 degrees MUSE SYSTEM Calculated T Golf -29 degrees MUSE SYSTEM INTERPRETATION Normal sinus [...] (ABNORMAL) Differential, Automated (05/13/2019 5:53 AM EDT) Neutrophil % 59.9 % [facility] Neutrophil Absolute 6.37(H) 1.70 - 6.10 x10(3)/[facility] Lymph % 28.5 % [facility] Lymphocytes Abs 3.0 0.9 - 3.2 x10(3)/[facility] Monocyte % 9.3 % [facility] Monocyte Abs 1.0(H) 0.3 - 0.9 x10(3)/[facility] Eos % 1.3 % [facility] Eosinophils Abs 0.1 0.0 - 0.4 x10(3)/[facility] Basophil % 0.7 % [facility] Baso Absolute 0.1 0.0 - 0.1 x10(3)/[facility] Immature Gran % 0.30 % [facility] Comment: Immature granulocytes(IG's)percentage and absolute count will include metamyelocytes, myelocytes, and promyelocytes. Blood smears from CBCs yielding IG's will be scanned manually for concordance. If this scan disagrees with the automated IG or if promyelocytes are noted, a manual differential will be performed. Immature Gran Absolute 0.03 0.00 - 0.04 x10(3)/[facility] Blood specimen (specimen) 05/13/2019 5:53 AM EDT 05/13/2019 6:23 AM EDT Narrative Resulting Agency Comment Spec In Lab Yaritza Victoria SOCIAL MEDIA EDITOR HEMATOLOGY ORDERABLE S [facility] [place] [address] * (ABNORMAL) Hemogram (05/13/2019 5:53 AM EDT) White Blood Cell 10.6(H) 4.0 - 9.5 x10(3)/mc L [facility] Red Blood Cell 4.19(L) 4.58 - 5.54 x10(6)/mc L [facility] Hemoglobin 13.8 13.7 - 16.5 gm/dL [facility] Hematocrit 38.3(L) 40.5 - 48.5 % [facility] Mean Cell Volume 91.4 82.9 - 93.1 fL [facility] Mean Cell Hemoglobin 32.9(H) 27.5 - 32.1 pg [facility] Mean Cell Hemoglobin Concentration 36.0(H) 32.0 - 35.7 gm/dL [facility] Platelet 194 145 - 357 x10(3)/mc L [facility] RDW Standard Deviation 47.3(H) 36.0 - 45.0 [facility] [place] [facility] RDW coefficient of variation 14.2(H) 11.4 - 13.8 % [facility] Mean Platelet Volume 10.6 7.6 - 12.9 [facility] [place] [facility] NRBC% auto 0.0 % [facility] NRBC Absolute 0.000 0.000 - 0.000 x10(3)/mc L [facility] Blood specimen (specimen) 05/13/2019 5:53 AM EDT 05/13/2019 6:23 AM EDT Narrative Resulting Agency Comment Spec In Lab Yaritza Victoria SOCIAL MEDIA EDITOR HEMATOLOGY ORDERABLE S [facility] [place] [address] * Magnesium (05/13/2019 5:53 AM EDT) Magnesium 0.87 0.69 - 1.07 mmol/L [facility] Blood specimen (specimen) 05/13/2019 5:53 AM EDT 05/13/2019 6:23 AM EDT Narrative Resulting Agency Comment Spec In Lab Yaritza Marla Victoria APRN CHEMISTRY ORDERABLES [facility] [place] [address] * (ABNORMAL) BMP w/fasting Glucose (05/13/2019 5:53 AM EDT) Glucose Fasting 114(H) 65 - 99 mg/dL [facility] Comment: ?Fasting* Glucose Interpretive Criteria [...] of Diabetes Mellitus, Position Statement from the [place] [employer]. ??Diabetes Care, Volume 33, Supplement 1, Nov 2009 Blood Urea Nitrogen 15 10 - 20 mg/dL [facility] Creatinine 0.89 0.80 - 1.50 mg/dL [facility] Sodium 142 135 - 145 mmol/L [facility] Potassium 4.1 3.5 - 5.0 mmol/L [facility] Comment: Please note: ??Patients with WBC >100,000 may have falsely elevated Potassium levels. ??For accurate Potassium quantification in these patients send serum separator tube (gold top) for subsequent determinations. ??Contact the Clinical Chemistry Laboratory if there are any questions. Chloride 105 98 - 107 mmol/L [facility] Carbon Dioxide 25 22 - 31 mmol/L [facility] Anion Gap 12 5 - 15 mmol/L [facility] Calcium 8.7 8.5 - 10.5 mg/dL [facility] Est Glomerular Filtration Rate 102 >=60 mL/min/1. 73 m?? [facility] Comment: The eGFR was calculated using the CKD-EPI equation. As with all creatinine based estimates of kidney function, eGFR values calculated with the CKD-EPI equation are not accurate in patients with acute kidney failure, extremes of body mass or the acutely ill. [email or web address] TCRnkf eGFR 118 >=60 mL/min/1. 73 m?? [facility] Comment: The eGFR was calculated using the CKD-EPI equation. As with all creatinine based estimates of kidney function, eGFR values calculated with the CKD-EPI equation are not accurate in patients with acute kidney failure, extremes of body mass or the acutely ill. [email or web address]/[facility]GE[facility]kf Blood specimen (specimen) 05/13/2019 5:53 AM EDT 05/13/2019 6:23 AM EDT Narrative Resulting Agency Comment Spec In Lab Yaritza Victoria APRN CHEMISTRY ORDERABLES [facility] [place] [address] * (ABNORMAL) Troponin (05/13/2019 12:07 AM EDT) Troponin-T 0.84(H) 0.00 - 0.00 ng/mL [facility] Comment: The 99th percentile for Troponin T is less than 0.01 ng/mL, any detectable cTnT concentration using this assay should be considered elevated. According to the third universal definition of myocardial infarction the following criteria with a clinical presentation consistent with acute myocardial ischemia meets the diagnosis for a myocardial infarction (ID). Detection of a rise and/or fall of cTnT, with at least one value greater than the 99th percentile (> or = 0.01) and with at least one of the following ?? Symptoms of ischemia ?? New or presumed new significant LN-qcszxto-X wave (ST-T) changes or new left bundle [...] additional sample may be indicated. Reference: Third [place] Definition of Myocardial Infarction. Journal of the [place] [employer] 2012;60:1581-98 Blood specimen (specimen) 05/13/2019 12:07 AM EDT 05/13/2019 12:28 AM EDT Narrative Resulting Agency Comment Spec In Lab Luis Enrique Brandon MD CHEMISTRY ORDER EL [facility] [place] [address] * (ABNORMAL) Troponin (05/12/2019 5:01 PM EDT) Troponin-T 1.30(H) 0.00 - 0.00 ng/mL [facility] Comment: The 99th percentile for Troponin T is less than 0.01 ng/mL, any detectable cTnT concentration using this assay should be considered elevated. According to the third universal definition of myocardial infarction the following criteria with a clinical presentation consistent with acute myocardial ischemia meets the diagnosis for a myocardial infarction (ID). Detection of a rise and/or fall of cTnT, with at least one value greater than the 99th percentile (> or = 0.01) and with at least one of the following ?? Symptoms of ischemia ?? New or presumed new significant KK-iwmeajx-Q wave (ST-T) changes or new left bundle [...] additional sample may be indicated. Reference: Third [place] Definition of Myocardial Infarction. Journal of the [place] [employer] 2012;60:1581-98 Blood specimen (specimen) Venous Draw / Unknown 05/12/2019 5:01 PM EDT 05/12/2019 5:20 PM EDT Narrative Resulting Agency Comment Spec In Lab Luis Enrique Brandon MD CHEMISTRY ORDER EL Performing Organization Address [facility]/ZIP Co de Phone Number [facility] [place] [address] * Magnesium (05/12/2019 5:01 PM EDT) Magnesium 0.86 0.69 - 1.07 mmol/L [facility] Blood specimen (specimen) 05/12/2019 5:01 PM EDT 05/12/2019 5:20 PM EDT Narrative Resulting Agency Comment Spec In Lab Yaritza Victoria APRN CHEMISTRY ORDERABLES Performing Organization Address [facility] Co de Phone Number [facility] [place] [address] * Electrolytes panel (05/12/2019 5:01 PM EDT) Sodium 138 135 - 145 mmol/L [facility] Potassium 4.1 3.5 - 5.0 mmol/L [facility] Comment: Please note: ??Patients with WBC >100,000 may have falsely elevated Potassium levels. ??For accurate Potassium quantification in these patients send serum separator tube (gold top) for subsequent determinations. ??Contact the Clinical Chemistry Laboratory if there are any questions. Chloride 101 98 - 107 mmol/L [facility] LABORATORY Carbon Dioxide 27 22 - 31 mmol/L [facility] Anion Gap 10 5 - 15 mmol/L [facility] Blood specimen (specimen) 05/12/2019 5:01 PM EDT 05/12/2019 5:20 PM EDT Narrative Resulting Agency Comment Spec In Lab Yaritza Vicotria SOCIAL MEDIA EDITOR CHEMISTRY ORDERABLES Performing Organization Address City/[facility]/ZIP Co de Phone Number [facility] [place] [address] * EKG 12 Lead (05/12/2019 4:28 PM EDT) Ventricular rate 69 BPM MUSE SYSTEM Atrial Rate 69 BPM MUSE SYSTEM P-R Interval 140 ms MUSE SYSTEM QRS Duration 88 ms MUSE SYSTEM Q-T Interval 412 ms MUSE SYSTEM QTC Calculated (Bezet) 441 ms MUSE SYSTEM Calculated R Golf -19 degrees MUSE SYSTEM Calculated T Golf -34 degrees MUSE SYSTEM INTERPRETATION Normal sinus rhythm Voltage criteria for left ventricular hypertrophy Nonspecific ST abnormality Abnormal ECG When compared with ECG of 12-MAY-2019 10:14, No significant change was found Confirmed by MD JOSIE, GRAHAM ([id number]) on 05/13/2019 1:34:16 PM MUSE SYSTEM 05/12/2019 4:28 PM EDT 05/13/2019 1:34 PM EDT Yaritza Victoria SOCIAL MEDIA EDITOR ECG ORDERABLES MUSE SYSTEM * ECHO COMPLETE (05/12/2019 1:37 PM EDT) EF 64 HEARTLAB SYSTEM Anatomical Region Laterality Modality Other 05/12/2019 Narrative 05/12/2019 2:28 PM EDT Procedure: ?Transthoracic Echocardiogram Patient: ?ISMAEL FRYE T ?(Age): 1970(48y) Med Rec#: ? [id number] ?Sex: ?M ? [place] ? [facility] [place]Ht / Wt: ??183(cm)/106.8(k Pt. Loc: ?Adult Floor ? BSA: ?2.28 Study Date: ?? 05/12/2019 ?Pt. Type: Inpatient Tape: ? Referring: RILEY Reading: Lizzy Askew ([id number]) Taker Away: Kareem Breanne Diagnosis: *Non-ST elevation (NSTEMI) myocardial infarction (I21.4) [...] E-wave Vmax ?0.9 ?m/sec ? MV deceleration odcy454.8 ?msec ? MV A-wave Vmax ?0.8 ?m/sec [...] ? Mid-Inferior ?Normal ? Mid-Inferoseptal ?Normal ? [place]-Septal ? Normal ? [place]-Anterior ? Normal ? [place]-Lateral ?Hypokinetic ? [place]-Inferior ? Normal ? [place]-Tip ?Normal ? This report has been electronically signed by: Lizzy Askew MD ? 05/12/2019 14:27:34 Images reviewed and interpretation verified [facility] Cardiac Ultrasound Laboratory Procedure Note Lizzy Askew MD - 05/12/2019 Procedure: Transthoracic Echocardiogram Patient: ISMAEL Proctor DOB(Age): 1970(48y) Med Rec#: [id number] Sex: M [place] [facility] Ht / Wt: 183(cm)/106.8(k Pt. Loc: Adult Floor BSA: 2.28 Study Date: 05/12/2019 Pt. Type: Inpatient Tape: Referring: RILEY Reading: Stephanie Lizzy ([id number]) Taker Away: KareemBreanne Diagnosis: *Non-ST elevation (NSTEMI) myocardial infarction (I21.4) [...] MV E-wave Vmax 0.9 m/sec MV deceleration mxwx884.8 msec MV A-wave Vmax 0.8 m/sec MV [...] Akinetic Mid-Posterolateral Akinetic Mid-Inferior Normal Mid-Inferoseptal Normal [place]-Septal Normal [place]-Anterior Normal [place]-Lateral Hypokinetic [place]-Inferior Normal [place]-Tip Normal This report has been electronically signed by: Lizzy Askew MD 05/12/2019 14:27:34 Images reviewed and interpretation verified [facility] Cardiac Ultrasound Laboratory Luis Enrique Brandon MD ECHO ORDERABLES * EKG 12 Lead (05/12/2019 10:14 AM EDT) Ventricular rate 67 BPM MUSE SYSTEM Atrial Rate 67 BPM MUSE SYSTEM P-R Interval 150 ms MUSE SYSTEM QRS Duration 78 ms MUSE SYSTEM Q-T Interval 422 ms MUSE SYSTEM QTC Calculated (Bezet) 445 ms MUSE SYSTEM Calculated R Golf -19 degrees MUSE SYSTEM Calculated T Golf -29 degrees MUSE SYSTEM INTERPRETATION Normal sinus [...] Modality Other Narrative 05/12/2019 10:09 AM EDT ?[facility] ? Cardiac Catheterization/Intervention Report ? Patient Name: Jarvis Padron ? Procedure Date: 05/12/2019 ? A #: [id number] ? Primary Physician: Camila Lawson V ? Case #: [id number] ? File Name: [id number] ? Catheterization Order Number: [id number] ? [facility] ? Final Report [place], [place] ? Patient Name: ? Jarvis Padron ? ID#: ?[id number] ? : ?1970 ? Procedure Date: ? May 12, 2019 ? Case #: ? [id number] ? Room: ? 1 ? Case Physician: [...] was designated as ASA Class IV. ?The [facility] clinical frailty scale is 2: Well. ? Diagnostic Tests: ?Electrocardiography: ? EKG was assessed by EKG. EKG was Abnormal. EKG showed T-wave ? inversions. ?Medications Prior to Procedure: ? ASA and Statin. ? Indications for Diagnostic Cath: ?The priority of the diagnostic procedure was Urgent. 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 ? Vessel flow pre intervention was DENISE 0. Lesion length was ? 15mm. ? Stent insertion was accomplished through a 6 Fr. EBU 3.0 ? guide. ??The lesion was predilated with a 2.00mm EUPHORA 12 MM ? balloon with a maximum inflation pressure of 12 atmospheres. ? A premounted 2.75 x 26 mm Resolute REMY (DELMER) was deployed ? 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 ?Recommend continuing clopidogrel 75 mg PO [...] Procedure Note Camila Lawson MD - 05/12/2019 [facility] Cardiac Catheterization/Intervention Report Patient Name: Jarvis Padron Procedure Date: 05/12/2019 A #: [id number] Primary Physician: Camila Lawson V Case #: [id number] File Name: [id number] Catheterization Order Number: [id number] [facility] FinalReport [place], [place] Patient Name: Jarvis Padron ID#:[id number] :1970 Procedure Date: May 12, 2019 Case [...] patient was designated as ASAClass IV. The [facility] clinical frailty scale is 2: Well. Diagnostic Tests: Electrocardiography: EKG was assessed by EKG. EKG was Abnormal. EKG showed T-wave inversions. Medications Prior to Procedure: ASA and Statin. Indications for Diagnostic Cath: The priority of the diagnostic procedure was Urgent. 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 Intervention [...] The lesion was predilated with a 2.00mm [id number] MM balloon with a maximum inflation pressure of 12atmospheres. 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 Recommend continuing clopidogrel 75 mg PO [...] 4:04 AM EDT) UF Heparin 0.12 IU/mL [facility] Comment: Guidelines for therapeutic unfractionated [...] In Lab Luis Enrique Brandon MD HEMATOLOGY ORDE DAVE Performing Organization Address City/[facility]/ZIP Co de Phone Number [facility] [place] [address] * (ABNORMAL) Troponin (05/12/2019 4:04 AM EDT) [facility] Troponin-T 0.92(H) 0.00 - 0.00 ng/mL [facility] Comment: result rechecked-ssd The 99th percentile for Troponin T is less than 0.01 ng/mL, any detectable cTnT concentration using this assay should be considered elevated. According to the third universal definition of myocardial infarction the following criteria with a clinical presentation consistent with acute myocardial ischemia meets the diagnosis for a myocardial infarction (ID). Detection of a rise and/or fall of cTnT, with at least one value greater than the 99th percentile (> or = 0.01) and with at least one of the following ?? Symptoms of ischemia ?? New or presumed new significant TT-wmqwpmf-X wave (ST-T) changes or new left bundle [...] additional sample may be indicated. Reference: Third [place] Definition of Myocardial Infarction. Journal of the [place] [employer] 2012;60:1581-98 Blood specimen (specimen) 05/12/2019 4:04 AM EDT 05/12/2019 4:17 AM EDT Narrative Resulting Agency Comment Spec In Lab Luis Enrique Brandon MD CHEMISTRY ORDER EL Performing Organization Address City/[facility]/ZIP Co de Phone Number [facility] [place] [address] * (ABNORMAL) Differential, Automated (05/12/2019 4:04 AM EDT) [facility] Neutrophil % 62.1 % [facility] Neutrophil Absolute 7.10(H) 1.70 - 6.10 x10(3)/mc L [facility] Lymph % 26.7 % [facility] Lymphocytes Abs 3.0 0.9 - 3.2 x10(3)/[facility] LABORATORY Monocyte % 8.1 % [facility] Monocyte Abs 0.9 0.3 - 0.9 x10(3)/[facility] LABORAT[facility] Eos % 1.6 % [facility] Eosinophils Abs 0.2 0.0 - 0.4 x10(3)/[facility] LABORAT[facility] Basophil % 0.8 % [facility] Baso Absolute 0.1 0.0 - 0.1 x10(3)/[facility] LABORAT[facility] Immature Gran % 0.70 % [facility] Comment: Immature granulocytes(IG's)percentage and absolute count will include metamyelocytes, myelocytes, and promyelocytes. Blood smears from CBCs yielding IG's will be scanned manually for concordance. If this scan disagrees with the automated IG or if promyelocytes are noted, a manual differential will be performed. Immature Gran Absolute 0.08(H) 0.00 - 0.04 x10(3)/[facility] Blood specimen (specimen) 05/12/2019 4:04 AM EDT 05/12/2019 4:17 AM EDT Narrative Resulting Agency Comment Spec In Lab Luis Enrique Brandon MD HEMATOLOGY FRANCISCO ACOSTA [facility] [place] [address] * (ABNORMAL) Hemogram (05/12/2019 4:04 AM EDT) White Blood Cell 11.4(H) 4.0 - 9.5 x10(3)/[facility] Red Blood Cell 4.10(L) 4.58 - 5.54 x10(6)/[facility] Hemoglobin 13.3(L) 13.7 - 16.5 gm/dL [facility] Hematocrit 37.5(L) 40.5 - 48.5 % [facility] Mean Cell Volume 91.5 82.9 - 93.1 fL [facility] Mean Cell Hemoglobin 32.4(H) 27.5 - 32.1 pg [facility] Mean Cell Hemoglobin Concentration 35.5 32.0 - 35.7 gm/dL [facility] Platelet 182 145 - 357 x10(3)/mc L [facility] RDW Standard Deviation 45.4(H) 36.0 - 45.0 fL [facility] RDW coefficient of variation 13.5 11.4 - 13.8 % [facility] Mean Platelet Volume 10.6 7.6 - 12.9 fL [facility] NRBC% auto 0.0 % [facility] NRBC Absolute 0.000 0.000 - 0.000 x10(3)/mc L [facility] Blood specimen (specimen) 05/12/2019 4:04 AM EDT 05/12/2019 4:17 AM EDT Narrative Resulting Agency Comment Spec In Lab Luis Enrique Brandon MD HEMATOLOGY FRANCISCO ACOSTA [facility] [place] [address] * Hemoglobin A1c (05/12/2019 4:04 AM EDT) Hemoglobin A1c 5.1 4.3 - 5.6 % [facility] Comment: Reference Range: 4.3 - [...] 1, S67-74 Estimated Average Glucose 100 mg/dL [facility] Comment: eAG equivalents for HbA1c percentages: HbA1c(%) ?eAG(mg/dL) 6.0 ?126 6.5 ?140 7.0 ?154 7.5 ?169 8.0 ?183 8.5 ?197 9.0 ?212 9.5 ?226 10.0 ? 240 Limitations: The eAG calculation has not been validated on women, individuals below 18 years old and above 70 years old, and individuals with hemoglobinopathies. Additional resources are available on the ADA website. Martin CARROLL, Echo J, Joey R, et al. ??Translating the A1C assay into estimated average glucose values. ??Diabetes Care 2008:31(8):9145-5268. Blood specimen (specimen) 05/12/2019 4:04 AM EDT 05/12/2019 4:17 AM EDT Narrative Resulting Agency Comment Spec In Lab Luis Enrique Brandon MD CHEMISTRY ORDER EL [facility] [place] [address] * Creatinine (05/12/2019 4:04 AM EDT) Creatinine 0.82 0.80 - 1.50 mg/dL [facility] Est Glomerular Filtration Rate 105 >=60 mL/min/1.7 3 m?? [facility] Comment: The eGFR was calculated using the CKD-EPI equation. As with all creatinine based estimates of kidney function, eGFR values calculated with the CKD-EPI equation are not accurate in patients with acute kidney failure, extremes of body mass or the acutely ill. [email or web address]/[facility] MUS[facility]GEEnkf eGFR 122 >=60 mL/min/1.7 3 m?? [facility] Comment: The eGFR was calculated using the CKD-EPI equation. As with all creatinine based estimates of kidney function, eGFR values calculated with the CKD-EPI equation are not accurate in patients with acute kidney failure, extremes of body mass or the acutely ill. [email or web address]/DHMCnkf Blood specimen (specimen) 05/12/2019 4:04 AM EDT 05/12/2019 4:17 AM EDT Narrative Resulting Agency Comment Spec In Lab Luis Enrique Brandon MD CHEMISTRY ORDER EL Performing Organization Address [facility] Co de Phone Number [facility] [place] [address] * BUN (05/12/2019 4:04 AM EDT) Blood Urea Nitrogen 13 10 - 20 mg/dL [facility] Blood specimen (specimen) 05/12/2019 4:04 AM EDT 05/12/2019 4:17 AM EDT Narrative Resulting Agency Comment Spec In Lab Luis Enrique Brandon MD CHEMISTRY ORDER EL Performing Organization Address [facility] Co de Phone Number [facility] [place] [phone] * Electrolytes panel (05/12/2019 4:04 AM EDT) Sodium 139 135 - 145 mmol/L [facility] Potassium 4.1 3.5 - 5.0 mmol/L [facility] Comment: Please note: ??Patients with WBC >100,000 may have falsely elevated Potassium levels. ??For accurate Potassium quantification in these patients send serum separator tube (gold top) for subsequent determinations. ??Contact the Clinical Chemistry Laboratory if there are any questions. Chloride 106 98 - 107 mmol/L [facility] Carbon Dioxide 24 22 - 31 mmol/L [facility] Anion Gap 9 5 - 15 mmol/L [facility] Blood specimen (specimen) 05/12/2019 4:04 AM EDT 05/12/2019 4:17 AM EDT Narrative Resulting Agency Comment Spec In Lab Luis Enrique Brandon MD CHEMISTRY ORDER EL [facility] [place] [address] * Lipid Panel (05/12/2019 4:04 AM EDT) Cholesterol, Total 239 mg/dL [facility] Comment: Lower Risk: <200 mg/dL Average Risk: 200-239 mg/dL Higher Risk: >nu=125 mg/dL Triglyceride 235 mg/dL [facility] Comment: Average Risk/Lower Risk: <150 mg/dL Borderline High Risk: 150-199 mg/dL High Risk: 200-499 mg/dL Very High Risk: >sh=050 mg/dL HDL Cholesterol 37 mg/dL [facility] Comment: Males: ?? Higher Risk: <40 mg/dL Females: ?? HIgher Risk: <50 mg/dL LDL Cholesterol 155 mg/dL [facility] Comment: Lowest Risk: <100 mg/dL Lower Risk: 100-129 mg/dL Borderline High Risk: 130-159 mg/dL High Risk: 160-189 mg/dL Very High Risk: >bm=951 mg/dL Cholesterol/HDL Ratio 6.5 ratio [facility] Lipid Interpretation See Note [facility] Comment: Lipid management should be guided by a patient? s ASCVD risk, goals and preferences. ACC/AHA Guidelines recommend high intensity statin if clinical ASCVD or LDL greater than or equal to 190 mg/dL. http://Dodonationurl.com/JUU-KOR-Npkmczpzd Adults aged 40-75 with LDL 70-189 mg/dL should have their 10 year ASCVD risk estimated with the ACC/AHA ASCVD risk regulatory and compliance technician http://tools.acc.org/XJIRH-Ztky-Mjctrfdai/ Statin should be discussed if risk greater [...] Luis Enrique Brandon MD CHEMISTRY ORDER EL [facility] [place] [address] * (ABNORMAL) Troponin (05/11/2019 10:00 PM EDT) Troponin-T 0.32(H) 0.00 - 0.00 ng/mL [facility] Comment: The 99th percentile for Troponin T is less than 0.01 ng/mL, any detectable cTnT concentration using this assay should be considered elevated. According to the third universal definition of myocardial infarction the following criteria with a clinical presentation consistent with acute myocardial ischemia meets the diagnosis for a myocardial infarction (ID). Detection of a rise and/or fall of cTnT, with at least one value greater than the 99th percentile (> or = 0.01) and with at least one of the following ?? Symptoms of ischemia ?? New or presumed new significant LW-zrgcsrw-B wave (ST-T) changes or new left bundle [...] additional sample may be indicated. Reference: Third [place] Definition of Myocardial Infarction. Journal of the [place] [employer] 2012;60:1581-98 Blood specimen (specimen) Venous Draw / Unknown 05/11/2019 10:00 PM EDT 05/11/2019 10:09 PM EDT Narrative Resulting Agency Comment Spec In Lab Luis Enrique Brandon MD CHEMISTRY ORDER EL Performing Organization Address [facility] Co de Phone Number [facility] [place] [address] * Lavender Tube HOLD (05/11/2019 10:00 PM EDT) Lavender Hold Sample in lab. [facility] Blood specimen (specimen) Venous Draw / Unknown 05/11/2019 10:00 PM EDT 05/11/2019 10:09 PM EDT Luis Enrique Brandon MD HEMATOLOGY ORDE RABLES Performing Organization Address [facility] Co de Phone Number [facility] [place] [address] * Heparin (unfractionated) Level (05/11/2019 10:00 PM EDT) Pathologist [facility] UF Heparin 0.18 IU/mL [facility] Comment: Guidelines for therapeutic unfractionated [...] MD HEMATOLOGY ORDVivian ACOSTA Performing Organization Address [facility] Co de Phone Number [facility] [place] [address] * (ABNORMAL) APTT (05/11/2019 10:00 PM EDT) Partial Thromboplastin Time 42(H) 25 - 37 sec [facility] Comment: The PTT is NOT appropriate for heparin monitoring. Use the Anti-Xa level for heparin monitoring (HEP UFH) or LMWH monitoring (HEP LMW). A PTT less than 37 seconds generally indicates adequate hemostasis. Blood specimen (specimen) 05/11/2019 10:00 PM EDT 05/11/2019 10:09 PM EDT Narrative Resulting Agency Comment Spec In Lab Luis Enrique Brandon MD HEMATOLOGY ORDVivian ACOSTA Performing Organization Address [facility] Co de Phone Number [facility] [place] [address] * (ABNORMAL) Differential, Automated (05/11/2019 10:00 PM EDT) Neutrophil % 61.3 % [facility] Neutrophil Absolute 6.41(H) 1.70 - 6.10 x10(3)/mc L [facility] Lymph % 28.9 % [facility] Lymphocytes Abs 3.0 0.9 - 3.2 x10(3)/mc L [facility] Monocyte % 7.4 % [facility] Monocyte Abs 0.8 0.3 - 0.9 x10(3)/mc L [facility] Eos % 1.3 % [facility] Eosinophils Abs 0.1 0.0 - 0.4 x10(3)/mc L [facility] Basophil % 0.7 % [facility] Baso Absolute 0.1 0.0 - 0.1 x10(3)/[facility] LABORAT[facility] Immature Gran % 0.40 % [facility] Comment: Immature granulocytes(IG's)percentage and absolute count will include metamyelocytes, myelocytes, and promyelocytes. Blood smears from CBCs yielding IG's will be scanned manually for concordance. If this scan disagrees with the automated IG or if promyelocytes are noted, a manual differential will be performed. Immature Gran Absolute 0.04 0.00 - 0.04 x10(3)/[facility] Blood specimen (specimen) 05/11/2019 10:00 PM EDT 05/11/2019 10:09 PM EDT Narrative Resulting Agency Comment Spec In Lab Luis Enrique Brandon MD HEMATOLOGY FRANCISCO ACOSTA [facility] [place] [address] * (ABNORMAL) Hemogram (05/11/2019 10:00 PM EDT) White Blood Cell 10.4(H) 4.0 - 9.5 x10(3)/[facility] Red Blood Cell 4.27(L) 4.58 - 5.54 x10(6)/[facility] Hemoglobin 13.9 13.7 - 16.5 gm/dL [facility] Hematocrit 38.3(L) 40.5 - 48.5 % [facility] Mean Cell Volume 89.7 82.9 - 93.1 fL [facility] Mean Cell Hemoglobin 32.6(H) 27.5 - 32.1 pg [facility] Mean Cell Hemoglobin Concentration 36.3(H) 32.0 - 35.7 gm/dL [facility] Platelet 209 145 - 357 x10(3)/[facility] RDW Standard Deviation 44.0 36.0 - 45.0 fL [facility] RDW coefficient of variation 13.4 11.4 - 13.8 % [facility] Mean Platelet Volume 11.0 7.6 - 12.9 [facility] NRBC% auto 0.0 % [facility] NRBC Absolute 0.000 0.000 - 0.000 x10(3)/mc L [facility] Blood specimen (specimen) 05/11/2019 10:00 PM EDT 05/11/2019 10:09 PM EDT Narrative Resulting Agency Comment Spec In Lab Luis Enrique Brandon MD HEMATOLOGY FRANCISCO ACOSTA Performing Organization Address City/[facility]/ZIP Co de Phone Number [facility] [place] [address] * (ABNORMAL) pro-Brain Natriuretic Peptide (05/11/2019 10:00 PM EDT) NT-proBNP 313(H) <=125 pg/mL [facility] Blood specimen (specimen) 05/11/2019 10:00 PM EDT 05/11/2019 10:09 PM EDT Narrative Resulting Agency Comment Spec In Lab Luis Enrique Brandon MD CHEMISTRY ORDER EL Performing Organization Address City/[facility]/ZIP Co de Phone Number [facility] [place] [address] * Magnesium (05/11/2019 10:00 PM EDT) Magnesium 0.79 0.69 - 1.07 mmol/L [facility] Blood specimen (specimen) 05/11/2019 10:00 PM EDT 05/11/2019 10:09 PM EDT Narrative Resulting Agency Comment Spec In Lab Luis Enrique Brandon MD CHEMISTRY ORDER EL [facility] [place] [address] * (ABNORMAL) Basic Metabolic Panel (non-fasting) (05/11/2019 10:00 PM EDT) Glucose 107 65 - 199 mg/dL [facility] Comment:Diabetes: >=200 mg/d L plus symptoms Blood Urea Nitrogen 16 10 - 20 mg/dL [facility] Creatinine 0.76(L) 0.80 - 1.50 mg/dL [facility] Sodium 140 135 - 145 mmol/L [facility] Potassium 3.7 3.5 - 5.0 mmol/L [facility] Comment: Please note: ??Patients with WBC >100,000 may have falsely elevated Potassium levels. ??For accurate Potassium quantification in these patients send serum separator tube (gold top) for subsequent determinations. ??Contact the Clinical Chemistry Laboratory if there are any questions. Chloride 105 98 - 107 mmol/L [facility] Carbon Dioxide 21(L) 22 - 31 mmol/L [facility] Anion Gap 14 5 - 15 mmol/L [facility] Calcium 8.7 8.5 - 10.5 mg/dL [facility] Est Glomerular Filtration Rate 109 >=60 mL/min/1. 73 m?? [facility] Comment: The eGFR was calculated using the CKD-EPI equation. As with all creatinine based estimates of kidney function, eGFR values calculated with the CKD-EPI equation are not accurate in patients with acute kidney failure, extremes of body mass or the acutely ill. [email or web address]/[facility] MUSKOGEEnkf eGFR 126 >=60 mL/min/1. 73 m?? [facility] Comment: The eGFR was calculated using the CKD-EPI equation. As with all creatinine based estimates of kidney function, eGFR values calculated with the CKD-EPI equation are not accurate in patients with acute kidney failure, extremes of body mass or the acutely ill. [email or web address]/[facility]Enkf Blood specimen (specimen) 05/11/2019 10:00 PM EDT 05/11/2019 10:09 PM EDT Narrative Resulting Agency Comment Spec In Lab Luis Enrique Brandon MD CHEMISTRY ORDER EL Performing Organization Address [facility] [facility] Co de Phone Number [facility] [place] [address] * EKG 12 Lead (05/11/2019 9:18 PM EDT) Ventricular rate 67 BPM MUSE SYSTEM Atrial Rate 67 BPM MUSE SYSTEM P-R Interval 156 ms MUSE SYSTEM QRS Duration 90 ms MUSE SYSTEM Q-T Interval 422 ms MUSE SYSTEM QTC Calculated (Bezet) 445 ms MUSE SYSTEM Calculated P Golf -111 degrees MUSE SYSTEM Calculated R Golf -16 degrees MUSE SYSTEM Calculated T Golf -23 degrees MUSE SYSTEM INTERPRETATION Unusual P axis, possible ectopic atrial rhythm Voltage criteria for left ventricular hypertrophy prominent U wave seen in V2 and V3, likely of no clinical significance Abnormal ECG No previous ECGs available Confirmed by MD JOSIE, GRAHAM ([id number]) on 05/12/2019 12:29:24 PM MUSE SYSTEM 05/11/2019 9:18 PM EDT 05/12/2019 12:29 PM EDT Gregg Eugene MD ECG ORDERABLES Performing Organization Address [facility] Co de Phone Number MUSE SYSTEM * Film Library- Storage Only DX Chest (05/11/2019 12:00 AM EDT) Narrative SHELLI - 05/12/2019 9:10 AM EDT This exam is auto-finalizing. It's purpose is for storage only. Gregg Eugene MD IMG FILM LIBRARY ORD ERABLES Performing Organization Address City/[facility] Co de Phone Number [place], [place] documented in this encounter Visit Diagnoses Not on filedocumented in this encounter Admitting Diagnoses Diagnosis NSTEMI [...] 05/11/19 at 2145, Until Discontinued, Routine Given 05/12/2019 [...] Given 05/12/2019 8:01 AM EDT 75 mg fentaNYL 50 mcg/mL multi-dose injection ONCE PRN, Starting on Wed05/12/19 at 0838, Until Wed05/12/19 at 1026, Intra-Operative (Intra-Procedure), Routine Given 05/12/2019 9:03 AM EDT 25 mcg Given 05/12/2019 8:38 AM EDT 25 mcg heparin (porcine) injection ONCE PRN, Starting on Wed05/12/19 at 0851, Until Wed05/12/19 at 1026, Cath (Intra-Procedure), Routine Given 05/12/2019 9:06 AM EDT 3,000 Units Given 05/12/2019 8:51 AM EDT 3,000 Units iohexol (OMNIPAQUE) 350 mg/mL solution ONCE PRN, Starting on Wed05/12/19 at 0939, Until Wed05/12/19 at 1026, Cath (Intra-Procedure), Routine Given 05/12/2019 9:39 AM EDT 112 mLs lidocaine (XYLOCAINE) 10 mg/mL (1 %) injection [...] Given 05/13/2019 8:32 AM EDT 12.5 mg midazolam (PF) (VERSED) multi-dose injection ONCE PRN, Starting on Wed05/12/19 at 0838, Until Wed05/12/19 at 1026, Cath (Intra-Procedure), Routine Given 05/12/2019 9:03 AM EDT 1 mg Given 05/12/2019 8:38 AM EDT 1 mg niCARdipine (CARDENE) in sodium chloride 0.9% injection ONCE PRN, Starting on Wed05/12/19 at 0931, Until Wed05/12/19 at 1026, Intra-Operative (Intra-Procedure), Routine Given 05/12/2019 9:31 AM EDT 200 mcg nitroGLYcerin (NITROSTAT) SL tablet 0.4 mg 0.4 [...] 05/11/2019 9:32 PM EDT 0.4 mg nitroGLYcerin 100 mcg/mL intracoronary dilution ONCE PRN, Starting on Wed05/12/19 at 0845, Until Wed05/12/19 at 1026, Cath (Intra-Procedure), Routine Given 05/12/2019 9:13 AM EDT 200 mcg Given 05/12/2019 8:45 AM EDT 150 mcg pantoprazole (PROTONIX) tablet 40 mg 40 mg, Oral, DAILY, First dose on Wed05/12/19 at 0900, Until Discontinued, DO NOT CRUSH OR OPEN, Routine Given 05/13/2019 8:23 AM EDT 40 mg Given 05/12/2019 8:01 AM EDT 40 mg sertraline (ZOLOFT) tablet 100 mg 100 mg, Oral, DAILY, First dose on Wed05/12/19 at 0900, Until Discontinued, Routine Given 05/13/2019 8:23 AM EDT 100 mg Given 05/12/2019 8:01 AM EDT 100 mg sodium chloride 0.9 % (flush) flush 5 mL 5 mL, Intravenous, 2 TIMES DAILY, First dose on Wed05/11/19 at 2145, Until Discontinued, Routine Given 05/13/2019 8:23 AM EDT 5 mLs Given 05/12/2019 9:00 PM EDT 5 mLs Given 05/12/2019 8:01 AM EDT 5 mLs sodium chloride 0.9 % (flush) flush 5-20 mL 5-20 mL, Intravenous, EVERY 1 MIN PRN, Starting on Wed05/11/19 at 2050, Until 05/13/19 at 1415, flush, Flush pertains to all indwelling lines. Flush per protocol found in the job aid using the link provided on this medication record., Routine verapamil (ISOPTIN) injection ONCE PRN, Starting on Wed05/12/19 at 0845, Until Wed05/12/19 at 1026, Administer over 2 Minutes, Cath (Intra-Procedure) Given 05/12/2019 8:45 AM EDT 2.5 mg documented in this encounter Active and Recently Administered Medications Times are shown in EDT. Scheduled Medication Order 05/11/2019 05/12/2019 05/13/2019 aspirin chewable tablet 81 mg 81 mg, Oral, DAILY, First dose on Wed05/12/19 at 0900, Until Discontinued, Routine 0801 (Given - Provider: Chelsea Antonio RN)0817 (JAN Hold - Provider: Admin Adt - Reason: Transfer to a Procedural area)1026 ([facility] Unhold - Provider: Admin Adt) 0823 (Given - Provider: Chelsea Antonio RN) atorvastatin (LIPITOR) tablet 80 mg 80 mg, Oral, EVERY EVENING, First dose on Wed05/11/19 at 2145, Until Discontinued, Routine 2132 (Given - Provider: Vandana Gustafson RN) 0817 ([facility] Hold - Provider: Admin Adt - Reason: Transfer to a Procedural area)1026 ([facility] Unhold - Provider: Admin Adt)1708 (Given - Provider: Chelsea Antonio RN) clopidogrel (PLAVIX) tablet 75 mg 75 mg, Oral, DAILY, First dose on Wed05/12/19 at 0900, Until Discontinued, Routine 0801 (Given - Provider: Chelsea Antonio RN)0817 ([facility] Hold - Provider: Admin Adt - Reason: Transfer to a Procedural area)1026 ([facility] Unhold - Provider: Admin Adt) 0823 (Given - Provider: Chelsea Antonio RN) hydrALAZINE (APRESOLINE) tablet 10 mg (COMPLETED) 10 mg, Oral, ONCE, 1 dose, On Wed05/12/19 at 0215, Take with Food, Routine 0200 (Given - Provider: Vandana Gustafson RN) lisinopril (PRINIVIL;ZESTRIL) tablet 5 mg 5 mg, Oral, DAILY, First dose on Wed05/12/19 at 1330, Until Discontinued, Routine 1415 (Given - Provider: Chelsea Antonio RN) 0823 (Given - Provider: Chelsea Antonio RN) metoprolol (LOPRESSOR) tablet 12.5 mg 12.5 [...] - Reason: Transfer to a Procedural area)1026 ([facility] Unhold - Provider: Admin Adt) 0823 (Given - Provider: Chelsea Antonio RN) sodium chloride 0.9 % (flush) flush 5 mL 5 mL, Intravenous, 2 TIMES DAILY, First dose on Wed05/11/19 at 2145, Until Discontinued, Routine 214 (Not Given - Provider: Vandana Gustafson RN - Reason: See comment - Comment: IV infusing) 0801 (Given - Provider: Chelsea Antonio RN)0817 (JAN Hold - Provider: Admin Adt - Reason: Transfer to a Procedural area)1026 ([facility] Unhold - Provider: Admin Adt)2100 (Given - [...] Procedural area)0837 (Rate/Dose Change - Provider: Melani Goodwin, UNIQUE)0903 (Stopped - Provider: Melani Goodwin RN)1026 (JAN Unhold - Provider: Admin Adt) sodium chloride 0.9% infusion () 75 mL/hr, Intravenous, CONTINUOUS, Starting on Wed05/12/19 at 1015, Until Wed05/12/19 at 1214, Recovery (Recovery-Hospital Unit) 1015 (New Bag - Provider: Gurpreet Holloway RN)1215 (Stopped - Provider: Chelsea Antonio RN) PRN Medication Order 05/11/2019 05/12/2019 05/13/2019 [...] area)1026 (JAN Unhold - Provider: Admin Adt) calcium carbonate [...] RN)0903 (Given - Provider: Shad Burgos RN) heparin [...] 0508 (Given - Provider: Vandana Gustafson RN)0817 (JAN Hold - Provider: Admin Adt - Reason: Transfer to a Procedural area)1026 (JAN Unhold - Provider: Admin Adt) heparin (porcine) injection (CANCELED) ONCE PRN, Starting on Wed05/12/19 at 0851, Until Wed05/12/19 at 1026, Cath (Intra-Procedure), Routine 0851 (Given - Provider: Shad Burgos RN)0906 (Given - Provider: Shad Burgos RN) iohexol [...] Until Wed05/12/19 at 1026, Intra-Operative (Intra-Procedure), Routine 09 (Given - Provider: Jayda Frederick MD) nitroGLYcerin [...] Routine 2131 (Given - Provider: Vandana Gustafson RN)2137 (Given - Provider: Vandana Gustafson RN)2144 (Given - Provider: Vandana Gustafson RN) 08 (JAN Hold - Provider: Admin Adt - Reason: Transfer to a Procedural area)102 ([facility] Unhold - Provider: Admin Adt) nitroGLYcerin 100 [...] link provided on this medication record., Routine 08 (JAN Hold - Provider: Admin Adt - Reason: Transfer to a Procedural area)1026 ([facility] Unhold - Provider: Admin Adt) verapamil (ISOPTIN) [...] UA) documented in this encounter Care Teams R D Engineer Relationship Specialty Start Date End Date None None PCP - General 05/11/19 documented as of this encounter
--- OUTSIDE RECORDS SUMMARY | 2024-07-29 19:18 | XMS_ITS | Clinical Summary ---
Author Organization [facility] Address [address] [place] [address] Care Team Providers Care Stablehand Name Role Phone Unknown, Provider Primary Care Provider [phone] Social History Tobacco Use Types Packs/Day Years Used Date Smoking Tobacco: Never Assessed Interpersonal Safety Answer Date Record ed Physically Hurt Never 06/10/2020 Verbally Threaten Not on file 06/10/2020 Sex and Gender Information Value Date Recorded Sex Assigned at Not on file Gender Identity Not on file Sexual Orientation Not on file Plan of Treatment Health Maintenance Due Date Last Done Comments Hepatitis C Screen 1970 Hepatitis B Vaccine (1 of 3 - 19+ 3-dose series) 05/31 COVID-19 Vaccine ( season) 2023 Care Teams Stablehand Relationship Specialty Start Date End Date Unknown, ProviderMD PCP - General 09/23/16
--- OUTSIDE RECORDS SUMMARY | 2024-07-29 19:18 | XMS_ITS | Referral Summary ---
Author Organization [facility] Address [address] [place] [address] Care Team Providers Care Register Clerk Name Role Phone Unknown, Provider Primary Care Provider [phone] Social History Tobacco Use Types Packs/Day Years Used Date Smoking Tobacco: Never Assessed Interpersonal Safety Answer Date Record ed Physically Hurt Never 06/10/2020 Verbally Threaten Not on file 06/10/2020 Sex and Gender Information Value Date Recorded Sex Assigned at Not on file Gender Identity Not on file Sexual Orientation Not on file Plan of Treatment Not on file Care Teams Register Clerk Relationship Specialty Start Date End Date Unknown, Provider, PCP - General 09/23/16
--- OUTSIDE RECORDS SUMMARY | 2024-07-29 19:18 | XMS_ITS | Encounter Summary ---
Author Organization [facility] [place] [address] Care Team Providers Care Gunner'S Mate G Name Role Phone None Primary Care Provider Unavailabl e Encounter Details Date Type Department Care Team (Late st Contact Info) Description 05/11/2019 Ancillary Procedure Radiology Library at [facility] [place] [id number] Social History Tobacco Use Types Packs/Day Years [...] Procedure Name Priority Date/Time Associated Diagnosis Comments FILM LIBRARY STORAGE ONLY DX CHEST Routine 05/11/2019 12:00 AM EDT documented in this encounter Results * Film Library- Storage Only DX Chest (05/11/2019 12:00 AM EDT) Narrative [facility] - 05/12/2019 9:10 AM EDT This exam is auto-finalizing. It's purpose is for storage only. Gregg Eugene MD IMG FILM LIBRARY ORD ERABLES [place] documented in this encounter Visit Diagnoses Not on filedocumented in this encounter Care Teams Gunner'S Mate G Relationship Specialty Start Date End Date None None PCP - General 05/11/19 documented as of this encounter
--- OUTSIDE RECORDS SUMMARY | 2024-07-29 19:18 | XMS_ITS | Encounter Summary ---
Author Organization [facility] Address [address] [place] [address] Care Team Providers Care Medical Support Specialist Name Role Phone Unavailable Primary Care Provider Unavailabl e Encounter Details Date Type Department Care Team (Latest Contact Info) Description 09/22/2016 9:36 EST - 09/22/2016 23:59 EST Hospital Encounter [address] [address] Unknown, Provider, Discharge Disposition: Home or Self Care Social History Tobacco Use Types Packs/Day Years Used Date Smoking Tobacco: Never Assessed Sex and Gender Information Value Date Recorded Sex Assigned at Not on file Gender Identity Not on file Sexual Orientation Not on file documented as of this encounter Discharge Disposition Disposition Code Departure Means Destination Home or Self Half-Way documented in this encounter Plan of Treatment Not on file documented as of this encounter Visit Diagnoses Not on filedocumented in this encounter
--- OUTSIDE RECORDS SUMMARY | 2024-07-29 19:18 | XMS_ITS | Encounter Summary ---
Author Organization [facility] Address [facility] [place] [address] Care Team Providers Care Sales Merchandiser Name Role Phone None Primary Care Provider Unavailabl e Encounter Details Date Type Department Care Team (Late st Contact Info) Description 05/11/2019 [place] [id number] Matt Owen MD [facility] [place] [address] Social History Tobacco Use Types Packs/Day Years [...] encounter Miscellaneous Notes * Telephone Encounter - Matt Owen MD - 05/11/2019 5:10 PM EDT Telephone Triage Note Initial Contact Date: 05/11/19 Initial contact time: 5 PM Referring Provider: Dr. Ross Patient Location: [facility] Presenting Symptoms per OSH: Mr. Padron is a 48 year old man with no known CAD who presented to ED with 5 days of intermittent chest pain, both exertional and non-exertional, radiating to bilateral arms. In the past few days, CPseverity has worsened. ECG with no localizing ischemia. VS HR 73 BP 124/82, 96% RA Troponin elevate to 0.87. Plan: 48 yo M with NSTEMI. Treat for ACS with IV heparin, ASA, Plavix. Transfer [facility] [place] further management. I made the above recommendations with information provided to me over the phone and not able to interview or examine the patient myself. Matt Owen MD Press Tender [employer] Pager [phone] documented in this encounter Plan of Treatment Not on file documented as of this encounter Visit Diagnoses Not on filedocumented in this encounter Care Teams Sales Merchandiser Relationship Specialty Start Date End Date None None PCP - General 05/11/19 documented as of this encounter
--- OUTSIDE RECORDS SUMMARY | 2024-07-29 19:18 | XMS_ITS | Encounter Summary ---
Author Organization [facility] Address [facility] [address] Care Team Providers Care Manager Placement Name Role Phone None Primary Care Provider Unavailabl e Encounter Details Date Type Department Care Team (Late st Contact Info) Description 05/11/2019 External Results [place] [address] Social History Tobacco Use Types Packs/Day Years [...] Date/Time Associated Diagnosis Comments ECG SCAN Routine 05/11/2019 documented in this encounter Results * Scan Doc: ECG (05/11/2019) Historical Provider MD WHITAKER MGR SCAN EX T ORDR/RSLT documented in this encounter Visit Diagnoses Not on filedocumented in this encounter Care Teams Manager Placement Relationship Specialty Start Date End Date None None PCP - General 05/11/19 documented as of this encounter
--- OUTSIDE RECORDS SUMMARY | 2024-07-29 19:18 | XMS_ITS | Encounter Summary ---
Author Organization [facility] Address [address] [place] [address] Care Team Providers Care Porcelain Enamel Laborer Name Role Phone Unknown, Provider Primary Care Provider [phone] Encounter Details Date Type Department Care Team (Late st Contact Info) Description 10/12/2022 Lab Requisition [facility] [address] [place] [address] Haylie De La Rosa PA-C [address] [facility] [place] [address] Anemia, unspecified; Other primary thrombophilia (HCC-CMS); Presence of prosthetic heart valve Social History Tobacco Use Types Packs/Day Years [...] Procedure Name Priority Date/Time Associated Diagnosis Comments PROTIME Today 10/12/2022 14:00 EST Anemia, unspecified Other primary thrombophilia (HCC) Presence of prosthetic heart valve FOLATE Today 10/12/2022 14:00 EST Anemia, unspecified Other primary thrombophilia (HCC) Presence of prosthetic heart valve FERRITIN Today 10/12/2022 14:00 EST Anemia, unspecified Other primary thrombophilia (HCC) Presence of prosthetic heart valve VITAMIN B12 Today 10/12/2022 14:00 EST Anemia, unspecified Other primary thrombophilia (HCC) Presence of prosthetic heart valve documented in this encounter Results * PROTIME (10/12/2022 14:00 EST) Blood VENOUS BLOOD / Unknown 10/12/2022 14:00 EST 10/12/2022 15:[address] [facility] - 10/14/2022 13:46 EST Results entered into wrong patient account. ??Testing edited and credited. ?? Haylie AYALA-Mary Jane HEMATOLOGY & PF4 ORDERABLES Performing Organization Address [facility] Co de Phone Number [facility] [address] [place] [phone] * VITAMIN B12 (10/12/2022 14:00 EST) Blood VENOUS BLOOD / Unknown 10/12/2022 14:00 EST 10/12/2022 15:[address] [facility] - 10/14/2022 13:45 EST Results entered into wrong patient account. ??Testing edited and credited. ?? Haylie AYALA-C CHEMISTRY & BLOO D GAS ORDERABLES Performing Organization Address [facility] Co de Phone Number [facility] [address] [place] [phone] * FOLATE (10/12/2022 14:00 EST) Blood VENOUS BLOOD / Unknown 10/12/2022 14:00 EST 10/12/2022 15:[address] [facility] - 10/14/2022 13:44 EST Results entered into wrong patient account. ??Testing edited and credited. ?? Haylie De La Rosa PA-C CHEMISTRY & BLOO D GAS ORDERABLES Performing Organization Address City/[facility]/ZIP Co de Phone Number [facility] [address] [place] [address] * FERRITIN (10/12/2022 14:00 EST) Blood VENOUS BLOOD / Unknown 10/12/2022 14:00 EST 10/12/2022 15:[address] [facility] - 10/14/2022 13:44 EST Results entered into wrong patient account. ??Testing edited and credited. ?? Haylie De La Rosa PA-C CHEMISTRY & BLOO D GAS ORDERABLES Performing Organization Address City/State/[facility] Co de Phone Number 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
[2024-07-29] MEDS: Erythromycin Ophth Oint 3.5 GM TUBE OD (19:28)
== END 2024-07-29 19:31 | disposition home or self-care (01) ==
PROVIDERS: Emergency Provider Nurse Practitioner Family; PCP Nurse Practitioner Family
DX: S05.02XA Injury of conjunctiva and corneal abrasion without foreign body, left eye, initial encounter (principal); X58.XXXA Exposure to other specified factors, initial encounter
CPT/HCPCS: 99283; 99284

== ENCOUNTER 2024-10-16 11:33 | Emergency (ER) | payer MEDICAID, SELFPAY ==
[2024-10-16] VITALS (26 sets, daily range): BP systolic 128–171; BP diastolic 85–107; PULSE 53–76; RESP 8–21; TEMP 36.9; O2SAT 95–100
--- NOTE | 2024-10-16 11:30 | RT.EKG_ITS ---
APPROVED REPORT Exam: Resting ECG Reason for Exam: Chest Patient Location: E HR:69 bpm ECG Measurements Heart Rate 69 AXIS GA 155 P 38 QRSd 96 QRS 0 QT 386 T 16 QTc 413 Conclusion Sinus rhythm...normal P axis, V-rate 60- 99 ST elev, probable normal early repol pattern...ST elevation, age<55 Narrow complex normal sinus rhythm at a rate of 69. Normal axis. Intervals within normal limits. S T segment elevation in lead V2 more pronounced compared to prior. No ST segment depressions. Persis tent T wave inversion in lead III. No acute injury pattern.
--- NOTE | 2024-10-16 11:46 | W.ED.GENAD ---
Discharge Plan Disposition Patient Disposition: Home Discharge Details Clinical Impression: Chest pain, unspecified Primary Care Provider: EZEKIEL TURNER ED Provider: Jose Orozco Home Meds and New Rx's Prescriptions: Continued pantoprazole 40 mg Tablet,Delayed Release (Dr/Ec) 40 mg PO DAILY sertraline 100 mg Tablet 100 mg PO DAILY aspirin 81 mg Tablet,Chewable 81 mg PO DAILY nitroglycerin 0.6 mg Tablet, Sublingual 0.4 mg sublingual PRN PRN atorvastatin 80 mg tablet 80 mg PO DAILY Discharge Instructions Additional Instructions: You were seen in the emergency department for your chest pain. Your blood work showed no sign of heart attack. As we discussed if you pass out develop worsening chest pain or any chest pain associated with sweating please return to the emergency department. Otherwise please follow-up next week with your primary care provider. HPI General Date/Time Provider Initiated Documentation: 10/16/24 11:46. HPI Narrative: MDM This is an overall well-appearing normothermic and not tachycardic 54-year-old male with chest pain concerning for the possibility of ACS for which he will receive troponin testing. No pain out of proportion to suggest necrotizing soft tissue infection. ECG not meeting STEMI nor VALERIE criteria so no indication for TNK. No tearing quality to suggest dissection. No shortness of breath tachycardia nor hypoxia to suggest PE. No trauma to suggest pneumothorax. No rash to chest to suggest zoster. No history of emesis nor ethanol abuse my suspicion is low for pancreatitis. No cough or fever to suggest pneumonia. No positional component to suggest pericarditis. Not a dialysis patient to suggest increased risk for tamponade. Patient took 81 mg of aspirin this morning so we will treat with 243 mg of aspirin and add nitroglycerin. 2:05 PM Repeat troponin with reassuring delta. Patient reassuring repeat ECG. We discussed that he should return to the ED if he chest pain associated with diaphoresis if he passed out or if he had any other concerns. Otherwise advised PCP follow-up next week. He understood his return indications and was discharged with an empiric trial of expectant outpatient management. He had no persistent chest pain. Chronic conditions affecting the care of the patient: Coronary artery disease History obtained from an outside historian: N/A External record review: [facility] [place] Diagnostic interpretations performed by me: Per my independent interpretation chest x-ray shows: Per my independent interpretation EKG shows: Narrow complex normal sinus rhythm at a rate of 69. Normal axis. Intervals within normal limits. ST segment elevation in lead V2 more pronounced compared to prior. No ST segment depressions. Persistent T wave inversion in lead III. No acute injury pattern. Repeat ECG showing narrow complex sinus bradycardia at a rate of 59. Intervals within normal limits. Normal axis. Persistent T wave inversion in lead III. No acute injury pattern. Appears similar to prior dated earlier today. ]Medications: Aspirin nitro Social determinants of health affecting disposition: N/A Management discussed with: N/A Treatment/interventions considered: N/A Response to therapies provided: N/A HPI This is is a 54-year-old male with history of coronary artery disease status post stent 5 years ago [facility] [place] to the emergency department via private vehicle in the setting of chest pain. Patient reports that last week he has intermittently had a heavy central feeling of chest that radiates into his left arm after exerting himself. No recent fevers. No recent falls. No history of dialysis. No recent nausea nor vomiting. No rash to chest. No routine smoking the patient does chew tobacco. Denies routine ethanol. Exam General: Well-appearing in no acute distress speaking in complete sentences. Head: Normocephalic, atraumatic. Eye: Extraocular eye movements intact. No conjunctival injection. No scleral icterus. Ear, nose, mouth, throat: Grossly normal inspection. Normal voice, handling secretions normally. Neck: Trachea midline. Cardiovascular: Well-perfused distal extremities. Regular rate and rhythm Respiratory: Nonlabored respiration. Clear lungs bilaterally. Gastrointestinal: Nondistended abdomen. Soft nontender. Musculoskeletal: No edema. Moving all 4 extremities spontaneously. Skin: Normal for age and race, grossly normal temperature and turgor. No acute rash. Neurologic: Alert and appropriate, no apparent acute deficits. Psychiatric: Mood and manner are appropriate. Grooming and personal hygiene are appropriate. Related Data Home Medications ?Medication ?Instructions ?Recorded ?Confirmed aspirin 81 mg chewable tablet 81 mg PO DAILY 05/19/19 10/16/24 nitroglycerin 0.6 mg sublingual 0.4 mg sublingual PRN PRN 05/19/19 10/16/24 tablet pantoprazole 40 mg tablet,delayed 40 mg PO DAILY 05/19/19 10/16/24 release sertraline 100 mg tablet 100 mg PO DAILY 05/19/19 10/16/24 atorvastatin 80 mg tablet 80 mg PO DAILY 11/12/23 10/16/24 Allergies Allergy/AdvReac Type Severity Reaction Status Date / Time No Known Allergies Allergy Verified 09/04/24 11:38 General Stated Complaint: Chest Pain BECCA: 3 Course Vital Signs Vital signs: Vital Signs Temperature 36.9 C 10/16/24 11:36 Pulse 76 10/16/24 11:36 Respiratory Rate 15 10/16/24 11:36 Blood Pressure 146/99 H 10/16/24 11:36 Pulse Oximetry 95 10/16/24 11:36 Temperature 36.9 C 10/16/24 11:36 Temperature Source Oral 10/16/24 11:36 Pulse 76 10/16/24 11:36 Respiratory Rate 15 10/16/24 11:36 Respiratory Effort Normal 10/16/24 11:42 Blood Pressure 146/99 H 10/16/24 11:36 Pulse Oximetry 95 10/16/24 11:36 Oxygen Delivery Method Room Air 10/16/24 11:36 Oxygen Flow Rate 0 10/16/24 11:36 Medical Decision Making Quality:SDOH Health Related Social Needs: No Data to Display PFSH All Active Problems (Updated 10/16/24 @ 14:07 by Jose Orozco MD) Chest pain, unspecified (Acute) Hyperplastic colon polyp (Acute ~12/31/22) HTN (hypertension) (Chronic) CAD (coronary artery disease) (Chronic) Chewing tobacco use (Acute) Hyperlipidemia (Acute) Chest discomfort (Acute) Pleuritic pain (Acute) Non-healing wound (Acute) Screening for colon cancer (Acute) Medical History Plantar fasciitis, left Depression GERD (gastroesophageal reflux disease) Status post left heart catheterization (LHC) (~05/2019) NSTEMI (non-ST elevated myocardial infarction) 2019 Surgical History History of colonoscopy with polypectomy (~12/31/22) Hx of esophagogastroduodenoscopy Stented coronary artery (~05/2019) LCX, total occlusion Family History Paternal Uncle Colon cancer Social History Smoking/Tobacco Use Status: Current every day Tobacco Type: smokeless tobacco Smoking risk assessment performed?: Yes Alcohol Intake: current Alcohol Intake frequency: holidays/special occasions only Substance use type: does not use Current gender identity: male Do you feel safe at home: Yes Do you feel safe in your relationship?: Yes PAWSS Have you Been Recently Intoxicated or Drunk Within the Last 30 days?: No Have you Ever Experienced Previous Episodes of Alcohol Withdrawal?: No Have you ever Experienced Withdrawal Seizures?: No Have you ever Experienced Delirium Tremens(DT)s?: No Have you ever undergone Alcohol Rehabilitation Treatment (i.e, inpt ot outpatient treatment programs)?: No Have you ever Experienced Blackouts?: No Have you ever Combined Alcohol with other Downers within the last 90 days?: No Have you ever Combined Alcohol with any other Substance of Abuse during the last 90 days?: No Positive Blood Alcohol level on Presentation? [PCS.BAL]: No Evidence of Increased Autonomic Activity (i.e. HR>120, tremor, sweating, agitation, nausea)?: No Result: 0
[2024-10-16] MEDS: Aspirin 81 MG CHEW 243 MG CH (11:59)
[2024-10-16 12:16] LABS: Abs Immature Grans 0.04 10^3/uL (0.0-0.06); Absolute Basophil Count 0.08 10^3/uL (0.0-0.2); Absolute Eosinophil Count 0.18 10^3/uL (0.0-0.7); Absolute Lymphocyte Count 2.14 10^3/uL (1.2-3.4); Absolute Monocyte Count 0.49 10^3/uL (0.1-0.8); Absolute Neutrophil Count 3.27 10^3/uL (1.2-6.7); Basophils % 1.3 %; Eosinophils % 2.9 %; HCT 39.3 % (40.0-50.0); HGB 14.5 g/dL (13.5-17.5); Immature Grans % 0.6 %; Lymphocytes % 34.5 %; MCH 33.1 pg (27.0-33.0); MCHC 36.9 % (32.0-36.0); MCV 90 fL (80-95); Monocytes % 7.9 %; Neutrophils % 52.8 %; RBC 4.38 10^6/uL (4.36-5.78); RDW 13.2 % (11.8-14.1); RDW-SD 43.8 fL
--- NOTE | 2024-10-16 12:17 | DI.RAD_ITS ---
Exam(s) XR PORTABLE CHEST AP EXAM: XR PORTABLE CHEST AP CLINICAL HISTORY: Chest pain. TECHNIQUE: 2D digital imaging was performed. COMPARISON: CR,XR XR CHEST 2V PA LATERAL from 05/12/2021 FINDINGS: Single AP portable view. Heart size is upper normal. The mediastinum is not widened. Lungs are clear. No infiltrates nor obvious pleural effusions. IMPRESSION: No acute pulmonary findings on this single AP portable view of the chest. DATA REPOSITORY: RADIATION DOSE DELIVERED:
[2024-10-16 12:22] LABS: Diff Comment PLT Morph Reviewed; RBC Morphology Normal
[2024-10-16 12:57] LABS: Platelet Count 186 10^3/uL (130-400)
[2024-10-16 13:07] LABS: ALT 26 U/L (16-63); AST 20 U/L (15-37); Albumin 3.8 g/dL (3.4-5.0); Alkaline Phosphatase 86 U/L (46-116); Anion Gap 6.7 mmol/L (3-11); BUN 13 mg/dL (7-18); Bilirubin, Total 0.74 mg/dL (0.2-1.0); CO2 29.3 mmol/L (21.0-32.0); Calcium 8.8 mg/dL (8.5-10.1); Chloride 106 mmol/L (98-107); Glucose 99 mg/dL (74-106); Lipase 47 U/L (<78); Potassium 4.2 mmol/L (3.5-5.1); Sodium 142 mmol/L (136-145); Total Protein 7.2 g/dL (6.4-8.2); Troponin I 10 ng/L (<or=76)
--- NOTE | 2024-10-16 13:15 | RT.EKG_ITS ---
APPROVED REPORT Exam: Resting ECG Reason for Exam: Chest pain Patient Location: E HR:59 bpm ECG Measurements Heart Rate 59 AXIS [place] 164 P 30 QRSd 96 QRS -1 QT 426 T 8 QTc 421 Conclusion Sinus bradycardia...rate< 60 Repeat ECG showing narrow complex sinus bradycardia at a rate of 59. Intervals within normal limits. Normal axis. Persistent T wave inversion in lead III. No acute injury pattern. Appears similar t o prior dated earlier today.
[2024-10-16 14:00] LABS: Troponin I 7 ng/L (<or=76)
--- NOTE | 2024-10-17 13:18 | W.ED.FU ---
Date of service: 10/17/24 Time of Service: 13:18 Follow Up Plan: I called patient this afternoon to inquire as to how he was feeling. Unfortunately he did not answer but I was able to leave a voicemail. I advised him to return to the ED if he develops recurrent chest pain passed out or developed any diaphoresis with the chest pain. Otherwise advised PCP follow-up.
--- NOTE | 2024-10-23 15:33 | W.ED.FU ---
Date of service: 10/23/24 Time of Service: 15:34 Follow Up Plan: I called the patient by phone to inquire as to how he was feeling. He reported feeling improved. He had seen his PCP since his ED visit. Patient felt as it he may have pulled a muscle. I advised that if his pain worsened, was associated with diaphoresis or radiated into his arm that he should return to the ED.
== END 2024-10-16 14:18 | disposition home or self-care (01) ==
PROVIDERS: Emergency Provider Emergency Medicine; PCP Nurse Practitioner Family
DX: R07.9 Chest pain, unspecified (principal); R00.1 Bradycardia, unspecified; I25.10 Atherosclerotic heart disease of native coronary artery without angina pectoris; I25.2 Old myocardial infarction; I10 Essential (primary) hypertension; E78.5 Hyperlipidemia, unspecified; F17.290 Nicotine dependence, other tobacco product, uncomplicated; Z95.5 Presence of coronary angioplasty implant and graft; Z79.82 Long term (current) use of aspirin
CPT/HCPCS: 36415; 80053; 83690; 93005; 99285; 71045; 83735; 84484; 85025; 93010; 99284